=== PATIENT | male | born 1960 | race Caucasian/White ===

== ENCOUNTER 2016-09-14 11:02 | Inpatient (IN) | payer MEDICAID ==
[2016-09-14 12:27] LABS: % IMMATURE GRANULYOCYTES 0.4 % (0.0-1.1); ABSOLUTE IMMATURE GRANULOCYTES 0.03 10^3/uL (0.00-0.10); ADD DIFF? NO; ADD MORPH? NO; ADD SCAN? NO; ATYPICAL LYMPHOCYTE FLAG 30 (0-99); FRAGMENT RBC FLAG 0 (0-99); HEMATOCRIT 33.2 % (40.0-51.0); HEMOGLOBIN 11.4 g/dL (13.7-17.5); LEFT SHIFT FLG 20 (0-99); LIPEMIA HEMOLYSIS FLAG 90 (0-99); MEAN CELL HEMOGLOBIN 32.4 pg (27.9-34.1); MEAN CELL HEMOGLOBIN CONCENTR. 34.3 g/dL (32.4-36.7); MEAN CELL VOLUME 94.3 fL (81.5-99.8); MEAN PLATELET VOLUME 9.2 fL (8.7-11.7); PLATELET CLUMPS FLAG 0 (0-99); PLATELET COUNT 176 10^3/uL (150-400); RED BLOOD CELL COUNT 3.52 10^6/uL (4.40-6.38); RED CELL DISTRIBUTION WIDTH 14.3 % (11.5-15.2)
[2016-09-14] MEDS ORDERED: NS 1,000 ML IV ONE ×2 (12:28)
[2016-09-14] MEDS ORDERED: LORazepam 2 MG/ML INJ IVP ONE (12:28)
--- NOTE | 2016-09-14 12:30 | EDPHY ---
H & P Stated Complaint: pain and infection right leg Source: Patient Exam Limitations: No limitations - Personal History Current Tetanus Diphtheria and Acellular Pertussis (TDAP): Unsure - Medical/Surgical History Hx Asthma: No Hx Chronic Respiratory Disease: No Hx Diabetes: No Hx Cardiac Disease: No Hx Renal Disease: No Hx Cirrhosis: No Hx Alcoholism: Yes Hx HIV/AIDS: No Hx Splenectomy or Spleen Trauma: No Other PMH: PMHx: alcoholism, bowel infection, ivda,heroine abuse,ptsd. PSHx: bowel surgery "a couple years ago." - Social History Smoking Status: Current every day smoker Drug Use: Marijuana Time Seen by Provider: 09/14/16 11:40 HPI/ROS: CHIEF COMPLAINT: right leg complaint HISTORY OF PRESENT ILLNESS: 56-year-old male presents to the emergency department complaining of increasing right leg pain, redness and swelling over the past 3 days. The patient was seen and treated for a cellulitis in his right lower extremity back in May and again in June with hospital admission. The patient reports he was sent home with antibiotics, the redness resolved, he has had continued mild swelling in this right lower leg. 3 days ago he developed increased pain, redness and swelling. He reports subjective fevers and chills. The patient is homeless, he drinks alcohol daily, 1-1.5 pints per day. Last drink was 6 hours ago, 0.5 pint. He reports a history of alcohol withdrawals, denies seizures though reports tremors. REVIEW OF SYSTEMS: A comprehensive 10 point review of systems is otherwise negative aside from elements mentioned in the history of present illness. (Lise Brambila) - Physical Exam Exam: Physical Exam Gen: Alert and Oriented HEENT: PERRL, dry mucous membranes NECK: no meningismus CV: Tachycardic rate and regular rhythm PULM: CTAB, no wheezes ABDOMEN: soft, non tender to palpation, BS present BACK: No CVA tenderness NEURO: Neurologically grossly intact, mild tongue fasciculations, mild hand tremors EXTREMITIES: Right lower leg with circumferential erythema, swelling, tenderness and warmth, multiple scars from wounds, scab to right lateral lower calf, no fluctuance, no lymphangitic streaking SKIN: See above PSYCH: answers questions appropriately. (Lise Brambila) Constitutional: Initial Vital Signs Temperature (C) 37 C 09/14/16 11:08 Heart Rate 114 H 09/14/16 11:08 Respiratory Rate 16 09/14/16 11:08 Blood Pressure 118/89 H 09/14/16 11:08 O2 Sat (%) 94 09/14/16 11:08 O2 Delivery Mode Room Air Allergies/Adverse Reactions: No Known Allergies Allergy (Unverified 05/02/16 23:58) Home Medications: Medication Instructions Recorded NK [No Known Home Meds] 09/14/16 Medical Decision Making ED Course/Re-evaluation: IV established, CBC, chemistry panel, blood cultures, lactic acid, right lower extremity ultrasound obtained. 2 L of normal saline has been ordered. The patient has a heart rate of 115 a temperature of 37.5degrees, he is mildly tremulous. CIWA has been ordered, 1 mg of lorazepam ordered along with 1 g of vancomycin IV. CBC shows an normal white blood cell count, he is afebrile lactate is 1.7. Blood cultures are pending. Patient has been admitted to the hospitalist for IV antibiotics and continued management of his cellulitis. (Lise Brambila) Other Provider: The patient was evaluated and managed by the Physician Library Serials Assistant/ Nurse Practitioner. I discussed the patient's presentation and course with the midlevel provider with them and agree with the evaluation. My co-signature indicates that I have reviewed this chart and I agree with the findings and plan of care as documented. I am the secondary supervising physician. (Maryjane Reyna) - Data Points Laboratory Results: Laboratory Results 09/14/16 12:18 09/14/16 12:18 09/14/16 12:18 WBC 7.07 10^3/uL (3.80-9.50) RBC 3.52 L 10^6/uL (4.40-6.38) Hgb 11.4 L g/dL (13.7-17.5) Hct 33.2 L % (40.0-51.0) MCV 94.3 fL (81.5-99.8) MCH 32.4 pg (27.9-34.1) MCHC 34.3 g/dL (32.4-36.7) RDW 14.3 % (11.5-15.2) Plt Count 176 10^3/uL (150-400) MPV 9.2 fL (8.7-11.7) Neut % (Auto) 72.1 % (39.3-74.2) Lymph % (Auto) 14.9 L % (15.0-45.0) [place] % (Auto) 11.6 % (4.5-13.0) Eos % (Auto) 0.7 % (0.6-7.6) Baso % (Auto) 0.3 % (0.3-1.7) Nucleat RBC Rel Count 0.0 % (0.0-0.2) Absolute Neuts (auto) 5.10 10^3/uL (1.70-6.50) Absolute Lymphs (auto) 1.05 10^3/uL (1.00-3.00) Absolute Monos (auto) 0.82 H 10^3/uL (0.30-0.80) Absolute Eos (auto) 0.05 10^3/uL (0.03-0.40) Absolute Basos (auto) 0.02 10^3/uL (0.02-0.10) Absolute Nucleated RBC 0.00 10^3/uL (0-0.01) Immature Gran % 0.4 % (0.0-1.1) Immature Gran # 0.03 10^3/uL (0.00-0.10) VBG Lactic Acid 1.7 mmol/L (0.7-2.1) Sodium 142 mEq/L (134-144) Potassium 4.2 mEq/L (3.5-5.2) Chloride 101 mEq/L (97-110) Carbon Dioxide 26 mEq/l (22-31) Anion Gap 15 mEq/L (8-16) BUN 7 mg/dL (7-23) Creatinine 0.6 L mg/dL (0.7-1.3) Estimated GFR > 60 Glucose 98 mg/dL (70-100) Calcium 8.6 mg/dL (8.5-10.4) Phosphorus 3.1 mg/dL (2.5-4.5) Magnesium 1.5 L mg/dL (1.6-2.3) Total Bilirubin 0.5 mg/dL (0.1-1.4) Conjugated Bilirubin 0.3 mg/dL (0.0-0.5) Unconjugated Bilirubin 0.2 mg/dL (0.0-1.1) AST 58 IU/L (17-59) ALT 60 IU/L (21-72) Alkaline Phosphatase 98 IU/L (38-126) Total Protein 7.1 g/dL (6.3-8.2) Albumin 3.7 g/dL (3.5-5.0) Medications Given: Discontinued Medications Sodium Chloride (Ns) 1,000 mls @ 0 mls/hr IV ONCE ONE PRN Reason: Wide Open Stop: 09/14/16 12:29 Last Admin: 09/14/16 12:49 Dose: 1,000 mls Sodium Chloride (Ns) 1,000 mls @ 0 mls/hr IV ONCE ONE PRN Reason: Wide Open Stop: 09/14/16 12:29 Last Admin: 09/14/16 13:28 Dose: 1,000 mls Vancomycin/Sodium Chloride (Vancomycin 1 Gm (Premix)) 250 mls @ 250 mls/hr IV EDNOW ONE PRN Reason: Protocol Stop: 09/14/16 13:34 Last Admin: 09/14/16 13:28 Dose: 250 mls Thiamine HCl 500 mg/ Sodium (Chloride) 105 mls @ 210 mls/hr IV ONCE ONE Stop: 09/14/16 14:44 Last Admin: 09/14/16 16:49 Dose: 105 mls Magnesium Sulfate (Magnesium Sulf 2 Gm (Premix)) 50 mls @ 50 mls/hr IV ONCE ONE Stop: 09/14/16 15:46 Last Admin: 09/14/16 15:36 Dose: 50 mls Lorazepam (Ativan Injection) 1 mg IVP EDNOW ONE Stop: 09/14/16 12:29 Last Admin: 09/14/16 12:49 Dose: 1 mg Departure - Departure Disposition: [facility] Inpatient Acute Clinical Impression: Cellulitis Qualifiers: Site of cellulitis: extremity Site of cellulitis of extremity: lower extremity Laterality: right Qualifier Code: (L03.115) Cellulitis of right lower limb Alcohol withdrawal Qualifiers: Complication of substance-induced condition: uncomplicated Qualifier Code: ( F10.230) Alcohol dependence with withdrawal, uncomplicated Condition: Fair
[2016-09-14] MEDS ORDERED: VANCOMYCIN HCL/NORMAL SALINE 250 ML IV ONE (12:35)
[2016-09-14 12:39] LABS: ANION GAP 15 mEq/L (8-16); CALCIUM 8.6 mg/dL (8.5-10.4); CARBON DIOXIDE 26 mEq/l (22-31); CHLORIDE 101 mEq/L (97-110); CREATININE 0.6 mg/dL (0.7-1.3); GLOMERULAR FILTRATION RATE > 60; GLUCOSE 98 mg/dL (70-100); POTASSIUM 4.2 mEq/L (3.5-5.2); SODIUM 142 mEq/L (134-144)
[2016-09-14] MEDS ORDERED: HYDROmorphONE/DILAUDID 1 MG/ML SYR IVP PRN (12:55)
[2016-09-14] MEDS ORDERED: HYDROmorphONE/DILAUDID 1 MG/ML SYR ONE (13:08)
--- NOTE | 2016-09-14 14:06 | US ---
Venous Duplex Doppler Study of the Right Lower Extremity Clinical Indications: 56-year-old male with right lower extremity leg pain. Rule out DVT. The patien t has a prior history of reactive right groin lymph nodes and cellulitis. Technique: A high-frequency transducer was used for imaging and Doppler study of the deep veins of t he right leg from the upper calf to the groin. Pulsed Doppler and color Doppler were utilized, along with various maneuvers, to assess flow in the deep veins. Cursory evaluation of the left common femo ral vein was obtained for comparison purposes, and is normal. Comparison Exam: Right lower extremity venous Doppler ultrasound, dated July 13, 2016 which did no t reveal any evidence of clot, although there were some reactive right groin lymphadenitis observed. Findings: The deep veins of the right groin, thigh, knee, and upper calf are well-displayed, and are normally compressible. Doppler flow patterns are unremarkable. There is no evidence of deep venous thrombosis. There is normal compression of the greater saphenous vein, without superficial thrombosi s. The popliteal fossa is unremarkable. At the level of the right groin, there are some persistent en larged lymph nodes, which contain fatty nacho. The largest currently measures 3.7 x 2.2 x 1.9 cm, and on the previous study this node measured 2.9 x 1.5 x 1.2 cm. Impression: 1. There is no sonographic evidence of deep or superficial venous thrombosis in the right lower 70. 2. Persistent right groin lymphadenitis, with the dominant lymph node marginally larger than on 2015. Clinical correlation is suggested. Results were called to Lise Brambila, Nurse Practitioner. A test result has been communicated to a licensed care provider and documented in [facility], 1:58:40 PM , 09/14/2016, [facility] Message ID [id number].
[2016-09-14] MEDS ORDERED: HALOPERIDOL LACT 5 MG/ML INJ IVP PRN (14:15)
[2016-09-14] MEDS ORDERED: THIAMINE HCL 500 MG in NS 100 ML IV ONE (14:15)
[2016-09-14] MEDS ORDERED: ONDANSETRON DISINTEGRATING 4 MG TAB PO PRN (14:15)
[2016-09-14] MEDS ORDERED: ONDANSETRON 4 MG/2 ML VIAL IVP PRN (14:15)
[2016-09-14] MEDS ORDERED: LORazepam 2 MG/ML INJ IVP PRN (14:15)
[2016-09-14 14:30] LABS: MAGNESIUM 1.5 mg/dL (1.6-2.3)
[2016-09-14] MEDS ORDERED: oxyCODONE IR 5 MG TAB PO PRN (14:40)
[2016-09-14] MEDS ORDERED: MAGNESIUM SULF 2 GM/WATER 50 ML IV ONE (14:47)
[2016-09-14] MEDS ORDERED: oxyCODONE IR 5 MG TAB ONE (15:20)
[2016-09-14] MEDS: NICOTINE 14 MG/24 HR PATCH TD SCH (15:33)
[2016-09-14] MEDS: oxyCODONE IR 5 MG TAB PO PRN ×2 (15:34→22:01)
[2016-09-14 15:39] LABS: ALBUMIN 3.7 g/dL (3.5-5.0); BILIRUBIN,TOTAL 0.5 mg/dL (0.1-1.4); BILIRUBIN-CONJUGATED 0.3 mg/dL (0.0-0.5); BILIRUBIN-UNCONJUGATED 0.2 mg/dL (0.0-1.1); TOTAL PROTEIN 7.1 g/dL (6.3-8.2)
--- NOTE | 2016-09-14 15:41 | GHP ---
[f rep st] HISTORY AND PHYSICAL DATE OF ADMISSION: 09/14/2016 CHIEF COMPLAINT: Right lower extremity cellulitis, alcohol withdrawal. HISTORY OF PRESENT ILLNESS: Patient is a 56-year-old male with history of alcohol abuse, polysubstance abuse, and recurrent right lower extremity cellulitis, presenting with increased right lower extremity pain. He was hospitalized both in May and June for lower extremity cellulitis. At his last discharge, he was sent home on Keflex and said he had much improvement in the swelling and pain of his legs. He comes in now with 1 week's worth of increased swelling. He said the redness and pain that was fire-like started yesterday. He has previously branded his lower extremities with cigarettes what he calls a "spiritual branding." One of these lesions was purulent yesterday after he picked it and tried to clean it. He denies fevers, chills or sweats. No nausea, vomiting, diarrhea. No cough. No chest pain. No numbness or tingling. He is homeless. He drinks a pint of vodka daily, last drink was approximately 5 a.m. he drank a half a pint today. REVIEW OF SYSTEMS: I completed a 10-point review of systems, negative except as noted in HPI. PAST MEDICAL HISTORY: 1. Alcohol abuse. 2. Alcohol withdrawal, no seizures. 3. Recurrent right lower extremity cellulitis. 4. Thrombocytopenia. 5. Hepatitis C. 6. Homelessness. PAST SURGICAL HISTORY: Bowel surgery for some sort of infection he said, left lower extremity fracture with screws, adenoidectomy as a child. SOCIAL HISTORY: He is homeless, does not like staying in shelters. Drinks a pint of vodka daily, most recently 1/2 pint this morning at 5 a.m. Smokes less than a pack of cigarettes a day, previously a pack a day for 30 years. Smokes marijuana. Prior cocaine and heroin. States he has been clean for 7 years. FAMILY HISTORY: Mother with diabetes. Father of CT age 64. MEDICATIONS: None. ALLERGIES: No known drug allergies. PHYSICAL EXAM: VITAL SIGNS: Temperature 37.8, blood pressure 120/80, heart rate of 100, respirations 16, 97% on room air. GENERAL: Patient is disheveled , unkempt, somnolent. HEENT: Pupils are small, but round and reactive. EOMI. Dry mucous membranes. Poor dentition. No erythema or ulceration. CV: Tachy , regular rhythm. No murmurs, gallops, or rubs. LUNGS: Clear to auscultation , but diminished at bases. ABDOMEN: Surgical scar well-healed. No tenderness. Positive bowel sounds throughout. : No Pineda. MUSCULOSKELETAL : Right lower extremity with swelling and significant erythema that I have marked. He has small, round lesions from prior branding, coupled of them scabbed over, 1 with minimal purulence. He has similar round skin lesions on left lower extremity that are healed. NEURO: 2-12 intact. No focal deficits. Positive tongue fasciculations and mild tremor. PSYCH: Alert oriented x3. LABS: WBC 7.0, hemoglobin 11, hematocrit 33, platelets 176. Sodium 142, potassium 4.2, chloride 101, carbon dioxide 26, BUN 7, creatinine 0.6, anion gap 15, glucose 98. Calcium 8.6, phosphorus 3.1, magnesium 1.5. IMAGING: Ultrasound right lower extremity negative for DVT. MICROBIOLOGY: Blood culture is pending. ASSESSMENT AND PLAN: 1. Recurrent right lower extremity cellulitis: This is secondary to picking lesions over the leg. Given history of some purulence, will treat with vancomycin to cover for MRSA and strep. Blood cultures are pending. He is currently afebrile without leukocytosis. Elevate leg. 2. Alcohol withdrawal: Last drink was 5 a.m. this morning. Normally drinks a pint of vodka daily. CIWA protocol. 3. Hypomagnesium: Will replete. 4. Acute pain, secondary to cellulitis: P.r.n. oxycodone. 5. History of alcohol abuse: Patient was counseled on cessation. 6. History of polysubstance abuse: Again, currently using marijuana per his report. He is counseled on cessation. 7. Hepatitis C: Stable. 8. Homelessness: Offered resources for shelters, patient declined. 9. Tobacco abuse: Nicotine patch. 10. Diet: Regular. 11. Deep venous thrombosis prophylaxis: Lovenox. DISPOSITION: Patient warrants inpatient admission given acute alcohol withdrawal requiring benzodiazepines and IV antibiotics. /[id number]/MODL MTDD
[2016-09-14] MEDS: ENOXAPARIN 40 MG/0.4 ML SYR SC SCH (17:56)
[2016-09-14] MEDS: LORazepam 1 MG TAB PO PRN ×2 (17:59→22:01)
[2016-09-14] MEDS: VANCOMYCIN 1.25 GM in D5W 250 ML IV SCH (21:52)
[2016-09-15] MEDS: oxyCODONE IR 5 MG TAB PO PRN ×4 (02:28→21:22)
[2016-09-15] MEDS: LORazepam 1 MG TAB PO PRN ×4 (02:28→21:23)
[2016-09-15] MEDS: ACETAMINOPHEN 325 MG TAB PO PRN ×2 (04:07→21:22)
[2016-09-15 05:30] LABS: ANION GAP 8 mEq/L (8-16); CARBON DIOXIDE 23 mEq/l (22-31); CHLORIDE 103 mEq/L (97-110); CREATININE 0.6 mg/dL (0.7-1.3); GLOMERULAR FILTRATION RATE > 60; GLUCOSE 90 mg/dL (70-100); MAGNESIUM 1.8 mg/dL (1.6-2.3); POTASSIUM 4.6 mEq/L (3.5-5.2); SODIUM 134 mEq/L (134-144)
[2016-09-15] MEDS: VANCOMYCIN 1.25 GM in D5W 250 ML IV SCH ×3 (05:34→21:58)
[2016-09-15 05:50] LABS: % IMMATURE GRANULYOCYTES 0.2 % (0.0-1.1); ABSOLUTE IMMATURE GRANULOCYTES 0.01 10^3/uL (0.00-0.10); ADD DIFF? NO; ADD MORPH? NO; ADD SCAN? NO; ATYPICAL LYMPHOCYTE FLAG 70 (0-99); FRAGMENT RBC FLAG 0 (0-99); HEMATOCRIT 30.8 % (40.0-51.0); HEMOGLOBIN 10.2 g/dL (13.7-17.5); LEFT SHIFT FLG 70 (0-99); LIPEMIA HEMOLYSIS FLAG 80 (0-99); MEAN CELL HEMOGLOBIN 32.4 pg (27.9-34.1); MEAN CELL HEMOGLOBIN CONCENTR. 33.1 g/dL (32.4-36.7); MEAN CELL VOLUME 97.8 fL (81.5-99.8); MEAN PLATELET VOLUME 9.2 fL (8.7-11.7); PLATELET CLUMPS FLAG 10 (0-99); PLATELET COUNT 142 10^3/uL (150-400); RED BLOOD CELL COUNT 3.15 10^6/uL (4.40-6.38); RED CELL DISTRIBUTION WIDTH 14.4 % (11.5-15.2)
[2016-09-15] MEDS: THIAMINE HCL 500 MG in NS 100 ML IV SCH (08:07)
--- NOTE | 2016-09-15 08:52 | HOSPPROG ---
Hospitalist Progress Note Assessment/Plan: patient is a 56-year-old male who presented to the emergency room with recurrent right lower extremity cellulitis. He has a history of being hospitalized in both May for the similar symptoms. He has a history of picking at his wounds. Today is my 1st encounter with the patient. Chart reviewed. #. Recurrent right lower extremity cellulitis - patient has a history of picking at his skin - being treated with vancomycin to cover for MR assay and strep - blood cultures are pending #. pain due to cellulitis #. alcohol abuse and withdrawal - drinks a pt of vodka daily -high risk for withdrawing/ will order vodka w lunch -doubtful he will quit drinking/ - CIWA #. hypomagnesium #. hepatitis-C #. homelessness -will discuss w CM #. nicotine dependence - nicotine patch #.Plan: will discuss case with ID/ this is becoming more chronic cellulitis Subjective: Piyush is c/o right lower ext leg pain. Objective: Vital Signs Temp Pulse Resp BP Pulse Ox 36.9 C 75 18 141/80 H 97 09/15/16 08:00 09/15/16 08:00 09/15/16 08:00 09/15/16 08:00 09/15/16 08:00 Laboratory Results 09/15/16 05:31 09/15/16 05:00 09/14/16 09/15/16 09/16/16 05:59 05:59 05:59 Intake Total 2950 Output Total 700 300 Balance 2250 -300 - Physical Exam Constitutional: chronically ill appearing, unkempt Eyes: PERRL Ears, Nose, Mouth, Throat: hearing normal Cardiovascular: regular rate and rhythym Respiratory: no respiratory distress Gastrointestinal: normoactive bowel sounds Skin: warm, other (right lower ext with redness/warmth/ has small pocket size scars that are reddened) Musculoskeletal: muscular tenderness Neurologic: AAOx3 Psychiatric: not encephalopathic, anxious ICD10 Worksheet Patient Problems: Problems Problem Status Diagnosed Bacteremia Active Peritonitis Active Alcohol withdrawal Acute Cellulitis Acute Neuropathy of left radial nerve Acute Alcohol withdrawal syndrome with complication Acute Cellulitis and abscess of leg Acute Weakness of left upper extremity Acute
[2016-09-15] MEDS: NICOTINE 14 MG/24 HR PATCH TD SCH (09:43)
[2016-09-15] MEDS: ENOXAPARIN 40 MG/0.4 ML SYR SC SCH (09:43)
[2016-09-15] MEDS ORDERED: VODKA 50 ML BOTTLE PO SCH ×2 (12:00→18:00)
--- NOTE | 2016-09-15 15:32 | WOCRNPDOC ---
WOCRN Advanced Assessment Note - Skin Integrity Problem, Advanced Assess Right Lower Leg Dressing Type: Open to Air Exudate Amount: None Ofelia Wound Tissue: Erythema, Hot, Swollen Wound Bed Color: Black, [place] Wound Bed Constitution: Scab Site Measurement - Head-to-Toe Length X Width X Depth (cm): [id number] Skin Integrity Problem Comment: Cover scab with silvasorb and allevyn. Please reconsult prn.
[2016-09-16] MEDS: oxyCODONE IR 5 MG TAB PO PRN ×5 (05:08→23:19)
[2016-09-16] MEDS: ACETAMINOPHEN 325 MG TAB PO PRN (05:09)
[2016-09-16] MEDS: VANCOMYCIN 1.25 GM in D5W 250 ML IV SCH ×3 (05:09→20:19)
[2016-09-16] MEDS: LORazepam 1 MG TAB PO PRN ×4 (05:14→23:19)
[2016-09-16 05:30] LABS: % IMMATURE GRANULYOCYTES 0.4 % (0.0-1.1); ABSOLUTE IMMATURE GRANULOCYTES 0.02 10^3/uL (0.00-0.10); ADD DIFF? NO; ADD MORPH? NO; ADD SCAN? NO; ATYPICAL LYMPHOCYTE FLAG 60 (0-99); FRAGMENT RBC FLAG 0 (0-99); HEMATOCRIT 33.1 % (40.0-51.0); HEMOGLOBIN 10.9 g/dL (13.7-17.5); LEFT SHIFT FLG 30 (0-99); LIPEMIA HEMOLYSIS FLAG 80 (0-99); MEAN CELL HEMOGLOBIN 32.2 pg (27.9-34.1); MEAN CELL HEMOGLOBIN CONCENTR. 32.9 g/dL (32.4-36.7); MEAN CELL VOLUME 97.6 fL (81.5-99.8); MEAN PLATELET VOLUME 9.7 fL (8.7-11.7); PLATELET CLUMPS FLAG 0 (0-99); PLATELET COUNT 196 10^3/uL (150-400); RED BLOOD CELL COUNT 3.39 10^6/uL (4.40-6.38); RED CELL DISTRIBUTION WIDTH 13.7 % (11.5-15.2)
[2016-09-16 05:59] LABS: ANION GAP 10 mEq/L (8-16); CALCIUM 8.9 mg/dL (8.5-10.4); CARBON DIOXIDE 24 mEq/l (22-31); CHLORIDE 104 mEq/L (97-110); CREATININE 0.5 mg/dL (0.7-1.3); GLOMERULAR FILTRATION RATE > 60; GLUCOSE 98 mg/dL (70-100); POTASSIUM 4.3 mEq/L (3.5-5.2); SODIUM 138 mEq/L (134-144)
[2016-09-16] MEDS: VODKA 50 ML BOTTLE PO SCH ×2 (10:05→20:19)
[2016-09-16] MEDS: NICOTINE 14 MG/24 HR PATCH TD SCH (10:06)
[2016-09-16] MEDS: ENOXAPARIN 40 MG/0.4 ML SYR SC SCH (10:06)
[2016-09-16] MEDS: THIAMINE HCL 500 MG in NS 100 ML IV SCH (10:26)
--- NOTE | 2016-09-16 10:26 | GCON ---
[f rep st] CONSULTATION INFECTIOUS DISEASE CONSULTATION. DATE OF CONSULTATION: 09/16/2016 REFERRING PHYSICIAN: Monica Portillo NP REASON FOR CONSULTATION: Right lower extremity cellulitis. CHIEF COMPLAINT: Right lower extremity redness and pain. HISTORY OF PRESENT ILLNESS: This is a 56-year-old, male with a past medical history signif icant for alcohol abuse, polysubstance abuse, recurrent right lower extremity cellulitis, who present ed with increasing redness of the right lower extremity that started 5 days ago. He was having fever s and shaking chills as an outpatient and increasing pain, and thus came in for evaluation. He had a low-grade temperature of 37.9 on admission, tachycardic to 114. He was started on vancomycin 1.25 g q.8 hours. Blood cultures x2 sets were drawn and thus far no growth. I reviewed his previous medic al history. Back in 2011, he had infections related to MSSA and group A strep. He was recently hosp italized here in June for wound infections. No wound cultures were done at that time. Currently, he has been on a day and a half of vancomycin with improvement but still ongoing erythema involving the right lower extremity and pain. He does shows some significant improvement in the degree of swel ling of that extremity. He is afebrile. His white blood count is within normal range. On previous episodes of cellulitis he has been treated with Keflex and has showed good clinical improvement. At that time, most recently in June of 2016, he was on Ancef during hospitalization and transitioned to Keflex in the outpatient. Infectious Disease is now consulted for further evaluation. REVIEW OF SYSTEMS: GENERAL: Had some fevers and shaking chills prior to admission which have improv ed, although he does have some chronic shakes in general. HEAD: Denies any headaches. EYES: No ch miguelina in vision. ENT: No sore throat, difficulty swallowing, ear pain or ear drainage. CARDIOVASCUL AR: Denies any chest pain or rapid heartbeat. RESPIRATORY: Has some chronic intermittent shortness of breath with sputum production, but has not been increase of late. ABDOMEN: No nausea, vomiting. No abdominal pain. Intermittent loose stools versus solid stools. : No dysuria. BACK: Denies any back pain or flank pain. EXTREMITIES: He is complaining of left hip pain and sacral pain. MUS CULOSKELETAL: No other joint pains or muscle aches except for the right lower extremity pain or swel ling. SKIN: As above. Rest of 10-point review of system was essentially negative except for above. PAST MEDICAL HISTORY: Significant for history of alcohol abuse, alcohol withdrawal with no seizures, thrombocytopenia, hepatitis C, recurrent right lower extremity cellulitis, hepatitis B infectious na turally acquired with hepatitis B surface antibody positive. Last HIV check was done in June [facility] was negative. PAST SURGICAL HISTORY: Significant for bowel surgery, left lower extremity fracture with screws in p lace, and adenoidectomy as a child. ALLERGIES: No known drug allergies. SOCIAL HISTORY: He is homeless. He drinks a pint of vodka daily. He smokes less than a pack of cig arettes per day. He smokes marijuana. Prior history of illicit drug use with cocaine and heroin but none since 7 years. FAMILY HISTORY: Significant for diabetes mellitus and MD. MEDICATIONS: As per NOV. PHYSICAL EXAMINATION: VITAL SIGNS: Temperature is 36.8, pulse is 82, respiratory rate is 18, satura tion 94% on room air, blood pressure 146/96. GENERAL: He is sitting up in bed, in no acute respira tory distress. Awake, alert, oriented x3. HEENT. HEAD: Normocephalic, atraumatic. Pupils are equ al, round, reactive to light. No conjunctival injection. No petechiae noted. Oropharynx is clear. No posterior erythema or thrush. CARDIOVASCULAR: S1, S2. Regular rate and rhythm. No obvious mur murs appreciated. RESPIRATORY: Exam clear to auscultate bilaterally. No rhonchi appreciated. ABDO MEN: Positive bowel sounds in all quadrants. Soft, nontender, nondistended. Surgical scar noted in the lower midline abdomen which is well healed. EXTREMITIES: Right lower extremity edema with some wrinkling in place. MUSCULOSKELETAL: No obvious joint effusions. He does have some pain on palpat ion of the left buttock and the sacrum region. SKIN: He has right lower extremity erythema which is somewhat improved from the areas of demarcation that is still present. Some mild swelling right ove r the anterior garcia with some tenderness to palpation. He has a small half centimeter wound that is superficial with some purulent drainage noted underlying the dressing. Skin is warm on the left and right lower extremity. LABORATORY DATA: White blood cell count was 5.2, hemoglobin 10.9, platelets 196, neutrophil count 65 %. Sodium 138, potassium 4.3, chloride 104, bicarb 24, BUN 6, creatinine 0.5. LFTs within normal ra nge done 2 days ago. Vancomycin trough 11.6 yesterday evening. On previous review of records in June of 2016, he showed reactive hepatitis C antibody, reactive hepatitis B core total antibody, positive hepatitis B surface antibody, negative hepatitis B surface antigen, and a negative HIV. Blood cultures x2 sets are no growth to date. Right lower extremity ultrasound shows no DVT. ASSESSMENT: 1. Recurrent right lower extremity cellulitis with a small superficial wound. 2. Hepatitis C needs further evaluation. PLAN: The patient is currently on vancomycin and is showing some improvement. His latest wound cult ures were back from 2011, which showed MSSA and group A strep from the blood cultures as well as the wound cultures. He has most recently been responding to Ancef and Keflex therapy and has had multipl e hospitalizations this year already. We will swab the wound to further evaluate for any colonizatio n or infection related to MRSA, if not then we will continue with MSSA directive therapy. Advised hi m continued elevation of his right lower extremity. I think he would benefit from at least another 2 4 hours, possibly 48 hours of IV antibiotics and hopefully transition thereafter to oral antibiotic t herapy. After his hepatitis C, we will check a viral hepatitis C RNA level to further evaluate, as w ell as check hepatitis A antibody status as well. If he shows no immunity to hepatitis A, would magi mmend hepatitis A vaccination to be started. He will likely require further evaluation of his hepati tis C in the outpatient. Care coordinated with the hospitalist team, as well as the nurse and wound care. I thank you very much for the opportunity to care for patient in consultation. /[id number]/MODL
--- NOTE | 2016-09-16 11:32 | HOSPPROG ---
Hospitalist Progress Note Assessment/Plan: patient is a 56-year-old male who presented to the emergency room with recurrent right lower extremity cellulitis. He has a history of being hospitalized in both May & June for the similar symptoms. He has a history of picking at his wounds. Reviewed his care with Dr Marques. #. Recurrent right lower extremity cellulitis - patient has a history of picking at his skin - on vancomycin /appreciate Infectious Disease consult -wound cx sent by Dr Marques #. pain due to cellulitis #. gait instability with recent fall prior to this admission - will ask PT and OT to further evaluate #. left hip pain and left low back pain due to the fall - will get x-rays to rule out any type of fracture -trial of Lidoderm patches #. alcohol abuse and withdrawal - on CINY protocol - placed on vodka twice daily with much improvement of his symptoms - doubtful Piyush will ever quit drinking. #. hypomagnesium #. hepatitis-C #. homelessness -will discuss w CM #. nicotine dependence - nicotine patch #.Plan: get x-rays, continue IV vancomycin. Will likely be in the hospital for 1-2 more days. Subjective: Piyush is c/o left low back and left hip pain but is able to ambulate. Objective: Vital Signs Temp Pulse Resp BP Pulse Ox 36.9 C 88 20 159/92 H 94 09/16/16 11:20 09/16/16 11:20 09/16/16 11:20 09/16/16 11:20 09/16/16 11:20 Microbiology 09/16/16 09:00 Gram Stain - Final Leg - Swab Laboratory Results 09/16/16 04:50 09/16/16 04:50 09/15/16 09/16/16 09/17/16 05:59 05:59 05:59 Intake Total 2950 2055 Output Total 700 4200 400 Balance 2250 -6885 -400 - Physical Exam Constitutional: chronically ill appearing, No not in pain Eyes: PERRL, EOMI Ears, Nose, Mouth, Throat: hearing normal Cardiovascular: regular rate and rhythym, No tachycardia Respiratory: no rales or rhonchi Gastrointestinal: normoactive bowel sounds Skin: other (right garcia area with less redness and erythema today/ has ecchymosis on left upper leg area) Musculoskeletal: muscular tenderness (left low back area) Neurologic: AAOx3 Psychiatric: thought process linear, anxious ICD10 Worksheet Patient Problems: Problems Problem Status Diagnosed Bacteremia Active Peritonitis Active Alcohol withdrawal Acute Cellulitis Acute Neuropathy of left radial nerve Acute Alcohol withdrawal syndrome with complication Acute Cellulitis and abscess of leg Acute Weakness of left upper extremity Acute
[2016-09-16] MEDS: LIDOCAINE 5% 1 EA PATCH TD SCH (12:42)
--- NOTE | 2016-09-16 14:19 | DX ---
Lumbar Spine, Two Views History: Back pain post fall. Findings: L1 mild anterior wedge compression fracture. Moderate degenerative disk disease with moderate disk space narrowing at L3-L4, L4-L5, and L5-S1, wor st at L4-L5, with degenerative grade 1 anterolisthesis at L5-S1. Atherosclerotic abdominal aorta with infrarenal abdominal aortic aneurysm measuring 4.3 cm. Impression: 1. L1 mild anterior wedge compression fracture. 2. Abdominal aortic aneurysm 4.3 cm. 3. Recommend MRI lumbar spine without contrast for further evaluation. Findings and recommendations discussed with Dr. Monica Portillo at 1340 hours today.
--- NOTE | 2016-09-16 15:20 | DX ---
Left hip, 2 views History: Fall. Trauma, pain. Findings: Left femoral head and neck region demonstrate subtle cortical irregularity in the femoral n david on the oblique view, which may represent a nondisplaced femoral neck fracture. The rest of the pe lvic bones appear intact. Bilateral cam femoral head deformities noted. Mild osteoarthritis of bilate ral acetabuli, worse on the left. Impression: 1. Possible occult left femoral neck fracture. 2. Recommend CT pelvis for further evaluation.
--- NOTE | 2016-09-16 17:32 | CT ---
CT Left Hip September 16, 2016 Indication: Hip pain. Equivocal femoral neck fracture on left hip series. Technique: 1.25 mm thick helically acquired slices were obtained through the left hemipelvis. Data we re reconstructed in the axial, coronal, and sagittal planes and bone algorithm and in the axial plane and soft tissue algorithm. Dose reduction measures were utilized. Comparison: Two-view left hip series performed three hours prior. Findings: No acute femoral neck fracture. The left hip is anatomically aligned with minimal osteoarth ritis evidenced by joint space narrowing and small degenerative cysts in the femoral head. A "bump" a long the junction of the left femoral head and neck associated with the subcortical cysts is characte ristic of cam-type femoral acetabular impingement. No bone lesion or effusion. The imaged portion of the pelvis is negative. Impression: 1. No acute femoral neck fracture. 2. Cam-type femoral acetabular impingement.
[2016-09-16] MEDS: PATCH REMOVAL 1 EA PATCH TD SCH (20:19)
[2016-09-17] MEDS: LORazepam 1 MG TAB PO PRN ×4 (04:31→22:50)
[2016-09-17] MEDS: VANCOMYCIN 1.25 GM in D5W 250 ML IV SCH ×3 (04:32→20:51)
[2016-09-17] MEDS: oxyCODONE IR 5 MG TAB PO PRN ×5 (04:32→22:50)
[2016-09-17 05:52] LABS: % IMMATURE GRANULYOCYTES 0.7 % (0.0-1.1); ABSOLUTE IMMATURE GRANULOCYTES 0.03 10^3/uL (0.00-0.10); ADD DIFF? NO; ADD MORPH? NO; ADD SCAN? NO; ATYPICAL LYMPHOCYTE FLAG 70 (0-99); FRAGMENT RBC FLAG 0 (0-99); HEMATOCRIT 37.1 % (40.0-51.0); HEMOGLOBIN 12.2 g/dL (13.7-17.5); LEFT SHIFT FLG 10 (0-99); LIPEMIA HEMOLYSIS FLAG 80 (0-99); MEAN CELL HEMOGLOBIN 31.9 pg (27.9-34.1); MEAN CELL HEMOGLOBIN CONCENTR. 32.9 g/dL (32.4-36.7); MEAN CELL VOLUME 97.1 fL (81.5-99.8); MEAN PLATELET VOLUME 9.5 fL (8.7-11.7); PLATELET CLUMPS FLAG 0 (0-99); PLATELET COUNT 284 10^3/uL (150-400); RED BLOOD CELL COUNT 3.82 10^6/uL (4.40-6.38); RED CELL DISTRIBUTION WIDTH 13.4 % (11.5-15.2)
[2016-09-17 06:07] LABS: ANION GAP 13 mEq/L (8-16); CALCIUM 9.4 mg/dL (8.5-10.4); CARBON DIOXIDE 27 mEq/l (22-31); CHLORIDE 101 mEq/L (97-110); CREATININE 0.6 mg/dL (0.7-1.3); GLOMERULAR FILTRATION RATE > 60; GLUCOSE 122 mg/dL (70-100); MAGNESIUM 1.9 mg/dL (1.6-2.3); POTASSIUM 4.3 mEq/L (3.5-5.2); SODIUM 141 mEq/L (134-144)
[2016-09-17] MEDS: VODKA 50 ML BOTTLE PO SCH ×2 (08:54→20:51)
[2016-09-17] MEDS: THIAMINE HCL 100 MG TAB PO SCH (08:57)
[2016-09-17] MEDS: LIDOCAINE 5% 1 EA PATCH TD SCH ×2 (08:57→11:01)
[2016-09-17] MEDS: NICOTINE 14 MG/24 HR PATCH TD SCH (08:57)
[2016-09-17] MEDS: ENOXAPARIN 40 MG/0.4 ML SYR SC SCH (08:59)
[2016-09-17] MEDS: IBUPROFEN 200 MG TAB PO PRN ×2 (09:34→20:50)
--- NOTE | 2016-09-17 14:11 | PCMIDPN ---
Assessment/Plan: Assessment: Right lower extremity cellulitis-tender point area mid garcia just superior to and excoriation. Covered currently with vancomycin therapy and apparently improving clinically. Does not seem like there is a drainable collection at the garcia area. Will continue to treat with vancomycin and monitor for clinical improvement. Of note the patient admits to using a cigarette to purposely scar his legs in a pattern by burning the skin. Plan: 1. Continue vancomycin empirically. 2. Follow-up appearance of right lower extremity. 3. Follow up on vanc trough in 2 doses. Subjective: Patient is resting in his hospital bed. He notes that his right lower extremity seems to be somewhat improved but that tenderness in the anterior aspect is still significant. No fevers or chills. No rash. Objective: Vancomycin # 3 Vital Signs Temp Pulse Resp BP Pulse Ox 36.6 C 99 20 143/92 H 95 09/17/16 12:00 09/17/16 12:00 09/17/16 12:00 09/17/16 12:00 09/17/16 12:00 Microbiology 09/16/16 09:00 Gram Stain - Final Leg - Swab Laboratory Results 09/17/16 05:32 09/17/16 05:32 09/16/16 09/17/16 09/18/16 05:59 05:59 05:59 Intake Total 2055 2160 Output Total 4200 900 Balance -2145 1260 - Physical Exam General Appearance: WD/WN, alert, no apparent distress, non-toxic Respiratory: lungs clear, normal breath sounds, No respiratory distress Cardiac/Chest: regular rate, rhythm, No tachycardia Extremities: No non-tender, No normal inspection (Right lower extremity with dusky erythema with point tenderness in the anterior mid garcia. No fluctuance. No drainage.) Skin: normal color, warm/dry, rash (Series of lower extremity scar as an and disc pattern) ICD10 Worksheet Patient Problems: Problems Problem Status Diagnosed Bacteremia Active Peritonitis Active Alcohol withdrawal Acute Cellulitis Acute Neuropathy of left radial nerve Acute Alcohol withdrawal syndrome with complication Acute Cellulitis and abscess of leg Acute Weakness of left upper extremity Acute
--- NOTE | 2016-09-17 16:19 | HOSPPROG ---
Hospitalist Progress Note Assessment/Plan: patient is a 56-year-old male who presented to the emergency room with recurrent right lower extremity cellulitis. He has a history of being hospitalized in both May & June for the similar symptoms. He has a history of picking at his wounds. Reviewed his care with Dr Badillo. #. Recurrent right lower extremity cellulitis - patient has a history of picking at his skin and cigarette guillen - on vancomycin /appreciate Infectious Disease consult #. pain due to cellulitis #. left hip pain / has a Cam-type femoral acetabular impingement explained to patient that he does not have a hip fracture this requires supportive treatment with anti-inflammatories and physical therapy #. mild L1 compression fracture supportive care at this time/ this does not appear to be his main issue #. gait instability with recent fall prior to this admission - physical therapy occupational therapy working with him - ambulating well in the room #. alcohol abuse and withdrawal - on CIWA protocol - placed on vodka twice daily with much improvement of his symptoms - doubtful Piyush will ever quit drinking. #. hypomagnesium #. hepatitis-C - labs pending #. homelessness -will discuss w CM #. nicotine dependence - nicotine patch #.Plan: continue IV vancomycin, hopefully can go on oral medications soon. Subjective: Piyush is complaining of right lower extremity pain, left hip pain. Objective: Vital Signs Temp Pulse Resp BP Pulse Ox 37.1 C 81 18 137/84 H 95 09/17/16 15:56 09/17/16 15:56 09/17/16 15:56 09/17/16 15:56 09/17/16 15:56 Microbiology 09/16/16 09:00 Gram Stain - Final Leg - Swab Laboratory Results 09/17/16 05:32 09/17/16 05:32 09/16/16 09/17/16 09/18/16 05:59 05:59 05:59 Intake Total 2054 2160 Output Total 4200 900 Balance -2145 1260 - Physical Exam Constitutional: chronically ill appearing, unkempt, cachectic, No not in pain Eyes: PERRL Ears, Nose, Mouth, Throat: hearing normal Cardiovascular: regular rate and rhythym Respiratory: no respiratory distress Gastrointestinal: normoactive bowel sounds Skin: other ( Ecchymosis to the left upper thigh area around the hamstrings. Right lower extremity redness is dissipating has less erythema) Musculoskeletal: muscular tenderness Neurologic: AAOx3 Psychiatric: interacting appropriately, anxious ICD10 Worksheet Patient Problems: Problems Problem Status Diagnosed Bacteremia Active Peritonitis Active Alcohol withdrawal Acute Cellulitis Acute Neuropathy of left radial nerve Acute Alcohol withdrawal syndrome with complication Acute Cellulitis and abscess of leg Acute Weakness of left upper extremity Acute
[2016-09-17] MEDS: PATCH REMOVAL 1 EA PATCH TD SCH (20:27)
[2016-09-18] MEDS: VANCOMYCIN 1.25 GM in D5W 250 ML IV SCH ×2 (04:41→12:35)
[2016-09-18] MEDS: IBUPROFEN 200 MG TAB PO PRN ×3 (04:44→19:13)
[2016-09-18] MEDS: oxyCODONE IR 5 MG TAB PO PRN ×5 (04:44→22:18)
[2016-09-18] MEDS: LORazepam 1 MG TAB PO PRN ×2 (04:44→08:44)
[2016-09-18] MEDS: NICOTINE 14 MG/24 HR PATCH TD SCH (08:32)
[2016-09-18] MEDS: LIDOCAINE 5% 1 EA PATCH TD SCH ×3 (08:32→19:13)
[2016-09-18] MEDS: THIAMINE HCL 100 MG TAB PO SCH (08:33)
[2016-09-18] MEDS: ENOXAPARIN 40 MG/0.4 ML SYR SC SCH ×2 (08:33→08:38)
[2016-09-18] MEDS: VODKA 50 ML BOTTLE PO SCH ×2 (08:33→21:14)
--- NOTE | 2016-09-18 10:23 | HOSPPROG ---
Hospitalist Progress Note Assessment/Plan: Patient is a 56-year-old male who presented to the emergency room with recurrent right lower extremity cellulitis. He has a history of being hospitalized in both May & June for the similar symptoms. He has a history of picking at his wounds. Also, has hx of burning skin with cigarettes. #. Recurrent right lower extremity cellulitis - patient has a history of picking at his skin and cigarette guillen - on vancomycin /appreciate Infectious Disease consult #. pain due to cellulitis #. left hip pain / has a Cam-type femoral acetabular impingement explained to patient that he does not have a hip fracture this requires supportive treatment with anti-inflammatories and physical therapy patient is able to ambulate well in the room #. mild L1 compression fracture supportive care at this time/ this does not appear to be his main issue #. gait instability with recent fall prior to this admission - physical therapy occupational therapy working with him #. alcohol abuse and withdrawal - DC CIWA - placed on vodka twice daily with much improvement of his symptoms - doubtful Piyush will ever quit drinking. #. hypomagnesium #. hepatitis-C - labs pending #. homelessness #. Nicotine dependence - nicotine patch #.Plan: case management working for placement, continue vancomycin. Appreciate Infectious Disease involvement. Subjective: Piyush said pain is improving and is hip and leg area. Objective: Vital Signs Temp Pulse Resp BP Pulse Ox 36.9 C 73 16 118/79 95 09/18/16 04:00 09/18/16 04:00 09/18/16 04:00 09/18/16 04:00 09/18/16 04:00 Microbiology 09/16/16 09:00 Gram Stain - Final Leg - Swab Laboratory Results 09/17/16 05:32 09/17/16 05:32 09/17/16 09/18/16 09/19/16 05:59 05:59 05:59 Intake Total 2160 400 Output Total 900 550 Balance 1260 -150 - Physical Exam Constitutional: chronically ill appearing, unkempt, cachectic Eyes: PERRL Ears, Nose, Mouth, Throat: hearing normal Cardiovascular: regular rate and rhythym Respiratory: no respiratory distress Gastrointestinal: normoactive bowel sounds Skin: other ( right lower extremity cellulitis is slowly improving /pain is mainly over the upper garcia area) Musculoskeletal: generalized weakness Neurologic: AAOx3 Psychiatric: interacting appropriately, not encephalopathic ICD10 Worksheet Patient Problems: Problems Problem Status Diagnosed Bacteremia Active Peritonitis Active Alcohol withdrawal Acute Cellulitis Acute Neuropathy of left radial nerve Acute Alcohol withdrawal syndrome with complication Acute Cellulitis and abscess of leg Acute Weakness of left upper extremity Acute
[2016-09-18] MEDS: ACETAMINOPHEN 325 MG TAB PO PRN (12:43)
[2016-09-18 12:50] LABS: HCV QT RNA PCR < 1 IU/mL (<15)
--- NOTE | 2016-09-18 15:01 | PCMIDPN ---
Assessment/Plan: Assessment/Plan: * Right lower extremity cellulitis: Anterior garcia now appears to be evolving fluctuant focus. Will obtain surgical consultation to see if this can be incised and drained. Cellulitis appears stable. Culture obtained from posterior calf shows MSSA by chromagar testing. Will change vancomycin to cefazolin. * Positive hepatitis C antibody: Hepatitis C RNA undetectable. Either represents spontaneous clearance of infection versus false positive hepatitis C antibody although favor former. 09/18/16 14:54 Subjective: Patient complains of pain along right anterior garcia. No interval change in erythema. Objective: Vital Signs Temp Pulse Resp BP Pulse Ox 37.1 C 98 18 141/99 H 93 09/18/16 10:00 09/18/16 10:00 09/18/16 10:00 09/18/16 10:00 09/18/16 10:00 Microbiology 09/16/16 09:00 Gram Stain - Final Leg - Swab Laboratory Results 09/17/16 05:32 09/17/16 05:32 09/17/16 09/18/16 09/19/16 05:59 05:59 05:59 Intake Total 2160 400 Output Total 900 550 Balance 1260 -150 Vancomycin # 4 Blood cultures x2 no growth Wound culture with Staph aureus which is MSSA by chromagar testing - Physical Exam General Appearance: alert, no apparent distress EENT: pharynx normal, No scleral icterus Cardiac/Chest: regular rate, rhythm, No systolic murmur Extremities: inflammation (Right anterior garcia with area of erythema, warmth and tenderness with edema decreasing; approximately 3 cm diameter area that appears to be fluctuant anteriorly with associated tenderness) Abdomen: non-tender, No distended Skin: other (Multiple hyperpigmented scars from prior guillen) ICD10 Worksheet Patient Problems: Problems Problem Status Diagnosed Bacteremia Active Peritonitis Active Alcohol withdrawal Acute Cellulitis Acute Neuropathy of left radial nerve Acute Alcohol withdrawal syndrome with complication Acute Cellulitis and abscess of leg Acute Weakness of left upper extremity Acute
[2016-09-18] MEDS ORDERED: LIDOCAINE 1% 30 ML SDV IF ONE (15:03)
[2016-09-18] MEDS: ceFAZolin 2 GM/DEXTROSE 100 ML IV SCH ×2 (15:21→21:14)
--- NOTE | 2016-09-18 16:59 | GCON ---
[f rep st] CONSULTATION CHIEF COMPLAINT: Right lower extremity cellulitis and pain. HISTORY OF PRESENT ILLNESS: This is a 56-year-old male, admitted to the medical service since September 14. At that point in time, the patient presented with a cellulitic right lower extremity. He has subsequently been admitted and monitored, as well as started on broad-spectrum IV antibiotics. The cellulitis is improving, as well as the patient's pain. However, today on examination it was felt that the patient had developed an area of fluctuance which was not previously seen, which prompted my consultation. On meeting the patient, he said that he has been admitted multiple times in the past for both upper and lower extremity cellulitis and abscesses. He has had I and Ds multiple of his upper and lower extremities, and is familiar with the process. He is a homeless man with previous history of IV drug abuse, as well as a current history of self-mutilation, including lit cigarettes to the lower extremities. The patient states that he has had pain and redness of the lower extremity for a significant amount of time. He denies having fevers, but does endorse having some subjective chills. PAST MEDICAL HISTORY: 1. Alcohol abuse. 2. Alcohol withdrawal. 3. Recurrent right lower extremity cellulitis. 4. Thrombocytopenia. 5. Hepatitis C. 6. Homeless. PAST SURGICAL HISTORY: History of laparotomy and bowel resection for previous infection, left lower extremity fracture with screws, multiple I and Ds of upper and lower extremities for localized abscesses. SOCIAL HISTORY: Homeless. Drinks at least a pint of vodka daily. States that he has been clean with both IV drug and cocaine abuse for greater than 5 years. FAMILY HISTORY: Noncontributory. CURRENT MEDICATIONS: None. ALLERGIES: None. PHYSICAL EXAM: VITAL SIGNS: Temperature 37.1, blood pressure 141/99, heart rate 98, and he is 93% on room air. GENERAL: He is alert and oriented, in no acute distress. CV: He has regular rate and rhythm without any murmurs. LUNGS : Clear to auscultation bilaterally. ABDOMEN: Soft. He has previously well- healed scars. There is no rebound tenderness. EXTREMITIES: Both upper extremities have signs of previous I and Ds with no active cellulitis. The right lower extremity has an area of demarcation on the anterior portion of the lower leg which appears to have regressed from its previous markings. In the anterior portion of the midshin, I do appreciate a fluctuance which is significantly tender to palpation. The fluctuance measures about the size of 1 x 2 cm in greatest dimension to my examination, although it is tender to palpation. The distal pulses in the right lower extremity are intact and palpable. LABS: White blood cell count 4, H and H 12 in 37. Chemistries are unremarkable. He does have cultures taken of what appears to be the skin and are positive for Staph aureus MSSA at this point in time. ASSESSMENT AND PLAN: A 56-year-old male with recurrent right lower extremity cellulitis with abscess. I discussed the patient's diagnosis with him. He is familiar with the process. I do feel that incision and drainage would provide adequate source control, in addition allowing us to get adequate cultures of the area. I discussed the risks, benefits, and alternatives to bedside I and D , and the patient is amenable to this. I will plan to open the area up, take cultures, pack it, and wound care accordingly. /[id number]/MODL MTDD
--- NOTE | 2016-09-18 17:24 | GOP ---
[f rep st] OPERATIVE REPORT DATE OF OPERATION: 09/18/2016 SURGEON: Arnol Flores MD VP GENETIC: None. ANESTHESIA: Local consisting of 1% lidocaine. PREOPERATIVE DIAGNOSIS: Right lower extremity abscess. POSTOPERATIVE DIAGNOSIS: Right lower extremity abscess. PROCEDURE PERFORMED: Incision and drainage of right lower extremity abscess under local anesthesia. FINDINGS: About 4 cc pus evacuated from the area. Hemostasis achieved. Wound was packed. SPECIMENS: Cultures taken of purulent fluid. ESTIMATED BLOOD LOSS: 2 cc. DESCRIPTION OF PROCEDURE: Prior to beginning, a [employer] timeout was performed, af ter which the right lower extremity was prepped and draped in typical sterile fashion. I identified the area of greatest fluctuance approximately 2 x 1 cm in the anterior portion of the ri ght garcia. Using 1% lidocaine, I created a field block around the area. I then made a 2 cm longitudi nal incision across the area of greatest fluctuance, over which I obtained immediate purulent materia l. Cultures of this were taken. I then irrigated the area with 40 cc sterile saline, noting clear a ffluent and no further pus within the cavity. The cavity was then checked for hemostasis, which was noted to be good. It was then packed with a pa rtial 4x4 and a compression dressing was placed. The patient tolerated the procedure without any intraoperative complications and overall, tolerated t he procedure well. DRAINS: None. /[id number]/MODL
[2016-09-18] MEDS: PATCH REMOVAL 1 EA PATCH TD SCH (19:40)
[2016-09-19] MEDS: oxyCODONE IR 5 MG TAB PO PRN ×6 (02:17→23:06)
[2016-09-19] MEDS: IBUPROFEN 200 MG TAB PO PRN ×3 (02:17→17:49)
[2016-09-19] MEDS: ceFAZolin 2 GM/DEXTROSE 100 ML IV SCH ×3 (06:30→21:39)
[2016-09-19] MEDS: NICOTINE 14 MG/24 HR PATCH TD SCH (07:33)
[2016-09-19] MEDS: LIDOCAINE 5% 1 EA PATCH TD SCH (07:33)
[2016-09-19] MEDS: ENOXAPARIN 40 MG/0.4 ML SYR SC SCH (07:34)
[2016-09-19] MEDS: THIAMINE HCL 100 MG TAB PO SCH (07:34)
[2016-09-19] MEDS: VODKA 50 ML BOTTLE PO SCH ×2 (07:35→21:40)
--- NOTE | 2016-09-19 09:51 | PCMIDPN ---
Assessment/Plan: 1. Right lower extremity cellulitis secondary to MSSA with pretibial abscess formation status post incision and drainage: Improving status post incision and drainage, but still has significant tenderness to palpation. Unable to elevate right lower extremity secondary to back pain. Continue cefazolin as is. No new recommendations. Still needs IV antibiotics. Subjective: Tearful secondary to back pain. Feels that his right lower extremity is improving. No diarrhea. Objective: Ancef 2 g IV q.8 hours day 1. (Antibiotics day 5) T-max 37.1degrees Vital Signs Temp Pulse Resp BP Pulse Ox 36.3 C 85 16 136/92 H 96 09/19/16 07:28 09/19/16 07:28 09/19/16 07:28 09/19/16 07:28 09/19/16 07:28 Microbiology 09/16/16 09:00 Gram Stain - Final Leg - Swab Wound Culture - Final Staphylococcus Aureus 09/18/16 15:56 Gram Stain - Final Leg - Eswab Laboratory Results 09/17/16 05:32 09/17/16 05:32 09/18/16 09/19/16 09/20/16 05:59 05:59 05:59 Intake Total 400 550 Output Total 550 900 Balance -150 -350 Culture right lower extremity with 2+ MSSA HIV negative June 2016 - Physical Exam General Appearance: alert EENT: pharynx normal, No scleral icterus Respiratory: lungs clear Cardiac/Chest: regular rate, rhythm, No systolic murmur Extremities: other (Right lower extremity with approximately 3 cm vertical incision with significant gael-incisional tenderness. No longer has beet red erythema, this is more dusky in nature. No purulent drainage from the incision. The incision sits right above his tibia. Scabbed area lateral right lower extremity superior to lateral malleolus.) Skin: No rash ICD10 Worksheet Patient Problems: Problems Problem Status Diagnosed Bacteremia Active Peritonitis Active Alcohol withdrawal Acute Cellulitis Acute Neuropathy of left radial nerve Acute Alcohol withdrawal syndrome with complication Acute Cellulitis and abscess of leg Acute Weakness of left upper extremity Acute
[2016-09-19] MEDS: HYDROmorphONE/DILAUDID 2 MG TAB PO PRN ×4 (10:06→23:05)
--- NOTE | 2016-09-19 12:15 | SOAPPROG ---
SOAP Progress Note Assessment/Plan: Assessment/Plan - 56yo M POD#1 s/p RLE I&D - erythema looks about the same, maybe a little better. Pain markedly improved and he feels better, dressing minimally saturated with serosang drainage. Cx taken yesterday pending. No new sites needing drainage identified. Cont abx, await Re-Cx, wound care 09/19/16 12:14 Subjective: Pain markedly improved, feels better Objective: Vital Signs Temp Pulse Resp BP Pulse Ox 36.3 C 85 16 136/92 H 96 09/19/16 07:28 09/19/16 07:28 09/19/16 07:28 09/19/16 07:28 09/19/16 07:28 Microbiology 09/16/16 09:00 Gram Stain - Final Leg - Swab Wound Culture - Final Staphylococcus Aureus 09/18/16 15:56 Gram Stain - Final Leg - Eswab Laboratory Results 09/17/16 05:32 09/17/16 05:32 09/18/16 09/19/16 09/20/16 05:59 05:59 05:59 Intake Total 400 550 Output Total 550 900 Balance -150 -350 ICD10 Worksheet Patient Problems: Problems Problem Status Diagnosed Bacteremia Active Peritonitis Active Alcohol withdrawal Acute Cellulitis Acute Neuropathy of left radial nerve Acute Alcohol withdrawal syndrome with complication Acute Cellulitis and abscess of leg Acute Weakness of left upper extremity Acute
--- NOTE | 2016-09-19 14:25 | HOSPPROG ---
Hospitalist Progress Note Assessment/Plan: Patient is a 56-year-old male who presented to the emergency room with recurrent right lower extremity cellulitis. He has a history of being hospitalized in both May & June for the similar symptoms. He has a history of picking at his wounds. Also, has hx of burning skin with cigarettes. Is my 1st encounter with the patient, chart reviewed. #. Recurrent right lower extremity cellulitis - patient has a history of picking at his skin and cigarette guillen - on vancomycin /appreciate Infectious Disease consult -postop I and D on 09/18/2006 #. pain due to cellulitis #. left hip pain / has a Cam-type femoral acetabular impingement he does not have a hip fracture this requires supportive treatment with anti-inflammatories and physical therapy patient is able to ambulate well in the room #. mild L1 compression fracture supportive care at this time/ this does not appear to be his main issue Add Dilaudid for further pain medication #. gait instability with recent fall prior to this admission - physical therapy occupational therapy working with him #. alcohol abuse and withdrawal - placed on vodka twice daily with much improvement of his symptoms - doubtful Piyush will ever quit drinking. -titrate alcohol in anticipation for discharge to assisted facility #. hypomagnesium Replaced #. hepatitis-C - labs pending #. homelessness #. Nicotine dependence - nicotine patch #.Plan: case management working for placement, continue vancomycin. Appreciate Infectious Disease involvement. Subjective: Complaints of lower extremity pain. Does not want to get out of bed worked with therapy. Objective: Vital Signs Temp Pulse Resp BP Pulse Ox 36.3 C 85 16 136/92 H 96 09/19/16 07:28 09/19/16 07:28 09/19/16 07:28 09/19/16 07:28 09/19/16 07:28 Microbiology 09/16/16 09:00 Gram Stain - Final Leg - Swab Wound Culture - Final Staphylococcus Aureus 09/18/16 15:56 Gram Stain - Final Leg - Eswab Laboratory Results 09/17/16 05:32 09/17/16 05:32 09/18/16 09/19/16 09/20/16 05:59 05:59 05:59 Intake Total 400 550 Output Total 550 900 Balance -150 -350 - Physical Exam Constitutional: appears nourished, chronically ill appearing, uncomfortable Eyes: PERRL, anicteric sclera, EOMI Ears, Nose, Mouth, Throat: moist mucous membranes, hearing normal, ears appear normal Cardiovascular: No JVD, No tachycardia, No edema Respiratory: no respiratory distress, no rales or rhonchi, reduced air movement Gastrointestinal: normoactive bowel sounds, No tenderness, No ascites Skin: warm, abrasion, erythema Musculoskeletal: pain with ROM, muscular tenderness, generalized weakness Neurologic: AAOx3 Psychiatric: not encephalopathic, anxious, poor insight, poor judgement, poor memory ICD10 Worksheet Patient Problems: Problems Problem Status Diagnosed Bacteremia Active Peritonitis Active Alcohol withdrawal Acute Cellulitis Acute Neuropathy of left radial nerve Acute Alcohol withdrawal syndrome with complication Acute Cellulitis and abscess of leg Acute Weakness of left upper extremity Acute
[2016-09-19] MEDS: PATCH REMOVAL 1 EA PATCH TD SCH (22:09)
[2016-09-20] MEDS: oxyCODONE IR 5 MG TAB PO PRN ×5 (03:28→21:41)
[2016-09-20] MEDS: HYDROmorphONE/DILAUDID 2 MG TAB PO PRN ×5 (03:28→21:41)
[2016-09-20] MEDS: IBUPROFEN 200 MG TAB PO PRN (05:25)
[2016-09-20] MEDS: ceFAZolin 2 GM/DEXTROSE 100 ML IV SCH ×3 (05:25→16:32)
[2016-09-20] MEDS: NICOTINE 14 MG/24 HR PATCH TD SCH (05:45)
[2016-09-20] MEDS: THIAMINE HCL 100 MG TAB PO SCH (08:38)
[2016-09-20] MEDS: ENOXAPARIN 40 MG/0.4 ML SYR SC SCH (08:40)
[2016-09-20] MEDS: VODKA 50 ML BOTTLE PO SCH ×2 (08:40→21:42)
[2016-09-20] MEDS: LIDOCAINE 5% 1 EA PATCH TD SCH (08:41)
--- NOTE | 2016-09-20 08:55 | SOAPPROG ---
SOAP Progress Note Assessment/Plan: Assessment: 56yo male s/p I&D RLE PE awake comfortable RLE two small, approx 1inch wounds without fluctuance, mild erythema Plan: ok to cover with bandaids ok to shower no pending surgery at this time 09/20/16 08:51 Objective: Vital Signs Temp Pulse Resp BP Pulse Ox 37.2 C 72 20 146/96 H 97 09/20/16 08:00 09/20/16 08:00 09/20/16 08:00 09/20/16 08:00 09/20/16 08:00 Microbiology 09/18/16 15:56 Gram Stain - Final Leg - Eswab 09/16/16 09:00 Gram Stain - Final Leg - Swab Wound Culture - Final Staphylococcus Aureus Laboratory Results 09/17/16 05:32 09/17/16 05:32 09/19/16 09/20/16 09/21/16 05:59 05:59 05:59 Intake Total 550 1000 Output Total 900 Balance -350 1000 ICD10 Worksheet Patient Problems: Problems Problem Status Diagnosed Bacteremia Active Peritonitis Active Alcohol withdrawal Acute Cellulitis Acute Neuropathy of left radial nerve Acute Alcohol withdrawal syndrome with complication Acute Cellulitis and abscess of leg Acute Weakness of left upper extremity Acute
--- NOTE | 2016-09-20 13:55 | HOSPPROG ---
Hospitalist Progress Note Assessment/Plan: Patient is a 56-year-old male who presented to the emergency room with recurrent right lower extremity cellulitis. He has a history of being hospitalized in both May & June for the similar symptoms. He has a history of picking at his wounds. Also, has hx of burning skin with cigarettes. #. Recurrent right lower extremity cellulitis - patient has a history of picking at his skin and cigarette guillen - on vancomycin /appreciate Infectious Disease consult -postop I and D on 09/18/2006 #. pain due to cellulitis #. left hip pain / has a Cam-type femoral acetabular impingement he does not have a hip fracture this requires supportive treatment with anti-inflammatories and physical therapy patient is able to ambulate well in the room #. mild L1 compression fracture supportive care at this time/ this does not appear to be his main issue Add Dilaudid for further pain medication #. gait instability with recent fall prior to this admission - physical therapy occupational therapy working with him #. alcohol abuse and withdrawal - placed on vodka twice daily with much improvement of his symptoms - doubtful Piyush will ever quit drinking. -titrate alcohol in anticipation for discharge to assisted facility #. hypomagnesium Replaced #. hepatitis-C - labs pending #. homelessness #. Nicotine dependence - nicotine patch #.Plan: case management working for placement, continue vancomycin. Appreciate Infectious Disease involvement. Subjective: Up ambulating in room. Pain is better controlled today. No specific other issues. Objective: Vital Signs Temp Pulse Resp BP Pulse Ox 37.2 C 72 20 146/96 H 97 09/20/16 08:00 09/20/16 08:00 09/20/16 08:00 09/20/16 08:00 09/20/16 08:00 Microbiology 09/18/16 15:56 Gram Stain - Final Leg - Eswab 09/16/16 09:00 Gram Stain - Final Leg - Swab Wound Culture - Final Staphylococcus Aureus Laboratory Results 09/17/16 05:32 09/17/16 05:32 09/19/16 09/20/16 09/21/16 05:59 05:59 05:59 Intake Total 550 1000 Output Total 900 Balance -350 1000 - Physical Exam Constitutional: appears nourished, not in pain, chronically ill appearing Eyes: PERRL, anicteric sclera, EOMI Ears, Nose, Mouth, Throat: moist mucous membranes, hearing normal Cardiovascular: No JVD, No tachycardia, No edema Respiratory: no respiratory distress, reduced air movement Gastrointestinal: No tenderness, No ascites Skin: warm, no fluctuance Musculoskeletal: no joint effusions, generalized weakness Neurologic: AAOx3 Psychiatric: not anxious, not encephalopathic, poor insight ICD10 Worksheet Patient Problems: Problems Problem Status Diagnosed Bacteremia Active Peritonitis Active Alcohol withdrawal Acute Cellulitis Acute Neuropathy of left radial nerve Acute Alcohol withdrawal syndrome with complication Acute Cellulitis and abscess of leg Acute Weakness of left upper extremity Acute
--- NOTE | 2016-09-20 14:29 | PCMIDPN ---
Assessment/Plan: Assessment/Plan: 1. RLE cellulitis with abscess: s/p I & D (09/18/16) - Cx from I & D with ngtd - Right lateral wound cx with MSSA - Currently on directive therapy with Ancef. -Continue with extremity elevation. - Still needs IV atbx. Hopefully 1-2 days more than can transition to orals -Blood cx on admit ngtd Meds Ancef 2g q8- 09/18/16---- Subjective: Afebrile. Denies sob, abd pain or diarrhea. RLE swelling better but still present. Less tender overall. still with erytehma Objective: Vital Signs Temp Pulse Resp BP Pulse Ox 37.2 C 72 20 146/96 H 97 09/20/16 08:00 09/20/16 08:00 09/20/16 08:00 09/20/16 08:00 09/20/16 08:00 Microbiology 09/18/16 15:56 Gram Stain - Final Leg - Eswab Laboratory Results 09/17/16 05:32 09/17/16 05:32 09/19/16 09/20/16 09/21/16 05:59 05:59 05:59 Intake Total 550 1000 Output Total 900 Balance -350 1000 - Physical Exam General Appearance: alert, no apparent distress Respiratory: lungs clear Cardiac/Chest: regular rate, rhythm, systolic murmur Extremities: swelling (RLE-improving) Abdomen: normal bowel sounds, non-tender, soft, No distended Skin: erythema (RLE: still with erythema mostly concentrated to middle of leg. scabbing where previous I & d done. no drainage. scabbing of right lateral wounds as well. warmth appreciated. mildly tender.) ICD10 Worksheet Patient Problems: Problems Problem Status Diagnosed Bacteremia Active Peritonitis Active Alcohol withdrawal Acute Cellulitis Acute Neuropathy of left radial nerve Acute Alcohol withdrawal syndrome with complication Acute Cellulitis and abscess of leg Acute Weakness of left upper extremity Acute
[2016-09-20] MEDS: CEPHALEXIN 500 MG CAP PO SCH (18:07)
[2016-09-20] MEDS: PATCH REMOVAL 1 EA PATCH TD SCH (22:18)
[2016-09-21] MEDS: CEPHALEXIN 500 MG CAP PO SCH ×4 (00:40→18:30)
[2016-09-21] MEDS: oxyCODONE IR 5 MG TAB PO PRN ×4 (06:18→21:05)
[2016-09-21] MEDS: HYDROmorphONE/DILAUDID 2 MG TAB PO PRN ×4 (06:19→21:05)
[2016-09-21] MEDS: ENOXAPARIN 40 MG/0.4 ML SYR SC SCH (07:12)
[2016-09-21] MEDS: NICOTINE 14 MG/24 HR PATCH TD SCH (07:13)
[2016-09-21] MEDS: THIAMINE HCL 100 MG TAB PO SCH (07:13)
[2016-09-21] MEDS: LIDOCAINE 5% 1 EA PATCH TD SCH (07:14)
[2016-09-21] MEDS: VODKA 50 ML BOTTLE PO SCH ×2 (07:14→20:54)
--- NOTE | 2016-09-21 09:25 | SOAPPROG ---
SOAP Progress Note Assessment/Plan: Assessment: 56yo male s/p I&D RLE PE awake comfortable RLE two small, approx 1inch wounds without fluctuance, mild erythema Plan: ok to cover with bandaids ok to shower no pending surgery at this time 09/20/16 08:51 09/21/16 09:22 had some new ankle pain yesterday, anteriorly over ankle, no pain is completely gone. Has been able to walk this AM around floor without any pain PE Right Leg 2 small wounds without fluctuance or erythema, no edema, no difficulty dorsiflexion/plantarflexion right ankle Plan ok to d/c from surgical standpoint when placement set up. discussed importance of selkf care, follow-up if any pain, redness occurs. will sign off Objective: Vital Signs Temp Pulse Resp BP Pulse Ox 36.4 C 71 18 122/90 H 93 09/21/16 08:32 09/21/16 08:32 09/21/16 08:32 09/21/16 08:32 09/21/16 08:32 Microbiology 09/18/16 15:56 Gram Stain - Final Leg - Eswab Laboratory Results 09/17/16 05:32 09/17/16 05:32 09/20/16 09/21/16 09/22/16 05:59 05:59 05:59 Intake Total 1000 Balance 1000 ICD10 Worksheet Patient Problems: Problems Problem Status Diagnosed Bacteremia Active Peritonitis Active Alcohol withdrawal Acute Cellulitis Acute Neuropathy of left radial nerve Acute Alcohol withdrawal syndrome with complication Acute Cellulitis and abscess of leg Acute Weakness of left upper extremity Acute
--- NOTE | 2016-09-21 12:37 | HOSPPROG ---
Hospitalist Progress Note Assessment/Plan: Patient is a 56-year-old male who presented to the emergency room with recurrent right lower extremity cellulitis. He has a history of being hospitalized in both May & June for the similar symptoms. He has a history of picking at his wounds. Also, has hx of burning skin with cigarettes. #. Recurrent right lower extremity cellulitis - patient has a history of picking at his skin and cigarette guillen - on vancomycin /appreciate Infectious Disease consult -postop I and D on 09/18/2006 #. pain due to cellulitis #. left hip pain / has a Cam-type femoral acetabular impingement he does not have a hip fracture this requires supportive treatment with anti-inflammatories and physical therapy patient is able to ambulate well in the room #. mild L1 compression fracture supportive care at this time/ this does not appear to be his main issue Add Dilaudid for further pain medication #. gait instability with recent fall prior to this admission - physical therapy occupational therapy working with him #. alcohol abuse and withdrawal - placed on vodka twice daily with much improvement of his symptoms - doubtful Piyush will ever quit drinking. -titrate alcohol in [facility] #. hypomagnesium Replaced #. hepatitis-C - labs pending #. homelessness #. Nicotine dependence - nicotine patch #.Plan: case management working for placement. Appreciate Infectious Disease involvement On oral antibiotic Can DC to sniff when case management arranges Subjective: Feeling fine today. No complaints. Objective: Vital Signs Temp Pulse Resp BP Pulse Ox 36.4 C 71 18 122/90 H 93 09/21/16 08:32 09/21/16 08:32 09/21/16 08:32 09/21/16 08:32 09/21/16 08:32 Microbiology 09/18/16 15:56 Gram Stain - Final Leg - Eswab Laboratory Results 09/17/16 05:32 09/17/16 05:32 09/20/16 09/21/16 09/22/16 05:59 05:59 05:59 Intake Total 1000 Balance 1000 - Physical Exam Constitutional: no apparent distress, appears nourished Eyes: PERRL, anicteric sclera Ears, Nose, Mouth, Throat: moist mucous membranes, hearing normal Cardiovascular: No JVD, No edema Respiratory: no respiratory distress, reduced air movement Gastrointestinal: No tenderness, No ascites Skin: warm, induration Musculoskeletal: generalized weakness Neurologic: AAOx3 Psychiatric: not anxious, not encephalopathic ICD10 Worksheet Patient Problems: Problems Problem Status Diagnosed Bacteremia Active Peritonitis Active Alcohol withdrawal Acute Cellulitis Acute Neuropathy of left radial nerve Acute Alcohol withdrawal syndrome with complication Acute Cellulitis and abscess of leg Acute Weakness of left upper extremity Acute
--- NOTE | 2016-09-21 15:33 | PCMIDPN ---
Assessment/Plan: Assessment/Plan: 1. RLE cellulitis with abscess: s/p I & D (09/18/16) - Cx from I & D with ngtd - Right lateral wound cx with MSSA - Currently on directive therapy with keflex -Continue with extremity elevation.---swelling continues to improve -Blood cx on admit ngtd -transitioned to oral keflex yesterday. Continues to overall improve -will likely need 5 days more of therapy. Dc when ready per hospitalist Meds keflex 500mg q6- 09/20/16 s/p Ancef 2g q8- 09/18/16----09/20/16 s/p vanco Subjective: afebrile. feels better each day. more brawny in color. less swelling overall. denies abd pain or diarrhea. Objective: Vital Signs Temp Pulse Resp BP Pulse Ox 36.4 C 71 18 122/90 H 93 09/21/16 08:32 09/21/16 08:32 09/21/16 08:32 09/21/16 08:32 09/21/16 08:32 Microbiology 09/18/16 15:56 Gram Stain - Final Leg - Eswab Laboratory Results 09/17/16 05:32 09/17/16 05:32 09/20/16 09/21/16 09/22/16 05:59 05:59 05:59 Intake Total 1000 Balance 1000 - Physical Exam General Appearance: alert, no apparent distress Extremities: swelling (improved on RLE) Skin: erythema (improved from yesterday. scab noted on anterior garcia. less tender and warm) ICD10 Worksheet Patient Problems: Problems Problem Status Diagnosed Bacteremia Active Peritonitis Active Alcohol withdrawal Acute Cellulitis Acute Neuropathy of left radial nerve Acute Alcohol withdrawal syndrome with complication Acute Cellulitis and abscess of leg Acute Weakness of left upper extremity Acute
[2016-09-21] MEDS: PATCH REMOVAL 1 EA PATCH TD SCH (21:05)
[2016-09-22] MEDS: CEPHALEXIN 500 MG CAP PO SCH ×4 (00:16→18:29)
[2016-09-22] MEDS: HYDROmorphONE/DILAUDID 2 MG TAB PO PRN ×3 (06:12→16:04)
[2016-09-22] MEDS: oxyCODONE IR 5 MG TAB PO PRN ×4 (06:13→20:57)
[2016-09-22] MEDS: VODKA 50 ML BOTTLE PO SCH ×2 (07:59→20:57)
[2016-09-22] MEDS: THIAMINE HCL 100 MG TAB PO SCH (07:59)
[2016-09-22] MEDS: NICOTINE 14 MG/24 HR PATCH TD SCH (07:59)
[2016-09-22] MEDS: LIDOCAINE 5% 1 EA PATCH TD SCH ×2 (08:02→13:07)
[2016-09-22] MEDS: ENOXAPARIN 40 MG/0.4 ML SYR SC SCH (08:02)
[2016-09-22] MEDS: IBUPROFEN 200 MG TAB PO PRN (13:08)
--- NOTE | 2016-09-22 15:50 | HOSPPROG ---
Hospitalist Progress Note Assessment/Plan: 61 yo homeless male presenting with RLE cellulitis #. Recurrent right lower extremity cellulitis with abscess -improved significantly, now off of vanco and on keflex. Ok for discharge with outpatient f/u. #. pain due to cellulitis: prn opiates--using relatively high doses of both dilaudid and oxycodone, will work on weaning him off of these. #. left hip pain / has a Cam-type femoral acetabular impingement pt/ot, as above #. mild L1 compression fracture pain somewhat out of proportion as above, will work on weaning pain meds #. gait instability with recent fall prior to this admission - physical therapy occupational therapy working with him, if he qualifies will dc to snf #. alcohol abuse and withdrawal -not interested in quitting, continue vodka for now, weaning off #. hypomagnesium Replaced #. hepatitis-C -with viral load very low #. homelessness #. Nicotine dependence - nicotine patch Dispo: dc today or tomorrow--homeless, would like to dc to snf if possible Patient new to my care. Old records reviewed and summarized as above. Subjective: no significant overnight events, continues to have pain in his left hip, no fever or chills Objective: Vital Signs Temp Pulse Resp BP Pulse Ox 36.6 C 90 18 124/91 H 95 09/22/16 07:12 09/22/16 07:12 09/22/16 07:12 09/22/16 07:12 09/22/16 07:12 Microbiology 09/18/16 15:56 Gram Stain - Final Leg - Eswab Laboratory Results 09/17/16 05:32 09/17/16 05:32 09/21/16 09/22/16 09/23/16 05:59 05:59 05:59 Intake Total 1999 900 Balance 1999 900 awake alert nad anicteric op clear rrr no mrg ct a b soft nt nd no cce warm dry well perfused oriented appropriate - Time Spent With Patient Time Spent with Patient: greater than 35 minutes Time Spent with Patient: Greater than 35 minutes spent on this patients care, greater than 50% of time spent counseling, educating, and coordinating care regarding the above mentioned plan. ICD10 Worksheet Patient Problems: Problems Problem Status Diagnosed Bacteremia Active Peritonitis Active Alcohol withdrawal Acute Cellulitis Acute Neuropathy of left radial nerve Acute Alcohol withdrawal syndrome with complication Acute Cellulitis and abscess of leg Acute Weakness of left upper extremity Acute
[2016-09-22] MEDS: PATCH REMOVAL 1 EA PATCH TD SCH (21:50)
[2016-09-23] MEDS: CEPHALEXIN 500 MG CAP PO SCH ×4 (00:54→18:19)
[2016-09-23] MEDS: oxyCODONE IR 5 MG TAB PO PRN ×2 (00:56→07:41)
[2016-09-23] MEDS: HYDROmorphONE/DILAUDID 2 MG TAB PO PRN ×2 (02:50→07:48)
[2016-09-23] MEDS: LIDOCAINE 5% 1 EA PATCH TD SCH (07:43)
[2016-09-23] MEDS: NICOTINE 14 MG/24 HR PATCH TD SCH (07:43)
[2016-09-23] MEDS: THIAMINE HCL 100 MG TAB PO SCH (07:43)
[2016-09-23] MEDS: ENOXAPARIN 40 MG/0.4 ML SYR SC SCH ×2 (07:44→07:49)
[2016-09-23] MEDS: VODKA 50 ML BOTTLE PO SCH (07:44)
--- NOTE | 2016-09-23 10:23 | PCMIDPN ---
Assessment/Plan: Assessment/Plan: 1. RLE cellulitis with abscess: s/p I & D (09/18/16) - Cx from I & D with ngtd - Right lateral wound cx with MSSA -Blood cx on admit ngtd -Resolution of erythema. RLE no longer swollen. no drainage from incision site. nontender. -Currently on keflex. Has been on antibiotics as outlined below for total 10 days. -Given above clinical improvement, resolution, will d/c antibiotics. -ID to sign off. Please call if questions arise. -Care coordinated with hospitalist team. Meds keflex 500mg q6- 09/20/16---#10 overall s/p Ancef 2g q8- 09/18/16----09/20/16 s/p vanco 09/14-09/18/16 Subjective: Afebrile. feels well. denies pain involving RLE. no erythema. no swelling. denies abd pain or diarrhea. Objective: Vital Signs Temp Pulse Resp BP Pulse Ox 36.8 C 70 16 142/87 H 92 09/23/16 08:00 09/23/16 08:00 09/23/16 08:00 09/23/16 08:00 09/23/16 08:00 Microbiology 09/18/16 15:56 Gram Stain - Final Leg - Eswab Laboratory Results 09/17/16 05:32 09/17/16 05:32 09/22/16 09/23/16 09/24/16 05:59 05:59 05:59 Intake Total 1999 1899 Balance 1999 1899 - Physical Exam General Appearance: alert, no apparent distress Respiratory: lungs clear Cardiac/Chest: regular rate, rhythm Extremities: No swelling Abdomen: normal bowel sounds, non-tender, soft, No distended Skin: other (small incision noted. clean. no pus expressed out. nontender.), No erythema ICD10 Worksheet Patient Problems: Problems Problem Status Diagnosed Bacteremia Active Peritonitis Active Alcohol withdrawal Acute Cellulitis Acute Neuropathy of left radial nerve Acute Alcohol withdrawal syndrome with complication Acute Cellulitis and abscess of leg Acute Weakness of left upper extremity Acute
[2016-09-23] MEDS: HYDROCODONE/APAP 10/325 TAB PO PRN ×2 (12:02→18:18)
[2016-09-23] MEDS: DIAZEPAM 5 MG TAB PO PRN ×2 (12:03→18:19)
--- NOTE | 2016-09-23 16:46 | HOSPPROG ---
Hospitalist Progress Note Assessment/Plan: 61 yo homeless male presenting with RLE cellulitis #. Recurrent right lower extremity cellulitis with abscess -improved significantly, and has completed 10 days of abx so will dc abx for now #. pain due to cellulitis: prn opiates--had been using relatively high doses of both dilaudid and oxycodone, transitioning to norco today in anticipation of likely discharge tomorrow. #. left hip pain / has a Cam-type femoral acetabular impingement pt/ot, as above #. mild L1 compression fracture pain somewhat out of proportion as above, will work on weaning pain meds #. gait instability with recent fall prior to this admission - physical therapy occupational therapy working with him, if he qualifies will dc to snf #. alcohol abuse and withdrawal -not interested in quitting but also states that he does not think he will have any issues with withdrawal, getting vodka as needed # anxiety: per patient he tx's his anxiety with etoh, he thinks he could go without vodka if he got valium, trialing valium #. hypomagnesium Replaced #. hepatitis-C -with viral load very low #. homelessness #. Nicotine dependence - nicotine patch Dispo: dc in am, unfortunately not able to go to snf, will dc to [facility] Subjective: no significant overnight events, patient is feeling a bit better, ambulating better Objective: Vital Signs Temp Pulse Resp BP Pulse Ox 36.7 C 70 14 137/79 H 94 09/23/16 15:45 09/23/16 15:45 09/23/16 15:45 09/23/16 15:45 09/23/16 15:45 Microbiology 09/18/16 15:56 Gram Stain - Final Leg - Eswab Laboratory Results 09/17/16 05:32 09/17/16 05:32 09/22/16 09/23/16 09/24/16 05:59 05:59 05:59 Intake Total 1999 1900 Balance 1999 1899 awake alert nad anicteric op clear rrr no mrg ct a b soft nt nd no cce warm dry well perfused oriented appropriate - Time Spent With Patient Time Spent with Patient: greater than 35 minutes Time Spent with Patient: Greater than 35 minutes spent on this patients care, greater than 50% of time spent counseling, educating, and coordinating care regarding the above mentioned plan. ICD10 Worksheet Patient Problems: Problems Problem Status Diagnosed Bacteremia Active Peritonitis Active Alcohol withdrawal Acute Cellulitis Acute Neuropathy of left radial nerve Acute Alcohol withdrawal syndrome with complication Acute Cellulitis and abscess of leg Acute Weakness of left upper extremity Acute
[2016-09-23] MEDS: PATCH REMOVAL 1 EA PATCH TD SCH (20:41)
[2016-09-23] MEDS: VODKA 50 ML BOTTLE PO PRN (20:41)
[2016-09-24] MEDS: DIAZEPAM 5 MG TAB PO PRN ×3 (00:20→11:51)
[2016-09-24] MEDS: HYDROCODONE/APAP 10/325 TAB PO PRN ×3 (00:20→11:53)
[2016-09-24 08:26] VITALS: BP 111/97; PULSE 71; RESP 18; TEMP 98.2; O2SAT 96
--- NOTE | 2016-09-24 08:46 | HOSPPROG ---
Hospitalist Progress Note Assessment/Plan: Patient is a 56-year-old male who presented to the emergency room with recurrent right lower extremity cellulitis. He has a history of being hospitalized in both May & June for the similar symptoms. He has a history of picking at his wounds. Also, has hx of burning skin with cigarettes. #. Recurrent right lower extremity cellulitis with abscess -improved significantly, and has completed 10 days of abx #. pain due to cellulitis: prn opiates--had been using relatively high doses of both dilaudid and oxycodone, -norco and ibuprofen helping #. left hip pain / has a Cam-type femoral acetabular impingement pt/ot, as above #. mild L1 compression fracture pain somewhat out of proportion as above #. gait instability with recent fall prior to this admission - physical therapy occupational therapy working with him -ambulating well #. alcohol abuse and withdrawal -not interested in quitting but also states that he does not think he will have any issues with withdrawal, getting vodka as needed # anxiety: per patient he tx's his anxiety with etoh, he thinks he could go without vodka #. hypomagnesium Replaced #. hepatitis-C -with viral load very low #. homelessness #. Nicotine dependence - nicotine patch Dispo: dc today Subjective: Piyush has some ongoing pain to right calf area. Objective: Vital Signs Temp Pulse Resp BP Pulse Ox 36.8 C 71 18 111/97 H 96 09/24/16 08:00 09/24/16 08:00 09/24/16 08:00 09/24/16 08:00 09/24/16 08:00 Microbiology 09/18/16 15:56 Gram Stain - Final Leg - Eswab Laboratory Results 09/17/16 05:32 09/17/16 05:32 09/23/16 09/24/16 09/25/16 05:59 05:59 05:59 Intake Total 1900 Balance 190 - Physical Exam Constitutional: no apparent distress, chronically ill appearing Eyes: PERRL Ears, Nose, Mouth, Throat: hearing normal Respiratory: no respiratory distress Skin: warm, other (right lower ext with less eythema, redness since when I cared for him last week) Musculoskeletal: full muscle strength Neurologic: AAOx3 Psychiatric: interacting appropriately, not anxious ICD10 Worksheet Patient Problems: Problems Problem Status Diagnosed Bacteremia Active Peritonitis Active Alcohol withdrawal Acute Cellulitis Acute Neuropathy of left radial nerve Acute Alcohol withdrawal syndrome with complication Acute Cellulitis and abscess of leg Acute Weakness of left upper extremity Acute
[2016-09-24] MEDS: NICOTINE 14 MG/24 HR PATCH TD SCH (09:07)
[2016-09-24] MEDS: LIDOCAINE 5% 1 EA PATCH TD SCH (09:07)
[2016-09-24] MEDS: THIAMINE HCL 100 MG TAB PO SCH (09:08)
[2016-09-24] MEDS: VODKA 50 ML BOTTLE PO PRN (09:09)
[2016-09-24] MEDS: ENOXAPARIN 40 MG/0.4 ML SYR SC SCH (09:09)
--- NOTE | 2016-09-24 12:27 | GDS ---
[f rep st] DISCHARGE SUMMARY DISCHARGE DIAGNOSES: 1. Recurrent right lower extremity cellulitis with abscess. 2. Pain due to this. 3. 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 4. Mild L1 compression fracture. 5. Gait instability with recent fall. 6. Alcohol abuse and withdrawal. 7. Anxiety. 8. Hypomagnesium. 9. Hepatitis C with a low viral load. 10. Homelessness. 11. Nicotine dependence. CONSULTATIONS DURING STAY: 1. Dr. Chrissie Marques. 2. Arnol Flores of Surgical Services. BRIEF HISTORY: The patient is a 56-year-old male with history of alcohol abuse, polysubstance abuse and recurrent right lower extremity cellulitis. He presented to the emergency room with increased ri ght lower extremity pain. He was seen and evaluated by the infectious disease physicians who recomme nded to continue vancomycin. He was seen and evaluated by the surgical team and on 09/18/2016 he had an I and D of the right lower extremity. He slowly improved throughout his stay. He will be discha rged back to the group home today and further follow up with [facility]. An appointment has been a rranged for him. HOSPITAL COURSE: 1. Recurrent right lower extremity cellulitis with abscess. This is improved significantly. He has recently completed 10 days of antibiotic therapy. 2. Pain. He had been using relatively high doses of both Dilaudid and oxycodone. He will get a scr ipt for a few days of [place] and ibuprofen. 3. Left hip pain. He has a CAM type femoral acetabular impingement. This was noted on the CT scan. 4. Mild L1 compression fracture. He is ambulating well. 5. Gait instability. He is doing well after being weaned off his alcohol. He is ambulating well in the hallways. 6. Alcohol abuse and withdrawal, stable. 7. Anxiety. He says he drinks alcohol to treat this. He thinks he could go without vodka. 8. Hypomagnesium. He was on replacement. 9. Hepatitis C. Viral load is very low. 10. Homelessness. Case management was unable to find a housing situation. 11. Nicotine dependence, on a nicotine patch. PENDING LABS AND TESTS: None. CONDITION ON DISCHARGE: Stable. DISCHARGE EXAM: VITAL SIGNS: Blood pressure is 111/97, heart rate is 71, temperature is 36.8 Celsiu s, O2 sats on room air 96%. MEDICATIONS AT DISCHARGE: Please see the EMR. DISCHARGE INSTRUCTIONS: 1. To be sure to follow up with [facility]. He has an appointment on Thursday for close followup . 2. To try ibuprofen and alternate with [place] for his pain. 3. Do not drink or drive while taking narcotics. TIME SPENT: Greater than 30 minutes discharging and coordinating care. Copy requested to: Esther Taylor NP [facility] /[id number]/MODL
== END 2016-09-24 12:52 | disposition home or self-care (01) | DRG 603 ==
LOC: F3E 14:53
PROVIDERS: ADMIT Family Medicine; ATTEND Internal Medicine
PROC: HZ2ZZZZ Detoxification Services for Substance Abuse Treatment (ICD-10-PCS; 2016-09-14)
PROC: 0H9KXZZ Drainage of Right Lower Leg Skin, External Approach (ICD-10-PCS; principal; 2016-09-18)
DX: L03.115 Cellulitis of right lower limb (principal); L02.415 Cutaneous abscess of right lower limb; B95.61 Methicillin susceptible Staphylococcus aureus infection as the cause of diseases classified elsewhere; R26.9 Unspecified abnormalities of gait and mobility; M84.48XA Pathological fracture, other site, initial encounter for fracture; Z91.81 History of falling; D69.59 Other secondary thrombocytopenia; E83.42 Hypomagnesemia; M76.892 Other specified enthesopathies of left lower limb, excluding foot; F17.210 Nicotine dependence, cigarettes, uncomplicated; F10.10 Alcohol abuse, uncomplicated; Z86.19 Personal history of other infectious and parasitic diseases; I71.4 Abdominal aortic aneurysm, without rupture; Z59.0 Homelessness
CPT/HCPCS: 86708-90; 86709-90; 96365; 97112-GP; 97116-GP; 97162-GP; 97166-GO; 97530-GP; 97535-GO; J0690; J1170; J1650; J3370; J3411

== ENCOUNTER 2016-11-03 02:04 | Emergency (ER) | payer MEDICAID ==
[2016-11-03 02:13] VITALS: TEMP 98.2
[2016-11-03] MEDS ORDERED: LORazepam 2 MG/ML INJ IVP ONE ×2 (02:28→04:27)
[2016-11-03] MEDS ORDERED: NS 1,000 ML IV ONE (03:27)
--- NOTE | 2016-11-03 03:37 | EDPHY ---
H & P Stated Complaint: tailbone pain from fall 2 months ago Time Seen by Provider: 11/03/16 02:21 HPI/ROS: HPI The patient presents with pain of his lower back and coccyx which has been present for the last several weeks, however was worse today so brought him in. He had a fall several weeks ago and this is what started the pain. The pain is achy, moderate in severity. He says he has been self medicating with alcohol, last drink was at 7:00 p.m. tonight. He does have a history of alcohol withdrawal.. REVIEW OF SYSTEMS Constitutional: No fever, no chills. Eyes: No discharge. ENT: No sore throat. Cardiovascular: No chest pain, no palpitations. Respiratory: No cough, no shortness of breath. Gastrointestinal: No abdominal pain, no vomiting. Genitourinary: No hematuria. Musculoskeletal: No back pain. Skin: No rashes. Neurological: No headache. PMHx: Admission to the hospital in September for right lower extremity cellulitis , history of hepatitis-C, alcohol withdrawal, L1 compression fracture Soc Hx: Homeless, alcoholic PHYSICAL General Appearance: Alert, tremulous and anxious Eyes: Pupils equal and round no pallor or injection ENT, Mouth: Mucous membranes moist Respiratory: There are no retractions, lungs are clear to auscultation Cardiovascular: Regular rate and rhythm Gastrointestinal: Abdomen is soft and non-tender, no masses, bowel sounds normal Back: Tenderness of his lower spine and paraspinal region with tenderness over his coccyx, 5/5 strength in lower extremities which is symmetric, sensation is intact to light touch, normal gait Neurological: A&O, moves all extremities Skin: Warm and dry, no rashes Musculoskeletal: Neck is supple non tender Extremities: symmetrical, full range of motion Psychiatric: Patient is oriented X 3, there is no agitation Source: Patient - Personal History Current Tetanus/Diphtheria Vaccine: No Current Tetanus Diphtheria and Acellular Pertussis (TDAP): No - Medical/Surgical History Hx Asthma: No Hx Chronic Respiratory Disease: No Hx Diabetes: No Hx Cardiac Disease: No Hx Renal Disease: No Hx Cirrhosis: No Hx Alcoholism: Yes Hx HIV/AIDS: No Hx Splenectomy or Spleen Trauma: No Other PMH: PMHx: alcoholism, bowel infection, ivda,heroine abuse,ptsd, cellulitis. PSHx: bowel surgery "a couple years ago." - Social History Smoking Status: Current every day smoker Constitutional: Initial Vital Signs Temperature (C) 36.8 C 11/03/16 02:10 Heart Rate 146 H 11/03/16 02:10 Respiratory Rate 20 11/03/16 02:10 Blood Pressure 136/111 H 11/03/16 02:10 O2 Sat (%) 94 11/03/16 02:10 O2 Delivery Mode Room Air Allergies/Adverse Reactions: No Known Allergies Allergy (Unverified 05/02/16 23:58) Home Medications: Medication Instructions Recorded NK [No Known Home Meds] 11/03/16 Medical Decision Making - Diagnostics Imaging: CT lumbar spine Impression: 1. No definite fracture. 2. L4-L5 mild degenerative disk disease and mild disk bulge resulting in mild central canal stenosis. Discussed with Dr. Brito of Radiology Differential Diagnosis: This is a 56-year-old man who is homeless with chronic alcohol abuse who presents with lower back pain for the last several months after a fall, it became worse today after walking. On exam, he has tenderness of his lumbar spine with negative straight leg raise and no neurologic deficits. Differential diagnosis includes herniated disc, compression fracture, musculoskeletal pain. CT of lumbar spine was obtained. This showed L4-L5 DJD with disc bulge. This is likely the cause of his symptoms. Here, he was given pain medications for this. He was also very tachycardic raising suspicion for alcohol withdrawal and he was treated for this with Ativan. He is not able to go to [facility] because he has been kicked out before so he will be discharged to the street. I will give him a short course of pain medication. - Data Points Medications Given: Discontinued Medications Acetaminophen/Hydrocodone Bitart ([place] 5/325) 2 tab PO EDNOW ONE Stop: 11/03/16 04:26 Last Admin: 11/03/16 04:40 Dose: 2 tab Acetaminophen/Hydrocodone Bitart ([place] 5/325mg Prepack#6) 1 btl TAKEHOME EDNOW ONE Stop: 11/03/16 05:52 Last Admin: 11/03/16 05:53 Dose: 1 btl Sodium Chloride (Ns) 1,000 mls @ 0 mls/hr IV ONCE ONE PRN Reason: Wide Open Stop: 11/03/16 03:28 Last Admin: 11/03/16 03:50 Dose: 1,000 mls Lorazepam (Ativan Injection) 1 mg IVP EDNOW ONE Stop: 11/03/16 02:29 Last Admin: 11/03/16 03:42 Dose: 1 mg Lorazepam (Ativan Injection) 1 mg IVP EDNOW ONE Stop: 11/03/16 04:28 Last Admin: 11/03/16 04:40 Dose: 1 mg Departure - Departure Disposition: Home, Routine, Self-Care Clinical Impression: Lower back pain, Alcohol withdrawal Condition: Good Instructions: Hydrocodone/Acetaminophen (By mouth), Low Back Strain (ED) Referrals: [facility] [Outside] - As per Instructions
[2016-11-03] MEDS ORDERED: HYDROCODONE/APAP 5/325 TAB PO ONE (04:25)
[2016-11-03] MEDS ORDERED: HYDROCOD/APAP 5/325 PREPACK#6 BTL TAKEHOME ONE (05:51)
[2016-11-03 06:05] VITALS: BP 141/91; PULSE 90; RESP 18; O2SAT 96
== END 2016-11-03 06:11 | disposition home or self-care (01) ==
DX: M54.5 Low back pain (principal); F10.239 Alcohol dependence with withdrawal, unspecified; F17.200 Nicotine dependence, unspecified, uncomplicated
CPT/HCPCS: 96374

== ENCOUNTER 2016-12-12 10:45 | Emergency (ER) | payer MEDICAID ==
[2016-12-12] MEDS ORDERED: LORazepam 2 MG/ML INJ IVP ONE ×2 (10:47→13:15)
[2016-12-12] MEDS ORDERED: NS 1,000 ML IV ONE (10:48)
--- NOTE | 2016-12-12 10:49 | EDPHY ---
HPI/HX/ROS/PE/MDM Narrative: CHIEF COMPLAINT: Alcohol withdrawal HPI: The patient is a 56-year-old male with a history of alcohol abuse and multiple ER visits related to alcohol withdrawal. [facility] ambulance [facility] with complaint of worsening withdrawal symptoms the site oral Librium therapy. The patient describes extreme tremulousness and nausea. His last drink was 3 o'clock last night. He denies trauma. REVIEW OF SYSTEMS: Aside from elements discussed in the HPI, a comprehensive 10-point review of systems was reviewed and is negative. PMH: Alcoholism, history of alcohol withdrawal. SOCIAL HISTORY: Patient is homeless. He admits to recent alcohol and chronic alcohol abuse. PHYSICAL EXAM: General:Patient is alert, in no acute distress. Is quite tremulous and anxious. ENT:Eyes are normal to inspection. ENT inspection normal. Neck: Normal inspection. Full range of motion. Respiratory:No respiratory distress. Breath sounds normal bilaterally. Cardiovascular: Regular rate and rhythm. Strong peripheral pulses. Normal cap refill. Abdomen:The abdomen is nontender to palpation. There are no peritoneal signs. There are normal bowel sounds. Back: Normal to inspection. No tenderness to palpation. Skin: Normal color. No rash. Warm and dry. Extremities: Normal appearance. Full range of motion. Neuro: Oriented x3. Normal motor function. Normal sensory function. Diffuse tremulousness. MDM: This patient presents in alcohol withdrawal. He was treated with several mg of IV Ativan and given oral Librium. On re-evaluation at 1:20 p.m., the patient feels much better and is ambulatory without assistance. His tremulousness and tachycardia have largely resolved. I think he is appropriate for transfer back to the [facility]. - Data Points Medications Given: Discontinued Medications Sodium Chloride (Ns) 1,000 mls @ 0 mls/hr IV ONCE ONE PRN Reason: Wide Open Stop: 12/12/16 10:49 Last Admin: 12/12/16 11:00 Dose: 1,000 mls Lorazepam (Ativan Injection) 2 mg IVP EDNOW ONE Stop: 12/12/16 10:48 Last Admin: 12/12/16 11:10 Dose: 2 mg General Time Seen by Provider: 12/12/16 10:45 Initial Vital Signs: Initial Vital Signs Temperature (C) 37 C 12/12/16 10:45 Heart Rate 79 12/12/16 10:45 Respiratory Rate 18 12/12/16 10:45 Blood Pressure 185/112 H 12/12/16 10:45 O2 Sat (%) 96 12/12/16 10:45 O2 Delivery Mode Room Air Allergies/Adverse Reactions: No Known Allergies Allergy (Unverified 05/02/16 23:58) Home Medications: Medication Instructions Recorded NK [No Known Home Meds] 11/03/16 Departure - Departure Disposition: Home, Routine, Self-Care Clinical Impression: Alcohol withdrawal Condition: Good Instructions: Chlordiazepoxide (By mouth), Alcohol Withdrawal (ED) Referrals: NONE *PRIMARY CARE P,. [Primary Care Provider] - As per Instructions
[2016-12-12 12:23] VITALS: RESP 16
[2016-12-12] MEDS ORDERED: chlordiazePOXIDE 25 MG CAP PO ONE (13:15)
[2016-12-12] MEDS ORDERED: CHLORDIAZEPOXIDE 25MG PREPK#6 BTL TAKEHOME ONE ×2 (13:56)
[2016-12-12 14:31] VITALS: BP 161/105; PULSE 84; TEMP 99; O2SAT 98
== END 2016-12-12 14:20 | disposition home or self-care (01) ==
LOC: EDUNIT#
DX: F10.239 Alcohol dependence with withdrawal, unspecified (principal)
CPT/HCPCS: 96374; J2060

== ENCOUNTER 2016-12-14 10:13 | Emergency (ER) | payer MEDICAID ==
[2016-12-14 10:19] VITALS: TEMP 98.2
[2016-12-14] MEDS ORDERED: LORazepam 1 MG TAB PO ONE (10:23)
[2016-12-14] MEDS ORDERED: LORazepam 1 MG TAB ONE (10:24)
--- NOTE | 2016-12-14 10:25 | EDPHY ---
HPI/HX/ROS/PE/MDM Narrative: CHIEF COMPLAINT: Tremulousness, headache HPI: The patient is a homeless 56 y/o male arriving via EMS from the [facility] complaining of tremulousness and a headache. He has 7 previous visits in the last year for complaints related to alcohol withdrawal and cellulitis and was last evaluated here 3 days ago. He was discharged in good condition with a Librium prescription to the [facility] and has been residing there until this morning. He now complains of tremulousness and a several month-long intermittent headache. He denies seeking treatment for this headache elsewhere or trying any [id number] remedies for it. REVIEW OF SYSTEMS: Aside from elements discussed in the HPI, a comprehensive 10-point review of systems was reviewed and is negative. PMH: Alcoholism, IV drug abuse, unknown bowel surgery SOCIAL HISTORY: Homeless, chronic alcohol abuse, smoker Prior medical records reviewed including ED visit on 12/12/16 for the same complaint and admission 05/26/16 for leg pain and alcohol withdrawal. PHYSICAL EXAM: General:Patient is alert, in no acute distress. Unkempt. ENT:Eyes are normal to inspection. ENT inspection normal. Neck: Normal inspection. Full range of motion. Respiratory:No respiratory distress. Breath sounds normal bilaterally. Cardiovascular: Regular rate and rhythm. Strong peripheral pulses. Normal cap refill. Abdomen:The abdomen is nontender to palpation. There are no peritoneal signs. There are normal bowel sounds. Back: Normal to inspection. No tenderness to palpation. Skin: Normal color. No rash. Warm and dry. Extremities: Normal appearance. Full range of motion. Neuro: Oriented x3. Normal motor function. Normal sensory function. Mildly tremulous. ED Course: This is a homeless 56 y/o male who is a chronic alcoholic and returns to the ED for the second time in 3 days complaining of tremors related to alcohol abuse and a several month-history of a vague headache. He has been residing at the [facility] since his previous discharge. He has mild tremors on exam without focal neuro deficits. Plan for symptom management and head CT to rule out acute intracranial process. 1mg PO Ativan administered. Study: CT of the Head Indication: headache Results: CT scan of the head was obtained. The results of the study are nothing acute, no change since previous. Cerebellar atrophy and Dandy-Walker malformation. The study was read by the radiologist, Dr. Herrera. I viewed the images myself on the PACS system. 1103: Consulted with Dr. Pablo, neurology, regarding patient's abnormal chronic findings on CT. He states there are no acute interventions and the patient can follow up with him as an outpatient. I discussed this plan with the patient. He is comfortable with this plan. Return precautions given. MDM: This patient presents with self-reported symptoms of alcohol withdrawal but was just released from the [facility] for the same. I suspect some of his tremulousness is either intentionally exaggerated or perhaps baseline, as he appears almost identical to when I see him in the ED several days ago. He complains of headache which he states is the reason why he drinks, so a CTH was performed which is negative for acute process. The patient would benefit from neurology follow-up and I have given him a referral, but somewhat doubt he will follow- through. I see no sign of emergent condition at this time. - Data Points Medications Given: Discontinued Medications Lorazepam (Ativan) 2 mg PO EDNOW ONE Stop: 12/14/16 10:24 Last Admin: 12/14/16 10:27 Dose: 2 mg General Time Seen by Provider: 12/14/16 10:17 Initial Vital Signs: Initial Vital Signs Temperature (C) 36.8 C 12/14/16 10:18 Heart Rate 90 12/14/16 10:18 Respiratory Rate 16 12/14/16 10:18 Blood Pressure 170/100 H 12/14/16 10:18 O2 Sat (%) 99 12/14/16 10:18 O2 Delivery Mode Room Air Allergies/Adverse Reactions: No Known Allergies Allergy (Unverified 05/02/16 23:58) Home Medications: Medication Instructions Recorded NK [No Known Home Meds] 11/03/16 Departure - Departure Disposition: Home, Routine, Self-Care Clinical Impression: Alcohol withdrawal, Headache Condition: Good Instructions: Alcohol Withdrawal (ED), General Headache (ED) Additional Instructions: Follow up with [facility] or neurologist this week. Avoid abusing alcohol. Follow up with the [facility] if you seek to detox. Referrals: [facility] [Outside] - As per Instructions [facility],. [Clinic] - As per Instructions Patient,NotPresent [Primary Care Provider] - As per Instructions Buzz Pablo MD [Medical Doctor] - As per Instructions Report Scribed for: Max Hatfield Report Scribed by: Alecia Sequeira Date of Report: 12/14/16 Time of Report: 10:26 Physician Review and Approval Statement: Portions of this note were transcribed by an ED scribe. I personally performed the history, physical exam, and medical decision making; and confirm the accuracy of the information in the transcribed note.
[2016-12-14 11:14] VITALS: BP 152/104; PULSE 82; RESP 18; O2SAT 97
== END 2016-12-14 11:14 | disposition home or self-care (01) ==
LOC: EDUNIT#
DX: R51 Headache (principal); F10.239 Alcohol dependence with withdrawal, unspecified

== ENCOUNTER 2016-12-27 19:04 | Emergency (ER) | payer MEDICAID ==
[2016-12-27 19:14] VITALS: BP 150/104; PULSE 80; RESP 16; TEMP 97.5; O2SAT 98
--- NOTE | 2016-12-27 19:24 | EDPHY ---
H & P Stated Complaint: ETOH HPI/ROS: CHIEF COMPLAINT: intoxication HISTORY OF PRESENT ILLNESS: Patient is a 56-year-old alcoholic homeless man who was found "unresponsive" outside of the [facility]. He is well known to our department. He admits to drinking alcohol but denies other injuries or illness. He was not able to ambulate on scene. REVIEW OF SYSTEMS: Unable to obtain secondary to condition Physical Exam General Appearance: WD/WN, no apparent distress, obtunded (But arousable with painful stimulation) EENT: PERRL/EOMI, normal ENT inspection, TMs normal, pharynx normal Neck: non-tender, full range of motion, supple, normal inspection Respiratory: chest non-tender, lungs clear, normal breath sounds Cardiac/Chest: normal peripheral pulses, regular rate, rhythm, P Peripheral Pulses: 2+: carotid (R), carotid (L), femoral (R), femoral (L), dorsalis-pedis (R), dorsalis-pedis (L) Abdomen: normal bowel sounds, non-tender, soft Extremities: normal range of motion, non-tender, normal inspection, normal capillary refill Neurological: calm, 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 No: alert (Somnolent) Appearance: appropriate appearance, appropriate insight, neat, denies illness Behavior/Eye Contact/Speech: cooperative, decreased rate of speech Thoughts/Hallucinations: normal thought pattern, no apparent hallucination Skin: normal color, warm/dry Source: Patient, EMS Exam Limitations: No limitations - Personal History Tetanus Vaccine Date: 2015 - Medical/Surgical History Hx Asthma: No Hx Chronic Respiratory Disease: No Hx Diabetes: No Hx Cardiac Disease: No Hx Renal Disease: No Hx Cirrhosis: No Hx Alcoholism: Yes Hx HIV/AIDS: No Hx Splenectomy or Spleen Trauma: No Other PMH: PMHx: alcoholism, bowel infection, ivda,heroine abuse,ptsd, cellulitis. PSHx: bowel surgery "a couple years ago." - Family History Significant Family History: No pertinent family hx - Social History Smoking Status: Current every day smoker Alcohol Use: Heavy Drug Use: Marijuana Constitutional: Initial Vital Signs Temperature (C) 36.4 C 12/27/16 19:12 Heart Rate 80 12/27/16 19:12 Respiratory Rate 16 12/27/16 19:12 Blood Pressure 150/104 H 12/27/16 19:12 O2 Sat (%) 98 12/27/16 19:12 O2 Delivery Mode Nasal Cannula O2 (L/minute) 2 Allergies/Adverse Reactions: No Known Allergies Allergy (Unverified 05/02/16 23:58) Home Medications: Medication Instructions Recorded NK [No Known Home Meds] 11/03/16 Medical Decision Making - Diagnostics Imaging: Imaging Impressions Head CT 12/27/16 19:24 Impression: 1. No acute intracranial findings. 2. Diffuse cerebral atrophy with scattered periventricular and subcortical low attenuation consistent with chronic microvascular ischemic gliosis. 3. Additional findings as above. Findings discussed with Marcelo Ruggiero 12/27/2016 at 20:04. Results: CT scan of the head was obtained. The results of the study are negative. The study was read by Dr. Cook. I viewed the images myself on the PACS system. ED Course/Re-evaluation: Patient was getting out of bed and walking. We are going to [facility] to the [facility]. He is on a arc hold however he then fell into the wall into the ground. I will order a CT scan of his head. Head CT ordered in this adult patient for trauma for the following indication: Alcoholism and significant head impact to the floor 8:20 p.m. the patient is ambulating. He is sober enough to go to the [facility] recovery [facility] with police. I will give him a Librium prepack. Differential Diagnosis: Partial list of the Differential diagnosis considered include but were not limited to; intoxication, head injury and although unlikely based on the history and physical exam, I also considered infection, neck injury, non accidental trauma. I discussed these differential diagnoses and the plan with the patient as well as the usual and expected course. The patient understands that the diagnosis is provisional and that in medicine we are not always correct and that further workup is often warranted. Usual and customary warnings were given. All of the patient's questions were answered. The patient was instructed to return to the emergency department should the symptoms at all worsen or return, otherwise to followup with the physician as we discussed. - Data Points Medications Given: Discontinued Medications Chlordiazepoxide (Librium 25 Mg Prepack#6) 1 btl TAKEHOME EDNOW ONE Stop: 12/27/16 20:24 Last Admin: 12/27/16 20:24 Dose: 1 btl Lorazepam (Ativan 1 Mg Prepack#4) 1 btl TAKEHOME EDNOW ONE Stop: 12/27/16 20:22 Last Admin: 12/27/16 20:27 Dose: Not Given Departure - Departure Disposition: Home, Routine, Self-Care Clinical Impression: Alcoholic intoxication Qualifiers: Complication of substance-induced condition: with unspecified complication Qualified Code(s): F10.129 - Alcohol abuse with intoxication, unspecified Condition: Fair Instructions: Alcohol Intoxication (ED) Referrals: Patient,NotPresent [Unknown] - As per Instructions Nell Lambert MD [Medical Doctor] - As per Instructions
[2016-12-27] MEDS ORDERED: CHLORDIAZEPOXIDE 25MG PREPK#6 BTL TAKEHOME ONE ×2 (20:20→20:23)
[2016-12-27] MEDS ORDERED: LORAZEPAM 1 MG PREPACK#4 BTL TAKEHOME ONE (20:21)
== END 2016-12-27 20:57 | disposition home or self-care (01) ==
LOC: EDUNIT#
DX: F10.120 Alcohol abuse with intoxication, uncomplicated (principal); F17.200 Nicotine dependence, unspecified, uncomplicated

== ENCOUNTER 2017-03-01 10:14 | Emergency (ER) | payer MEDICAID ==
[2017-03-01 10:28] VITALS: BP 134/82; PULSE 92; RESP 16; TEMP 97.5; O2SAT 90
--- NOTE | 2017-03-01 10:44 | EDPHY ---
H & P Stated Complaint: fell on sidewalk after incounter with PD. slight abrasion to head. HPI/ROS: Chief complaint: Alcohol intoxication, head injury History of present illness: This is a 56-year-old male brought to the emergency department by police on an [facility] hold. Patient was found outside intoxicated. While police were attempting to talk with him he apparently fell down and struck his head against the ground. He sustained an abrasion. There was no report of loss of consciousness. No other injuries were reported. On my evaluation patient states he feels fine. He has no complaints. Review of systems: 10 point review of systems was obtained and other than described above was negative - Personal History Current Tetanus/Diphtheria Vaccine: Yes Current Tetanus Diphtheria and Acellular Pertussis (TDAP): Yes Tetanus Vaccine Date: 2015 - Medical/Surgical History Hx Asthma: No Hx Chronic Respiratory Disease: No Hx Diabetes: No Hx Cardiac Disease: No Hx Renal Disease: No Hx Cirrhosis: No Hx Alcoholism: Yes Hx HIV/AIDS: No Hx Splenectomy or Spleen Trauma: No Other PMH: PMHx: alcoholism, bowel infection, ivda,heroine abuse,ptsd, cellulitis. PSHx: bowel surgery "a couple years ago." - Social History Smoking Status: Current every day smoker - Physical Exam Exam: General Appearance: Alert, nontoxic, odor of alcohol on breath Eyes: PERRLA Respiratory: lungs clear to auscultation bilaterally Cardiac: Regular rate and rhythm. Gastrointestinal: bowel sounds normal. Abdomen is soft, nondistended, nontender. Neurological: Alert. Strength and sensation intact and symmetrical. Skin: Abrasion to the forehead. No repairable lesions. Otherwise head-to- toe examination is without evidence of acute trauma. Musculoskeletal: There is no tenderness on palpation of the head. No crepitus or bony deformity. Spine is without tenderness, crepitus or bony deformity. Chest wall intact palpation. Patient moving all extremities well. Ambulating well. Constitutional: Initial Vital Signs Temperature (C) 36.4 C 03/01/17 10:19 Heart Rate 92 03/01/17 10:19 Respiratory Rate 16 03/01/17 10:19 Blood Pressure 134/82 H 03/01/17 10:19 O2 Sat (%) 90 L 03/01/17 10:19 O2 Delivery Mode Room Air Allergies/Adverse Reactions: No Known Allergies Allergy (Unverified 05/02/16 23:58) Home Medications: Medication Instructions Recorded NK [No Known Home Meds] 11/03/16 Medical Decision Making - Diagnostics Imaging: Discussed imaging studies w/ call center recruiter Radiologist ED Course/Re-evaluation: patient seen under the supervision of my primary supervising physician Dr. Shannon Kay. Patient presents to the emergency department on are cold. He apparently fell and injured his head. Given potential intoxication CT scans are obtained and negative. By history and physical exam I do not appreciate evidence of trauma to other parts of the body. Police have been called to pick patient up in taken to the arc, however patient was able to extricate out the back door of the emergency department when it was unlocked for bystanders to go through. Security did attempt to get to him but he had run off quickly. Police were notified the patient had got away. Differential Diagnosis: Included but not limited to soft tissue injury, bony fracture, intracranial injury, spinal cord injury Departure - Departure Disposition: Other Psych, Not [facility] Clinical Impression: Alcoholic intoxication Qualifiers: Complication of substance-induced condition: uncomplicated Qualified Code(s): F10.920 - Alcohol use, unspecified with intoxication, uncomplicated Head injury Qualifiers: Encounter type: initial encounter Qualified Code(s): S09.90XA - Unspecified injury of head, initial encounter Condition: Good Instructions: Head Injury (ED), Alcohol Intoxication (ED) Additional Instructions: Follow-up with a primary care doctor for recheck You should get a tetanus shot if you are not up-to-date please do this within the next 3 days if you find out you're not up-to-date If symptoms worsen or new symptoms develop return to the emergency room for recheck Referrals: Patient,NotPresent [Unknown] - As per Instructions [facility],. [Clinic] - As per Instructions
== END 2017-03-01 12:11 ==
LOC: EDUNIT#
DX: S09.90XA Unspecified injury of head, initial encounter (principal); F10.129 Alcohol abuse with intoxication, unspecified; F17.200 Nicotine dependence, unspecified, uncomplicated; W01.198A Fall on same level from slipping, tripping and stumbling with subsequent striking against other object, initial encounter

== ENCOUNTER 2017-03-04 08:23 | Emergency (ER) | payer MEDICAID ==
[2017-03-04] MEDS ORDERED: IBUPROFEN 600 MG TAB PO ONE ×2 (08:27)
[2017-03-04] MEDS ORDERED: LORazepam 1 MG TAB PO ONE (08:27)
[2017-03-04] MEDS ORDERED: LORazepam 1 MG TAB ONE (08:27)
--- NOTE | 2017-03-04 08:28 | EDPHY ---
H & P Time Seen by Provider: 03/04/17 08:26 HPI/ROS: Chief complaint. Back pain after fall HPI. 56-year-old male presents emergency department by EMS after a fall last evening. Pain to the right posterior back. Denies head injury loss of consciousness. [facility]. He somewhat tremulous today. Denies shortness of breath. Pain right posterior back hurts to move. No neck pain. No abdominal pain vomiting diarrhea. Last drink yesterday ROS Constitutional. no fever/chills, no weakness Eyes. no problems with vision ENT. no sore throat, no nasal drainage Cardiovascular. no chest pain Respiratory. no shortness of breath, no cough Abdominal. no abdominal pain, no nausea/vomiting, no diarrhea . no problems urinating MS. Right posterior back pain Skin. no rash Lymph. no swollen glands Neuro. Tremulous Past Medical/Surgical History: Alcoholism, IVDA, PTSD, TB post treatment Social History: Single, daily smoker, no alcohol since yesterday Smoking Status: Current every day smoker Physical Exam: General Appearance: Alert well-developed male mild distress, tremulous, vital signs significant for mild tachycardia 106 Eyes: Pupils equal and round no pallor or injection. ENT, Mouth: Mucous membranes are moist. Respiratory: There are no retractions, lungs are clear to auscultation. Cardiovascular: Regular rate and rhythm. Gastrointestinal: Abdomen is soft and nontender, no masses, bowel sounds normal. Neurological: Awake and alert, sensory and motor exams grossly normal. Tremulous Skin: Warm and dry, no rashes. Musculoskeletal: Neck is supple nontender. Diffuse right-sided chest discomfort lateral scapular line T6-7 8 area. No surface trauma Extremities symmetrical, full range of motion. Psychiatric: Patient is oriented X 3, there is no agitation. Constitutional: Initial Vital Signs Temperature (C) 36.7 C 03/04/17 08:35 Heart Rate 106 H 03/04/17 08:35 Respiratory Rate 18 03/04/17 08:35 Blood Pressure 164/87 H 03/04/17 08:35 O2 Sat (%) 90 L 03/04/17 08:35 O2 Delivery Mode Room Air Allergies/Adverse Reactions: No Known Allergies Allergy (Unverified 05/02/16 23:58) Home Medications: Medication Instructions Recorded NK [No Known Home Meds] 11/03/16 Medical Decision Making - Diagnostics Imaging Results: Imaging Impressions Chest X-Ray 03/04/17 08:26 Impression: 1. Fractures involving the anterolateral right seventh and ninth ribs. 2. Small right pleural effusion, but no evidence of pneumothorax. 3. COPD. Chest x-ray reviewed by me and discussed with Dr. Tong shows nondisplaced fractures anterior right 7th and 9th ribs. No pneumothorax Procedures: Ibuprofen and Ativan orally ED Course/Re-evaluation: Re-evaluation 945--the patient and I discussed his x-ray results. We discussed treatment plan including criteria for return importance of follow-up and further evaluation. He expresses understanding and agreement Lidocaine patch is applied to the right posterior chest wall over the fractures Differential Diagnosis: I considered fracture, dislocation, pneumothorax, contusion. He has 2 nondisplaced rib fractures with out pneumothorax - Data Points Medications Given: Discontinued Medications Ibuprofen (Motrin) 600 mg PO EDNOW ONE Stop: 03/04/17 08:28 Last Admin: 03/04/17 08:34 Dose: 600 mg Lorazepam (Ativan) 1 mg PO EDNOW ONE Stop: 03/04/17 08:28 Last Admin: 03/04/17 08:34 Dose: 1 mg Departure - Departure Disposition: Home, Routine, Self-Care Clinical Impression: Rib fractures Qualifiers: Encounter type: initial encounter Rib fracture type: multiple ribs Fracture type: closed Laterality: right Qualified Code(s): S22.41XA - Multiple fractures of ribs, right side, initial encounter for closed fracture Condition: Good Instructions: Rib Fracture (ED) Additional Instructions: Use the lidocaine patches. Ibuprofen 600 mg every 6 hours. Return for worsening symptoms. Recheck at [facility] in 2 days without fail [facility] walk-in hours are afternoon 2-5 p.m. and Thursday morning 8-10 a.m.. Referrals: Patient,NotPresent [Unknown] - As per Instructions [facility] [Outside] - 2-3 days without fail
[2017-03-04 08:45] VITALS: RESP 18
[2017-03-04] MEDS ORDERED: LIDOCAINE 5% 1 EA PATCH TD ONE (09:51)
[2017-03-04 10:39] VITALS: BP 142/102; PULSE 100; TEMP 98.6; O2SAT 91
[2017-03-04] MEDS ORDERED: PATCH REMOVAL 1 EA PATCH TD SCH (21:00)
[2017-03-05] MEDS ORDERED: LIDOCAINE 5% 1 EA PATCH TD SCH (09:00)
== END 2017-03-04 10:39 | disposition home or self-care (01) ==
LOC: EDUNIT#
DX: S22.41XA Multiple fractures of ribs, right side, initial encounter for closed fracture (principal); F17.200 Nicotine dependence, unspecified, uncomplicated; W18.39XA Other fall on same level, initial encounter

== ENCOUNTER 2017-03-27 12:09 | Emergency (ER) | payer MEDICAID ==
[2017-03-27 12:29] VITALS: RESP 16; TEMP 98.2
--- NOTE | 2017-03-27 12:41 | EDPHY ---
H & P Stated Complaint: ETOH Time Seen by Provider: 03/27/17 12:35 HPI/ROS: CHIEF COMPLAINT: suspected alcohol intoxication HISTORY OF PRESENT ILLNESS: 56-year-old homeless male arrives via ambulance for suspected acute alcohol intoxication. He has no complaints of pain or discomfort. No reports of trauma. No reports of assault. He denies assault. Admits only to alcohol use. Denies suicidal or homicidal ideation. REVIEW OF SYSTEMS: A ten point review of systems was performed and is negative with the exception of the items mentioned in the HPI PAST MEDICAL & SURGICAL HISTORY: took a alcohol as SOCIAL HISTORY: homeless positive alcohol use PHYSICAL EXAM (Prior to examination, patient consented to physical exam, hands were washed and my usual and customary physical exam procedures followed) 1) GENERAL: Foul-smelling, poorly kept 2) HEAD: Normocephalic, atraumatic 3) HEENT: Pupils equal, round, reactive to light bilaterally. Sclera anicteric. No raccoon eyes no Alvarez sign. No rhinorrhea no otorrhea no hemotympanum. 4) NECK: Full range of motion, no meningeal signs. 5) LUNGS: Clear auscultation bilaterally, no wheezes, no rhonchi, no retractions. 6) HEART: Regular rate and rhythm, no murmur, no heave, no gallop. 7) ABDOMEN: No guarding, no rebound, no focal tenderness, 8) MUSCULOSKELETAL: No peripheral edema or discoloration. 9) BACK: , no visual or palpable abnormality. 10) SKIN: No rash, no petechiae. DIFFERENTIAL DIAGNOSIS: in no particular order including but not limited to acute alcohol intoxication, polysubstance abuse, trauma - Personal History Tetanus Vaccine Date: 2015 - Medical/Surgical History Hx Asthma: No Hx Chronic Respiratory Disease: No Hx Diabetes: No Hx Cardiac Disease: No Hx Renal Disease: No Hx Cirrhosis: No Hx Alcoholism: Yes Hx HIV/AIDS: No Hx Splenectomy or Spleen Trauma: No Other PMH: PMHx: alcoholism, bowel infection, ivda,heroin abuse,ptsd, cellulitis , TB with treatment. PSHx: bowel surgery "a couple years ago." - Social History Smoking Status: Current every day smoker Constitutional: Initial Vital Signs Temperature (C) 36.8 C 03/27/17 12:09 Heart Rate 110 H 03/27/17 12:09 Respiratory Rate 16 03/27/17 12:09 Blood Pressure 110/75 03/27/17 12:09 O2 Sat (%) 70 L 03/27/17 12:09 O2 Delivery Mode Room Air O2 (L/minute) 10 Allergies/Adverse Reactions: No Known Allergies Allergy (Unverified 05/02/16 23:58) Home Medications: Medication Instructions Recorded NK [No Known Home Meds] 11/03/16 Medical Decision Making ED Course/Re-evaluation: 4:30 p.m.: Patient ambulatory without assistance, alert oriented person place time events, stable steady gait, clear speech pattern. [facility]. Departure - Departure Disposition: Home, Routine, Self-Care Clinical Impression: Alcohol abuse Condition: Good Instructions: Abuse of Alcohol (ED) Referrals: [facility] [Outside] - 1 day without fail
[2017-03-27 16:56] VITALS: BP 123/93; PULSE 114; O2SAT 90
== END 2017-03-27 16:55 | disposition home or self-care (01) ==
LOC: EDUNIT#
DX: F10.10 Alcohol abuse, uncomplicated (principal); F17.200 Nicotine dependence, unspecified, uncomplicated

== ENCOUNTER 2017-04-03 17:09 | Emergency (ER) | payer MEDICAID ==
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
[2017-04-03] MEDS ORDERED: CHLORDIAZEPOXIDE 25MG PREPK#6 BTL TAKEHOME ONE (17:23)
[2017-04-03 18:32] VITALS: BP 154/111; PULSE 89; RESP 14; TEMP 98.5; O2SAT 91
== END 2017-04-03 18:31 | disposition home or self-care (01) ==
LOC: EDUNIT#
DX: F10.120 Alcohol abuse with intoxication, uncomplicated (principal); F17.200 Nicotine dependence, unspecified, uncomplicated

== ENCOUNTER 2017-06-12 21:18 | Inpatient (IN) | payer MEDICAID ==
--- NOTE | 2017-06-12 21:25 | EDPHY ---
H & P HPI/ROS: CHIEF COMPLAINT: Unresponsive, possible EtOH HISTORY OF PRESENT ILLNESS: This patient is an approximately 52 y/o unidentified male arriving via EMS found unresponsive in a commercial parking lot shortly prior to arrival. Per EMS , the patient was unresponsive to painful stimuli, was not protecting his airway , and had snoring and apneic periods. EMS placed a Miguel Airway. BP 140/palp. Pupils were PLACIDO. EMS administered 2 doses of Narcan intranasally with no changes. Crews were unable to establish an IV in transport. REVIEW OF SYSTEMS: Unobtainable due to patient presentation. - Medical/Surgical History PMH: unknown - Physical Exam Exam: General Appearance: unresponsive to painful stimuli Eyes: Pupils equal and round, 3mm, disconjugate gaze ENT, Mouth: Mucous membranes moist, miguel airway in place Neck: Normal inspection Respiratory: Lungs are clear to auscultation anteriorly Cardiovascular: Regular rate and rhythm Gastrointestinal: Abdomen is soft Back: normal inspection Neurological: unresponsive, flaccid Skin: Warm and dry, no abrasions/lacerations/other wounds Extremities: normal inspection Psychiatric: unable to determine Constitutional: Initial Vital Signs Heart Rate 98 06/12/17 21:21 Blood Pressure 173/123 H 06/12/17 21:21 O2 Sat (%) 100 06/12/17 21:21 O2 Delivery Mode Bag Valve Mask O2 (L/minute) 15 Allergies/Adverse Reactions: Unable to Assess Allergy (Unverified 06/12/17 22:49) Medical Decision Making - Diagnostics EKG Interpretation: EKG interpreted by me reveals sinus rhythm, rate 83, nonspecific intraventricular conduction delay. Imaging Results: Chest x-ray independently reviewed by me reveals ET, right IJ central line in good positioning, RLL infiltrate and no evidence of pneumothorax. Chest X-Ray 06/12/17 21:40 Impression: 1. Central venous catheter is ready to use. 2. Suspect pneumonia on the right. Procedures: 21:30 Procedure: Central line placement with ultrasound guidance. Using the linear probe covered in a sterile sheath, a short axis of the vein was obtained. The vein was completely compressible and was identified as separate from the adjacent non-compressible arterial structure. Under real-time guidance, the introducer needle was observed up to the vein, and then punctured it. Indication: Poor vascular access A time out was observed. Full maximal sterile barrier technique was used including gown, sterile gloves, large sheet, hand washing and chlorhexidine prep. The area was anesthetized with 1% lidocaine. A 7 Somali triple lumen was placed in the right internal jugular vein using standard Seldinger technique. There were no complications. Blood return low pressure, dark blood. Patient tolerated procedure well. CXR results: Appropriate line placement, and no pneumothorax. X-ray was interpreted by myself. Radiologist interpretation is pending. The procedure was performed by myself, Dr. Kay. 22:00 Procedure: Rapid sequence intubation. Indication for the procedure was airway protection. The patient was preoxygenated with 100% oxygen by [facility]. The patient was not given medications prior to intubation. He was completely unresponsive and had no gag reflex. The patient was orally endotracheally intubated under direct visualization with a 7.5 ETT. Tracheal intubation was confirmed with misting on the tube; breath sounds were auscultated equally bilaterally; appropriate color change with [employer] CO2 detector. Chest X-ray shows ETT in good position. The procedure was performed by myself, Dr. Kay. After intubation, the patient began coughing. Propofol 50 mg IV followed by propofol drip given. ED Course/Re-evaluation: 21:20 [facility] at bedside. The patient is unresponsive and is being ventilated with the Miguel airway in place. There is no IV access. His blood pressure and heart rate are normal. Oxygen saturation 100% while being bagged. Multiple attempts to obtain IV access unsuccessful. I placed a right internal jugular central line on 1st attempt. There were no complications. I then removed the Miguel airway and orally intubated the patient with a 7.5 endotracheal tube. Stat chest x-ray after intubation revealed good positioning of the endotracheal tube and central line. He was taken directly to CT scan. CT scan of the head independently reviewed by me reveals no acute hemorrhage. Alcohol level returned at 594. Respiratory failure secondary to alcohol intoxication, without evidence of acute injury. CXR with RLL infiltrate, but pt afebrile and no leukocytosis. Possible aspiration, no abx given, will observe for now. Hypotensive after starting propofol, propofol d/c'd and IVF given. BP stabilized. Pt also hypothermic, temp 34.5, suspect secondary to exposure (not sepsis), bear hugger placed. The hospitalist service was consulted for admission to ICU. Differential Diagnosis: includes though not limited to pneumonia, hypoglycemia, ICH, CVA, ACS, other intoxicants Critical Care Time: Critical care time spent by me, Dr. Kay, exclusively with this patient was 45 minutes, exclusive of PA time and exclusive of procedures. The organ system at risk: respiratory/all and I intubated the pt, placed a central line, gave IVF, applied bear hugger, admitted to ICU to prevent worsening of the patients condition. - Data Points Laboratory Results: Laboratory Results 06/12/17 22:02 06/12/17 22:02 Medications Given: Potassium Chloride/Dextrose/Sod Cl (D5w 1/2 Ns W/ 20 Kcl/L) 1,000 mls @ 100 mls /hr IV CONT RICCARDO Stop: 12/09/17 22:59 Last Admin: 06/13/17 00:56 Dose: 1,000 mls Propofol (Diprivan 10 Mg/Ml (Premix)) 100 mls @ 0 mls/hr IV CONT RICCARDO; Titrate PRN Reason: Protocol Stop: 12/09/17 22:59 Last Admin: 06/13/17 12:12 Dose: 100 mls Thiamine HCl 500 mg/ Sodium (Chloride) 105 mls @ 210 mls/hr IV DAILY RICCARDO Stop: 12/10/17 08:59 Last Admin: 06/13/17 09:38 Dose: 105 mls Pantoprazole Sodium 40 mg/ (Sodium Chloride) 100 mls @ 200 mls/hr IV BID RICCARDO Stop: 12/10/17 12:14 Last Admin: 06/13/17 12:19 Dose: 100 mls Dexmedetomidine HCl 400 mcg/ (Sodium Chloride) 104 mls @ 0 mls/hr IV CONT RICCARDO; Per Protocol PRN Reason: Protocol Stop: 12/10/17 12:29 Last Admin: 06/13/17 12:49 Dose: 104 mls Discontinued Medications Fentanyl (Sublimaze) 2,215 mcg IVP EDNOW ONE Stop: 06/12/17 22:59 Last Admin: 06/13/17 00:09 Dose: Not Given Fentanyl (Sublimaze) 100 mcg IVP EDNOW ONE Stop: 06/13/17 22:06 Last Admin: 06/13/17 00:11 Dose: Not Given Fentanyl (Sublimaze) 100 mcg IVP EDNOW ONE Stop: 06/12/17 22:06 Last Admin: 06/12/17 22:13 Dose: 100 mcg Propofol (Diprivan 10 Mg/Ml (Premix)) 50 mls @ 0 mls/hr IV EDNOW ONE; As Directed PRN Reason: Protocol Stop: 06/12/17 22:13 Last Admin: 06/12/17 22:20 Dose: 50 mls Famotidine/Sodium Chloride (Pepcid 20 Mg (Premix)) 50 mls @ 200 mls/hr IV Q12HRS RICCARDO Stop: 12/10/17 08:59 Last Admin: 06/13/17 09:38 Dose: 50 mls Sodium Chloride (Ns) 1,000 mls @ 0 mls/hr IV ONCE ONE PRN Reason: Wide Open Stop: 06/12/17 22:01 Last Admin: 06/12/17 22:00 Dose: 1,000 mls Sodium Chloride (Ns) 1,000 mls @ 0 mls/hr IV ONCE ONE PRN Reason: Wide Open Stop: 06/12/17 23:01 Last Admin: 06/12/17 23:00 Dose: 1,000 mls Potassium Chloride (Potassium Cl 20 Meq (Premix)) 100 mls @ 100 mls/hr IV Q1H RICCARDO Stop: 06/13/17 02:49 Last Admin: 06/13/17 02:18 Dose: 100 mls Sodium Chloride (Ns) 1,000 mls @ 0 mls/hr IV ONCE ONE PRN Reason: Wide Open Stop: 06/13/17 01:01 Last Admin: 06/13/17 01:16 Dose: 1,000 mls Sodium Chloride (Ns) 1,000 mls @ 500 mls/hr IV ONCE ONE Stop: 06/13/17 05:54 Last Admin: 06/13/17 04:07 Dose: 1,000 mls Sodium Chloride (Ns) 1,000 mls @ 0 mls/hr IV ONCE ONE PRN Reason: As Directed Stop: 06/13/17 07:31 Last Admin: 06/13/17 07:35 Dose: 1,000 mls Potassium Chloride (Potassium Cl 10 Meq (Premix)) 50 mls @ 100 mls/hr IV Q30M RICCARDO Stop: 06/13/17 09:00 Last Admin: 06/13/17 09:14 Dose: 50 mls Magnesium Sulfate (Magnesium Sulf 2 Gm (Premix)) 50 mls @ 50 mls/hr IV ONCE ONE Stop: 06/13/17 10:02 Last Admin: 06/13/17 09:38 Dose: 50 mls Ondansetron HCl (Zofran) 4 mg IVP EDNOW ONE Stop: 06/12/17 22:06 Last Admin: 06/12/17 22:05 Dose: 4 mg Propofol (Diprivan) 50 mg IVP EDNOW ONE Stop: 06/12/17 22:13 Last Admin: 06/12/17 22:13 Dose: 50 mg Departure - Departure Disposition: [facility] Inpatient Acute Clinical Impression: Alcoholic intoxication Qualifiers: Complication of substance-induced condition: with unspecified complication Qualified Code(s): F10.929 - Alcohol use, unspecified with intoxication, unspecified Respiratory failure Qualifiers: Chronicity: acute Respiratory failure complication: hypoxia Qualified Code(s): J96.01 - Acute respiratory failure with hypoxia Condition: Critical Report Scribed for: Shannon Kay Report Scribed by: Maryanne Hardin Date of Report: 06/12/17 Time of Report: 21:27 Physician Review and Approval Statement: 06/12/17 21:27 Portions of this note were transcribed by a medical coding specialist. I personally performed a history, physical exam, medical decision making, and confirmed accuracy of information the transcribed note.
[2017-06-12] MEDS ORDERED: NS 1,000 ML IV ONE ×2 (22:00→23:00)
[2017-06-12] MEDS ORDERED: fentaNYL 100 MCG/2 ML INJ IVP ONE ×2 (22:05→22:58)
[2017-06-12] MEDS ORDERED: ONDANSETRON 4 MG/2 ML VIAL IVP ONE (22:05)
[2017-06-12] MEDS ORDERED: PROPOFOL/EMULSION 50 ML IV ONE (22:12)
[2017-06-12] MEDS ORDERED: PROPOFOL 200 MG/20 ML VIAL IVP ONE (22:12)
[2017-06-12 22:16] LABS: % IMMATURE GRANULYOCYTES 0.2 % (0.0-1.1); ABSOLUTE IMMATURE GRANULOCYTES 0.01 10^3/uL (0.00-0.10); ADD DIFF? NO; ADD MORPH? NO; ADD SCAN? NO; ATYPICAL LYMPHOCYTE FLAG 30 (0-99); FRAGMENT RBC FLAG 0 (0-99); HEMATOCRIT 38.6 % (40.0-51.0); HEMOGLOBIN 12.9 g/dL (13.7-17.5); LEFT SHIFT FLG 0 (0-99); LIPEMIA HEMOLYSIS FLAG 80 (0-99); MEAN CELL HEMOGLOBIN 34.2 pg (27.9-34.1); MEAN CELL HEMOGLOBIN CONCENTR. 33.4 g/dL (32.4-36.7); MEAN CELL VOLUME 102.4 fL (81.5-99.8); MEAN PLATELET VOLUME 9.8 fL (8.7-11.7); PLATELET CLUMPS FLAG 0 (0-99); PLATELET COUNT 65 10^3/uL (150-400); RED BLOOD CELL COUNT 3.77 10^6/uL (4.40-6.38); RED CELL DISTRIBUTION WIDTH 15.5 % (11.5-15.2)
[2017-06-12 22:24] LABS: INR 1.02 (0.83-1.16); PROTIME(PATIENT) 13.3 SEC (12.0-15.0)
[2017-06-12 22:25] LABS: APTT 35.8 SEC (23.0-38.0)
[2017-06-12 22:29] LABS: ALANINE AMINOTRANSFERASE 50 IU/L (21-72); ALBUMIN 3.7 g/dL (3.5-5.0); ALKALINE PHOSPHATASE 153 IU/L (38-126); ANION GAP 19 mEq/L (8-16); ASPARTATE AMINOTRANSFERASE 120 IU/L (17-59); BILIRUBIN,TOTAL 0.4 mg/dL (0.1-1.4); BILIRUBIN-CONJUGATED 0.4 mg/dL (0.0-0.5); CALCIUM 8.3 mg/dL (8.5-10.4); CARBON DIOXIDE 27 mEq/l (22-31); CHLORIDE 101 mEq/L (97-110); CREATININE 0.6 mg/dL (0.7-1.3); GLOMERULAR FILTRATION RATE > 60; GLUCOSE 110 mg/dL (70-100); POTASSIUM 3.1 mEq/L (3.5-5.2); SODIUM 147 mEq/L (134-144); TOTAL PROTEIN 7.1 g/dL (6.3-8.2)
[2017-06-12 22:42] LABS: ETHANOL SERUM 594 mg/dL (0-10)
--- NOTE | 2017-06-12 22:46 | CPEKG ---
Heart Rate: 83 RR Interval: 723 P-R Interval: 168 QRSD Interval: 116 QT Interval: 452 QTC Interval: 532 P [place]: 61 QRS [place]: 78 T Wave [place]: 54 EKG Severity - ABNORMAL ECG - EKG Impression: SINUS RHYTHM EKG Impression: NONSPECIFIC INTRAVENTRICULAR CONDUCTION DELAY Electronically Signed By: Shannon Kay 12-Jun-2017 22:55:52
[2017-06-12] MEDS ORDERED: PROTOCOL POTASSIUM 1 DOSE MISC PRN (22:57)
[2017-06-12] MEDS ORDERED: PROTOCOL MAGNESIUM 1 DOSE IV PRN (22:57)
[2017-06-12] MEDS ORDERED: PROTOCOL K PHOSPHATE 1 DOSE IV PRN (22:57)
--- NOTE | 2017-06-12 23:12 | PDGENHP ---
History and Physical - Chief Complaint Found down - History of Present Illness Unidentified male found down by onlookers and brought to ED by EMS. Intubated in the field due to profound obtundation. ETT replaced in ED along w/ RIJ catheter. Patient unresponsive at the time of my evaluation. History Information - Allergies/Home Medication List Allergies/Adverse Reactions: Unable to Assess Allergy (Unverified 06/12/17 22:49) I have personally reviewed and updated: family history, medical history - Past Medical History Additional medical history: Unable to assess - Family History Additional family history: Unable to assess - Social History Alcohol Use: Heavy Review of Systems Review of Systems: Unable to assess due to mental status Physical Exam Physical Exam: Temp Pulse Resp BP Pulse Ox 76 16 85/55 L 100 06/12/17 23:03 06/12/17 23:03 06/12/17 23:03 06/12/17 23:03 Constitutional: no apparent distress, unkempt Eyes: PERRL, anicteric sclera Ears, Nose, Mouth, Throat: moist mucous membranes, no oral mucosal ulcers Cardiovascular: regular rate and rhythym, no murmur, rub, or gallop Respiratory: no respiratory distress, clear to auscultation Gastrointestinal: normoactive bowel sounds, soft, non-tender abdomen Skin: warm, abrasion (R episcopalian), other (RIJ CVC in place, hackett in place) Neurologic: other (Sedated, intubated) Lab Data & Imaging Review 06/12/17 22:02 06/12/17 22:02 WBC 4.59 10^3/uL (3.80-9.50) 06/12/17 22:02 RBC 3.77 10^6/uL (4.40-6.38) L 06/12/17 22:02 Hgb 12.9 g/dL (13.7-17.5) L 06/12/17 22:02 Hct 38.6 % (40.0-51.0) L 06/12/17 22:02 MCV 102.4 fL (81.5-99.8) H 06/12/17 22:02 MCH 34.2 pg (27.9-34.1) H 06/12/17 22:02 MCHC 33.4 g/dL (32.4-36.7) 06/12/17 22:02 RDW 15.5 % (11.5-15.2) H 06/12/17 22:02 Plt Count 65 10^3/uL (150-400) L 06/12/17 22:02 MPV 9.8 fL (8.7-11.7) 06/12/17 22:02 Neut % (Auto) 32.0 % (39.3-74.2) L 06/12/17 22:02 Lymph % (Auto) 58.4 % (15.0-45.0) H 06/12/17 22:02 [place] % (Auto) 7.8 % (4.5-13.0) 06/12/17 22:02 Eos % (Auto) 0.7 % (0.6-7.6) 06/12/17 22:02 Baso % (Auto) 0.9 % (0.3-1.7) 06/12/17 22:02 Nucleat RBC Rel Count 0.0 % (0.0-0.2) 06/12/17 22:02 Absolute Neuts (auto) 1.47 10^3/uL (1.70-6.50) L 06/12/17 22:02 Absolute Lymphs (auto) 2.68 10^3/uL (1.00-3.00) 06/12/17 22:02 Absolute Monos (auto) 0.36 10^3/uL (0.30-0.80) 06/12/17 22:02 Absolute Eos (auto) 0.03 10^3/uL (0.03-0.40) 06/12/17 22:02 Absolute Basos (auto) 0.04 10^3/uL (0.02-0.10) 06/12/17 22:02 Absolute Nucleated RBC 0.00 10^3/uL (0-0.01) 06/12/17 22:02 Immature Gran % 0.2 % (0.0-1.1) 06/12/17 22:02 Immature Gran # 0.01 10^3/uL (0.00-0.10) 06/12/17 22:02 PT 13.3 SEC (12.0-15.0) 06/12/17 22:02 INR 1.02 (0.83-1.16) 06/12/17 22:02 APTT 35.8 SEC (23.0-38.0) 06/12/17 22:02 Sodium 147 mEq/L (134-144) H 06/12/17 22:02 Potassium 3.1 mEq/L (3.5-5.2) L 06/12/17 22:02 Chloride 101 mEq/L (97-110) 06/12/17 22:02 Carbon Dioxide 27 mEq/l (22-31) 06/12/17 22:02 Anion Gap 19 mEq/L (8-16) H 06/12/17 22:02 BUN 12 mg/dL (7-23) 06/12/17 22:02 Creatinine 0.6 mg/dL (0.7-1.3) L 06/12/17 22:02 Estimated GFR > 60 06/12/17 22:02 Glucose 110 mg/dL (70-100) H 06/12/17 22:02 Calcium 8.3 mg/dL (8.5-10.4) L 06/12/17 22:02 Total Bilirubin 0.4 mg/dL (0.1-1.4) 06/12/17 22:02 Conjugated Bilirubin 0.4 mg/dL (0.0-0.5) 06/12/17 22:02 Unconjugated Bilirubin 0.0 mg/dL (0.0-1.1) 06/12/17 22:02 AST 120 IU/L (17-59) H 06/12/17 22:02 ALT 50 IU/L (21-72) 06/12/17 22:02 Alkaline Phosphatase 153 IU/L (38-126) H 06/12/17 22:02 Total Protein 7.1 g/dL (6.3-8.2) 06/12/17 22:02 Albumin 3.7 g/dL (3.5-5.0) 06/12/17 22:02 Lipase 595 IU/L (23-300) H 06/12/17 22:02 Ethyl Alcohol 594 mg/dL (0-10) H* 06/12/17 22:02 Visualized and Interpreted Chest x-ray results: Yes Chest X-Ray results: infiltrate EKG Interpretation: Positive for: normal sinsus rhythm Assessment & Plan Assessment: 52 yo M found down requiring intubation for airway protection in the setting of BAL of 596. Plan: 1. Acute toxic encephalopathy - BAL 596 on admission; requiring intubation for airway protection. - Admit to ICU - Wean mechanical ventilation as able - Propofol PRN, Ativan PRN for sedation - mIVF w/ K, K/Ph/Mg electrolyte protocols ordered - High dose thiamine IV 2. Macrocytic anemia, thrombocytopenia - Likely 2/2 ETOH abuse, monitor CBC 3. Transaminitis - In class 2:1 AST:ALT ratio; related to ETOH, trend CMP 4. Electrolyte derangements - Protocols ordered 5. Hypothermia - 2/2 exposure; warm slowly with close monitoring of telemetry and electrolytes 6. RLL infiltrate - Likely aspiration, no signs of infection currently. Low threshold for starting antibiotics. FEN - NPO Ppx - SCDs, H2B IV q12h Code - Full Dispo - Admit to ICU I personally spent 45 minutes of critical care time evaluation patient, interpreting data, and coordinating care.
[2017-06-12 23:27] LABS: MAGNESIUM 1.7 mg/dL (1.6-2.3)
[2017-06-13 00:28] LABS: BASE EXCESS -0.3 mEq/L (-2.5-2.5); BICARBONATE 24 mEq/L (22-26); MEASURED OXYGEN SATURATION 99 % (92-95); PCO2 38 mmHg (34-38); PO2 191 mmHg (65-75); SIMV YES; TCO2 25 mEq/L (23-27)
[2017-06-13 00:29] LABS: O2 CONCENTRATIION 100 % (0-100); P/F RATIO 191 RATIO; PATIENT RATE 12; PIP 18.5; PRESSURE SUPPORT 7
[2017-06-13 00:44] LABS: POTASSIUM 3.1 mEq/L (3.5-5.2)
[2017-06-13] MEDS: D5W 1/2 NS W/ 20 KCl/L 1,000 ML IV SCH ×2 (00:56→14:46)
[2017-06-13] MEDS ORDERED: NS BOLUS 1000 ML (Wide open) IV ONE ×2 (01:00→03:55)
[2017-06-13] MEDS: POTASSIUM Cl (KCl) 100 ML IV SCH ×2 (01:13→02:18)
[2017-06-13] MEDS: PROPOFOL/EMULSION 100 ML IV SCH ×3 (02:35→12:12)
[2017-06-13 06:08] LABS: ALANINE AMINOTRANSFERASE 40 IU/L (21-72); ALBUMIN 2.5 g/dL (3.5-5.0); ALKALINE PHOSPHATASE 106 IU/L (38-126); ANION GAP 15 mEq/L (8-16); ASPARTATE AMINOTRANSFERASE 84 IU/L (17-59); BILIRUBIN,TOTAL 0.4 mg/dL (0.1-1.4); CALCIUM 6.8 mg/dL (8.5-10.4); CARBON DIOXIDE 23 mEq/l (22-31); CHLORIDE 111 mEq/L (97-110); CREATININE 0.7 mg/dL (0.7-1.3); GLOMERULAR FILTRATION RATE > 60; GLUCOSE 90 mg/dL (70-100); MAGNESIUM 1.4 mg/dL (1.6-2.3); POTASSIUM 3.4 mEq/L (3.5-5.2); SODIUM 149 mEq/L (134-144)
[2017-06-13] MEDS ORDERED: NS 1,000 ML IV ONE (07:30)
[2017-06-13] MEDS: POTASSIUM Cl (KCl) 50 ML IV SCH ×6 (07:45→16:28)
[2017-06-13] MEDS ORDERED: ENOXAPARIN 40 MG/0.4 ML SYR SC SCH (09:00)
[2017-06-13] MEDS ORDERED: FAMOTIDINE 20 MG/NACL 50 ML IV SCH (09:00)
[2017-06-13] MEDS ORDERED: MAGNESIUM SULF 2 GM/WATER 50 ML IV ONE (09:03)
[2017-06-13 09:04] LABS: % IMMATURE GRANULYOCYTES 0.2 % (0.0-1.1); ABSOLUTE IMMATURE GRANULOCYTES 0.01 10^3/uL (0.00-0.10); ADD DIFF? NO; ADD MORPH? NO; ADD SCAN? NO; ATYPICAL LYMPHOCYTE FLAG 20 (0-99); FRAGMENT RBC FLAG 0 (0-99); HEMATOCRIT 28.3 % (40.0-51.0); HEMOGLOBIN 9.4 g/dL (13.7-17.5); LEFT SHIFT FLG 0 (0-99); LIPEMIA HEMOLYSIS FLAG 80 (0-99); MEAN CELL HEMOGLOBIN 34.6 pg (27.9-34.1); MEAN CELL HEMOGLOBIN CONCENTR. 33.2 g/dL (32.4-36.7); MEAN PLATELET VOLUME 10.7 fL (8.7-11.7); PLATELET CLUMPS FLAG 0 (0-99); RED BLOOD CELL COUNT 2.72 10^6/uL (4.40-6.38); RED CELL DISTRIBUTION WIDTH 15.8 % (11.5-15.2)
[2017-06-13 09:12] LABS: PLATELET COUNT 36 10^3/uL (150-400)
[2017-06-13] MEDS: THIAMINE HCL 500 MG in NS 100 ML IV SCH (09:38)
[2017-06-13 10:29] LABS: PLATELET ESTIMATE DECREASED (ADEQ)
[2017-06-13] MEDS: PANTOPRAZOLE SODIUM 40 MG in NS 100 ML IV SCH ×2 (12:19→20:51)
--- NOTE | 2017-06-13 12:30 | HOSPPROG ---
Hospitalist Progress Note Assessment/Plan: # acute resp failure d/t inability to protect airway from acute etOH intoxication - attempting to extubate today # acute encephalopathy - will reassess when extubated # etOH abuse - very high blood level # anemia, macrocytic - unclear baseline; drop overnight likely d/y significant rehydration # mild red specks in NGT output - doubt significant GI bleed, more likely d/t NG tube trauma - protonix, will get GI involved if he continues to drop his hgb - trend h/h # thrombocytopenia - would transfuse if he has a significant bleeding event - suspect d/t etOH and liver disease # transaminitis - likely d/t etOH - attempt to classify liver disease after his identity is known # RLL infiltrate - this is mild, he has no white count, no fevers - will continue to monitor off abx - low threshold to start # hyperNa - 1/2 NS # electrolyte abnormalities - replete # CM working to establish an identity Subjective: remains intubated; agitated overnight Objective: Vital Signs Temp Pulse Resp BP Pulse Ox 37.2 C 82 18 103/62 97 06/13/17 12:00 06/13/17 12:00 06/13/17 12:00 06/13/17 12:00 06/13/17 12:00 Laboratory Results 06/13/17 08:50 06/13/17 05:20 06/12/17 06/13/17 06/14/17 05:59 05:59 05:59 Intake Total 4500.8 Output Total 775 Balance 3725.8 PT 13.3 SEC (12.0-15.0) 06/12/17 22:02 INR 1.02 (0.83-1.16) 06/12/17 22:02 chart reviewed discussed with Dr Rodriguez - Physical Exam Constitutional: other (intubated, OGT) Cardiovascular: regular rate and rhythym, no murmur, rub, or gallop Respiratory: no respiratory distress, no rales or rhonchi, clear to auscultation Gastrointestinal: normoactive bowel sounds, soft, non-tender abdomen, no palpable masses ICD10 Worksheet Patient Problems: Problems Problem Status Onset Alcoholic intoxication Acute Respiratory failure Acute
[2017-06-13] MEDS: DEXMEDETOMIDINE HCL 400 MCG in NS 100 ML IV SCH ×2 (12:49→21:19)
--- NOTE | 2017-06-13 13:35 | GCON ---
[f rep st] CONSULTATION CRITICAL CARE CONSULTATION DATE OF CONSULTATION: 06/13/2017 HISTORY OF PRESENT ILLNESS: This patient was found unresponsive by onlookers, EMS was called, and he was intubated in the field. He was found to have a blood alcohol level of nearly 600, but was other carney quite stable with fairly unremarkable labs. He did not have any identification with him, so it is unclear of his identity or his age. REVIEW OF SYSTEMS: Unobtainable. PAST MEDICAL HISTORY: Unknown. PAST SURGICAL HISTORY: Unknown. MEDICATIONS: Unknown. FAMILY HISTORY: Unknown. SOCIAL HISTORY: Unknown except for the alcohol; the tox screen was otherwise negative CURRENT MEDICATIONS: Include pantoprazole, propofol, thiamin, and Lovenox. PHYSICAL EXAMINATION: VITAL SIGNS: Mildly disheveled, in no apparent distress. Mostly sedated on t he ventilator without using accessory muscles for breathing. HEENT: Pupils equally round and reacti ve to light; nonicteric, noninjected. NECK: Supple without adenopathy. LUNGS: Breath sounds were clear to auscultation bilaterally without wheezes, rubs, rales. HEART: Regular rate and rhythm with out murmurs, rubs, or gallops. ABDOMEN: Soft, nontender, nondistended without hepatosplenomegaly. EXTREMITIES: No clubbing, cyanosis, or edema. NEUROLOGIC: Grossly nonfocal from the best we could ascertain. SKIN: Warm and dry without rash. OBJECTIVE DATA: Includes a white count of 4.5 on admission and 4.09 today, hematocrit was 38.6 on a rrival and dropped to 28.3 after about 4 L. his platelets also low at 65 coming in and now 36. INR was normal. Blood gas shows a pH of 7.41, pCO2 38, pO2 191, bicarb 25, sat of 99% on 40% and 5 of PE EP. Sodium was 149, potassium 3.4, chloride 111, bicarb 23, BUN 11, creatinine 0.7, calcium 6.8. Ma g was 1.4, albumin only 2.5. LFTs were slightly elevated on arrival with an AST 120 down to 84, ALT normal at 50 and 40, alk phos 153 and 106, total bilirubin 0.4. Tox screen showed marijuana and patricia o's (which were probably given in the ER), as well as alcohol at 594. ASSESSMENT/PLAN: 1. Respiratory failure on a ventilator. His chest x-ray does show some right lower lobe infiltrates but no evidence of ongoing infection. He may have an aspiration pneumonitis. We are withholding an tibiotics at this point and seeing how that develops. I think that he likely should extubate today a s long as he wakes up and remains clear. 2. Aspiration pneumonitis, as described above. 3. Anemia and thrombocytopenia. It is uncertain what his baseline is. My suspicion is that this is probably close to baseline for him. I see no evidence of any ongoing bleeding at this time. Once w e are able wake him up, perhaps we can make some progress in terms of his identity and then look up h is medical records to find out if this thrombocytopenia is at this baseline. 4. Hypernatremia, I suspect from volume. Will continue normal saline at this time. TIME SPENT: A total of 40 minutes of critical care time was involved in evaluating this patient with serious illness. /[id number]/MODL
[2017-06-13 13:44] LABS: POTASSIUM 3.6 mEq/L (3.5-5.2)
[2017-06-13] MEDS: LIDOCAINE 5% 1 EA PATCH TD SCH (15:32)
[2017-06-13] MEDS: NICOTINE 21 MG/24 HR PATCH TD SCH (15:32)
[2017-06-13] MEDS: LORazepam 2 MG/ML INJ IVP PRN ×5 (16:46→23:20)
[2017-06-13 16:58] LABS: HEMATOCRIT 30.1 % (40.0-51.0); HEMOGLOBIN 9.9 g/dL (13.7-17.5)
--- NOTE | 2017-06-13 18:18 | ASMTCMCOM ---
CM Note CM Note Notes: Reviewed chart re: d/c poc, pt's progress. Per rounds/MD notes, pt admitted w/ an ETOH level of 600; found down outside the [facility], was intubated in the field. Pt very combative on admit; placed on vent for resp failure. Pt has aspiration PNA, anemia, thrombocytopenia, and is hypernatremic. Pt came in as a Piyush Maria. CM attempted to work w/ security compliance engineer Devon to identify pt; also contacted [facility] for missing persons; unable to assist w/ identificaton. Pt was able to tell JORDAN De La Paz his name and this afternoon. Pt would benefit from alcohol resources/counseling, possible rehab. Discharge plan remains TBD at this time. CM will cont to follow. Date Signed: 06/13/2017 06:17 PM Electronically Signed By:Corazon Meyer RN
[2017-06-13] MEDS: MIDAZOLAM 2 MG/2 ML VIAL IVP SCH (19:00)
[2017-06-13 19:10] LABS: POTASSIUM 3.8 mEq/L (3.5-5.2)
[2017-06-13] MEDS ORDERED: POTASSIUM Cl (KCl) 50 ML IV ONE (19:39)
[2017-06-13 20:56] LABS: HEMATOCRIT 30.2 % (40.0-51.0); HEMOGLOBIN 9.8 g/dL (13.7-17.5)
[2017-06-13] MEDS ORDERED: ACETAMINOPHEN 500 MG TAB PO ONE (21:00)
[2017-06-13] MEDS ORDERED: ERTAPENEM 1 GM in NS 100 ML IV ONE (21:00)
[2017-06-13] MEDS ORDERED: POTASSIUM Cl (KCl) 100 ML IV ONE (21:00)
[2017-06-13] MEDS: PATCH REMOVAL 1 EA PATCH TD SCH (21:22)
[2017-06-13] MEDS ORDERED: fentaNYL 100 MCG/2 ML INJ IVP ONE (22:05)
[2017-06-14 00:40] LABS: POTASSIUM 4.1 mEq/L (3.5-5.2)
[2017-06-14 01:09] LABS: HEMATOCRIT 30.7 % (40.0-51.0); HEMOGLOBIN 10.2 g/dL (13.7-17.5)
[2017-06-14] MEDS: MIDAZOLAM 2 MG/2 ML VIAL IVP SCH ×5 (02:08→19:17)
[2017-06-14] MEDS: D5W 1/2 NS W/ 20 KCl/L 1,000 ML IV SCH ×2 (02:08→15:23)
[2017-06-14] MEDS: DEXMEDETOMIDINE HCL 400 MCG in NS 100 ML IV SCH ×6 (04:15→20:55)
[2017-06-14] MEDS: LORazepam 2 MG/ML INJ IVP PRN ×6 (05:15→21:21)
[2017-06-14 05:30] LABS: ATYPICAL LYMPHOCYTE FLAG 0 (0-99); FRAGMENT RBC FLAG 20 (0-99); HEMATOCRIT 32.1 % (40.0-51.0); HEMOGLOBIN 10.8 g/dL (13.7-17.5); LIPEMIA HEMOLYSIS FLAG 80 (0-99); MEAN CELL HEMOGLOBIN 34.5 pg (27.9-34.1); MEAN CELL HEMOGLOBIN CONCENTR. 33.6 g/dL (32.4-36.7); MEAN CELL VOLUME 102.6 fL (81.5-99.8); MEAN PLATELET VOLUME 10.3 fL (8.7-11.7); PLATELET CLUMPS FLAG 10 (0-99); RED BLOOD CELL COUNT 3.13 10^6/uL (4.40-6.38); RED CELL DISTRIBUTION WIDTH 14.6 % (11.5-15.2)
[2017-06-14 05:41] LABS: ALANINE AMINOTRANSFERASE 43 IU/L (21-72); ALBUMIN 2.8 g/dL (3.5-5.0); ALKALINE PHOSPHATASE 129 IU/L (38-126); ANION GAP 9 mEq/L (8-16); ASPARTATE AMINOTRANSFERASE 80 IU/L (17-59); BILIRUBIN,TOTAL 1.1 mg/dL (0.1-1.4); CALCIUM 7.7 mg/dL (8.5-10.4); CARBON DIOXIDE 26 mEq/l (22-31); CHLORIDE 101 mEq/L (97-110); CREATININE 0.6 mg/dL (0.7-1.3); GLOMERULAR FILTRATION RATE > 60; GLUCOSE 125 mg/dL (70-100); MAGNESIUM 1.4 mg/dL (1.6-2.3); POTASSIUM 3.9 mEq/L (3.5-5.2); SODIUM 136 mEq/L (134-144)
[2017-06-14 05:59] LABS: LEFT SHIFT FLG 140 (0-99); PLATELET COUNT 37 10^3/uL (150-400)
[2017-06-14 06:30] LABS: ADD DIFF? YES; ADD MORPH? NO; ADD SCAN? NO; SCAN POSITIVE
[2017-06-14 06:34] LABS: MACROCYTES 1+; PLATELET ESTIMATE DECREASED (ADEQ)
[2017-06-14] MEDS: LIDOCAINE 5% 1 EA PATCH TD SCH (07:50)
[2017-06-14] MEDS: PANTOPRAZOLE SODIUM 40 MG in NS 100 ML IV SCH (07:51)
[2017-06-14] MEDS: NICOTINE 21 MG/24 HR PATCH TD SCH (07:51)
[2017-06-14] MEDS ORDERED: MAGNESIUM SULF 2 GM/WATER 50 ML IV ONE (08:08)
[2017-06-14] MEDS ORDERED: POTASSIUM Cl (KCl) 50 ML IV ONE (08:09)
[2017-06-14] MEDS: THIAMINE HCL 500 MG in NS 100 ML IV SCH (08:29)
--- NOTE | 2017-06-14 09:12 | PDINTPN ---
Concrete Sculptor Progress Note Assessment/Plan: Assessment/plan: 56 M admitted 06/12 as Piyush Maria when found unresponsive and required intubation in field for airway protection. In ED found to have BAL 594. Extubated 06/13 with ongoing confusion and started precedex and CIWA. * Acute respiratory failure with hypoxia- likely with at least aspiration pneumonitis, now with fever so could be PNA. CXR with possible aspiration, but WBC has been normal. Tm/Tc 38.4, procalcitonin pending. Holding abx for procalcitonin, continue pulmonary toilet (if possible). * Altered MS- probable etoh withdrawal. Continue CIWA. Doubt CVA, meningitis, cardiac issues. * LFTs consistent with etoh hepatitis, but discriminant function only 7, so no role for steroids. Hep serologies negative 06/2016. * Anemia- his Hct has been stable with no evidence to support GIB at this time. His MCV is high so may be B12 or folate ( or both) deficient and probably worth checking. * Thrombocytopenia- His platelets were normal on 09/17/16 and 06/2016, so may represent BM suppression from ETOH. Will discuss imaging modalities for confirming splenomegaly. No obvious drugs to cause it. No overt septic shock. No schistocytes, so TTP unlikely. Subjective: Very confused today and nonsensical verbalization Objective: Vital Signs Temp Pulse Resp BP Pulse Ox 38.4 C H 91 37 H 132/95 H 99 06/14/17 04:00 06/14/17 06:00 06/14/17 06:00 06/14/17 06:00 06/14/17 06:00 Laboratory Results 06/14/17 05:05 06/14/17 05:05 06/13/17 06/14/17 06/15/17 05:59 05:59 05:59 Intake Total 4500.8 4397 Output Total 775 3300 Balance 3725.8 1097 PT 13.3 SEC (12.0-15.0) 06/12/17 22:02 INR 1.02 (0.83-1.16) 06/12/17 22:02 Physical Exam - Physical Exam General Appearance: no apparent distress, anxiety, other (confused and mumbling speech) EENT: PERRL/EOMI Neck: supple Respiratory: lungs clear, normal breath sounds, No respiratory distress Cardiac/Chest: regular rate, rhythm, No edema Abdomen: normal bowel sounds, non-tender, soft, No distended Skin: normal color, warm/dry Lymphatic: no adenopathy Extremities: No pedal edema Neuro/Psych: alert, cognition abnormalities ICD10 Worksheet Patient Problems: Problems Problem Status Onset Alcoholic intoxication Acute Respiratory failure Acute
--- NOTE | 2017-06-14 09:57 | HOSPPROG ---
Hospitalist Progress Note Assessment/Plan: # acute resp failure d/t inability to protect airway from acute etOH intoxication - extubated, but still requiring O2 # aspiration pna vs pneumonitis, fevers overnight - received abx overnight - recheck CXR - pct pending - favor continuing antibiotics # acute encephalopathy - was better post-extubation yesterday, now worse with etOH withdrawal # etOH abuse - currently withdrawing - cont precedex, still scoring on CIWA for benzos - would schedule a benzo if his CIWA drops while on precedex # anemia, macrocytic - unclear baseline; drop overnight likely d/t significant rehydration # mild red specks in NGT output - doubt significant GI bleed, more likely d/t NG tube trauma - protonix, will get GI involved if he continues to drop his hgb - trend h/h # thrombocytopenia - would transfuse if he has a significant bleeding event - suspect d/t etOH and liver disease # transaminitis - likely d/t etOH # hyperNa - 1/2 NS # electrolyte abnormalities - replete Subjective: fever overnight - much more confused today Objective: Vital Signs Temp Pulse Resp BP Pulse Ox 38.4 C H 91 37 H 132/95 H 99 06/14/17 04:00 06/14/17 06:00 06/14/17 06:00 06/14/17 06:00 06/14/17 06:00 Laboratory Results 06/14/17 05:05 06/14/17 05:05 06/13/17 06/14/17 06/15/17 05:59 05:59 05:59 Intake Total 4500.8 4397 Output Total 775 3300 Balance 3725.8 1097 PT 13.3 SEC (12.0-15.0) 06/12/17 22:02 INR 1.02 (0.83-1.16) 06/12/17 22:02 high risk - Physical Exam Constitutional: unkempt, other (legs going to the side of the bed) Cardiovascular: regular rate and rhythym, no murmur, rub, or gallop Respiratory: inspiratory crackles, other (tachypneic), No clear to auscultation , No expiratory wheeze Gastrointestinal: normoactive bowel sounds, soft, non-tender abdomen ICD10 Worksheet Patient Problems: Problems Problem Status Onset Alcoholic intoxication Acute Respiratory failure Acute
[2017-06-14] MEDS ORDERED: POTASSIUM Cl (KCl) 20 MEQ/100 ML BAG IV ONE (10:29)
[2017-06-14] MEDS ORDERED: POTASSIUM Cl (KCl) 100 ML IV ONE (10:45)
[2017-06-14] MEDS ORDERED: K PHOS 10 MMOL in D5W 250 ML IV ONE (12:00)
[2017-06-14] MEDS: ERTAPENEM 1 GM in NS 100 ML IV SCH (13:59)
[2017-06-14 14:12] LABS: POTASSIUM 3.6 mEq/L (3.5-5.2)
[2017-06-14] MEDS: POTASSIUM Cl (KCl) 50 ML IV SCH ×5 (14:43→20:19)
[2017-06-14 19:12] LABS: POTASSIUM 3.5 mEq/L (3.5-5.2)
[2017-06-14] MEDS: PATCH REMOVAL 1 EA PATCH TD SCH (22:00)
[2017-06-15] MEDS: MIDAZOLAM 2 MG/2 ML VIAL IVP SCH ×2 (00:31→05:18)
[2017-06-15] MEDS: DEXMEDETOMIDINE HCL 400 MCG in NS 100 ML IV SCH ×6 (00:33→21:51)
[2017-06-15 00:53] LABS: POTASSIUM 3.9 mEq/L (3.5-5.2)
[2017-06-15] MEDS: LORazepam 2 MG/ML INJ IVP PRN ×2 (04:03→08:28)
[2017-06-15 05:11] LABS: % IMMATURE GRANULYOCYTES 0.3 % (0.0-1.1); ABSOLUTE IMMATURE GRANULOCYTES 0.02 10^3/uL (0.00-0.10); ADD DIFF? NO; ADD MORPH? NO; ADD SCAN? NO; ATYPICAL LYMPHOCYTE FLAG 60 (0-99); FRAGMENT RBC FLAG 0 (0-99); HEMATOCRIT 34.6 % (40.0-51.0); HEMOGLOBIN 11.7 g/dL (13.7-17.5); LEFT SHIFT FLG 30 (0-99); LIPEMIA HEMOLYSIS FLAG 90 (0-99); MEAN CELL HEMOGLOBIN 34.2 pg (27.9-34.1); MEAN CELL HEMOGLOBIN CONCENTR. 33.8 g/dL (32.4-36.7); MEAN CELL VOLUME 101.2 fL (81.5-99.8); MEAN PLATELET VOLUME 11.8 fL (8.7-11.7); PLATELET CLUMPS FLAG 0 (0-99); RED BLOOD CELL COUNT 3.42 10^6/uL (4.40-6.38); RED CELL DISTRIBUTION WIDTH 14.1 % (11.5-15.2)
[2017-06-15 05:12] LABS: PLATELET COUNT 36 10^3/uL (150-400)
[2017-06-15 05:28] LABS: ALANINE AMINOTRANSFERASE 45 IU/L (21-72); ALBUMIN 2.8 g/dL (3.5-5.0); ALKALINE PHOSPHATASE 131 IU/L (38-126); ANION GAP 9 mEq/L (8-16); ASPARTATE AMINOTRANSFERASE 84 IU/L (17-59); BILIRUBIN,TOTAL 1.2 mg/dL (0.1-1.4); CALCIUM 8.4 mg/dL (8.5-10.4); CARBON DIOXIDE 23 mEq/l (22-31); CHLORIDE 103 mEq/L (97-110); CREATININE 0.6 mg/dL (0.7-1.3); GLOMERULAR FILTRATION RATE > 60; GLUCOSE 109 mg/dL (70-100); MAGNESIUM 1.7 mg/dL (1.6-2.3); POTASSIUM 3.5 mEq/L (3.5-5.2); SODIUM 135 mEq/L (134-144)
[2017-06-15] MEDS: POTASSIUM Cl (KCl) 50 ML IV SCH ×3 (05:30→06:30)
[2017-06-15] MEDS ORDERED: MAGNESIUM SULF 1 GM/DEXTROSE 100 ML IV ONE (05:31)
[2017-06-15 05:35] LABS: PLATELET ESTIMATE DECREASED (ADEQ)
[2017-06-15] MEDS: ERTAPENEM 1 GM in NS 100 ML IV SCH (08:02)
[2017-06-15] MEDS: PANTOPRAZOLE SODIUM 40 MG in NS 100 ML IV SCH (08:02)
--- NOTE | 2017-06-15 08:02 | PDINTPN ---
Field Assistant Progress Note Assessment/Plan: Assessment/Plan: * Acute respiratory failure with hypoxia- extubated and stable off vent -follow * Aspiration pna-clinically stable. ABX started last pm -check CXR in am * ETOH withdrawal. -Continue CIWA. -discuss alcohol vs CIWA * LFTs consistent with ETOH hepatitis, but discriminant function only 7, so no role for steroids. Hep serologies negative 06/2016. * Anemia- his Hct has been stable * Thrombocytopenia- His platelets were normal on 09/17/16 and 06/2016, so may represent BM suppression from ETOH. Will discuss imaging modalities for confirming splenomegaly. No obvious drugs to cause it. No overt septic shock. No schistocytes, so TTP unlikely. Case discussed with nurse. Subjective: Somnolent Objective: Vital Signs Temp Pulse Resp BP Pulse Ox 36.9 C 66 26 H 136/98 H 100 06/15/17 07:47 06/15/17 07:47 06/15/17 07:47 06/15/17 07:47 06/15/17 07:47 Laboratory Results 06/15/17 05:05 06/15/17 05:05 06/14/17 06/15/17 06/16/17 05:59 05:59 05:59 Intake Total 4397 3170 Output Total 3300 9350 Balance 1097 -6180 PT 13.3 SEC (12.0-15.0) 06/12/17 22:02 INR 1.02 (0.83-1.16) 06/12/17 22:02 Laboratory Results 06/15/17 05:05 06/15/17 05:05 06/15/17 06/14/17 05:05 10:00 Calcium 8.4 mg/dL L mg/dL (8.5 - 10.4) Phosphorus 2.5 mg/dL mg/dL (2.5 - 4.5) Magnesium 1.7 mg/dL mg/dL (1.6 - 2.3) Total Bilirubin 1.2 mg/dL mg/dL (0.1 - 1.4) AST 84 IU/L H IU/L (17 - 59) ALT 45 IU/L IU/L (21 - 72) Alkaline Phosphatase 131 IU/L H IU/L (38 - 126) Total Protein 6.0 g/dL L g/dL (6.3 - 8.2) Albumin 2.8 g/dL L g/dL (3.5 - 5.0) Procalcitonin 20.84 ng/mL H ng/mL (0.02 - 0.10) CXR-reviewed by myself: Bibasilar infiltrates present. Physical Exam - Physical Exam General Appearance: other (sedated), No alert EENT: PERRL/EOMI, normal ENT inspection Neck: non-tender, full range of motion, supple, normal inspection Respiratory: crackles (bibasilar), No respiratory distress, No stridor, No wheezing Cardiac/Chest: normal peripheral pulses, regular rate, rhythm Peripheral Pulses: 2+: carotid (R), carotid (L), femoral (R), femoral (L), dorsalis-pedis (R), dorsalis-pedis (L) Abdomen: normal bowel sounds, non-tender, soft Male Genitalia: deferred Rectal: deferred Skin: normal color, warm/dry Extremities: normal range of motion, non-tender, normal inspection, normal capillary refill Neuro/Psych: No alert ICD10 Worksheet Patient Problems: Problems Problem Status Onset Alcoholic intoxication Acute Respiratory failure Acute
[2017-06-15] MEDS: NICOTINE 21 MG/24 HR PATCH TD SCH (08:03)
[2017-06-15] MEDS: THIAMINE HCL 500 MG in NS 100 ML IV SCH (10:00)
[2017-06-15] MEDS: LIDOCAINE 5% 1 EA PATCH TD SCH (10:39)
[2017-06-15] MEDS ORDERED: LORazepam 2 MG/ML INJ IVP SCH (12:00)
--- NOTE | 2017-06-15 13:02 | HOSPPROG ---
Hospitalist Progress Note Assessment/Plan: 56 yo M with hx of etoh abuse and withdrawal admitted with acute respiratory failure and aspiration pna # acute hypoxic respiratory failure: for the most part largely due to intoxication and inability to protect airway, currently extubated and doing well # aspiration pna: bibasilar infiltrates c/w aspiration pna, started on invanz, pct significantly elevated c/w infection # acute encephalopathy: continues, 2/2 etoh w/d presumably, requiring sedation as agitated when sedation lightened # etoh abuse and w/d: currently on precedex with scheduled ativan, will wean ativan in coming days so long as he does not worsen clinically # anemia: has had slight drop in h/h since admission and stable since, decrease likely dilutional # thrombocytopenia: in setting of chronic etoh abuse and likely related to same # alcoholic hepatitis: with ast:alt ratio c/w alc hep, mild and improving # hypernatremia: improved, due to volume depletion likely # hypophosphatemia/hypomagnesemia: presumably due to etoh abuse and poor po intake, repleting # IP status, high risk in ICU on IV sedative drips Patient new to my care. Old records reviewed (found other records with name Piyush Smith, same ). Care plan reviewed with Dr. Proctor and multidisciplinary care team on rounds. Subjective: no acute overnight events, patient requiring sedation for etoh w/d Objective: Vital Signs Temp Pulse Resp BP Pulse Ox 37 C 66 30 H 130/87 H 100 06/15/17 12:00 06/15/17 12:00 06/15/17 12:00 06/15/17 12:00 06/15/17 12:00 Laboratory Results 06/15/17 05:05 06/15/17 05:05 06/14/17 06/15/17 06/16/17 05:59 05:59 05:59 Intake Total 4397 3170 Output Total 3300 9350 Balance 1097 -6180 PT 13.3 SEC (12.0-15.0) 06/12/17 22:02 INR 1.02 (0.83-1.16) 06/12/17 22:02 sedated, nad anicteric op clear rrr no mrg coarse bs, bibasilar crackles soft nt nd no cce warm dry well perfused sedated, minimally arousable ICD10 Worksheet Patient Problems: Problems Problem Status Onset Alcoholic intoxication Acute Respiratory failure Acute
[2017-06-15] MEDS: D5W 1/2 NS W/ 20 KCl/L 1,000 ML IV SCH ×2 (13:10→23:29)
[2017-06-15 14:11] LABS: POTASSIUM 4.1 mEq/L (3.5-5.2)
[2017-06-15] MEDS: VODKA 50 ML BOTTLE PO SCH ×3 (16:04→23:28)
[2017-06-15] MEDS: LORazepam 2 MG/ML INJ IVP SCH ×2 (17:24→23:29)
[2017-06-15 17:55] LABS: POTASSIUM 4.1 mEq/L (3.5-5.2)
[2017-06-15] MEDS: PATCH REMOVAL 1 EA PATCH TD SCH (20:59)
[2017-06-16] MEDS: DEXMEDETOMIDINE HCL 400 MCG in NS 100 ML IV SCH ×2 (01:49→05:49)
[2017-06-16 04:48] LABS: ANION GAP 10 mEq/L (8-16); CALCIUM 8.4 mg/dL (8.5-10.4); CARBON DIOXIDE 22 mEq/l (22-31); CHLORIDE 104 mEq/L (97-110); CREATININE 0.5 mg/dL (0.7-1.3); GLOMERULAR FILTRATION RATE > 60; GLUCOSE 139 mg/dL (70-100); MAGNESIUM 1.4 mg/dL (1.6-2.3); POTASSIUM 3.5 mEq/L (3.5-5.2); SODIUM 136 mEq/L (134-144)
[2017-06-16] MEDS ORDERED: MAGNESIUM SULF 2 GM/WATER 50 ML IV ONE (06:38)
[2017-06-16] MEDS ORDERED: MAGNESIUM SULF 1 GM/DEXTROSE 100 ML BAG IV ONE (06:42)
[2017-06-16] MEDS: MAGNESIUM SULF 1 GM/DEXTROSE 100 ML IV SCH ×2 (07:00→09:29)
[2017-06-16] MEDS: POTASSIUM Cl (KCl) 50 ML IV SCH ×6 (08:00→21:13)
[2017-06-16] MEDS: ERTAPENEM 1 GM in NS 100 ML IV SCH (08:37)
[2017-06-16] MEDS: PANTOPRAZOLE SODIUM 40 MG in NS 100 ML IV SCH (08:37)
[2017-06-16] MEDS: NICOTINE 21 MG/24 HR PATCH TD SCH (08:37)
[2017-06-16] MEDS: VODKA 50 ML BOTTLE PO SCH ×4 (08:38→21:48)
[2017-06-16] MEDS: LORazepam 2 MG/ML INJ IVP SCH (08:38)
[2017-06-16] MEDS: LIDOCAINE 5% 1 EA PATCH TD SCH (08:38)
--- NOTE | 2017-06-16 08:53 | PDINTPN ---
Twister Doffer Progress Note Assessment/Plan: Assessment/Plan: * Acute respiratory failure with hypoxia- extubated and stable off vent -follow * Aspiration pna-clinically stable. ABX started last pm -check CXR in am * ETOH withdrawal. -now on oral alcohol. Patient currently awake and alert. Conversant. * LFTs consistent with ETOH hepatitis, but discriminant function only 7, so no role for steroids. Hep serologies negative 06/2016. * Anemia- his Hct has been stable * Thrombocytopenia- His platelets were normal on 09/17/16 and 06/2016, so may represent BM suppression from ETOH. Will discuss imaging modalities for confirming splenomegaly. No obvious drugs to cause it. No overt septic shock. No schistocytes, so TTP unlikely. Case discussed with nurse. Subjective: Awake and alert. Complains of foot pain. Hungry Objective: Vital Signs Temp Pulse Resp BP Pulse Ox 37.2 C 69 21 H 135/94 H 93 06/16/17 07:18 06/16/17 07:18 06/16/17 07:18 06/16/17 07:18 06/16/17 07:18 Laboratory Results 06/15/17 05:05 06/16/17 04:20 06/15/17 06/16/17 06/17/17 05:59 05:59 05:59 Intake Total 3170 3234 Output Total 9350 3500 Balance -6180 -266 PT 13.3 SEC (12.0-15.0) 06/12/17 22:02 INR 1.02 (0.83-1.16) 06/12/17 22:02 Physical Exam - Physical Exam General Appearance: alert, no apparent distress EENT: PERRL/EOMI, normal ENT inspection Neck: non-tender, full range of motion, supple, normal inspection Respiratory: chest non-tender, lungs clear, normal breath sounds Cardiac/Chest: normal peripheral pulses, regular rate, rhythm Peripheral Pulses: 2+: carotid (R), carotid (L), femoral (R), femoral (L), dorsalis-pedis (R), dorsalis-pedis (L) Abdomen: normal bowel sounds, non-tender, soft Male Genitalia: deferred Rectal: deferred ICD10 Worksheet Patient Problems: Problems Problem Status Onset Alcoholic intoxication Acute Respiratory failure Acute
[2017-06-16] MEDS ORDERED: THIAMINE HCL 100 MG in NS 100 ML IV SCH (09:00)
[2017-06-16] MEDS: IBUPROFEN 600 MG TAB PO PRN (09:27)
[2017-06-16] MEDS ORDERED: diphenhydrAMINE 50 MG CAP PO PRN (11:00)
--- NOTE | 2017-06-16 11:51 | HOSPPROG ---
Hospitalist Progress Note Assessment/Plan: 56 yo M with hx of etoh abuse and withdrawal admitted with acute respiratory failure and aspiration pna # acute hypoxic respiratory failure: for the most part largely due to intoxication and inability to protect airway, currently extubated and doing well # aspiration pna: bibasilar infiltrates c/w aspiration pna, started on invanz, pct significantly elevated c/w infection and will continue for a 10 day course, transition to augmentin # acute encephalopathy: largely resolved, was 2/2 etoh w/d as well as sedation # etoh abuse and w/d: not currently interested in quitting drinking, resumed on vodka and weaning off of precedex and ativan as able. # anemia: has had slight drop in h/h since admission and stable since, initial decrease likely dilutional # thrombocytopenia: in setting of chronic etoh abuse and likely related to same # alcoholic hepatitis: with ast:alt ratio c/w alc hep, mild and improving # hypernatremia: improved, due to volume depletion likely # hypophosphatemia/hypomagnesemia: presumably due to etoh abuse and poor po intake, repleting # IP status, high risk in ICU on IV sedative drips attempting to wean off Care plan reviewed with Dr. Proctor and multidisciplinary care team on rounds. Subjective: no significant overnight events, today c/o itching on his scalp which he notes he often gets when he does not have "enough" vodka Objective: Vital Signs Temp Pulse Resp BP Pulse Ox 37.2 C 77 21 H 102/72 93 06/16/17 07:18 06/16/17 10:00 06/16/17 10:00 06/16/17 10:00 06/16/17 10:00 Laboratory Results 06/15/17 05:05 06/16/17 04:20 06/15/17 06/16/17 06/17/17 05:59 05:59 05:59 Intake Total 3170 3234 Output Total 9350 3500 Balance -6180 -266 PT 13.3 SEC (12.0-15.0) 06/12/17 22:02 INR 1.02 (0.83-1.16) 06/12/17 22:02 sedated, nad anicteric op clear rrr no mrg coarse bs, bibasilar crackles soft nt nd no cce warm dry well perfused sedated, minimally arousable ICD10 Worksheet Patient Problems: Problems Problem Status Onset Alcoholic intoxication Acute Respiratory failure Acute
--- NOTE | 2017-06-16 14:33 | ASMTCMCOM ---
CM Note CM Note Notes: Patient reports that he has been homeless for 20 years. He has frostbitted feet and they cause him a great deal of pain. He would like to go to a SNF for care. [facility]ed [facility] - [facility] can"t take any more psych patients; [facility] no bed availability; [facility] sent patient information. [id number] completed and faxed to [facility]. Date Signed: 06/16/2017 02:32 PM Electronically Signed By:Divina Daniels LCSW
[2017-06-16 15:05] LABS: POTASSIUM 4.1 mEq/L (3.5-5.2)
[2017-06-16] MEDS: D5W 1/2 NS W/ 20 KCl/L 1,000 ML IV SCH (15:43)
[2017-06-16 18:25] LABS: POTASSIUM 3.6 mEq/L (3.5-5.2)
[2017-06-16] MEDS: LORazepam 2 MG/ML INJ IVP PRN (18:52)
[2017-06-16] MEDS: traMADol 50 MG TAB PO PRN (21:48)
[2017-06-16] MEDS: PATCH REMOVAL 1 EA PATCH TD SCH (21:53)
[2017-06-17] MEDS: IBUPROFEN 600 MG TAB PO PRN ×2 (00:06→08:25)
[2017-06-17 01:05] LABS: POTASSIUM 4.1 mEq/L (3.5-5.2)
[2017-06-17] MEDS: VODKA 50 ML BOTTLE PO SCH ×3 (01:51→10:58)
[2017-06-17] MEDS: LORazepam 2 MG/ML INJ IVP PRN (03:35)
[2017-06-17] MEDS: D5W 1/2 NS W/ 20 KCl/L 1,000 ML IV SCH (04:00)
[2017-06-17] MEDS: traMADol 50 MG TAB PO PRN ×2 (05:36→12:15)
[2017-06-17 06:33] LABS: MAGNESIUM 1.6 mg/dL (1.6-2.3)
[2017-06-17] MEDS ORDERED: MAGNESIUM SULF 1 GM/DEXTROSE 100 ML IV ONE (07:37)
[2017-06-17] MEDS: NICOTINE 21 MG/24 HR PATCH TD SCH (08:25)
[2017-06-17] MEDS: THIAMINE HCL 100 MG TAB PO SCH (08:25)
[2017-06-17] MEDS: PANTOPRAZOLE SODIUM 40 MG TAB PO SCH (08:25)
[2017-06-17] MEDS: LIDOCAINE 5% 1 EA PATCH TD SCH (08:26)
[2017-06-17] MEDS: ERTAPENEM 1 GM in NS 100 ML IV SCH (08:26)
--- NOTE | 2017-06-17 09:44 | PDINTPN ---
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 ABX started last pm * ETOH withdrawal. -now on oral alcohol. Patient currently awake and alert. Conversant. * LFTs consistent with ETOH hepatitis, but discriminant function only 7, so no role for steroids. Hep serologies negative 06/2016. * Anemia- his Hct has been stable * Thrombocytopenia- His platelets were normal on 09/17/16 and 06/2016, so may represent BM suppression from ETOH. Will discuss imaging modalities for confirming splenomegaly. No obvious drugs to cause it. No overt septic shock. No schistocytes, so TTP unlikely. * Disposition-okay for floor Case discussed with nurse. Subjective: Still complaining of foot pain. Unable ambulate. Objective: Vital Signs Temp Pulse Resp BP Pulse Ox 37.1 C 105 H 26 H 140/92 H 94 06/17/17 08:00 06/17/17 08:00 06/17/17 08:00 06/17/17 08:00 06/17/17 08:00 Laboratory Results 06/15/17 05:05 06/17/17 05:42 06/16/17 06/17/17 06/18/17 05:59 05:59 05:59 Intake Total 3234 2596 Output Total 3500 1850 Balance -266 746 PT 13.3 SEC (12.0-15.0) 06/12/17 22:02 INR 1.02 (0.83-1.16) 06/12/17 22:02 Physical Exam - Physical Exam General Appearance: WD/WN, alert EENT: PERRL/EOMI Neck: non-tender, full range of motion, supple, normal inspection Respiratory: chest non-tender, lungs clear, normal breath sounds Cardiac/Chest: normal peripheral pulses, regular rate, rhythm Abdomen: normal bowel sounds, non-tender, soft Male Genitalia: deferred Rectal: deferred Skin: normal color, warm/dry Neuro/Psych: alert ICD10 Worksheet Patient Problems: Problems Problem Status Onset Alcoholic intoxication Acute Respiratory failure Acute
[2017-06-17] MEDS: oxyCODONE IR 5 MG TAB PO PRN ×3 (11:08→20:28)
[2017-06-17] MEDS: GABAPENTIN 300 MG CAP PO SCH ×3 (11:08→20:28)
--- NOTE | 2017-06-17 12:02 | HOSPPROG ---
Hospitalist Progress Note Assessment/Plan: 56 yo M with hx of etoh abuse and withdrawal admitted with acute respiratory failure and aspiration pna # acute hypoxic respiratory failure: for the most part largely due to intoxication and inability to protect airway, currently extubated and doing well for the most part on room air # aspiration pna: bibasilar infiltrates c/w aspiration pna, started on invanz, pct significantly elevated c/w infection and will continue for a 10 day course, transitioned to augmentin 06/17 (day 4 abx) # acute encephalopathy: largely resolved, was 2/2 etoh w/d as well as sedation # etoh abuse and w/d: patient presented with BAL of nearly 600, he states that he is willing to quit drinking if we can get him into a snf. At this point will dc vodka and treat any recurrent withdrawal with ativan. # anemia: has had slight drop in h/h since admission and stable since, initial decrease likely dilutional # thrombocytopenia: in setting of chronic etoh abuse and likely related to same # alcoholic hepatitis: with ast:alt ratio c/w alc hep, mild and improving # hypernatremia: improved, due to volume depletion likely # hypophosphatemia/hypomagnesemia: presumably due to etoh abuse and poor po intake, repleting # IP status, can transfer to med surg Care plan reviewed with Dr. Proctor and multidisciplinary care team on rounds. Subjective: no significant overnight events, patient is currently feeling much better from w/d standpoint though still tremulous, unable to walk in part due to being unsteady on feet but also related to pain Objective: Vital Signs Temp Pulse Resp BP Pulse Ox 37.1 C 105 H 26 H 140/92 H 94 06/17/17 08:00 06/17/17 08:00 06/17/17 08:00 06/17/17 08:00 06/17/17 08:00 Laboratory Results 06/15/17 05:05 06/17/17 05:42 06/16/17 06/17/17 06/18/17 05:59 05:59 05:59 Intake Total 3234 2596 250 Output Total 3500 1850 Balance -266 746 250 PT 13.3 SEC (12.0-15.0) 06/12/17 22:02 INR 1.02 (0.83-1.16) 06/12/17 22:02 nad anicteric op clear rrr no mrg coarse bs, bibasilar crackles soft nt nd no cce warm dry well perfused awake alert tremulous - Time Spent With Patient Time Spent with Patient: greater than 35 minutes Time Spent with Patient: Greater than 35 minutes spent on this patients care, greater than 50% of time spent counseling, educating, and coordinating care regarding the above mentioned plan. ICD10 Worksheet Patient Problems: Problems Problem Status Onset Alcoholic intoxication Acute Respiratory failure Acute
[2017-06-17] MEDS: LORazepam 1 MG TAB PO PRN ×3 (12:15→20:29)
[2017-06-17 19:19] LABS: POTASSIUM 5.5 mEq/L (3.5-5.2)
[2017-06-17] MEDS: AMOXICILLIN/CLAVULANATE POT 875/125 MG TAB PO SCH (20:27)
[2017-06-17] MEDS: PATCH REMOVAL 1 EA PATCH TD SCH (20:36)
[2017-06-18] MEDS: oxyCODONE IR 5 MG TAB PO PRN ×3 (01:13→21:04)
[2017-06-18] MEDS: LORazepam 1 MG TAB PO PRN ×3 (01:13→21:04)
[2017-06-18 05:39] LABS: MAGNESIUM 1.7 mg/dL (1.6-2.3); POTASSIUM 3.8 mEq/L (3.5-5.2)
[2017-06-18] MEDS ORDERED: MAGNESIUM SULF 1 GM/DEXTROSE 100 ML IV ONE ×2 (08:18→11:30)
[2017-06-18] MEDS: GABAPENTIN 300 MG CAP PO SCH ×3 (10:37→21:04)
[2017-06-18] MEDS: AMOXICILLIN/CLAVULANATE POT 875/125 MG TAB PO SCH ×2 (10:37→21:03)
[2017-06-18] MEDS: THIAMINE HCL 100 MG TAB PO SCH (10:37)
[2017-06-18] MEDS: PANTOPRAZOLE SODIUM 40 MG TAB PO SCH (10:38)
[2017-06-18] MEDS: NICOTINE 21 MG/24 HR PATCH TD SCH (10:38)
[2017-06-18] MEDS: LIDOCAINE 5% 1 EA PATCH TD SCH (10:40)
--- NOTE | 2017-06-18 13:50 | HOSPPROG ---
Hospitalist Progress Note Assessment/Plan: 56 yo M with hx of etoh abuse and withdrawal admitted with acute respiratory failure and aspiration pna # acute hypoxic respiratory failure: for the most part largely due to intoxication and inability to protect airway, currently extubated and doing well for the most part on room air # aspiration pna: bibasilar infiltrates c/w aspiration pna, started on invanz, pct significantly elevated c/w infection and will continue for a 10 day course, transitioned to augmentin 06/17 (day 5 abx) # acute encephalopathy: largely resolved, was 2/2 etoh w/d as well as sedation # chronic pain: patient has what sounds like chronic neuropathic pain of bilateral feet, likely related to etoh abuse, started on gabapentin which may help with withdrawal sxs as well, will uptitrate fairly quickly as he tolerates. Also low dose oxycodone. Limiting his ability to walk safely. PT/OT involved. likely to snf. # etoh abuse and w/d: patient presented with BAL of nearly 600, he states that he is willing to quit drinking if we can get him into a snf. At this point will dc vodka and treat any recurrent withdrawal with ativan. # anemia: has had slight drop in h/h since admission and stable since, initial decrease likely dilutional # thrombocytopenia: in setting of chronic etoh abuse and likely related to same # alcoholic hepatitis: with ast:alt ratio c/w alc hep, mild and improving # hypernatremia: improved, due to volume depletion likely # hypophosphatemia/hypomagnesemia: presumably due to etoh abuse and poor po intake, repleting # IP status, can transfer to med surg Care plan reviewed with Dr. Proctor and multidisciplinary care team on rounds. Subjective: no significant overnight events, patient is tearful today, feeling a bit sad about how his life has turned out, is still eager to remain off of etoh and get into a snf Objective: Vital Signs Temp Pulse Resp BP Pulse Ox 37.7 C 110 H 24 H 126/76 H 91 L 06/18/17 11:09 06/18/17 11:09 06/18/17 11:09 06/18/17 11:09 06/18/17 11:09 Laboratory Results 06/15/17 05:05 06/18/17 04:34 06/17/17 06/18/17 06/19/17 05:59 05:59 05:59 Intake Total 2596 250 Output Total 1850 225 625 Balance 746 25 -625 PT 13.3 SEC (12.0-15.0) 06/12/17 22:02 INR 1.02 (0.83-1.16) 06/12/17 22:02 nad anicteric op clear rrr no mrg coarse bs, bibasilar crackles soft nt nd no cce warm dry well perfused awake alert tremulous - Time Spent With Patient Time Spent with Patient: greater than 35 minutes Time Spent with Patient: Greater than 35 minutes spent on this patients care, greater than 50% of time spent counseling, educating, and coordinating care regarding the above mentioned plan. ICD10 Worksheet Patient Problems: Problems Problem Status Onset Alcoholic intoxication Acute Respiratory failure Acute
[2017-06-18] MEDS ORDERED: POTASSIUM CL 10 MEQ TAB PO ONE ×2 (14:40→22:20)
--- NOTE | 2017-06-18 16:34 | ASMTCMCOM ---
SUKH Note CM Note Notes: Today Pt. was approved by [facility] for LTC Medicaid stay. Ramona Perry is worker assigned . Thus far no LTC facilities have accepted Pt. SWer sent several more referrals today via [employer]. Await responses. SWer met w/ Pt. in room. Pt. still would like to go to a senior living for a stay. Pt. was shaking/trembling stating he was in pain. SWer let bedside RN know. CM/PHANI to follow. Date Signed: 06/18/2017 04:34 PM Electronically Signed By:Dior Wayne LCSW
[2017-06-18] MEDS: MAGNESIUM OXIDE 400 MG TAB PO SCH (21:04)
[2017-06-18 21:07] LABS: POTASSIUM 3.9 mEq/L (3.5-5.2)
[2017-06-18] MEDS: PATCH REMOVAL 1 EA PATCH TD SCH (22:38)
[2017-06-19 05:56] LABS: MAGNESIUM 1.8 mg/dL (1.6-2.3)
[2017-06-19] MEDS: LORazepam 1 MG TAB PO PRN ×3 (06:45→21:18)
[2017-06-19] MEDS: GABAPENTIN 300 MG CAP PO SCH ×3 (07:58→21:19)
[2017-06-19] MEDS: THIAMINE HCL 100 MG TAB PO SCH (07:58)
[2017-06-19] MEDS: MAGNESIUM OXIDE 400 MG TAB PO SCH (07:58)
[2017-06-19] MEDS: oxyCODONE IR 5 MG TAB PO PRN ×3 (07:58→21:18)
[2017-06-19] MEDS: AMOXICILLIN/CLAVULANATE POT 875/125 MG TAB PO SCH ×2 (07:59→21:18)
[2017-06-19] MEDS: LIDOCAINE 5% 1 EA PATCH TD SCH (07:59)
[2017-06-19] MEDS: PANTOPRAZOLE SODIUM 40 MG TAB PO SCH (07:59)
[2017-06-19] MEDS: NICOTINE 21 MG/24 HR PATCH TD SCH (08:00)
--- NOTE | 2017-06-19 10:50 | HOSPPROG ---
Hospitalist Progress Note Assessment/Plan: 56 yo M with hx of etoh abuse and withdrawal admitted with acute respiratory failure and aspiration pna. Today is my 1st encounter with the patient. Chart reviewed. * acute hypoxemic respiratory failure This is secondary to do due to intoxication and inability to protect his airway He was intubated in the intensive care unit and now is currently on room air * aspiration pneumonia Initially treated with Invanz and now on Augmentin #6/ * acute encephalopathy Resolved * tremors This is most likely alcohol induced but will do a trial of Inderal three times daily * anemia Overall stable * pruritus on the top of his head A topical cream has been added * alcoholic hepatitis * hypernatremia * electrolyte abnormalities Have discontinued coverage and lab draws per patient's request It causes increased stress to do lab draws and is overall stable at this time * plan. Was evaluated by [facility]. The patient told him he would rather go live on the street. Will see how he does over the next day or so. Likely will start drinking again. This is a difficult situation, he is alert and oriented Cor[facility] decisional and has decided he would like to go back to the street. Subjective: Piyush is complaining of an itchy scalp. Says he wants help with his tremors Objective: Vital Signs Temp Pulse Resp BP Pulse Ox 36.9 C 106 H 18 154/92 H 93 06/19/17 08:00 06/19/17 08:00 06/19/17 08:00 06/19/17 08:00 06/19/17 08:00 Laboratory Results 06/15/17 05:05 06/19/17 04:35 06/18/17 06/19/17 06/20/17 05:59 05:59 05:59 Intake Total 250 980 Output Total 225 1975 175 Balance 25 -995 -175 PT 13.3 SEC (12.0-15.0) 06/12/17 22:02 INR 1.02 (0.83-1.16) 06/12/17 22:02 - Physical Exam Constitutional: no apparent distress, chronically ill appearing, unkempt Eyes: PERRL Ears, Nose, Mouth, Throat: hearing normal Cardiovascular: regular rate and rhythym, tachycardia Respiratory: no respiratory distress Gastrointestinal: normoactive bowel sounds Skin: warm Musculoskeletal: generalized weakness Neurologic: AAOx3 Psychiatric: not encephalopathic, anxious, poor insight, poor judgement ICD10 Worksheet Patient Problems: Problems Problem Status Onset Alcoholic intoxication Acute Respiratory failure Acute
[2017-06-19] MEDS ORDERED: BUFFERED SALT EYE WASH,STERILE 118 ML OPHT.BTL EACHEYE PRN (11:30)
[2017-06-19] MEDS: traMADol 50 MG TAB PO PRN (13:28)
--- NOTE | 2017-06-19 15:32 | ASMTCMCOM ---
CM Note CM Note Notes: Today Kasey from [facility] and a colleague, [place] came to visit and assess Pt. for LTC placement. Pt. told Kasey that he did NOT want to go to a [place] [facility] [place] and planned to go back to [facility]. Pt. changed his mind. Pt. has consistently wanted a [place] [facility] [place] since his hospitalization including as recent as yesterday. Pt. is quite deconditioned and his feet cause him pain. Hospitalist [place] [facility] [place], but will treat him in hospital a little while longer to get him better for street. CM to follow. Date Signed: 06/19/2017 03:31 PM Electronically Signed By:Dior Wayne LCSW
[2017-06-19] MEDS: PROPRANOLOL HCL 10 MG TAB PO SCH ×2 (16:28→21:19)
[2017-06-19] MEDS: DIPHENHYDRAMINE CREAM TP SCH ×2 (21:24→21:37)
[2017-06-19] MEDS: PATCH REMOVAL 1 EA PATCH TD SCH (21:24)
[2017-06-19] MEDS: diphenhydrAMINE 25 MG CAP PO PRN (22:51)
[2017-06-20] MEDS: oxyCODONE IR 5 MG TAB PO PRN ×3 (05:17→23:31)
[2017-06-20] MEDS: LORazepam 1 MG TAB PO PRN ×3 (05:17→23:32)
[2017-06-20] MEDS: PROPRANOLOL HCL 10 MG TAB PO SCH ×3 (08:36→22:16)
[2017-06-20] MEDS: MAGNESIUM OXIDE 400 MG TAB PO SCH (08:36)
[2017-06-20] MEDS: PANTOPRAZOLE SODIUM 40 MG TAB PO SCH (08:36)
[2017-06-20] MEDS: AMOXICILLIN/CLAVULANATE POT 875/125 MG TAB PO SCH ×2 (08:37→22:16)
[2017-06-20] MEDS: LIDOCAINE 5% 1 EA PATCH TD SCH (08:37)
[2017-06-20] MEDS: NICOTINE 21 MG/24 HR PATCH TD SCH (08:37)
[2017-06-20] MEDS: THIAMINE HCL 100 MG TAB PO SCH (08:37)
[2017-06-20] MEDS: GABAPENTIN 300 MG CAP PO SCH ×3 (08:37→22:18)
[2017-06-20] MEDS: DIPHENHYDRAMINE CREAM TP SCH ×2 (08:42→22:19)
--- NOTE | 2017-06-20 14:13 | ASMTCMCOM ---
CM Note CM Note Notes: D/W Monica, Hospitalist who said pt is now agreeable to going to [facility]. I spoke w/NIKKI Mantilla at [facility] to discuss; she said they are not able to accept today as they are still reviewing case with [employer] [employer]. Annalee said they will get back to us Thursday AM. Date Signed: 06/20/2017 02:12 PM Electronically Signed By:Rizwana Berman RN
--- NOTE | 2017-06-20 15:25 | HOSPPROG ---
Hospitalist Progress Note Assessment/Plan: 56 yo M with hx of etoh abuse and withdrawal admitted with acute respiratory failure and aspiration pna. * acute hypoxemic respiratory failure This is secondary to do due to intoxication and inability to protect his airway He was intubated in the intensive care unit and now is currently on room air resolved * aspiration pneumonia Initially treated with Invanz and now on Augmentin #7/10 * acute encephalopathy Resolved * tremors resolved w Inderal three times daily * anemia Overall stable * pruritus on the top of his head A topical cream has been added this helped * alcoholic hepatitis * hypernatremia * electrolyte abnormalities Have discontinued coverage and lab draws per patient's request It causes increased stress to do lab draws and is overall stable at this time * plan. Piyush says he now wants to get help and would be willing to go to [facility].CM contacted them and they will further discuss this/ he had declined to go there yesterday but now is willing. Subjective: Piyush said he is feeling better today. Objective: Vital Signs Temp Pulse Resp BP Pulse Ox 37.1 C 83 16 152/98 H 94 06/20/17 11:30 06/20/17 11:30 06/20/17 11:30 06/20/17 11:30 06/20/17 11:30 Laboratory Results 06/15/17 05:05 06/19/17 04:35 06/19/17 06/20/17 06/21/17 05:59 05:59 05:59 Intake Total 980 500 Output Total 1642 1775 Balance -995 -1275 PT 13.3 SEC (12.0-15.0) 06/12/17 22:02 INR 1.02 (0.83-1.16) 06/12/17 22:02 - Physical Exam Constitutional: no apparent distress, chronically ill appearing Eyes: PERRL Ears, Nose, Mouth, Throat: hearing normal Cardiovascular: regular rate and rhythym, No tachycardia Respiratory: no respiratory distress Skin: warm Musculoskeletal: generalized weakness Neurologic: AAOx3 Psychiatric: interacting appropriately ICD10 Worksheet Patient Problems: Problems Problem Status Onset Alcoholic intoxication Acute Respiratory failure Acute
[2017-06-20] MEDS: diphenhydrAMINE 25 MG CAP PO PRN (22:18)
[2017-06-20] MEDS: PATCH REMOVAL 1 EA PATCH TD SCH (22:19)
[2017-06-21] MEDS: PROPRANOLOL HCL 10 MG TAB PO SCH ×3 (08:08→22:31)
[2017-06-21] MEDS: GABAPENTIN 300 MG CAP PO SCH ×3 (08:08→22:31)
[2017-06-21] MEDS: LIDOCAINE 5% 1 EA PATCH TD SCH (08:08)
[2017-06-21] MEDS: THIAMINE HCL 100 MG TAB PO SCH (08:08)
[2017-06-21] MEDS: MAGNESIUM OXIDE 400 MG TAB PO SCH (08:08)
[2017-06-21] MEDS: AMOXICILLIN/CLAVULANATE POT 875/125 MG TAB PO SCH ×2 (08:08→20:53)
[2017-06-21] MEDS: PANTOPRAZOLE SODIUM 40 MG TAB PO SCH (08:08)
[2017-06-21] MEDS: NICOTINE 21 MG/24 HR PATCH TD SCH (08:08)
[2017-06-21] MEDS: DIPHENHYDRAMINE CREAM TP SCH ×2 (09:09→20:58)
[2017-06-21] MEDS: LORazepam 1 MG TAB PO PRN ×2 (15:39→20:57)
[2017-06-21] MEDS: oxyCODONE IR 5 MG TAB PO PRN ×2 (15:39→21:00)
--- NOTE | 2017-06-21 15:42 | HOSPPROG ---
Hospitalist Progress Note Assessment/Plan: 56 yo M with hx of etoh abuse and withdrawal admitted with acute respiratory failure and aspiration pna. * acute hypoxemic respiratory failure This is secondary to do due to intoxication and inability to protect his airway He was intubated in the intensive care unit and now is currently on room air resolved * aspiration pneumonia POA Initially treated with Invanz and now on Augmentin #8/10 * acute encephalopathy Resolved * tremors resolved w Inderal three times daily * anemia Overall stable * pruritus on the top of his head A topical cream has been added this helped * alcoholic hepatitis * hypernatremia * electrolyte abnormalities Have discontinued coverage and lab draws per patient's request It causes increased stress to do lab draws and is overall stable at this time * plan. [facility] to re-evaluate in the a.m. Subjective: max is feeling much better/ his tremors have resolved Objective: Vital Signs Temp Pulse Resp BP Pulse Ox 36.6 C 81 16 151/90 H 93 06/21/17 08:02 06/21/17 08:02 06/21/17 08:02 06/21/17 08:02 06/21/17 08:02 Laboratory Results 06/15/17 05:05 06/19/17 04:35 06/20/17 06/21/17 06/22/17 05:59 05:59 05:59 Intake Total 500 2090 Output Total 1775 1475 850 Balance -1275 615 -850 PT 13.3 SEC (12.0-15.0) 06/12/17 22:02 INR 1.02 (0.83-1.16) 06/12/17 22:02 - Physical Exam Constitutional: no apparent distress, appears nourished, not in pain Eyes: PERRL Ears, Nose, Mouth, Throat: hearing normal Respiratory: no respiratory distress Gastrointestinal: normoactive bowel sounds Skin: warm Musculoskeletal: generalized weakness Neurologic: AAOx3 Psychiatric: interacting appropriately ICD10 Worksheet Patient Problems: Problems Problem Status Onset Alcoholic intoxication Acute Respiratory failure Acute
[2017-06-21] MEDS: diphenhydrAMINE 25 MG CAP PO PRN (20:53)
[2017-06-21] MEDS: PATCH REMOVAL 1 EA PATCH TD SCH (20:58)
[2017-06-22] MEDS: AMOXICILLIN/CLAVULANATE POT 875/125 MG TAB PO SCH ×2 (08:23→20:19)
[2017-06-22] MEDS: MAGNESIUM OXIDE 400 MG TAB PO SCH (08:23)
[2017-06-22] MEDS: PANTOPRAZOLE SODIUM 40 MG TAB PO SCH (08:23)
[2017-06-22] MEDS: THIAMINE HCL 100 MG TAB PO SCH (08:23)
[2017-06-22] MEDS: GABAPENTIN 300 MG CAP PO SCH ×3 (08:23→20:19)
[2017-06-22] MEDS: NICOTINE 21 MG/24 HR PATCH TD SCH (08:23)
[2017-06-22] MEDS: PROPRANOLOL HCL 10 MG TAB PO SCH ×3 (08:23→20:22)
[2017-06-22] MEDS: LIDOCAINE 5% 1 EA PATCH TD SCH (08:24)
[2017-06-22] MEDS: oxyCODONE IR 5 MG TAB PO PRN ×3 (08:30→20:19)
[2017-06-22] MEDS: LORazepam 1 MG TAB PO PRN ×3 (08:31→20:22)
[2017-06-22] MEDS: DIPHENHYDRAMINE CREAM TP SCH ×2 (09:50→20:35)
--- NOTE | 2017-06-22 12:01 | HOSPPROG ---
Hospitalist Progress Note Assessment/Plan: 56 yo M with hx of etoh abuse and withdrawal admitted with acute respiratory failure and aspiration pna. * acute hypoxemic respiratory failure This is secondary to do due to intoxication and inability to protect his airway He was intubated in the intensive care unit and now is currently on room air resolved * aspiration pneumonia POA Initially treated with Invanz and now on Augmentin #9/10 * acute encephalopathy Resolved * tremors resolved w Inderal three times daily * anemia Overall stable * pruritus on the top of his head A topical cream has been added this helped *peripheral neuropathy has chronic pain due to this on gabapentin * alcoholic hepatitis * hypernatremia * electrolyte abnormalities Have discontinued coverage and lab draws per patient's request It causes increased stress to do lab draws and is overall stable at this time * [facility] available / [facility] Subjective: Piyush has c/o feet pain. Objective: Vital Signs Temp Pulse Resp BP Pulse Ox 37.2 C 82 18 140/82 H 92 06/22/17 08:00 06/22/17 08:00 06/22/17 08:00 06/22/17 08:00 06/22/17 08:00 Laboratory Results 06/15/17 05:05 06/19/17 04:35 06/21/17 06/22/17 06/23/17 05:59 05:59 05:59 Intake Total 2090 1060 Output Total 1475 850 Balance 615 210 PT 13.3 SEC (12.0-15.0) 06/12/17 22:02 INR 1.02 (0.83-1.16) 06/12/17 22:02 - Physical Exam Constitutional: uncomfortable Eyes: PERRL Ears, Nose, Mouth, Throat: hearing normal Cardiovascular: regular rate and rhythym Respiratory: no respiratory distress, reduced air movement (bibasilar) Gastrointestinal: normoactive bowel sounds Skin: warm Musculoskeletal: full muscle strength Neurologic: AAOx3 Psychiatric: interacting appropriately, anxious ICD10 Worksheet Patient Problems: Problems Problem Status Onset Alcoholic intoxication Acute Respiratory failure Acute
[2017-06-22] MEDS: diphenhydrAMINE 25 MG CAP PO PRN (20:19)
[2017-06-22] MEDS: PATCH REMOVAL 1 EA PATCH TD SCH (20:35)
[2017-06-23] MEDS: AMOXICILLIN/CLAVULANATE POT 875/125 MG TAB PO SCH ×2 (09:52→21:20)
[2017-06-23] MEDS: PROPRANOLOL HCL 10 MG TAB PO SCH ×3 (09:53→21:20)
[2017-06-23] MEDS: MAGNESIUM OXIDE 400 MG TAB PO SCH (09:53)
[2017-06-23] MEDS: PANTOPRAZOLE SODIUM 40 MG TAB PO SCH (09:59)
[2017-06-23] MEDS: GABAPENTIN 300 MG CAP PO SCH ×3 (09:59→21:20)
[2017-06-23] MEDS: NICOTINE 21 MG/24 HR PATCH TD SCH (10:00)
[2017-06-23] MEDS: LIDOCAINE 5% 1 EA PATCH TD SCH (10:00)
[2017-06-23] MEDS: THIAMINE HCL 100 MG TAB PO SCH (10:00)
[2017-06-23] MEDS: oxyCODONE IR 5 MG TAB PO PRN ×3 (10:11→21:21)
[2017-06-23] MEDS: LORazepam 1 MG TAB PO PRN ×3 (10:12→21:21)
[2017-06-23] MEDS: DIPHENHYDRAMINE CREAM TP SCH ×2 (10:13→21:22)
--- NOTE | 2017-06-23 13:57 | ASMTCMCOM ---
CM Note CM Note Notes: CM met w/ pt for dispo planning. Pt is requesting a referral made to other facilities. CM made a referral to [facility], [facility], [facility]. CM called [facility] and [facility] and they do not have a medicaid bed available. CM to follow. Date Signed: 06/23/2017 01:57 PM Electronically Signed By:VINOD Boo
--- NOTE | 2017-06-23 18:45 | HOSPPROG ---
Hospitalist Progress Note Assessment/Plan: Assessment: 56 yo M p/w aspiration pneumonia and acute hypoxic respiratory failure Plan: * acute hypoxemic respiratory failure. 2/2 intoxication and inability to protect his airway, intubated in the intensive care unit and now is currently on room air - resolved * aspiration pneumonia POA. 2/2 intox, treated with Invanz and now on Augmentin D#10/ * acute encephalopathy. 2/2 toxic effects of infxn w/ global brain dysfunction, now resolved * tremors. chronic, unclear etiology, either somatic component vs. partial seizure vs. myclonus from chronic alcoholism - resolved w Inderal three times daily - counseled patient that I would recommend outpt neuro f/u *peripheral neuropathy. chronic, cont gabapentin - most notable on plantar surfaces * alcoholic hepatitis. stable * hypernatremia. resolved * Hyponatremia. Acute, 2/2 hypovolemia in setting of above * Chronic diastolic CHF. No acute exacerbation, cont monitor vol status Diet. Regular PPx. High risk, lovenox 40 Code. Full Dispo. ADD uncertain, CM attempting to arrange SNF Subjective: counseled patient extensively regarding working w/ therapy, attempting to ambulate despite pain Objective: Vital Signs Temp Pulse Resp BP Pulse Ox 36.9 C 94 20 127/82 H 95 06/23/17 16:00 06/23/17 16:00 06/23/17 16:00 06/23/17 16:00 06/23/17 16:00 Laboratory Results 06/15/17 05:05 06/19/17 04:35 06/22/17 06/23/17 06/24/17 05:59 05:59 05:59 Intake Total 1060 Output Total 850 200 Balance 210 -200 PT 13.3 SEC (12.0-15.0) 06/12/17 22:02 INR 1.02 (0.83-1.16) 06/12/17 22:02 - Time Spent With Patient Time Spent with Patient: greater than 35 minutes Time Spent with Patient: Greater than 35 minutes spent on this patients care, greater than 50% of time spent counseling, educating, and coordinating care regarding the above mentioned plan. - Physical Exam Constitutional: no apparent distress, chronically ill appearing, uncomfortable Cardiovascular: regular rate and rhythym, no murmur, rub, or gallop Respiratory: no respiratory distress, no rales or rhonchi, clear to auscultation Gastrointestinal: normoactive bowel sounds, soft, non-tender abdomen, no palpable masses Skin: other (numerous tattoos) Neurologic: AAOx3, sensation intact bilaterally (w/ plantar painful paresthesias ), other (intermittent uncontrollable tremors), No weakness (motor 5/5 bilat), No asterixes Psychiatric: anxious ICD10 Worksheet Patient Problems: Problems Problem Status Onset Alcoholic intoxication Acute Respiratory failure Acute
[2017-06-23] MEDS: diphenhydrAMINE 25 MG CAP PO PRN (21:20)
[2017-06-23] MEDS: PATCH REMOVAL 1 EA PATCH TD SCH (21:22)
[2017-06-24 08:17] VITALS: BP 107/69; PULSE 72; RESP 14; TEMP 98.2; O2SAT 93
[2017-06-24] MEDS: LIDOCAINE 5% 1 EA PATCH TD SCH ×2 (09:26→09:47)
[2017-06-24] MEDS: DIPHENHYDRAMINE CREAM TP SCH (09:26)
[2017-06-24] MEDS: GABAPENTIN 300 MG CAP PO SCH (09:30)
[2017-06-24] MEDS: PANTOPRAZOLE SODIUM 40 MG TAB PO SCH (09:30)
[2017-06-24] MEDS: MAGNESIUM OXIDE 400 MG TAB PO SCH (09:30)
[2017-06-24] MEDS: NICOTINE 21 MG/24 HR PATCH TD SCH (09:30)
[2017-06-24] MEDS: PROPRANOLOL HCL 10 MG TAB PO SCH (09:30)
[2017-06-24] MEDS: THIAMINE HCL 100 MG TAB PO SCH (09:44)
[2017-06-24] MEDS: LORazepam 1 MG TAB PO PRN ×2 (09:44→14:18)
[2017-06-24] MEDS: oxyCODONE IR 5 MG TAB PO PRN ×2 (09:44→14:18)
--- NOTE | 2017-06-24 16:02 | ASMTCMCOM ---
CM Note CM Note Notes: SUKH spoke w/ Jenny RN regarding d/c POC. Pt is being discharged today. CM is reserving correction bed for pt tonight. [facility] has filled pts prescriptions and billed Medicaid. Pt will be following up [facility]. CM provided pt w/ clothes from donation bin. CM set up transportation through [facility] and [facility] will be billing Medicaid directly. Pt has been declined at a number of SNFs due a lack of bed availability. CM available for changes. Date Signed: 06/24/2017 04:01 PM Electronically Signed By:VINOD Boo
--- NOTE | 2017-06-24 16:03 | ASDISCHSUM ---
Discharge Information Plan Status:Homeless/Skilled Nursing Medically Cleared to Leave: Discharge Date:06/24/2017 03:00 PM CM D/C Disposition: ADT D/C Disposition:Home, Routine, Self-Care Projected Discharge Date:06/23/2017 11:00 AM Transportation at D/C: Discharge Delay Reason: Follow-Up Date:06/23/2017 11:00 AM Discharge Slot: Final Diagnosis:ETOH intoxication, Respiratory Failure Placement Information Referral Type:*Assisted/SNF Referral ID:[id number] Provider Name: Address 1: Phone Number: Address 2: Fax Number: City: Selection Factors: State: Patient Contact Information Contact Name:YAHAIRA Relationship:Sister Address: City: [facility] Phone: [facility]/Zip Code: Email: Financial Information Financial Class: Primary Plan Desc:MED[place] [place] Primary Plan Number:[id number] Secondary Plan Desc: Secondary Plan Number: Assessment Information [facility] Progress Note CM Note CM Note Notes: Reviewed chart re: d/c poc, pt's progress. Per rounds/ notes, pt admitted w/ an ETOH level of 600; found down outside the [facility], was intubated in the field. Pt very combative on admit; placed on vent for resp failure. Pt has aspiration PNA, anemia, thrombocytopenia, and is hypernatremic. Pt came in as a Piyush Maria. CM attempted to work w/ security infrastructure engineer Devon to identify pt; also contacted [facility] for missing persons; unable to assist w/ [facility]. Pt was able to tell JORDAN De La Paz his name and this afternoon. Pt would benefit from alcohol resources/counseling, possible rehab. Discharge plan remains TBD at this time. CM will cont to follow. Date Signed: 06/13/2017 06:17 PM Electronically Signed By:Corazon Meyer RN [facility] CM Progress Note CM Note CM Note Notes: Patient reports that he has been homeless for 20 years. He has frostbitted feet and they cause him a great deal of pain. He would like to go to a SNF for care. Contacted [facility] - they can"t take any more psych patients; [facility] no bed availability; [facility] sent patient information. [facility] completed and faxed to [facility]. Date Signed: 06/16/2017 02:32 PM Electronically Signed By:Divina Daniels LCSW [facility] SUKH Progress Note CM Note CM Note Notes: Today Pt. was approved by [facility] for LTC Medicaid stay. Ramona Perry is worker assigned . Thus far no LTC facilities have accepted Pt. Hasmukh sent several more referrals today via wali. Await responses. Daor met w/ Pt. in room. Pt. still would like to go to a alf for a stay. Pt. was shaking/trembling stating he was in pain. Daor let bedside RN know. SUKH/PHANI to follow. Date Signed: 06/18/2017 04:34 PM Electronically Signed By:Dior Wayne LCSW [facility] Progress Note CM Note CM Note Notes: Today Kasey from [facility] and a colleague, [place] came to visit and assess Pt. for LTC placement. Pt. told Kasey that he did NOT want to go to a alf and planned to go back to Skilled Nursing. Pt. changed his mind. Pt. has consistently wanted a alf since his hospitalization including as recent as yesterday. Pt. is quite deconditioned and his feet cause him pain. Hospitalist would prefer Pt. go to alf, but will treat him in hospital a little while longer to get him better for street. CM to follow. Date Signed: 06/19/2017 03:31 PM Electronically Signed By:Dior Wayne LCSW [facility] CM Progress Note CM Note CM Note Notes: D/W Monica, Hospitalist who said pt is now agreeable to going to [facility]. I spoke w/NIKKI Mantilla at [facility] to discuss; she said they are not able to accept today as they are still reviewing case with [employer]. Annalee said they will get back to us Thursday AM. Date Signed: 06/20/2017 02:12 PM Electronically Signed By:Rizwana Berman RN [facility] Progress Note CM Note CM Note Notes: CM met w/ pt for dispo planning. Pt is requesting a referral made to other facilities. CM made a referral to [facility], [facility]. CM called [facility] and [facility] and they do not have a medicaid bed available. CM to follow. Date Signed: 06/23/2017 01:57 PM Electronically Signed By:VINOD Boo [facility] Progress Note CM Note CM Note Notes: CM spoke w/ JORDAN Alvarado regarding d/c POC. Pt is being discharged today. is reserving [facility] bed for pt tonight. Hillary has filled pts prescriptions and billed Medicaid. [facility]. CM provided pt w/ clothes from [employer]. CM set up transportation through [facility] and [facility] will be billing Medicaid directly. Pt has been declined at a number of SNFs due a lack of bed availability. CM available for changes. Date Signed: 06/24/2017 04:01 PM Electronically Signed By:VINOD Boo Intervention Information
--- NOTE | 2017-06-24 17:30 | PDDCSUM ---
Discharge Summary Discharge Summary: DISCHARGE SUMMARY FOLLOW-UP ITEMS: Outpatient neurology follow-up appointment DATE OF ADMISSION: 06/12/2017 DATE OF DISCHARGE: 06/24/2017 DISCHARGE DIAGNOSES: 1. Acute hypoxic respiratory failure 2. Acute aspiration pneumonia present on admission 3. Acute encephalopathy 4. Chronic peripheral neuropathy 5. Chronic tremors 6. Alcoholic hepatitis 7. Acute hyponatremia 8. Acute hyponatremia 9. Chronic diastolic congestive heart failure CONSULTATIONS: Pulmonary Critical Care PROCEDURES / IMAGING: Chest x-ray with bibasilar hazy infiltrates CHIEF COMPLAINT: Acute unresponsiveness SUBJECTIVE: Patient is feeling well at time of discharge, he is able to ambulate safely PHYSICAL EXAM ON DISCHARGE: Systolic blood pressure is 110, heart rate 80, afebrile overnight, satting well on room air, alert awake oriented x3, intermittent twitching, but patient is completely directable, does not have any upper extremity tremulousness or asterixis, motor strength 5/5 bilateral lower extremities LABS ON DISCHARGE: Hemoglobin 11.7 serum sodium 136 HOSPITAL COURSE BY PROBLEM: 1. Acute toxic encephalopathy. Evidenced by global brain dysfunction characterized as patient being initially found down, unresponsive, which is an acute change in his mental status from his baseline, which is fully interactive , most likely secondary to the combined toxic effects of alcohol, infection, electrolyte abnormalities.. The patient's alcohol level is positive on admission, and this cleared during his hospitalization. 2. Acute aspiration pneumonia. Present on admission, secondary to alcohol intoxication, located in the bilateral lower lobes and resulting in respiratory failure, treated with 10 days of antibiotics. 3. Acute hypoxic respiratory failure. This is secondary to intoxication inability to protect the patient's airway, he was intubated in the intensive care unit and treated for pneumonia. His oxygen requirements were weaned, and he is currently satting well on room air at time of discharge. 4. Chronic tremors. Patient has chronic tremors and these are most likely secondary to either symptomatic component versus partial seizures versus myoclonic from his chronic alcoholism. Patient was initiated on Inderal 3 times daily and this will be continued at discharge. I did recommend the patient to follow up with outpatient neurologist. 5. Chronic peripheral neuropathy. Patient was initiated on gabapentin, this was continued at discharge. Of note, his bilateral plantar surfaces are particularly uncomfortable, but the patient is able to ambulate safely. We attempted to place the patient had a prison facility, but none of the facilities to our partners would receive the patient. Consequently, we were able to [facility] the [facility], which [facility] his [facility] best option 6. Acute alcohol hepatitis. This stabilized and his liver enzymes downtrend during this hospitalization. Complete alcohol cessation was encouraged. 7. Acute hyponatremia. Secondary to free water deficit, improved with IV fluids. 8. Acute hyponatremia. Secondary to hypovolemia in the setting of above, this improved with IV fluids and stabilized prior to discharge. 9. Chronic diastolic congestive heart failure. No evidence of acute exacerbation, the patient's volume status was euvolemic at time of discharge. DISCHARGE MEDICATIONS: Please see official discharge medication reconciliation sheet in chart , Inderal 20 mg 3 times daily started, gabapentin 300 mg 3 times daily started. DISCHARGE INSTRUCTIONS: [facility] and then receive referral to outpatient neurology from there. TIME SPENT: Greater than 30 minutes were spent on direct patient care, as well as discharge planning and preparation.
== END 2017-06-24 15:00 | disposition home or self-care (01) | DRG 917 ==
LOC: EDBD 22:47 → MERGE 22:47 → F2N 23:43 → F3E 06-17 12:27
PROVIDERS: ADMIT Student in an Organized Health Care Education/Training Program; ATTEND Internal Medicine
PROC: 5A1935Z Respiratory Ventilation, Less than 24 Consecutive Hours (ICD-10-PCS; principal; 2017-06-12)
PROC: 02HV33Z Insertion of Infusion Device into Superior Vena Cava, Percutaneous Approach (ICD-10-PCS; principal; 2017-06-12)
PROC: 0BH17EZ Insertion of Endotracheal Airway into Trachea, Via Natural or Artificial Opening (ICD-10-PCS; principal; 2017-06-12)
PROC: HZ2ZZZZ Detoxification Services for Substance Abuse Treatment (ICD-10-PCS; 2017-06-12)
DX: T51.0X1A Toxic effect of ethanol, accidental (unintentional), initial encounter (principal); G92 Toxic encephalopathy; J69.0 Pneumonitis due to inhalation of food and vomit; R40.2431 Glasgow coma scale score 3-8, in the field [EMT or ambulance]; R40.2111 Coma scale, eyes open, never, in the field [EMT or ambulance]; R40.2311 Coma scale, best motor response, none, in the field [EMT or ambulance]; R40.2211 Coma scale, best verbal response, none, in the field [EMT or ambulance]; D52.0 Dietary folate deficiency anemia; D69.59 Other secondary thrombocytopenia; E83.42 Hypomagnesemia; E83.39 Other disorders of phosphorus metabolism; E87.6 Hypokalemia; E87.0 Hyperosmolality and hypernatremia; F10.220 Alcohol dependence with intoxication, uncomplicated; F10.239 Alcohol dependence with withdrawal, unspecified; K70.10 Alcoholic hepatitis without ascites; G62.9 Polyneuropathy, unspecified; I50.32 Chronic diastolic (congestive) heart failure; R25.1 Tremor, unspecified
CPT/HCPCS: 80305; 92507-GN; 92523-GN; 92526-GN; 92610-GN; 96374; 97116-GP; 97161-GP; 97162-GP; 97166-GO; 97530-GO; 97530-GP; 97535-GO; G0480; J1335; J2060; J2250; J2704; J3411; J3475

== ENCOUNTER → 2017-07-01 | Outpatient (CLI) | payer MEDICAID | LOC: FIMAGING 11:02 | DX: M40.204 Unspecified kyphosis, thoracic region (principal); M51.34 Other intervertebral disc degeneration, thoracic region ==

== ENCOUNTER 2017-08-20 12:02 | Emergency (ER) | payer MEDICAID ==
[2017-08-20 12:13] VITALS: BP 131/84; PULSE 91; RESP 18; TEMP 97.9; O2SAT 95
--- NOTE | 2017-08-20 13:33 | EDPHY ---
H & P Stated Complaint: ETOH, "pain all over", wants detox placement Time Seen by Provider: 08/20/17 13:23 HPI/ROS: CHIEF COMPLAINT: Rash HISTORY OF PRESENT ILLNESS: The patient is a 56-year-old homeless alcoholic man who comes to the emergency department complaining of diffuse pruritic rash that has been present for several weeks. He states that it spreads when he itches. No fevers. No purulent drainage. He also complains of alcohol abuse he but does not wish to go to the alcohol recovery Center. No chest pain or shortness of breath. REVIEW OF SYSTEMS: Constitutional: denies: chills, fever, recent illness, recent injury EENTM: denies: blurred vision, double vision, nose congestion Respiratory: denies: cough, shortness of breath Cardiac: denies: chest pain, irregular heart rate, lightheadedness, palpitations Gastrointestinal/Abdominal: denies: abdominal pain, diarrhea, nausea, vomiting, blood streaked stools Genitourinary: denies: dysuria, frequency, hematuria, pain Musculoskeletal: denies: joint pain, muscle pain Skin: denies: lesions, rash, jaundice, bruising Neurological: denies: headache, numbness, paresthesia, tingling, dizziness, weakness Hematologic/Lymphatic: denies: blood clots, easy bleeding, easy bruising Immunologic/allergic: denies: HIV/AIDS, transplant EXAM: GENERAL: Well-appearing, the thin in no acute distress. HEAD: Atraumatic, normocephalic. EYES: Pupils equal round and reactive to light, extraocular movements intact, sclera anicteric, conjunctiva are normal. ENT: TMs normal, nares patent, oropharynx clear without exudates. Moist mucous membranes. NECK: Normal range of motion, supple without lymphadenopathy or JVD. LUNGS: Breath sounds clear to auscultation bilaterally and equal. No wheezes rales or rhonchi. HEART: Not tachycardic, Regular rate and rhythm without murmurs, rubs or gallops. ABDOMEN: Soft, nontender, normoactive bowel sounds. No guarding, no rebound. No masses appreciated. BACK: No CVA tenderness, no spinal tenderness, step-offs or deformities EXTREMITIES: Normal range of motion, no pitting or edema. No clubbing or cyanosis. NEUROLOGICAL: No tremors, Cranial nerves II through XII grossly intact. Normal speech, normal gait. 5/5 strength, normal movement in all extremities, normal sensation PSYCH: Normal mood, normal affect. SKIN: The crusting and scaling of skin with excoriations from excessive scratching, the no sign of cellulitis. The Source: Patient Exam Limitations: No limitations - Personal History Tetanus Vaccine Date: 2015 - Medical/Surgical History Hx Asthma: No Hx Chronic Respiratory Disease: No Hx Diabetes: No Hx Cardiac Disease: No Hx Renal Disease: No Hx Cirrhosis: No Hx Alcoholism: Yes Hx HIV/AIDS: No Hx Splenectomy or Spleen Trauma: No Other PMH: etoh abuse, withdrawl, r lower leg cellulitis, thrombocytopenia, hep C. homelessness. bowel resection for infection, left lower extremity fracture with screws. - Family History Significant Family History: No pertinent family hx - Social History Smoking Status: Current every day smoker Alcohol Use: Heavy Drug Use: Marijuana Constitutional: Initial Vital Signs Temperature (C) 36.6 C 08/20/17 12:11 Heart Rate 91 08/20/17 12:11 Respiratory Rate 18 08/20/17 12:11 Blood Pressure 131/84 H 08/20/17 12:11 O2 Sat (%) 95 08/20/17 12:11 O2 Delivery Mode Room Air Allergies/Adverse Reactions: No Known Allergies Allergy (Unverified 05/02/16 23:58) Home Medications: Medication Instructions Recorded Gabapentin [Neurontin 300 MG (*)] 300 mg PO TID #90 cap 06/24/17 Ibuprofen [Motrin (*)] 600 mg PO Q6H PRN tab 06/24/17 Propranolol HCl [Inderal 10mg (*)] 10 mg PO TID #90 tab 06/24/17 diphenhydrAMINE [Benadryl 25 MG 50 mg PO Q6HRS PRN cap 06/24/17 (*)] Permethrin 5% [Elimite 5%] 1 lissette TP ONCE #1 cream 08/20/17 Medical Decision Making ED Course/Re-evaluation: The patient has symptoms and exam consistent with scabies. He is currently not withdrawing clinically. I offered to send him to the alcohol recovery Center which she refused. I will prescribe him a permethrin cream and we discussed usage. He states that he has used this in the past. Differential Diagnosis: Partial list of the Differential diagnosis considered include but were not limited to; scabies, alcoholism, cellulitis, substance abuse and although unlikely based on the history and physical exam, I also considered head injury, trauma, alcohol withdrawal. I discussed these differential diagnoses and the plan with the patient as well as the usual and expected course. The patient understands that the diagnosis is provisional and that in medicine we are not always correct and that further workup is often warranted. Usual and customary warnings were given. All of the patient's questions were answered. The patient was instructed to return to the emergency department should the symptoms at all worsen or return, otherwise to followup with the physician as we discussed. Departure - Departure Disposition: Home, Routine, Self-Care Clinical Impression: Scabies Alcohol dependence Qualifiers: Substance use status: other alcohol-induced disorder Qualified Code(s): F10.288 - Alcohol dependence with other alcohol-induced disorder Condition: Fair Instructions: Scabies (ED) Referrals: NONE *PRIMARY CARE P,. [Primary Care Provider] - As per Instructions Prescriptions: Permethrin 5% [Elimite 5%] 1 lissette TP ONCE #1 cream
== END 2017-08-20 14:03 | disposition home or self-care (01) ==
LOC: EDUNIT#
DX: B86 Scabies (principal); F10.288 Alcohol dependence with other alcohol-induced disorder; F17.200 Nicotine dependence, unspecified, uncomplicated

== ENCOUNTER 2017-09-07 08:23 | Emergency (ER) | payer MEDICAID ==
[~2017-09-07 08:23] MED LIST: PERMETHRIN 5% 60 GM CREAM TP SCH; hydrOXYzine HCL 25 MG TAB PO SCH
[2017-09-07] MEDS ORDERED: LORazepam 1 MG TAB PO ONE (08:32)
[2017-09-07 08:37] VITALS: RESP 18; O2SAT 98
[2017-09-07] MEDS ORDERED: CHLORDIAZEPOXIDE 25MG PREPK#6 BTL TAKEHOME ONE (09:25)
[2017-09-07] MEDS ORDERED: chlordiazePOXIDE 25 MG CAP PO ONE (09:25)
[2017-09-07] MEDS ORDERED: hydrOXYzine HCL 25 MG TAB PO ONE (09:25)
--- NOTE | 2017-09-07 09:43 | EDPHY ---
H & P - Personal History Current Tetanus/Diphtheria Vaccine: Yes Current Tetanus Diphtheria and Acellular Pertussis (TDAP): Yes Tetanus Vaccine Date: 2015 - Medical/Surgical History Hx Asthma: No Hx Chronic Respiratory Disease: No Hx Diabetes: No Hx Cardiac Disease: No Hx Renal Disease: No Hx Cirrhosis: No Hx Alcoholism: Yes Hx HIV/AIDS: No Hx Splenectomy or Spleen Trauma: No Other PMH: etoh abuse, withdrawl, r lower leg cellulitis, thrombocytopenia, hep C. homelessness. bowel resection for infection, left lower extremity fracture with screws. - Social History Smoking Status: Current every day smoker HPI/ROS: Chief complaint: Rash History of present illness: This is a 57-year-old male who presents to the emergency department for evaluation of a rash. He describes a diffuse rash. Is very itchy. He was seen previously for this and diagnosed with scabies. This is same type rash. He did treat with permethrin but it did not clear. Denies other associated signs or symptoms including no fevers, no respiratory symptoms. (Richar Jang) - Physical Exam Exam: General Appearance: Alert, nontoxic. Eyes: Pupils equal and round no injection. Respiratory: Chest is non tender, lungs are clear to auscultation. Cardiac: regular rate and rhythm Gastrointestinal: Abdomen is soft and non tender, no masses, bowel sounds normal. Musculoskeletal: Neck is supple and non tender. Extremities have full range of motion and are non tender. Skin: Patient has diffuse erythematous rash. There is no burrowing noted. Interdigital web spaces are affected. There is scabbing over multiple sites were patient has been scratching. No signs of secondary infections such as cellulitis. (Richar Jang) Constitutional: Initial Vital Signs Temperature (C) 36.8 C 09/07/17 08:35 Heart Rate 104 H 09/07/17 08:35 Respiratory Rate 18 09/07/17 08:35 Blood Pressure 174/99 H 09/07/17 08:35 O2 Sat (%) 98 09/07/17 08:35 O2 Delivery Mode Room Air Allergies/Adverse Reactions: Unable to Assess Allergy (Unverified 09/12/17 09:25) Home Medications: Medication Instructions Recorded NK [No Known Home Meds] 09/09/17 Unobtainable 09/12/17 Medical Decision Making ED Course/Re-evaluation: Patient seen under the supervision of my secondary supervising physician Dr. Sondra Gandara. Patient presents to emergency department for rash. He appears to have continued scabies infection. We will help clean out. Case management has helped him get clean clothing. He is given permethrin. [facility]. (Richar Jang) The patient was evaluated and managed by the physician podiatry assistant. I have reviewed this chart and I agree with the findings and plan of care as documented , as indicated by my signature. I am the secondary supervising physician. ( Sondra Gandara) Differential Diagnosis: Included but not limited to parasitic bites, allergic reaction, cellulitis ( Richar Jang) - Data Points Medications Given: Discontinued Medications Chlordiazepoxide (Librium 25 Mg Prepack#6) 1 btl TAKEHOME EDNOW ONE Stop: 09/07/17 09:26 Last Admin: 09/07/17 11:13 Dose: 1 btl Chlordiazepoxide HCl (Librium) 50 mg PO EDNOW ONE Stop: 09/07/17 09:26 Last Admin: 09/07/17 09:34 Dose: 50 mg Hydroxyzine HCl (Hydroxyzine Hcl) 25 mg PO EDNOW ONE Stop: 09/07/17 09:26 Last Admin: 09/07/17 11:13 Dose: 25 mg Lorazepam (Ativan) 1 mg PO EDNOW ONE Stop: 09/07/17 08:33 Last Admin: 09/07/17 08:34 Dose: 1 mg Departure - Departure Disposition: Home, Routine, Self-Care Clinical Impression: Scabies Alcohol withdrawal Qualifiers: Complication of substance-induced condition: uncomplicated Qualified Code(s): F10.230 - Alcohol dependence with withdrawal, uncomplicated Condition: Good Instructions: Permethrin (On the skin), Hydroxyzine (By mouth), Scabies (ED) Additional Instructions: Follow-up with a primary care doctor for recheck If symptoms worsen or new symptoms develop return to the emergency room for recheck Referrals: NONE *PRIMARY CARE P,. [Primary Care Provider] - As per Instructions
--- NOTE | 2017-09-07 11:18 | ASMTCMCOM ---
CM Note CM Note Notes: PT in FED from the senior living due to pain from scabies. ED RN requested clean clothes. Review of chart indicates that pt. has had numerous ED visits as a result of alcohol use. Previous CM note reflects connections with outside resources with no follow through. Pt requested to go to the [facility], ED PA was in agreement. This CM spoke with Piyush at the [facility] who has to consult with their physician on acceptance. Date Signed: 09/07/2017 11:18 AM Electronically Signed By:Parris Funes LCSW
[2017-09-07 11:29] VITALS: BP 142/89; PULSE 102; TEMP 98.6
== END 2017-09-07 11:26 | disposition home or self-care (01) ==
LOC: EDUNIT#
DX: B86 Scabies (principal); F10.230 Alcohol dependence with withdrawal, uncomplicated; F17.200 Nicotine dependence, unspecified, uncomplicated

== ENCOUNTER 2017-09-09 09:43 | Emergency (ER) | payer MEDICAID ==
[2017-09-09] MEDS ORDERED: IBUPROFEN 600 MG TAB PO ONE (09:52)
[2017-09-09 10:00] VITALS: RESP 18
[2017-09-09] MEDS ORDERED: chlordiazePOXIDE 25 MG CAP PO ONE (10:10)
--- NOTE | 2017-09-09 11:24 | EDPHY ---
H & P Stated Complaint: homeless, cold, toe pain HPI/ROS: Chief complaint: Cold toes History of present illness: This is a 57-year-old male who presents to the emergency department with EMS for evaluation of cold toes. Patient is homeless. History of alcohol abuse. EMS was contacted and found patient outside. He was complaining of cold toes. He was wearing boots that were wet. He had a sock on only 1 foot. On my evaluation he denies other associated signs or symptoms. Review of systems: A 10 point review of systems was obtained and other than described above was negative - Personal History Current Tetanus Diphtheria and Acellular Pertussis (TDAP): Yes Tetanus Vaccine Date: 2015 - Medical/Surgical History Hx Asthma: No Hx Chronic Respiratory Disease: No Hx Diabetes: No Hx Cardiac Disease: No Hx Renal Disease: No Hx Cirrhosis: No Hx Alcoholism: Yes Hx HIV/AIDS: No Hx Splenectomy or Spleen Trauma: No Other PMH: etoh abuse, withdrawl, r lower leg cellulitis, thrombocytopenia, hep A. B. C. homelessness. bowel resection for infection, left lower extremity fracture with screws. - Social History Smoking Status: Current every day smoker - Physical Exam Exam: General Appearance: Alert and no distress. Eyes: Pupils equal and round no injection. Respiratory: Chest is non tender, lungs are clear to auscultation. Cardiac: regular rate and rhythm Gastrointestinal: Abdomen is soft and non tender, no masses, bowel sounds normal. Musculoskeletal: Neck is supple and non tender. Extremities have full range of motion and are non tender. The toes are cold to the touch but pliable. Skin: Diffuse rash consistent with scabies, as patient seen recently for this Constitutional: Initial Vital Signs Heart Rate 84 09/09/17 09:57 Respiratory Rate 18 09/09/17 09:57 Blood Pressure 120/90 H 09/09/17 09:57 O2 Sat (%) 95 09/09/17 09:57 O2 Delivery Mode Room Air Allergies/Adverse Reactions: No Known Allergies Allergy (Unverified 05/02/16 23:58) Home Medications: Medication Instructions Recorded NK [No Known Home Meds] 09/09/17 Medical Decision Making ED Course/Re-evaluation: Patient seen under the supervision of my secondary supervising physician Dr. James Pierce. Patient presents to the emergency department for cold toes. His toes are actively rewarmed with warm water. He has good capillary refill to them. He is placed in warm socks and given a spare pair. Case management has seen him to discuss options for getting off the streets. Return precautions are given. Differential Diagnosis: Included but not limited to trench foot, lewis nip, frostbite - Data Points Medications Given: Discontinued Medications Chlordiazepoxide HCl (Librium) 25 mg PO EDNOW ONE Stop: 09/09/17 10:11 Last Admin: 09/09/17 10:17 Dose: 25 mg Ibuprofen (Motrin) 600 mg PO EDNOW ONE Stop: 09/09/17 09:53 Last Admin: 09/09/17 10:14 Dose: 600 mg Oxycodone HCl (Oxycodone Ir) 5 mg PO EDNOW ONE Stop: 09/09/17 11:32 Last Admin: 09/09/17 12:14 Dose: 5 mg Departure - Departure Disposition: Home, Routine, Self-Care Clinical Impression: Alcoholic intoxication Qualifiers: Complication of substance-induced condition: uncomplicated Qualified Code(s): F10.920 - Alcohol use, unspecified with intoxication, uncomplicated Superficial frostbite of toe Qualifiers: Encounter type: initial encounter Laterality: unspecified laterality Qualified Code(s): T33.839A - Superficial frostbite of unspecified toe(s), initial encounter Condition: Good Instructions: Frostbite (ED), Alcohol Intoxication (ED) Additional Instructions: Follow-up with a primary care doctor and a surgeon for recheck of your feet If symptoms worsen or new symptoms develop return to the emergency room for recheck Referrals: NONE *PRIMARY CARE P,. [Primary Care Provider] - As per Instructions [facility],. [Clinic] - As per Instructions Singh Whitney MD [Medical Doctor] - As per Instructions
[2017-09-09] MEDS ORDERED: oxyCODONE IR 5 MG TAB PO ONE (11:31)
[2017-09-09 12:56] VITALS: BP 108/84; PULSE 77; TEMP 97.2; O2SAT 91
--- NOTE | 2017-09-09 13:10 | ASMTCMCOM ---
CM Note CM Note Notes: Patient is well known to and this ER with frequent visits related to homelessness and alcoholism. He is currently not able to go to the [facility] due to "behavioral issues" and "group home seeking only" I have met with patient to discuss other options. He tells me that he is also "not welcome" at [facility] detox program. I have provided him with information for the [facility] program, imcluding the time and location of entry this evening. I explained that if he does seek group home there tonight he will be expected to follow through with the coordinated entry program and may have an opportunity to seek halfway assistance. I have encouraged him to keep seeking detox/recovery programs that have been available to him and I reminded him that he must be his own advocate and is responsible for his behaviors, as well as the consequences. Patient is discharged with group home and recovery/detox resources and will need to contact options directly if/when he is willing and able to comply with behavioral expectations Date Signed: 09/09/2017 01:10 PM Electronically Signed By:Inge Del Rio RN
== END 2017-09-09 12:59 | disposition home or self-care (01) ==
LOC: EDUNIT#
DX: T33.839A Superficial frostbite of unspecified toe(s), initial encounter (principal); F10.920 Alcohol use, unspecified with intoxication, uncomplicated; F17.200 Nicotine dependence, unspecified, uncomplicated; X31.XXXA Exposure to excessive natural cold, initial encounter; Y99.8 Other external cause status; Y93.89 Activity, other specified

== ENCOUNTER 2017-09-12 09:23 | Inpatient (IN) | payer MEDICAID ==
--- NOTE | 2017-09-12 09:29 | EDPHY ---
H & P HPI/ROS: CHIEF COMPLAINT: Hypothermia, AMS HISTORY OF PRESENT ILLNESS: The patient is a homeless 57 y/o male with history of alcohol abuse arriving emergently via EMS after he was found down in the snow by PD and unresponsive. EMS states he looked blue on scene and they were unable to get any vitals en route. No obvious signs of trauma noted. After warming him slightly he sat up in the ambulance and began to tremor. He stated his name once, but otherwise was unable to follow commands, did not verbalize. Records show he was recently here for scabies and lower extremity frostbite and has been admitted previously for aspiration pneumonia. REVIEW OF SYSTEMS: Unable to obtain due to condition. Past medical history: 1. Alcoholism with multiple ED visits for withdrawal 2. Right leg cellulitis 3. Thrombocytopenia 4. Hepatitis A, B, C/ alcoholic hepatitis 5. Peripheral neuropathy 6. Chronic diastolic CHF 7. Chronic tremors Past surgical history: 1. Bowel resection following infection 2. Left lower extremity fracture with surgical repair Family history: Noncontributory Social history: Homeless, alcohol abuse Prior medical records reviewed including ED visit 09/09/17 for frostbite and admission 06/12/17 for unresponsiveness and aspiration pneumonia. Adult Physical: General Appearance: Thin disheveled male. Eyes open, minimal response to pain, unable to follow commands, acute distress, hypothermic 26.7C. Bib coma score is 9. Head: Normocephalic atraumatic. Eyes: Pupils equal and round, conjugate gaze, conjunctival injection bilaterally , no discharge. ENT, Mouth: Edentulous, dry mucous membranes Neck: Trachea midline. Respiratory: Lungs are clear to auscultation; no wheezes, rales, or rhonchi. Cardiovascular: Tachycardic regular rate and rhythm; no murmur, rub, or gallop. Gastrointestinal: Abdomen is soft without apparent tenderness, no masses or organomegaly. Skin: Cold and dry. Entire body covered in circular scabbed lesions, particularly on legs. Left foot blanching of toes, right foot toes blotchy purple, and both feet extremely cold to the touch. Back: No apparent spine tenderness or trauma. Extremities: No lower extremity edema. Neurological: Spontaneous eye opening, responds minimally to pain, limbs are rigid with contracted extremities and tremor. No obvious motor asymmetry. Psychiatric: Deferred Constitutional: Initial Vital Signs Temperature (C) 26.7 C L 09/12/17 09:58 Allergies/Adverse Reactions: Unable to Assess Allergy (Unverified 09/12/17 09:25) Home Medications: Medication Instructions Recorded NK [No Known Home Meds] 09/09/17 Unobtainable 09/12/17 Medical Decision Making - Diagnostics EKG Interpretation: 12 lead EKG is interpreted in Trace master View by emergency department physician. It shows atrial fibrillation with a rate of 92. I do not see J waves throughout. There is a possible J wave in lead V4 but no where else. Imaging Results: Imaging Impressions Chest X-Ray 09/12/17 09:40 Impression: Good ET tube position. No pneumonia. Imaging: I viewed and interpreted images myself ED Course/Re-evaluation: 09: Met EMS upon arrival and took report. This is a 57 y/o male who presents with severe hypothermia and altered mentation after he was found down outside by PD this morning. Down time is unknown. He is sitting up with his eyes open and clutching himself with a mild truncal tremor, but is unable to follow commands or speak at this time. No apparent trauma. Diffuse scabbed lesions present on skin. Frostbite on both feet and urinary incontinence noted (pants wet). Plan for rewarming, IV access, labs, chest x-ray. 0929: Rectal temp is 26.7C, classifying patient with severe hypothermia. Full Trauma activated per protocol. 0931: Dr. Gamboa, surgeon, at bedside. 0932: BP 128/109. Kalpana Hugger applied for rewarming in addition to warming lights and warm blankets. Plan for Thermaguard catheter. Still attempting to gain peripheral IV access complicated by patient pulling into position. 0938: IO placed right tibia. 1L warm IV NS running through pressure bag. 0942: Procedure: Rapid sequence intubation. Indication for the procedure was severe hypothermia, AMS, positioning limiting access for Thermaguard placement. The patient was preoxygenated with 100% oxygen by face mask. The patient was given the following IV medications: 30mg IV Etomidate, and 100mg IV succinylcholine. The patient was orally endotracheally intubated under direct visualization with a 7.5 ETT. Tracheal intubation was confirmed with misting on the tube; breath sounds were auscultated equally bilaterally; appropriate color change with [place] CO2 detector. Chest X-ray shows ETT in good position. The procedure was performed by myself, Dr. Gandara. Propofol drip for sedation. 0947: BP now 98/82. 0951: BP improved to 127/102. Thermaguard placement in progress by Dr. Gamboa. HR around 70-80, irregular. 1012: Pineda temp 26.9C, prior to Thermaguard running. 1016: The 12 lead EKG was interpreted by myself. Atrial fibrillation rate 92, artifact present. See hard copy and/or "tracemaster" electronic copy for interpretation. Dr. Gamboa will admit patient to ICU for severe hypothermia. Labs show EtOH serum level of 297, no anemia, low CO2 at 17, normal INR. Critical care time spent by me, Dr. Gandara, exclusively with this patient was 35 minutes, exclusive of PA time and exclusive of procedures. The organ system at risk was multisystem. Time spent in emergent assessment and serial assessments of the patient, consideration of sedating medications, trauma surgery consultation, review of medical records, and review of imaging/EKG/lab studies. Differential Diagnosis: Altered mental status including but not limited to hypoglycemia, hypothermia, infectious process, electrolyte abnormality, intracranial hemorrhage, seizure, head injury and intoxicants. - Data Points Laboratory Results: 09/12/17 09:56 POC Hgb 16.0 gm/dL gm/dL (13.7-17.5) POC Hct 47 % % (40-51) POC Sodium 143 mEq/L mEq/L (134-144) POC Potassium 3.7 mEq/L mEq/L (3.3-5.0) POC Chloride 105 mEq/L mEq/L (97-110) POC BUN 25 mg/dL H mg/dL (7-23) POC Creatinine 1.2 mg/dL mg/dL (0.7-1.3) POC Glucose 117 mg/dL H mg/dL (70-100) Medications Given: Fentanyl/Sodium Chloride (Fentanyl 10 Mcg/Ml (Premix)) 100 mls @ 5 mls/hr IV CONT RICCARDO Stop: 09/22/17 11:29 Last Admin: 09/12/17 12:02 Dose: 100 mls Lactated Ringer's (Lr) 1,000 mls @ 100 mls/hr IV CONT RICCARDO Stop: 03/11/18 11:29 Last Admin: 09/12/17 12:10 Dose: 1,000 mls Thiamine HCl 100 mg/ Sodium (Chloride) 101 mls @ 202 mls/hr IV DAILY RICCARDO Stop: 03/11/18 12:29 Last Admin: 09/12/17 14:19 Dose: 101 mls Discontinued Medications Etomidate (Etomidate) 30 mg IVP ONCE ONE Stop: 09/12/17 09:44 Last Admin: 09/12/17 09:43 Dose: 30 mg Propofol (Diprivan) 40 mg IVP EDNOW ONE Stop: 09/12/17 10:01 Last Admin: 09/12/17 10:00 Dose: 40 mg Succinylcholine Chloride (Quelicin) 100 mg IVP ONCE ONE Stop: 09/12/17 09:44 Last Admin: 09/12/17 09:43 Dose: 100 mg Point of Care Test Results: 09/12/17 09:56 POC Sodium 143 POC Potassium 3.7 POC Chloride 105 POC BUN 25 H POC Creatinine 1.2 POC Glucose 117 H Departure - Departure Disposition: [facility] Inpatient Acute Clinical Impression: Hypothermia Qualifiers: Encounter type: initial encounter Qualified Code(s): T68.XXXA - Hypothermia, initial encounter Altered mental status Qualifiers: Altered mental status type: stupor Qualified Code(s): R40.1 - Stupor Condition: Critical Report Scribed for: Sondra Gandara Report Scribed by: Alecia Sequeira Date of Report: 09/12/17 Time of Report: 10:47 Physician Review and Approval Statement: 09/12/17 16:48 Portions of this note were transcribed by the medical investigator. I, Dr. Sondra Gandara, personally performed the history, physical exam, and medical decision- making; and confirmed the accuracy of the information in the transcribed note.
[2017-09-12] MEDS ORDERED: ETOMIDATE 40 MG/20 ML INJ IVP ONE (09:43)
[2017-09-12] MEDS ORDERED: SUCCINYLCHOLINE CHLORIDE 200 MG/10 ML VIAL IVP ONE (09:43)
[2017-09-12] MEDS ORDERED: PROPOFOL/EMULSION 500 MG/50 ML BOTTLE IV ONE (09:47)
[2017-09-12] MEDS ORDERED: PROPOFOL/EMULSION 1,000 MG/100 ML BOTTLE IV ONE (09:50)
[2017-09-12] MEDS ORDERED: PROPOFOL 200 MG/20 ML VIAL IVP ONE (10:00)
[2017-09-12 10:18] LABS: PLATELET COUNT 114 10^3/uL (150-400)
--- NOTE | 2017-09-12 10:27 | CPEKG ---
Heart Rate: 92 RR Interval: 652 QRSD Interval: 130 QT Interval: 452 QTC Interval: 560 QRS [place]: 83 T Wave [place]: 268 EKG Severity - ABNORMAL ECG - EKG Impression: ATRIAL FIBRILLATION, V-RATE 77-109 EKG Impression: NONSPECIFIC INTRAVENTRICULAR CONDUCTION DELAY EKG Impression: ABNRM R PROG, CONSIDER ASMI OR LEAD PLACEMENT Electronically Signed By: Sondra Gandara 12-Sep-2017 14:28:43
[2017-09-12 10:29] LABS: PROTIME(PATIENT) 13.4 SEC (12.0-15.0)
[2017-09-12] MEDS ORDERED: NALOXONE HCL 0.4 MG/ML INJ IVP PRN ×2 (10:38→11:14)
[2017-09-12] MEDS ORDERED: LORazepam 2 MG/ML INJ IVP PRN (10:47)
--- NOTE | 2017-09-12 10:50 | ASMTCMCOM ---
CM Note CM Note Notes: Patient brought into ED via EMS after being found down in the snow and with severe hypothermia, pt was minimally responsive. Patient admitted for hypothermia, frostbite to both feet. Patient also may still have scabies. Patient required intubation, Thermoguard re-heating. Patient is homeless and well known to the ED and [facility]; see past CM notes. Patient has a history of ETOH abuse and per CM note 09/09, is not allowed at the [facility] for behavioral concerns; patient was provided information on the [facility] group home and Coordinate Entry at that time. Patient has stayed at the group home before through the reserved bed but not sure if patient is allowed there or not. During patient's admission from 06/12 - 06/24/17, case management made great efforts to try to get patient placed in a SNF but there were no Medicaid beds available at the time; patient had also gone back and forth about whether he wanted to go to a SNF. CM to follow. Date Signed: 09/12/2017 10:49 AM Electronically Signed By:Dior Ortega RN
[2017-09-12] MEDS ORDERED: PROPOFOL/EMULSION 100 ML IV SCH ×2 (11:00→11:30)
[2017-09-12] MEDS ORDERED: LR 1,000 ML IV SCH ×2 (11:00→11:30)
[2017-09-12] MEDS ORDERED: fentaNYL/NACL 100 ML IV SCH ×2 (11:00→11:30)
--- NOTE | 2017-09-12 11:36 | ASMTCMCOM ---
CM Note CM Note Notes: Patient has a sister, Tammy Lawson ([phone], ) listed as emergency contact; unable to obtain consent to contact at this time. Date Signed: 09/12/2017 11:35 AM Electronically Signed By:Dior Ortega RN
--- NOTE | 2017-09-12 11:52 | GHP ---
[f rep st] HISTORY AND PHYSICAL DATE OF ADMISSION: 09/12/2017 CHIEF COMPLAINT: Hypothermia, altered mental status. HISTORY OF PRESENT ILLNESS: The patient was found down in the snow by police and unresponsive. EMS was notified and unable to get vitals. There were no obvious signs of trauma. He was brought into [facility] emergency room. He is not following commands or verbalizing. His temperature was 26.8 on arrival . PAST MEDICAL HISTORY: Per chart review, alcoholism with multiple ED visits, history of right leg ibis lulitis, history of hepatitis A, B and C and alcoholic hepatitis, chronic diastolic CHF, chronic trem ors, peripheral neuropathy. PAST SURGICAL HISTORY: Bowel resection by Dr. Jarquin. Left lower extremity fracture with surgical re pair. FAMILY HISTORY: Unable to be obtained. SOCIAL HISTORY: Per chart review. He is homeless and uses alcohol. REVIEW OF SYSTEMS: Unable to be obtained. PHYSICAL EXAM: VITAL SIGNS: On arrival his temperature was 26.8, he was breathing spontaneously at a bout 16 times per minute. His blood pressure was initially in the 1-teens. His oxygenation was 100% . Due to him not following commands and just curling in the position, we elected to intubate h im. Please see Dr. Gandara note for the records. HEENT: Normocephalic, atraumatic. Some proptosis. His pupils are equal and round. He has poor dentition. LUNGS: Clear to auscultation bilaterally. No increased work of breathing. CARDIAC: Regular rate. ABDOMEN: Bowel sounds present. Soft, nonten juan ramon. EXTREMITIES: Moves all extremities. NEURO: He has a tremor. SKIN: He has multiple small wou nds all over his body consistent with history of scabies. PSYCH: Unresponsive. PROCEDURE PERFORMED: After he was intubated and sedated, I was able to straighten his legs out. Use d ultrasound to identify his right femoral vein. Accessed this with a large-bore needle with dark re turn of blood flow. I threaded the guidewire. Needle was removed. I made a small juanita in the skin and dilated the vein using the Seldinger technique, I then placed a preflushed Thermoguard catheter o chino the wire and removed the wire. Each port withdrew blood easily and was flushed with heparin. I obtained blood for his laboratory work. It was sutured into place with 0 silk. Sterile dressing was applied. IMPRESSION AND PLAN: The patient is a 57-year-old man, history of frostbite on his feet, multiple me dical issues and hypothermic. He will be placed on the rewarming protocol. Thermoguard is in place. While he was in the ER he was being warmed with heating lights, warm blankets and a Kalpana Hugger and warm fluids. He will be admitted to the ICU, as he rewarms, we will look at extubation. /[id number]/MODL
[2017-09-12] MEDS ORDERED: ETOMIDATE 40 MG/20 ML INJ ONE (12:21)
[2017-09-12] MEDS ORDERED: SUCCINYLCHOLINE CHLORIDE 200 MG/10 ML SYR IVP ONE (12:21)
[2017-09-12] MEDS ORDERED: LIDOCAINE 2% 5 ML SDV ONE (12:22)
[2017-09-12] MEDS ORDERED: NS BOLUS 500 ML (Wide open) IV ONE ×2 (13:00→18:30)
--- NOTE | 2017-09-12 13:33 | GHP ---
[f rep st] HISTORY AND PHYSICAL DATE OF ADMISSION: 09/12/2017 HISTORY OF PRESENT ILLNESS: This patient is a 57-year-old male, well known to this hospital with mul tiple admissions in the past due to alcohol withdrawal and polysubstance abuse. He has been seen in the emergency department on multiple occasions for a variety of problems including recently diagnosed with scabies as well as frostbite. On the day of admission for this admission, he was found unrespo nsive in the snow, was brought to the emergency department by EMS. He was confused but mildly conver stiven at the time of his arrival, but was found to have a core temperature of about 26 degrees. He wa s subsequently intubated for airway protection as well as to place a rewarming device in his femoral vein. Labs were drawn initially, which were fairly unremarkable save for an anion gap of 28 with blo od gas showing a metabolic acidosis but no hypoxemia. He was brought to the intensive care unit [facility] after that and was in atrial fibrillation with a rate of about 90 and subsequently converted to s inus rhythm. His blood pressures remained stable throughout his short time that he has been in the I CU for this admission. REVIEW OF SYSTEMS: Was apparently otherwise negative but unable to be obtained from the patient at t his time. PAST MEDICAL HISTORY: Includes: 1. Chronic alcoholism with alcohol withdrawal in the past. 2. Respiratory failure requiring intubations for aspiration pneumonias as well as airway protection. 3. Chronic peripheral neuropathy. 4. Diastolic dysfunction. 5. Aspiration pneumonia in May and June of 2017. 6. Essential tremor. 7. Alcoholic hepatitis. 8. History of polysubstance abuse including IV heroin, cocaine, and marijuana. 9. Multiple abscesses of his lower extremities, many of which have involved MRSA infections. 10. Anxiety. 11. Hepatitis A, B and C positivity. 12. Bacteremia. 13. L1 compression fracture. 14. Chronic anxiety. 15. Chronic thrombocytopenia. PAST SURGICAL HISTORY: 1. Abscess I and D of his arms and abdomen in the past. 2. Remote left ankle open reduction, internal fixation. 3. Appendectomy in 2011 when he presented with acute appendicitis. SOCIAL HISTORY: He is chronically homeless. Has a long history of smoking, polysubstance abuse as d escribed above. FAMILY HISTORY: Includes diabetes. MEDICATIONS: Medications in outpatient are unknown at this time, but currently is receiving subcu Lo venox, Pepcid, lactated Ringer's, Ativan p.r.n., propofol p.r.n. In the emergency department, he did receive etomidate, propofol, succinylcholine. OBJECTIVE DATA: Includes an EKG showing atrial fibrillation with a rate of about 90 and [place] waves in V4. A chest x-ray shows no infiltrates but reasonably placed endotracheal tube. His white count of 3.3, hematocrit 44.5, platelets of 114. INR was 1.0. Blood gas shows pH 7.23, pC O2 of 41, PO2 of 339, bicarb 18, oxygen saturation 99% on a ventilator. Sodium is 150, potassium 4.1 , chloride 105, bicarb 17, anion gap 28, BUN 22, creatinine 0.9. Blood alcohol level of 297, calcium of 9.0, glucose 113. ASSESSMENT AND PLAN: 1. Severe hypothermia. He is undergoing active core rewarming after placement of a catheter by Dr. Gamboa in the emergency department. He is being rewarmed per protocol at this time. Other laboratory work that would be appropriate to be done in this setting would be CPKs, followup hematocrits, and g lucose. Will watch for arrhythmias and hypotension as he is rewarmed. 2. Atrial fibrillation which already resolved on its own, which is typical for hypothermia. 3. Metabolic acidosis, which is probably related to his hypothermia as well, though a lactic acid is pending at this time. 4. History of alcoholism. Will give him thiamine at this time, look at a urine toxicology screen as well as liver function tests. 5. Acute respiratory failure with hypoxemia. This appears to be resolving well on its own. We have already begun titrating his oxygen support. He should receive minimal sedation, and my expectation is as he is warmed and wakes up he should be able to be extubated. A total of 45 minutes of critical care time was required in the evaluation of this patient and manage ment with multiorgan involvement. /[id number]/MODL
[2017-09-12 13:42] LABS: CREATINE KINASE 2290 IU/L (0-224)
[2017-09-12] MEDS: LORazepam 2 MG/ML INJ IVP PRN ×3 (14:00→21:04)
--- NOTE | 2017-09-12 14:14 | CPEKG ---
Heart Rate: 102 RR Interval: 588 P-R Interval: 140 QRSD Interval: 98 QT Interval: 384 QTC Interval: 501 P [place]: 82 QRS [place]: 80 T Wave [place]: 267 EKG Severity - ABNORMAL ECG - EKG Impression: SINUS TACHYCARDIA EKG Impression: PROLONGED QT INTERVAL Electronically Signed By: Doroteo Parkinson 13-Sep-2017 07:29:19
[2017-09-12] MEDS: THIAMINE HCL 100 MG in NS 100 ML IV SCH (14:19)
[2017-09-12] MEDS ORDERED: DEXMEDETOMIDINE/NS 4MCG/ML 100 ML BTL IV ONE (17:21)
[2017-09-12] MEDS ORDERED: chlordiazePOXIDE 25 MG CAP PO PRN (18:27)
[2017-09-12] MEDS: NS 1,000 ML IV SCH (19:37)
[2017-09-12] MEDS ORDERED: CHLORHEXIDINE GLUCONATE 15 ML UDL PO SCH ×2 (20:00)
[2017-09-12] MEDS: FAMOTIDINE 20 MG/NACL 50 ML IV SCH (20:59)
[2017-09-12] MEDS ORDERED: FAMOTIDINE 20 MG/NACL 50 ML IV SCH (21:00)
[2017-09-13] MEDS: DEXMEDETOMIDINE IN 0.9 % NACL 100 ML IV SCH ×2 (01:08→08:38)
[2017-09-13] MEDS: NS 1,000 ML IV SCH ×2 (04:00→08:37)
[2017-09-13 05:54] LABS: PLATELET COUNT 61 10^3/uL (150-400)
[2017-09-13 06:06] LABS: CREATINE KINASE 1204 IU/L (0-224)
[2017-09-13] MEDS: THIAMINE HCL 100 MG in NS 100 ML IV SCH (08:37)
[2017-09-13] MEDS: MULTIVITAMINS 1 EACH TAB PO SCH (08:38)
[2017-09-13] MEDS: FOLIC ACID 1 MG TAB PO SCH (08:38)
[2017-09-13] MEDS: FAMOTIDINE 20 MG/NACL 50 ML IV SCH ×2 (08:38→20:02)
[2017-09-13] MEDS ORDERED: ENOXAPARIN 40 MG/0.4 ML SYR SC SCH ×2 (09:00)
--- NOTE | 2017-09-13 09:06 | TRAUMAPN ---
Assessment/Plan: admitted to trauma service for management of hypothermia-resolved bilateral distal toe frostbite thrombocytopenia chronic alcoholism w/ early alcohol withdrawal Rec: DC Thermaguard catheter/hold lovenox due to thrombocytopenia He will benefit from SNF stay after discharge, though his chronic alcohol/ drug abuse is a problem Subjective: awake/able to answer questions/tremulous Objective: Vital Signs Temp Pulse Resp BP Pulse Ox 36.7 C 89 16 109/71 97 09/13/17 04:00 09/13/17 08:00 09/13/17 08:00 09/13/17 08:00 09/13/17 08:00 Laboratory Results 09/13/17 05:25 09/13/17 05:25 09/12/17 09/13/17 09/14/17 05:59 05:59 05:59 Intake Total 5238 Output Total 1185 Balance 4053 PT 13.4 SEC (12.0-15.0) 09/12/17 10:00 INR 1.00 (0.83-1.16) 09/12/17 10:00 Tertiary exam completed - C-Spine Clearance Cervical Spine Cleared: Yes Provider who Cleared Cervical Spine: Devonte Physical Exam - Physical Exam General Appearance: mild distress, thin EENT: PERRL/EOMI, photophobia Neck: non-tender, full range of motion Respiratory: lungs clear, normal breath sounds, decreased breath sounds Cardiac/Chest: regular rate, rhythm Peripheral Pulses: 2+: dorsalis-pedis (R), dorsalis-pedis (L), 3+: carotid (R), carotid (L), femoral (R), femoral (L) Abdomen: non-tender, soft, other (right femoral Thermaguard catheter uncomplicated) Male Genitalia: deferred Rectal: deferred Skin: other (multiple cutaneous lesions/excoriation) Neuro/Psych: depressed affect
[2017-09-13] MEDS: LORazepam 2 MG/ML INJ IVP PRN ×4 (12:57→23:40)
--- NOTE | 2017-09-13 13:50 | PDINTPN ---
Filament Tester Progress Note Assessment/Plan: Assessment/plan: 57 M with long history of etoh and wd found minimally responsive 09/12 outdoors with core temp 26.9. He was restless in ED and unable to cooperate with planned interventions, so intubated for airway protection and placement of femoral CVC for active rewarming. Hemodynamics were relatively stbale save for two brief episodes down to SBP 70's but responded well to IVF. A brief episode of low- rate afib resolved spontaneously with rewarming. Of note, he was admitted to [facility] 06/12 through 06/24/17 for aspiration PNA and treated with intubation and antibiotics. He was also seen in the [facility] 09/09/17 for superficial frostbite of his toes- he presented with wet boots and only one sock. He was re-warmed in water, given a spare pair of dry socks and dc'd home (he is homeless). He was also seen 08/20 for scabies, where he refused alcohol rehab, and again 09/07 for scabies (given cream both times). * Severe hypothermia- currently rewarmed without much obvious sequelae. Catheter removal today. BP and rhythm OK, no hyperglycemia. Rhabdo has been mild and improving. * Acute respiratory failure with hypoxia- resolved and extubated * Rhabdomyolysis- 2/2 hypothermia. CK decreased from 2300 to 1200 today. Continue IVF * Frostbite with multiple ischemic looking toes. A significant, second hypothermic episode following the onset of frostbite can cause significant damage. This has been a issue for >48 hours, so TPA not indicated (no benefit shown from heparin). Wound care consult pending * ETOH- he has had multiple episodes of wd in the past and changes his preference often about his intent to quit. We started etoh supplementation today in hopes of avoiding wd. * Transaminitis- improving with hydration * Thrombocytopenia- his platelet count has varied considerably since 05/2017 at least. I suspect he has at least an element of splenic sequestration and BM suppression from ETOH. Unlikely causes include HIT, leukemia, or ITP but reasonable to withhold heparin and observe. Subjective: Rewarmed 09/12 using actice core rewarming technique without major sequalae. BP dropped briefly twice and responded well to IVF and never needed pressors. Extubated late 09/12. Still on precedex this am, so not very conversant. Objective: Vital Signs Temp Pulse Resp BP Pulse Ox 36.7 C 121 H 22 H 138/83 H 96 09/13/17 12:00 09/13/17 12:00 09/13/17 12:00 09/13/17 12:00 09/13/17 12:00 Laboratory Results 09/13/17 05:25 09/13/17 05:25 09/12/17 09/13/17 09/14/17 05:59 05:59 05:59 Intake Total 5238 Output Total 1185 Balance 4053 PT 13.4 SEC (12.0-15.0) 09/12/17 10:00 INR 1.00 (0.83-1.16) 09/12/17 10:00 Physical Exam - Physical Exam General Appearance: no apparent distress, obtunded EENT: PERRL/EOMI Neck: supple Respiratory: lungs clear, normal breath sounds, decreased breath sounds, No respiratory distress, No accessory muscle use Cardiac/Chest: regular rate, rhythm, No edema Peripheral Pulses: 1+: dorsalis-pedis (R), dorsalis-pedis (L) Abdomen: non-tender, soft, No distended Skin: normal color, warm/dry, other (multiple superficial ulcerations/scabs), No cyanosis, No jaundice Lymphatic: no adenopathy Extremities: other (multiple toes with dark color/black without gangrene), No pedal edema ICD10 Worksheet Patient Problems: Problems Problem Status Onset Alcoholism /alcohol abuse Acute Altered mental status Acute Hypothermia Acute Hypothermia Acute Thrombocytopenia Acute Bacteremia Active Peritonitis Active Alcohol withdrawal Acute Alcohol withdrawal syndrome with complication Acute Alcoholic intoxication Acute Alcoholic intoxication Acute Cellulitis Acute Cellulitis and abscess of leg Acute Head injury Acute Neuropathy of left radial nerve Acute Respiratory failure Acute Scabies Acute Weakness of left upper extremity Acute
[2017-09-13] MEDS ORDERED: KETAMINE 500 MG in D5W 500 ML IV SCH (17:15)
[2017-09-13] MEDS: VODKA 50 ML BOTTLE PO SCH (17:21)
[2017-09-13] MEDS ORDERED: LICE KILLING SHAMPOO 118 ML TP ONE (21:30)
[2017-09-14] MEDS: LORazepam 2 MG/ML INJ IVP PRN ×5 (00:45→16:35)
[2017-09-14 05:19] LABS: PLATELET COUNT 39 10^3/uL (150-400)
[2017-09-14] MEDS: FAMOTIDINE 20 MG/NACL 50 ML IV SCH (08:28)
[2017-09-14] MEDS: FOLIC ACID 1 MG TAB PO SCH (08:28)
[2017-09-14] MEDS: MULTIVITAMINS 1 EACH TAB PO SCH (08:28)
[2017-09-14] MEDS: THIAMINE HCL 100 MG in NS 100 ML IV SCH (09:13)
[2017-09-14] MEDS ORDERED: FLU VACC QS 2017-18 (3YR+)/PF 0.5 ML SYR (FLUARIX QUAD) IM ONE (10:47)
--- NOTE | 2017-09-14 10:57 | SOAPPROG ---
SOAP Progress Note Assessment/Plan: Assessment: Plan: Subjective: s/p found down, etoh, frostbitte toes with varying degress of frostibte injur- some dusky, some erythematous withdesquamation. no infection. reccomend- clean gauze bewtween all toes, neopsorin on open areas, wt bearing as tolerated. should not be sleeping out of doors with these frigid temperatures. hoperfully dispo can include snf placement, etc. follow up with wound clinic after discharge. Objective: Vital Signs Temp Pulse Resp BP Pulse Ox 37.2 C 90 24 H 133/94 H 97 09/14/17 07:49 09/14/17 07:49 09/14/17 07:49 09/14/17 07:49 09/14/17 07:49 Laboratory Results 09/14/17 05:00 09/14/17 05:00 09/13/17 09/14/17 09/15/17 05:59 05:59 05:59 Intake Total 5238 2622 Output Total 1185 1300 Balance 4053 1322 PT 13.4 SEC (12.0-15.0) 09/12/17 10:00 INR 1.00 (0.83-1.16) 09/12/17 10:00 ICD10 Worksheet Patient Problems: Problems Problem Status Onset Alcoholism /alcohol abuse Acute Altered mental status Acute Hypothermia Acute Hypothermia Acute Thrombocytopenia Acute Bacteremia Active Peritonitis Active Alcohol withdrawal Acute Alcohol withdrawal syndrome with complication Acute Alcoholic intoxication Acute Alcoholic intoxication Acute Cellulitis Acute Cellulitis and abscess of leg Acute Head injury Acute Neuropathy of left radial nerve Acute Respiratory failure Acute Scabies Acute Weakness of left upper extremity Acute
[2017-09-14] MEDS ORDERED: ALTEPLASE 2 MG VIAL IVP PRN (11:59)
--- NOTE | 2017-09-14 12:03 | PDINTPN ---
Producer Assistant Progress Note Assessment/Plan: Assessment/plan: 57 M with long history of etoh and wd found minimally responsive 09/12 outdoors with core temp 26.9. He was restless in ED and unable to cooperate with planned interventions, so intubated for airway protection and placement of femoral CVC for active rewarming. Hemodynamics were relatively stbale save for two brief episodes down to SBP 70's but responded well to IVF. A brief episode of low- rate afib resolved spontaneously with rewarming. Of note, he was admitted to [facility] 06/12 through 06/24/17 for aspiration PNA and treated with intubation and antibiotics. He was also seen in the [facility]ED 09/09/17 for superficial frostbite of his toes- he presented with wet boots and only one sock. He was re-warmed in water, given a spare pair of dry socks and dc'd home (he is homeless). He was also seen 08/20 for scabies, where he refused alcohol rehab, and again 09/07 for scabies (given cream both times). * Severe hypothermia- currently rewarmed without much obvious sequelae. BP and rhythm OK, no hyperglycemia. Rhabdo has been mild and improving. * Acute respiratory failure with hypoxia- resolved and extubated * Rhabdomyolysis- 2/2 hypothermia. CK decreased from 2300 to 1200. Continue IVF * Frostbite with multiple ischemic looking toes. A significant, second hypothermic episode following the onset of frostbite can cause significant damage. This has been a issue for >48 hours, so TPA not indicated (no benefit shown from heparin). Wound care consult pending, but can probably get guaze between toes. Added percocet for pain control 09/14/17 * ETOH- he has had multiple episodes of wd in the past and changes his preference often about his intent to quit. We started etoh supplementation today in hopes of avoiding wd, CIWA in place as needed * Transaminitis- improving with hydration * Thrombocytopenia- his platelet count has varied considerably since 05/2017 at least. I suspect he has at least an element of splenic sequestration and BM suppression from ETOH. Unlikely causes include HIT, leukemia, or ITP but reasonable to withhold heparin and observe. Continues to drop as of 09/14/17, but no change ion observation only for now 09/14/17 12:01 Subjective: Minimal complaints. Some pain with toes Objective: Vital Signs Temp Pulse Resp BP Pulse Ox 37.2 C 105 H 20 136/83 H 98 09/14/17 07:49 09/14/17 11:22 09/14/17 11:22 09/14/17 11:22 09/14/17 11:22 Laboratory Results 09/14/17 05:00 09/14/17 05:00 09/13/17 09/14/17 09/15/17 05:59 05:59 05:59 Intake Total 5238 2622 Output Total 1185 1300 Balance 4053 1322 PT 13.4 SEC (12.0-15.0) 09/12/17 10:00 INR 1.00 (0.83-1.16) 09/12/17 10:00 Physical Exam - Physical Exam General Appearance: alert, no apparent distress, thin EENT: PERRL/EOMI Neck: supple Respiratory: lungs clear, normal breath sounds, No respiratory distress, No accessory muscle use Cardiac/Chest: regular rate, rhythm, No edema Abdomen: non-tender, soft, No distended Skin: warm/dry, rash, other (multiple superficial wounds throughout), No cyanosis, No diaphoresis Lymphatic: no adenopathy Extremities: No pedal edema Neuro/Psych: alert, normal mood/affect, cognition abnormalities ICD10 Worksheet Patient Problems: Problems Problem Status Onset Alcoholism /alcohol abuse Acute Altered mental status Acute Hypothermia Acute Hypothermia Acute Thrombocytopenia Acute Bacteremia Active Peritonitis Active Alcohol withdrawal Acute Alcohol withdrawal syndrome with complication Acute Alcoholic intoxication Acute Alcoholic intoxication Acute Cellulitis Acute Cellulitis and abscess of leg Acute Head injury Acute Neuropathy of left radial nerve Acute Respiratory failure Acute Scabies Acute Weakness of left upper extremity Acute
[2017-09-14] MEDS: OXYCODONE/APAP 5/325 TAB PO PRN ×2 (12:20→17:16)
--- NOTE | 2017-09-14 16:29 | WOCRNPDOC ---
WOCRN Advanced Assessment Note - Skin Integrity Problem, Advanced Assess Right Toe Dressing Type: Open to Air Exudate Amount: Moderate Exudate Characteristic(s): Serosanguinous Ofelia Wound Tissue: Erythema Wound Bed Color: Red Wound Bed Constitution: Red/[place] - Non Granular Tissue Site Measurement - Head-to-Toe Length X Width X Depth (cm): Great toe: 8x4x0.2, 2nd: 2.8x1.5x0.2, 4th: 3x2.5x0.2, 5th: 4.5x3.5x0.2 Skin Integrity Problem Comment: Desquamation of toes 1,2,4,5. Total loss of epidermis on toes 1 and 5. The skin on toes 2 and 4 was cleaned and the flaps were moist enough to attempt replacement (afer extensive cleaning with ns) in hopes that it will readhere. Third digit is very swollen and full of fluid. This was cleaned with chlorahexadine and alchohol mulitple times. Approximately 1 ml of serosangenous fluid was removed from toe with a 25 gauge needle. The remainder of toes were soaked with Vashe solution and then puracyn wound gel was applied to open areas. They were covered with mepilex and then secured with kerlix. Ramona ORTEGA assisted. Left Toe Dressing Type: Open to Air Exudate Amount: None Ofelia Wound Tissue: Erythema Site Measurement - Head-to-Toe Length X Width X Depth (cm): 1st digit: 7x6x0, 2nd digit: 2.5x2.5x0, 3rd digit: 2.5x2.5x0, 5th digit eschar: 0.9x1.3xeschar Skin Integrity Problem Comment: Toes 1-5 with frostbite but all skin is intact. Great toe mottled purple/black, 2nd and 3rd toe purple tissue visible mostly distally, 4th toe with erythema but no purple areas and 5th toe with eschar laterally and small areas of purple. Wound care will follow. Ramona ORTEGA in room for all care.
[2017-09-14] MEDS: FAMOTIDINE 20 MG TAB PO SCH (19:49)
[2017-09-14] MEDS: VODKA 50 ML BOTTLE PO SCH (19:49)
[2017-09-14] MEDS: DEXMEDETOMIDINE IN 0.9 % NACL 50 ML IV SCH ×2 (20:46→22:41)
[2017-09-15] MEDS: DEXMEDETOMIDINE IN 0.9 % NACL 50 ML IV SCH ×2 (00:57→03:32)
[2017-09-15] MEDS ORDERED: PROTOCOL POTASSIUM 1 DOSE MISC PRN (06:13)
[2017-09-15] MEDS ORDERED: PROTOCOL MAGNESIUM 1 DOSE IV PRN (06:13)
[2017-09-15] MEDS ORDERED: POTASSIUM CL 10 MEQ TAB PO ONE ×3 (06:39→21:29)
[2017-09-15] MEDS ORDERED: MAGNESIUM SULF 1 GM/DEXTROSE 100 ML IV ONE (06:39)
[2017-09-15] MEDS: FOLIC ACID 1 MG TAB PO SCH (09:20)
[2017-09-15] MEDS: MULTIVITAMINS 1 EACH TAB PO SCH (09:21)
[2017-09-15] MEDS: THIAMINE HCL 100 MG TAB PO SCH (09:21)
[2017-09-15] MEDS: FAMOTIDINE 20 MG TAB PO SCH ×2 (09:21→21:29)
[2017-09-15] MEDS: LORazepam 2 MG/ML INJ IVP PRN (09:21)
[2017-09-15] MEDS ORDERED: VODKA 50 ML BOTTLE PO SCH ×2 (11:30→21:00)
--- NOTE | 2017-09-15 12:42 | TRAUMAPN ---
<Vonda Doan - Last Filed: 09/15/17 12:45> Assessment/Plan: 57yo M found down unresponsive, hypothermia, frostbite. No evidence of infection Seen by Dr. Gamboa S: O: Objective: Vital Signs Temp Pulse Resp BP Pulse Ox 36.9 C 82 18 136/90 H 99 09/15/17 12:00 09/15/17 12:00 09/15/17 12:00 09/15/17 12:00 09/15/17 12:00 Laboratory Results 09/14/17 05:00 09/15/17 05:15 09/14/17 09/15/17 09/16/17 05:59 05:59 05:59 Intake Total 2622 1166.4 Output Total 1300 1750 Balance 1322 -583.6 PT 13.4 SEC (12.0-15.0) 09/12/17 10:00 INR 1.00 (0.83-1.16) 09/12/17 10:00 - C-Spine Clearance Cervical Spine Cleared: Yes Provider who Cleared Cervical Spine: Devonte <Sloane Gamboa - Last Filed: 09/15/17 20:02> Assessment/Plan: Multiple medical issues Hepatitis A, B, C and alcoholic Lice ETOH dependence Consulted hospitalist Hypothermia - resolved Supportive care for frostbite - see wound care orders. No signs of infection S: Awake, asking for a beer Objective: Vital Signs Temp Pulse Resp BP Pulse Ox 36.9 C 122 H 20 156/88 H 94 09/15/17 19:19 09/15/17 19:19 09/15/17 19:19 09/15/17 19:19 09/15/17 19:19 Laboratory Results 09/14/17 05:00 09/15/17 17:28 09/14/17 09/15/17 09/16/17 05:59 05:59 05:59 Intake Total 2622 1166.4 1700 Output Total 1300 1750 600 Balance 1322 -583.6 1100 PT 13.4 SEC (12.0-15.0) 09/12/17 10:00 INR 1.00 (0.83-1.16) 09/12/17 10:00 Physical Exam - Physical Exam General Appearance: mild distress EENT: PERRL/EOMI Respiratory: lungs clear, normal breath sounds Cardiac/Chest: regular rate, rhythm Skin: other (multiple scabs all over body. No signs of infection. Lu bite bilateral lower extremities. some fluid under digit of 3rd right toe. Blister intact. No signs of infection)
[2017-09-15] MEDS: OXYCODONE/APAP 5/325 TAB PO PRN ×3 (13:16→23:04)
--- NOTE | 2017-09-15 14:47 | PDINTPN ---
Registered Dental Hygienist Progress Note Assessment/Plan: Assessment: 57 M with long history of etoh and wd found minimally responsive 09/12 outdoors with core temp 26.9. He was restless in ED and unable to cooperate with planned interventions, so intubated for airway protection and placement of femoral CVC for active rewarming. Hemodynamics were relatively stbale save for two brief episodes down to SBP 70's but responded well to IVF. A brief episode of low- rate afib resolved spontaneously with rewarming. Of note, he was admitted to [facility] 06/12 through 06/24/17 for aspiration PNA and treated with intubation and antibiotics. He was also seen in the [facility]ED 09/09/17 for superficial frostbite of his toes- he presented with wet boots and only one sock. He was re-warmed in water, given a spare pair of dry socks and dc'd home (he is homeless). He was also seen 08/20 for scabies, where he refused alcohol rehab, and again 09/07 for scabies (given cream both times). * Severe hypothermia- currently rewarmed without much obvious sequelae. Catheter removal today. BP and rhythm OK, no hyperglycemia. Rhabdo has been mild and improving. * Acute respiratory failure with hypoxia- resolved and extubated, now on RA * Rhabdomyolysis- 2/2 hypothermia. CK decreased from 2300 to 1200 09/14. Continue IVF * Frostbite with multiple ischemic looking toes. A significant, second hypothermic episode following the onset of frostbite can cause significant damage. This has been a issue for >48 hours, so TPA not indicated (no benefit shown from heparin). Wound care consult pending * ETOH- he has had multiple episodes of wd in the past and changes his preference often about his intent to quit. We started EtOH supplementation 09/14 in hopes of avoiding wd, increased to BID today, as well as low-dose benzodiazepines, and have been able to wean off Precedex with CIWA<10. * Transaminitis- improving with hydration * Thrombocytopenia- his platelet count has varied considerably since 05/2017 at least. I suspect he has at least an element of splenic sequestration and BM suppression from ETOH. Unlikely causes include HIT, leukemia, or ITP but reasonable to withhold heparin. Plt down today, no signs of active bleeding. * Scabies: Patient complaining of increased pruritis/pain in groin and axilla. Has a creme for this, but currently not using as the creme is quarantined * Lice: S/P Rx Plan: Permethrin for scabies. Continue EtOH, benzos. Follow Plt. OK to transfer to floor. 09/15/17 15:23 Subjective: C/o pain/pruritis groin and axilla. Feels that EtOH withdrawal is better Objective: Vital Signs Temp Pulse Resp BP Pulse Ox 36.9 C 82 18 136/90 H 99 09/15/17 12:00 09/15/17 12:00 09/15/17 12:00 09/15/17 12:00 09/15/17 12:00 Laboratory Results 09/14/17 05:00 09/15/17 05:15 09/14/17 09/15/17 09/16/17 05:59 05:59 05:59 Intake Total 2622 1166.4 Output Total 1300 1750 Balance 1322 -583.6 PT 13.4 SEC (12.0-15.0) 09/12/17 10:00 INR 1.00 (0.83-1.16) 09/12/17 10:00 Physical Exam - Physical Exam General Appearance: alert, mild distress EENT: normal ENT inspection Neck: normal inspection Respiratory: lungs clear, normal breath sounds Cardiac/Chest: regular rate, rhythm, edema Abdomen: normal bowel sounds, non-tender Skin: other (most toes necrotic), No normal color (extensive excoriations, some areas of fresh irritation groin and axilla) Neuro/Psych: alert, oriented x 3, other (tremor), No normal mood/affect (mild agitation) ICD10 Worksheet Patient Problems: Problems Problem Status Onset Alcoholism /alcohol abuse Acute Altered mental status Acute Hypothermia Acute Hypothermia Acute Thrombocytopenia Acute Bacteremia Active Peritonitis Active Alcohol withdrawal Acute Alcohol withdrawal syndrome with complication Acute Alcoholic intoxication Acute Alcoholic intoxication Acute Cellulitis Acute Cellulitis and abscess of leg Acute Head injury Acute Neuropathy of left radial nerve Acute Respiratory failure Acute Scabies Acute Weakness of left upper extremity Acute
[2017-09-15] MEDS ORDERED: PERMETHRIN 5% 60 GM CREAM TP ONE (15:03)
--- NOTE | 2017-09-15 16:12 | ASMTCMCOM ---
CM Note CM Note Notes: Lu bite feet, toes expected to fall off on their own. Doesn't want to stop drinking ETOH. Homeless attempts in the past for SNF failed. Could have a bed [facility] for him on D/C. Date Signed: 09/15/2017 04:12 PM Electronically Signed By:Divina Daniels LCSW
[2017-09-15] MEDS: VODKA 50 ML BOTTLE PO SCH ×2 (16:17→21:29)
[2017-09-15] MEDS: NICOTINE 14 MG/24 HR PATCH TD SCH (16:17)
--- NOTE | 2017-09-15 16:19 | GCON ---
[f rep st] CONSULTATION DATE OF CONSULTATION: 09/15/2017 REFERRING PHYSICIAN: Sloane Gamboa MD REASON FOR CONSULTATION: Alcohol withdrawal, scabies, medical management. HISTORY OF PRESENT ILLNESS: A 57-year-old male with history of alcohol dependence, aspiration pneumo rolo, and neuropathy, who was found down on 09/12/2017, by police, was unresponsive. His temperature on arrival was 26.8, and he had frostbite of bilateral feet. He was admitted to the ICU for withdraw al. Currently, patient is stable on room air. He complains of itching from scabies which he had bee n previously treated for. He states he drinks half to a pint of alcohol a day. Smokes daily. Uses occasional marijuana. Denies other illicits. Is complaining of burning pain in both legs today. Fe els less anxious than at arrival. REVIEW OF SYSTEMS: I completed a 10-point review of systems, negative except as noted in HPI. PAST MEDICAL HISTORY: 1. Chronic diastolic heart failure. 2. Alcohol dependence. 3. Aspiration pneumonia, admitted May 2017 and June 2017. 4. Chronic peripheral neuropathy. 5. Essential tremor. 6. History of polysubstance abuse including heroin, cocaine, and THC. Denies others but still using THC. 7. History of MRSA abscesses. 8. Anxiety. 9. Thrombocytopenia. 10. Hepatitis A, B and C. PAST SURGICAL HISTORY: I and D of arm and abdominal abscesses, left ankle ORIF, appendectomy. SOCIAL HISTORY: Smokes a half a pack to a pack of cigarettes a day. He has been smoking for 40 year s. Smokes marijuana when he can get it. Prior cocaine and heroin use. Alcohol: 1/2 to a pint of a lcohol a day. FAMILY HISTORY: Noncontributory. HOME MEDICATIONS: None. ALLERGIES: Librium, rash, mild. PHYSICAL EXAMINATION: VITAL SIGNS: Temperature 36.9, blood pressure 136/90, heart rate 70s, respira tions 18, 99% on room air. GENERAL: Disheveled, thin male, uncomfortable in bed. HEENT: PERRLA. Dry mucous membranes. CARDIOVASCULAR: Regular rate and rhythm. No murmurs, gallops, rubs. LUNGS: Diminished but clear. No wheezing or crackles. ABDOMEN: Surgical scar. Excoriations. : No Fo hector. MUSCULOSKELETAL: 5/5 upper and lower extremity strength. NEUROLOGIC: Cranial nerves 2 throug h 12 intact. Mild hand tremor. Mild tongue fasciculations. SKIN: Multiple scabbed over lesions ov er extremities and abdomen. Does have open lesions under both axilla from scratching. No evidence o f surrounding cellulitis or purulence. PSYCH: Alert to place, date, month but not year. LABORATORY DATA: WBC is 3, hemoglobin is 9.9, hematocrit 29, platelets 39. Coags within normal. So dium 144, potassium 3.7, chloride 111, BUN 13, creatinine 0.6, calcium 8.5, phosphorus 2.6, magnesium 1.4. Urine toxicology was positive for benzos and marijuana. BAL was 297. Chest x-ray: No eviden ce of infection. ASSESSMENT AND PLAN: 1. Alcohol withdrawal: The patient initially required Precedex. Currently on CIWA with Librium as well as scheduled alcohol. We will have Case Management consult. His scores are much improved from CIWA of 22, now 7. He is counseled on cessation. 2. Severe hypothermia. He was re-warmed without complications. Catheter was removed today. 3. Acute hypoxic respiratory failure, resolved and extubated. 4. Rhabdomyolysis secondary to hypothermia, CK is now down to 1200. Will continue intravenous fluid s. 5. Frostbite to bilateral feet. Tissue plasminogen activator is not indicated. May have auto amput ation. Wound Care consult. 6. Transaminitis, likely secondary to alcohol. This is improving. 7. Thrombocytopenia: This is chronic, likely secondary to his alcohol. No evidence of bleeding. 8. Scabies: Will treat with permethrin. 9. Lice, status post treatment. 10. Tobacco abuse. We will add a nicotine patch. 11. History of polysubstance abuse. Denies current heroin or cocaine, but still using THC. He was counseled on cessation. 12. Normocytic anemia. This is likely bone marrow suppression with chronic alcohol. 13. Acute foot pain. This is secondary to frostbite. Continue p.r.n. Percocet. 14. Deep venous thrombosis prophylaxis with sequential compression devices, given thrombocytopenia. 15. Diet: Regular. 16. Disposition: Patient is stable for transfer to floor. Will continue CIWA. /[id number]/MODL
[2017-09-15] MEDS: LORazepam 1 MG TAB PO PRN (19:36)
[2017-09-16] MEDS: OXYCODONE/APAP 5/325 TAB PO PRN ×3 (03:44→12:49)
[2017-09-16] MEDS: LORazepam 1 MG TAB PO PRN ×5 (04:37→23:35)
[2017-09-16] MEDS: NS 1,000 ML IV SCH (04:46)
--- NOTE | 2017-09-16 08:01 | HOSPPROG ---
Hospitalist Progress Note Assessment/Plan: #Etoh withdrawal: cont scheduled vodka, PRN Ativan. MV/T/F #Etoh abuse: counseled on cessation #Thrombocytopenia: due to Etoh #Macrocytic anemia: Etoh #Frostbite: no surgical intervention at this time. Treat pain with PRN oxycodone , APAP. Has nerve-component, but has had bad reaction to Neurontin in past #Hypothermia: s/p re-warming #Acute hypoxic resp failure: resolved #Deconditioning: PT #Scabies/lice: dose premethrin again. Benadryl for pruritis #Hypokalemia: repleted #Diet: regular #DVT ppx: Lovenox #Disp: continue inpatient admission for Etoh w/d, cont Ativan, pain control Subjective: "itchy all over" Pain in feet unbearable. Objective: Vital Signs Temp Pulse Resp BP Pulse Ox 36.7 C 95 15 154/102 H 100 09/16/17 07:03 09/16/17 07:03 09/16/17 07:03 09/16/17 07:03 09/16/17 07:03 Laboratory Results 09/14/17 05:00 09/16/17 04:45 09/15/17 09/16/17 09/17/17 05:59 05:59 05:59 Intake Total 1166.4 2100 Output Total 1750 1600 Balance -583.6 500 PT 13.4 SEC (12.0-15.0) 09/12/17 10:00 INR 1.00 (0.83-1.16) 09/12/17 10:00 - Physical Exam Constitutional: chronically ill appearing, uncomfortable Eyes: PERRL Ears, Nose, Mouth, Throat: moist mucous membranes Cardiovascular: regular rate and rhythym Respiratory: no respiratory distress, no rales or rhonchi Gastrointestinal: normoactive bowel sounds, soft, non-tender abdomen Genitourinary: hackett in urethra Skin: warm, other (multiple areas of excoriations over limbs, some scabbed. Opens lesions under arms from picking. No signs of cellulitis) Musculoskeletal: full muscle strength Neurologic: AAOx3, CN II-XII Intact, other (mild hand tremor) Psychiatric: interacting appropriately, flat affect ICD10 Worksheet Patient Problems: Problems Problem Status Onset Alcoholism /alcohol abuse Acute Altered mental status Acute Hypothermia Acute Hypothermia Acute Thrombocytopenia Acute Bacteremia Active Peritonitis Active Alcohol withdrawal Acute Alcohol withdrawal syndrome with complication Acute Alcoholic intoxication Acute Alcoholic intoxication Acute Cellulitis Acute Cellulitis and abscess of leg Acute Head injury Acute Neuropathy of left radial nerve Acute Respiratory failure Acute Scabies Acute Weakness of left upper extremity Acute
[2017-09-16] MEDS: NICOTINE 14 MG/24 HR PATCH TD SCH (08:07)
[2017-09-16] MEDS: MULTIVITAMINS 1 EACH TAB PO SCH (08:07)
[2017-09-16] MEDS: THIAMINE HCL 100 MG TAB PO SCH (08:07)
[2017-09-16] MEDS: FOLIC ACID 1 MG TAB PO SCH (08:07)
[2017-09-16] MEDS: FAMOTIDINE 20 MG TAB PO SCH ×2 (08:07→20:08)
[2017-09-16] MEDS: VODKA 50 ML BOTTLE PO SCH ×3 (09:23→21:14)
[2017-09-16] MEDS ORDERED: POTASSIUM CL 10 MEQ TAB PO ONE ×2 (12:27→19:17)
[2017-09-16] MEDS ORDERED: MAGNESIUM SULF 1 GM/DEXTROSE 100 ML IV ONE (12:28)
--- NOTE | 2017-09-16 14:21 | ASMTCMCOM ---
CM Note CM Note Notes: CM met w/ pt for dispo planning. Therapies are recommending SNF. Pt is agreeable to 30 day stay. CM completed ULTC-100 and submited it. CM faxed attached copy of ULTC-100 to [employer]. Referrals sent. CM to follow. Plan: SNF Date Signed: 09/16/2017 02:20 PM Electronically Signed By:VINOD Boo
[2017-09-16] MEDS ORDERED: PERMETHRIN 5% 60 GM CREAM TP ONE (14:29)
[2017-09-16] MEDS ORDERED: DIPHENHYDRAMINE CREAM TP PRN (14:32)
[2017-09-16] MEDS: oxyCODONE IR 5 MG TAB PO PRN ×2 (15:37→20:08)
[2017-09-16] MEDS: diphenhydrAMINE 25 MG CAP PO PRN ×2 (15:38→23:35)
--- NOTE | 2017-09-16 16:29 | WOCRNPDOC ---
WOCRN Advanced Assessment Note - Skin Integrity Problem, Advanced Assess Right Toe Dressing Type: Open to Air Exudate Amount: None Integumentary Issue Intervention: Dressing Applied Ofelia Wound Tissue: Erythema, Swollen Wound Bed Color: Black, Red Wound Bed Constitution: Red/[place] - Non Granular Tissue, Unstable Eschar Wound Edges: Attached, Not Attached Skin Integrity Problem Comment: Distal toes 1,2,4,5 necrosing. Area where skin was replaced appears intact and to be re-integrating. 3rd digit full of fluid again. Cleaned/soaked wounds with vashe and then painted with betadine. toes 1, 2 stuck together and moist. Cleaned in between all toes. Wove Mepilex transfer between toes and then covered lightly with gauze and secured with netting and tape. Kathia Faulkner reported that patient had removed previous dressing and unwrapped scooby and was using it to try and lift his leg to get out of bed. KATHIA Faulkner in room for all care. Orders updated as moist wound healing is no longer a good option for this patient's wounds. They should be left dry and painted with betadine. The tissue damage will demarcate itsself. Wound care will follow. Left Toe Dressing Type: Open to Air Skin Integrity Problem Comment: No significant change. No open areas.
[2017-09-16] MEDS: KETOROLAC 15 MG/1 ML SDV IVP SCH ×2 (17:36→23:35)
--- NOTE | 2017-09-16 19:57 | SOAPPROG ---
SOAP Progress Note Assessment/Plan: Assessment: HOMELESS MALE FOUND DOWN ASKED TO SEE FOR FROSTBITE HEENT OK CHEST CLEAR COR RR ABD SOFT, NONTENDER EXTR: MULTIPLE TOES WITH DISTAL TIP FROSTBITE INJURIES ON BOTH FEET, LEFT > RIGHT/ FULL PULSES FROSTBITE BUT SHOUL NOT RESULT IN SIGNIFICANT TISSUE LOSS Plan:ADD PROCARDIA/ ASA/ CAREFUL WOUND CARE 09/16/17 19:54 Objective: Vital Signs Temp Pulse Resp BP Pulse Ox 36.7 C 108 H 18 151/84 H 94 09/16/17 19:48 09/16/17 19:48 09/16/17 19:48 09/16/17 19:48 09/16/17 19:48 Laboratory Results 09/14/17 05:00 09/16/17 17:40 09/15/17 09/16/17 09/17/17 05:59 05:59 05:59 Intake Total 1166.4 2100 850 Output Total 1750 1600 2950 Balance -583.6 500 -2100 PT 13.4 SEC (12.0-15.0) 09/12/17 10:00 INR 1.00 (0.83-1.16) 09/12/17 10:00 ICD10 Worksheet Patient Problems: Problems Problem Status Onset Alcoholism /alcohol abuse Acute Altered mental status Acute Hypothermia Acute Hypothermia Acute Thrombocytopenia Acute Bacteremia Active Peritonitis Active Alcohol withdrawal Acute Alcohol withdrawal syndrome with complication Acute Alcoholic intoxication Acute Alcoholic intoxication Acute Cellulitis Acute Cellulitis and abscess of leg Acute Head injury Acute Neuropathy of left radial nerve Acute Respiratory failure Acute Scabies Acute Weakness of left upper extremity Acute
[2017-09-16] MEDS: NIFEdipine ER 30 MG TAB PO SCH (21:14)
[2017-09-16] MEDS: ASPIRIN EC 81 MG TAB PO SCH (21:14)
[2017-09-17] MEDS: oxyCODONE IR 5 MG TAB PO PRN ×4 (03:31→22:43)
[2017-09-17] MEDS: KETOROLAC 15 MG/1 ML SDV IVP SCH ×3 (05:53→18:20)
[2017-09-17] MEDS: THIAMINE HCL 100 MG TAB PO SCH (08:52)
[2017-09-17] MEDS: NICOTINE 14 MG/24 HR PATCH TD SCH (08:52)
[2017-09-17] MEDS: VODKA 50 ML BOTTLE PO SCH ×3 (08:52→22:10)
[2017-09-17] MEDS: NIFEdipine ER 30 MG TAB PO SCH (08:52)
[2017-09-17] MEDS: ENOXAPARIN 40 MG/0.4 ML SYR SC SCH (08:52)
[2017-09-17] MEDS: FAMOTIDINE 20 MG TAB PO SCH ×2 (08:52→22:10)
[2017-09-17] MEDS: ASPIRIN EC 81 MG TAB PO SCH (08:53)
[2017-09-17] MEDS: MULTIVITAMINS 1 EACH TAB PO SCH (08:53)
[2017-09-17] MEDS: FOLIC ACID 1 MG TAB PO SCH (08:53)
[2017-09-17] MEDS ORDERED: MAGNESIUM SULF 1 GM/DEXTROSE 100 ML IV ONE (09:00)
[2017-09-17] MEDS ORDERED: POTASSIUM CL 10 MEQ TAB PO ONE ×3 (09:00→22:45)
--- NOTE | 2017-09-17 10:01 | HOSPPROG ---
Hospitalist Progress Note Assessment/Plan: New pt encounter #Etoh withdrawal: cont scheduled vodka, PRN Ativan. MV/T/F #Etoh abuse: counseled on cessation #Thrombocytopenia: due to Etoh, number improving this morning #Macrocytic anemia: due toEtoh #Frostbite: no surgical intervention at this time. Treat pain with PRN oxycodone , APAP. Has nerve-component, but has had bad reaction to Neurontin in past #Hypothermia: s/p re-warming #Acute hypoxic resp failure: resolved #cough #pedal edema #Deconditioning: PT #Scabies/lice: dose premethrin again. Benadryl for pruritis #Hypokalemia: repleted #Diet: regular #DVT ppx: Lovenox Plan: -Procardia, ASA -Wound care -Scheduled Vodka -his major complaint today is leg swelling and cough. Will do a trial of diuretic. Will obtain CXR -He does not have leukocytosis and has been afebrile. -Will likely need SNF -Cont Inpatient Subjective: + cough. + leg swelling. No SOB. No N/V Objective: Vital Signs Temp Pulse Resp BP Pulse Ox 36.5 C 95 18 127/81 H 94 09/17/17 07:19 09/17/17 07:19 09/17/17 07:19 09/17/17 07:19 09/17/17 07:19 Laboratory Results 09/17/17 03:30 09/17/17 03:30 09/16/17 09/17/17 09/18/17 05:59 05:59 05:59 Intake Total 2100 1090 Output Total 1600 4550 175 Balance 500 -3460 -175 PT 13.4 SEC (12.0-15.0) 09/12/17 10:00 INR 1.00 (0.83-1.16) 09/12/17 10:00 - Physical Exam Constitutional: no apparent distress Eyes: PERRL Ears, Nose, Mouth, Throat: moist mucous membranes Cardiovascular: regular rate and rhythym, edema (trace bilateral LE), No JVD Respiratory: no respiratory distress, rhonchi, No reduced air movement Gastrointestinal: normoactive bowel sounds, soft, non-tender abdomen Skin: warm Neurologic: AAOx3 Psychiatric: interacting appropriately, not anxious, not encephalopathic Lymph, Heme, Immunologic: No petechiae ICD10 Worksheet Patient Problems: Problems Problem Status Onset Alcoholism /alcohol abuse Acute Altered mental status Acute Hypothermia Acute Hypothermia Acute Thrombocytopenia Acute Bacteremia Active Peritonitis Active Alcohol withdrawal Acute Alcohol withdrawal syndrome with complication Acute Alcoholic intoxication Acute Alcoholic intoxication Acute Cellulitis Acute Cellulitis and abscess of leg Acute Head injury Acute Neuropathy of left radial nerve Acute Respiratory failure Acute Scabies Acute Weakness of left upper extremity Acute
[2017-09-17] MEDS: FUROSEMIDE 20 MG TAB PO SCH (11:27)
--- NOTE | 2017-09-17 12:19 | SOAPPROG ---
SOAP Progress Note Assessment/Plan: Assessment/Plan: 57-year-old homeless male with bilateral lower extremity frostbite to the tips of toes, right greater than left Toes overall look reassuring today, he just got out of the shower. He does have intact sensation and motor toe all distal extremities, complaining mostly of tingling in his right toes. Left toes he has intact sensation. He has palpable DP and PT pulses bilaterally the remainder of his feet are warm. His nurse and I redressed the wounds this morning, I do not see any signs of wet gangrene at this point I anticipate that they will continue to heal and myoma 5 I did tell the patient that he is likely going to lose the tips of his 1st 2nd 4th and 5th toes on the right. He did get a little bit emotional after this but it sounds like that is his baseline. 09/17/17 12:17 Subjective: Doing better, a little emotional. Objective: Vital Signs Temp Pulse Resp BP Pulse Ox 36.4 C 108 H 18 117/82 H 96 09/17/17 11:21 09/17/17 11:21 09/17/17 11:21 09/17/17 11:21 09/17/17 11:21 Laboratory Results 09/17/17 03:30 09/17/17 03:30 09/16/17 09/17/17 09/18/17 05:59 05:59 05:59 Intake Total 2100 1090 Output Total 1600 4550 175 Balance 500 -3460 -175 PT 13.4 SEC (12.0-15.0) 09/12/17 10:00 INR 1.00 (0.83-1.16) 09/12/17 10:00 ICD10 Worksheet Patient Problems: Problems Problem Status Onset Alcoholism /alcohol abuse Acute Altered mental status Acute Hypothermia Acute Hypothermia Acute Thrombocytopenia Acute Bacteremia Active Peritonitis Active Alcohol withdrawal Acute Alcohol withdrawal syndrome with complication Acute Alcoholic intoxication Acute Alcoholic intoxication Acute Cellulitis Acute Cellulitis and abscess of leg Acute Head injury Acute Neuropathy of left radial nerve Acute Respiratory failure Acute Scabies Acute Weakness of left upper extremity Acute
[2017-09-17] MEDS: LORazepam 1 MG TAB PO PRN ×2 (13:03→22:10)
--- NOTE | 2017-09-17 17:17 | ASMTCMCOM ---
CM Note CM Note Notes: Pt. approved for [facility] snf stay. No PASRR needed. Ramona Perry is [facility] worker . Pt. declined from [place], [facility], and [facility]. SWer spoke w/ Nyasia from [facility]. They are still reviewing Pt.'s case for admission. SWer made new referrals to [facility], [facility], [facility], and [facility] today via [employer]. Please check back w/ [employer] to see if any approvals. Pt. may need alternative d/c plan if no LTC facilities accept. SW to follow for d/c POC. Date Signed: 09/17/2017 05:17 PM Electronically Signed By:Dior Wayne LCSW
[2017-09-17] MEDS: diphenhydrAMINE 25 MG CAP PO PRN (22:43)
[2017-09-17] MEDS: ACETAMINOPHEN 325 MG TAB PO PRN (22:43)
[2017-09-18] MEDS: oxyCODONE IR 5 MG TAB PO PRN ×5 (05:55→23:40)
[2017-09-18 06:04] LABS: PLATELET COUNT 159 10^3/uL (150-400)
[2017-09-18] MEDS ORDERED: MAGNESIUM SULF 1 GM/DEXTROSE 100 ML IV ONE (07:43)
[2017-09-18] MEDS: ENOXAPARIN 40 MG/0.4 ML SYR SC SCH (08:42)
[2017-09-18] MEDS: VODKA 50 ML BOTTLE PO SCH ×3 (08:42→21:53)
[2017-09-18] MEDS: NICOTINE 14 MG/24 HR PATCH TD SCH (08:43)
[2017-09-18] MEDS: FOLIC ACID 1 MG TAB PO SCH (08:43)
[2017-09-18] MEDS: LORazepam 1 MG TAB PO PRN ×3 (08:43→18:24)
[2017-09-18] MEDS: FAMOTIDINE 20 MG TAB PO SCH ×2 (08:43→21:53)
[2017-09-18] MEDS: FUROSEMIDE 20 MG TAB PO SCH (08:43)
[2017-09-18] MEDS: MULTIVITAMINS 1 EACH TAB PO SCH (08:43)
[2017-09-18] MEDS: THIAMINE HCL 100 MG TAB PO SCH (08:43)
[2017-09-18] MEDS: ASPIRIN EC 81 MG TAB PO SCH (08:43)
[2017-09-18] MEDS: NIFEdipine ER 30 MG TAB PO SCH (08:43)
--- NOTE | 2017-09-18 09:49 | HOSPPROG ---
Hospitalist Progress Note Assessment/Plan: #Etoh withdrawal: cont scheduled vodka, PRN Ativan. MV/T/F #Etoh abuse: counseled on cessation #Thrombocytopenia: due to Etoh, improving, likely chronic #Macrocytic anemia: due toEtoh #Frostbite: no surgical intervention at this time. Treat pain with PRN oxycodone , APAP. Has nerve-component, but has had bad reaction to Neurontin in past #Hypothermia: s/p re-warming #Acute hypoxic resp failure: resolved #cough, resolved with Lasix #pedal edema, resolved with one time dose of Lasix #Deconditioning: PT #Scabies/lice: dose premethrin again. Benadryl for pruritis #Superficial Thrombophlebitis -US reviewed -Elevation and heat pad -No E/O DVT #Hypokalemia: repleted #Diet: regular #DVT ppx: Lovenox Plan: -Procardia, ASA -Wound care -Scheduled Vodka -CXR reviewed, no acute process. Cough has resolved. -conservative mgmt for thrombophlebitis -Will likely need SNF -Cont Inpatient -We will cont to follow Subjective: no further cough. reports left arm pain. US reviewed. No DVT. + thrombophlebitis. No LE edema. No CP or SOB. ON RA Objective: Vital Signs Temp Pulse Resp BP Pulse Ox 36.8 C 103 H 14 135/81 H 92 09/18/17 07:19 09/18/17 07:19 09/18/17 07:19 09/18/17 08:43 09/18/17 07:19 Laboratory Results 09/18/17 05:57 09/18/17 05:57 09/17/17 09/18/17 09/19/17 05:59 05:59 05:59 Intake Total 1090 Output Total 4550 375 300 Balance -3460 -375 -300 PT 13.4 SEC (12.0-15.0) 09/12/17 10:00 INR 1.00 (0.83-1.16) 09/12/17 10:00 - Physical Exam Constitutional: no apparent distress Eyes: PERRL Ears, Nose, Mouth, Throat: moist mucous membranes, hearing normal Cardiovascular: regular rate and rhythym, No edema Respiratory: no respiratory distress, no rales or rhonchi, clear to auscultation Gastrointestinal: normoactive bowel sounds, soft, non-tender abdomen Skin: warm Musculoskeletal: full muscle strength Neurologic: AAOx3 Psychiatric: interacting appropriately, not anxious, not encephalopathic Lymph, Heme, Immunologic: No petechiae ICD10 Worksheet Patient Problems: Problems Problem Status Onset Alcoholism /alcohol abuse Acute Altered mental status Acute Hypothermia Acute Hypothermia Acute Thrombocytopenia Acute Bacteremia Active Peritonitis Active Alcohol withdrawal Acute Alcohol withdrawal syndrome with complication Acute Alcoholic intoxication Acute Alcoholic intoxication Acute Cellulitis Acute Cellulitis and abscess of leg Acute Head injury Acute Neuropathy of left radial nerve Acute Respiratory failure Acute Scabies Acute Weakness of left upper extremity Acute
--- NOTE | 2017-09-18 11:49 | TRAUMAPN ---
Assessment/Plan: Assessment/Plan: 57-year-old homeless male with bilateral lower extremity frostbite to the tips of toes, right greater than left Toes the same. Continue dressing changes daily after shower. Has great pulses and warm feet. SNF for ultimate placement 09/17/17 12:17 Subjective: No new complaints Objective: Vital Signs Temp Pulse Resp BP Pulse Ox 37.4 C 112 H 14 133/78 H 92 09/18/17 11:02 09/18/17 11:02 09/18/17 11:02 09/18/17 11:02 09/18/17 11:02 Laboratory Results 09/18/17 05:57 09/18/17 05:57 09/17/17 09/18/17 09/19/17 05:59 05:59 05:59 Intake Total 1090 Output Total 4550 375 300 Balance -3460 -375 -300 PT 13.4 SEC (12.0-15.0) 09/12/17 10:00 INR 1.00 (0.83-1.16) 09/12/17 10:00 - C-Spine Clearance Cervical Spine Cleared: Yes Provider who Cleared Cervical Spine: Devonte
[2017-09-18] MEDS: PERMETHRIN 5% 60 GM CREAM TP SCH ×2 (14:29→14:30)
--- NOTE | 2017-09-18 16:58 | ASMTCMCOM ---
CM Note CM Note Notes: Per [employer], Pt. denied all LTCs except [facility] and [facility]. Hasmukh left two messages for Nyasia at [facility] today. No word yet. Hasmukh called Shalini at [facility] . Shalini to review referral tomorrow and get back to CM staff by Thursday. RNs and therapies really are advocating for Pt. to be placed due to his needs and safety issues. CM to follow. Date Signed: 09/18/2017 04:58 PM Electronically Signed By:Dior Wayne LCSW
[2017-09-18] MEDS: diphenhydrAMINE 25 MG CAP PO PRN (18:28)
--- NOTE | 2017-09-18 20:37 | SOAPPROG ---
SOAP Progress Note Assessment/Plan: Assessment: Plan: Subjective: frostbite both feet continues with pain, marginally controlled on oxycodone toes dusky, no erythema, no sepsis. cont observation, no acute surgical indications. Objective: Vital Signs Temp Pulse Resp BP Pulse Ox 36.9 C 109 H 16 103/68 93 09/18/17 14:16 09/18/17 14:16 09/18/17 14:16 09/18/17 14:16 09/18/17 14:16 Laboratory Results 09/18/17 05:57 09/18/17 16:50 09/17/17 09/18/17 09/19/17 05:59 05:59 05:59 Intake Total 1090 100 Output Total 4550 375 1700 Balance -3460 -375 -1600 PT 13.4 SEC (12.0-15.0) 09/12/17 10:00 INR 1.00 (0.83-1.16) 09/12/17 10:00 ICD10 Worksheet Patient Problems: Problems Problem Status Onset Alcoholism /alcohol abuse Acute Altered mental status Acute Hypothermia Acute Hypothermia Acute Thrombocytopenia Acute Bacteremia Active Peritonitis Active Alcohol withdrawal Acute Alcohol withdrawal syndrome with complication Acute Alcoholic intoxication Acute Alcoholic intoxication Acute Cellulitis Acute Cellulitis and abscess of leg Acute Head injury Acute Neuropathy of left radial nerve Acute Respiratory failure Acute Scabies Acute Weakness of left upper extremity Acute
[2017-09-19] MEDS: oxyCODONE IR 5 MG TAB PO PRN ×4 (05:07→20:43)
[2017-09-19] MEDS: MULTIVITAMINS 1 EACH TAB PO SCH (07:32)
[2017-09-19] MEDS: ASPIRIN EC 81 MG TAB PO SCH (07:32)
[2017-09-19] MEDS: THIAMINE HCL 100 MG TAB PO SCH (07:32)
[2017-09-19] MEDS: FOLIC ACID 1 MG TAB PO SCH (07:32)
[2017-09-19] MEDS: NIFEdipine ER 30 MG TAB PO SCH (07:33)
[2017-09-19] MEDS: FAMOTIDINE 20 MG TAB PO SCH ×2 (07:33→20:43)
[2017-09-19] MEDS: NICOTINE 14 MG/24 HR PATCH TD SCH (07:33)
[2017-09-19] MEDS: VODKA 50 ML BOTTLE PO SCH ×3 (07:34→20:43)
[2017-09-19] MEDS: ENOXAPARIN 40 MG/0.4 ML SYR SC SCH (07:35)
[2017-09-19] MEDS ORDERED: MAGNESIUM SULF 1 GM/DEXTROSE 100 ML IV ONE (09:26)
--- NOTE | 2017-09-19 09:29 | TRAUMAPN ---
Assessment/Plan: no overnight issues. avss. comfortable. bilat feet with varying degrees of distal phalynx frostbite/necrosis. no erythema. good bleeding noted from right great toe with serous weeping as well as 4th right toe distally. remaining eschars all clean. bilat LE frostbite injuries - will likely lose some of his distal right toes - anticipate will heal his left foot over time. awaiting placement options - homeless. no other new issues noted Objective: Vital Signs Temp Pulse Resp BP Pulse Ox 37.3 C 104 H 18 125/73 H 92 09/19/17 07:05 09/19/17 07:05 09/19/17 07:05 09/19/17 07:05 09/19/17 07:05 Laboratory Results 09/18/17 05:57 09/19/17 05:00 09/18/17 09/19/17 09/20/17 05:59 05:59 05:59 Intake Total 572 Output Total 931 7886 Balance -375 -225 PT 13.4 SEC (12.0-15.0) 09/12/17 10:00 INR 1.00 (0.83-1.16) 09/12/17 10:00 - C-Spine Clearance Cervical Spine Cleared: Yes Provider who Cleared Cervical Spine: Devonte
[2017-09-19] MEDS: LORazepam 1 MG TAB PO PRN ×3 (09:37→23:34)
--- NOTE | 2017-09-19 10:36 | HOSPPROG ---
Hospitalist Progress Note Assessment/Plan: #Etoh withdrawal: cont scheduled vodka, PRN Ativan. MV/T/F #Etoh abuse: counseled on cessation #Thrombocytopenia: due to Etoh, improving, likely chronic #Macrocytic anemia: due toEtoh #Frostbite: no surgical intervention at this time. Treat pain with PRN oxycodone , APAP. Has nerve-component, but has had bad reaction to Neurontin in past #Hypothermia: s/p re-warming #Tobacco abuse disorder: -Cessation counseling provided today -He has a nicotine patch in place -he smokes around a pack a day and has been smoking for 40 years -He will attempt to lower use, but really is not interested in cessation at this time. #Acute hypoxic resp failure: resolved #cough, resolved with Lasix #pedal edema, resolved with one time dose of Lasix #Deconditioning: PT #Scabies/lice: dose premethrin again. Benadryl for pruritis #Superficial Thrombophlebitis -US reviewed -Elevation and heat pad -No E/O DVT #Hypokalemia: repleted #Diet: regular #DVT ppx: Lovenox Plan: -Procardia, ASA -Wound care -Scheduled Vodka, tolerating well -conservative mgmt for thrombophlebitis -Nicotine Patch -Will likely need SNF, awaiting placement -Cont Inpatient -We will cont to follow Subjective: sad about the possibility of losing his toes. No CP, SOB, or cough Objective: Vital Signs Temp Pulse Resp BP Pulse Ox 37.3 C 104 H 18 125/73 H 92 09/19/17 07:05 09/19/17 07:05 09/19/17 07:05 09/19/17 07:05 09/19/17 07:05 Laboratory Results 09/18/17 05:57 09/19/17 05:00 09/18/17 09/19/17 09/20/17 05:59 05:59 05:59 Intake Total 572 Output Total 970 1743 Balance -375 -8770 PT 13.4 SEC (12.0-15.0) 09/12/17 10:00 INR 1.00 (0.83-1.16) 09/12/17 10:00 - Physical Exam Constitutional: no apparent distress Eyes: PERRL Ears, Nose, Mouth, Throat: moist mucous membranes, hearing normal Cardiovascular: regular rate and rhythym, No edema Respiratory: no respiratory distress, no rales or rhonchi Gastrointestinal: normoactive bowel sounds, soft, non-tender abdomen Skin: warm Neurologic: AAOx3 Psychiatric: interacting appropriately, not anxious, not encephalopathic ICD10 Worksheet Patient Problems: Problems Problem Status Onset Alcoholism /alcohol abuse Acute Altered mental status Acute Hypothermia Acute Hypothermia Acute Thrombocytopenia Acute Bacteremia Active Peritonitis Active Alcohol withdrawal Acute Alcohol withdrawal syndrome with complication Acute Alcoholic intoxication Acute Alcoholic intoxication Acute Cellulitis Acute Cellulitis and abscess of leg Acute Head injury Acute Neuropathy of left radial nerve Acute Respiratory failure Acute Scabies Acute Weakness of left upper extremity Acute
[2017-09-19] MEDS: PERMETHRIN 5% 60 GM CREAM TP SCH (11:57)
--- NOTE | 2017-09-19 12:39 | ASMTCMCOM ---
CM Note CM Note Notes: Waiting to hear about admission to [facility] in [facility] will likely have answer regarding ability to admit on Thursday. [facility] declined today. Faxed two new referrals to [place] and [place] via [employer] today. CM to follow. Date Signed: 09/19/2017 12:38 PM Electronically Signed By:Dior Wayne LCSW
[2017-09-19] MEDS: ACETAMINOPHEN 325 MG TAB PO PRN ×2 (16:26→23:32)
[2017-09-19] MEDS ORDERED: NS 500 ML IV ONE (16:27)
[2017-09-19] MEDS ORDERED: NS 1,000 ML IV SCH (16:30)
[2017-09-19 17:00] LABS: PLATELET COUNT 261 10^3/uL (150-400)
[2017-09-19] MEDS ORDERED: NS 1,000 ML IV ONE (18:30)
[2017-09-20] MEDS: ACETAMINOPHEN 325 MG TAB PO PRN (07:42)
[2017-09-20] MEDS: MULTIVITAMINS 1 EACH TAB PO SCH (07:42)
[2017-09-20] MEDS: oxyCODONE IR 5 MG TAB PO PRN ×4 (07:42→22:28)
[2017-09-20] MEDS: LORazepam 1 MG TAB PO PRN ×4 (07:43→22:28)
[2017-09-20] MEDS: FOLIC ACID 1 MG TAB PO SCH (07:43)
[2017-09-20] MEDS: THIAMINE HCL 100 MG TAB PO SCH (07:43)
[2017-09-20] MEDS: ASPIRIN EC 81 MG TAB PO SCH (07:43)
[2017-09-20] MEDS: NIFEdipine ER 30 MG TAB PO SCH (07:43)
[2017-09-20] MEDS: FAMOTIDINE 20 MG TAB PO SCH ×2 (07:44→22:28)
[2017-09-20] MEDS: NICOTINE 14 MG/24 HR PATCH TD SCH (07:47)
[2017-09-20] MEDS: ENOXAPARIN 40 MG/0.4 ML SYR SC SCH (07:48)
[2017-09-20] MEDS: VODKA 50 ML BOTTLE PO SCH ×3 (07:50→22:29)
[2017-09-20] MEDS ORDERED: NS 1,000 ML IV SCH (08:30)
[2017-09-20] MEDS ORDERED: VANCOMYCIN 1.25 GM in D5W 250 ML IV SCH (09:00)
--- NOTE | 2017-09-20 09:39 | TRAUMAPN ---
Assessment/Plan: Assessment/Plan: 57-year-old homeless male with bilateral lower extremity frostbite to the tips of toes, right greater than left - L foot improving, R foot with stable eschar. Still anticipate he will lose tips of 1,3,4,5 on the right. Now open to air. Has intact sensation and motor. Feet are warm with palp DP and PT bilaterally. - Encouraged him to walk with foot braces today, he said he would try but that the braces "hurt" - blood Cx positive, starting BS abx. I dont see any signs of wet gangrene in toes which I would want to debride, these will slough off over time 09/17/17 12:17 Subjective: pain better, no complaints Objective: Vital Signs Temp Pulse Resp BP Pulse Ox 39.4 C H 137 H 20 143/91 H 92 09/20/17 07:09 09/20/17 07:09 09/20/17 07:09 09/20/17 07:09 09/20/17 07:09 Laboratory Results 09/19/17 16:50 09/19/17 16:50 09/19/17 09/20/17 09/21/17 05:59 05:59 05:59 Intake Total 572 Output Total 2825 1974 400 Balance -2253 -1974 - PT 13.4 SEC (12.0-15.0) 09/12/17 10:00 INR 1.00 (0.83-1.16) 09/12/17 10:00 - C-Spine Clearance Cervical Spine Cleared: Yes Provider who Cleared Cervical Spine: Devonte
--- NOTE | 2017-09-20 10:17 | HOSPPROG ---
Hospitalist Progress Note Assessment/Plan: 57 yo male with hx of alcoholism admitted with frostbite to bilateral toes and Hypothermia. We have been consulted for medical management. Overnight BC'x have grown positive for G+ cocci in clusters. He is tachycardic and has a fever Source was unclear yesterday but his left biceps/PICC are has become more tender with increasing erythema His toes look unchanged from yesterday #G+Cocci in clusters Bacteremia -change abx from Levaquin to Vancomycin -Goal trough 15-20 -ID consult -Suspect source is left arm cellulitis/thrombophlebitis -Remove PICC, culture -CXR reviewed, no infiltrate -If no clinical improvement, consider further imaging of arm and consider other source to include toes and osteo -IVF, careful not to overload #Etoh withdrawal: cont scheduled vodka, PRN Ativan. MV/T/F #Etoh abuse: counseled on cessation #Thrombocytopenia: due to Etoh, improving, likely chronic #Macrocytic anemia: due toEtoh #Frostbite: no surgical intervention at this time. Treat pain with PRN oxycodone , APAP. Has nerve-component, but has had bad reaction to Neurontin in past #Hypothermia: s/p re-warming #Tobacco abuse disorder: -Cessation counseling provided 09/19 -He has a nicotine patch in place -he smokes around a pack a day and has been smoking for 40 years -He will attempt to lower use, but really is not interested in cessation at this time. #Acute hypoxic resp failure: resolved #cough, resolved with Lasix #pedal edema, resolved with one time dose of Lasix #Deconditioning: PT #Scabies/lice: dose premethrin again. Benadryl for pruritis #Superficial Thrombophlebitis #Hypokalemia: repleted #Diet: regular #DVT ppx: Lovenox Plan: -Procardia, ASA -Wound care -Scheduled Vodka, tolerating well -ID mgmt per above -Nicotine Patch -Will likely need SNF, awaiting placement -Cont Inpatient -We will cont to follow Subjective: tachycardia. no hypotension. generalized malaise. No cough. left arm pain is worse. Objective: Vital Signs Temp Pulse Resp BP Pulse Ox 39.4 C H 137 H 20 143/91 H 92 09/20/17 07:09 09/20/17 07:09 09/20/17 07:09 09/20/17 07:09 09/20/17 07:09 Microbiology 09/19/17 16:55 Blood Panel (PCR) - Final Blood S.aureus Methicillin Suscept. Laboratory Results 09/19/17 16:50 09/19/17 16:50 09/19/17 09/20/17 09/21/17 05:59 05:59 05:59 Intake Total 572 Output Total 2825 1974 Balance -2253 -1974 PT 13.4 SEC (12.0-15.0) 09/12/17 10:00 INR 1.00 (0.83-1.16) 09/12/17 10:00 - Physical Exam Constitutional: no apparent distress Eyes: PERRL Ears, Nose, Mouth, Throat: moist mucous membranes, hearing normal Cardiovascular: tachycardia, No JVD, No edema Respiratory: no respiratory distress, no rales or rhonchi, clear to auscultation Gastrointestinal: normoactive bowel sounds, soft, non-tender abdomen Skin: warm, other (left arm erythema and ttp) Musculoskeletal: full muscle strength Neurologic: AAOx3 Psychiatric: interacting appropriately, not anxious, not encephalopathic Lymph, Heme, Immunologic: No petechiae ICD10 Worksheet Patient Problems: Problems Problem Status Onset Alcoholism /alcohol abuse Acute Altered mental status Acute Hypothermia Acute Hypothermia Acute Thrombocytopenia Acute Bacteremia Active Peritonitis Active Alcohol withdrawal Acute Alcohol withdrawal syndrome with complication Acute Alcoholic intoxication Acute Alcoholic intoxication Acute Cellulitis Acute Cellulitis and abscess of leg Acute Head injury Acute Neuropathy of left radial nerve Acute Respiratory failure Acute Scabies Acute Weakness of left upper extremity Acute
--- NOTE | 2017-09-20 12:58 | WOCRNPDOC ---
WOCRN Advanced Assessment Note - Skin Integrity Problem, Advanced Assess Right Posterior Heel Dressing Type: Open to Air Exudate Amount: None Exudate Characteristic(s): None Ofelia Wound Tissue: Blanching, Intact, Dry Ofelia Wound Swelling: None Wound Bed Color: Purple Wound Bed Constitution: Intact Sanguineous Blister Site Odor: None Site Measurement - Head-to-Toe Length X Width X Depth (cm): 5cmx3.5cmx blister Pressure Injury Stage: Deep Tissue Injury (DTI) Pressure Injury Present on Admit: No (Dr. Gamboa notified) Skin Integrity Problem Comment: Dark purple, sanguinous, intact blister noted to R heel, appearance consistent with deep tissue injury. Periwound skin blanching and currently intact. Site is mildly fluctuant, but overlying skin is thick and intact. Patient reports pain when site palpated. Nursing attempted to place off-loading boots, but patient removed saying they hurt him. Will have nursing float heels continuously to relieve pressure. In addition, I have ordered a P500 bed to provide pressure-relieving surface. If patient is not compliant with floating heels, may have to consider Cilintron air-fluidized bed. Wound RN will round again tomorrow to assess this and other wounds. Left Posterior Heel Dressing Type: Open to Air Exudate Amount: None Exudate Characteristic(s): None Ofelia Wound Tissue: Blanching, Intact, Dry Ofelia Wound Swelling: None Wound Bed Color: Purple Wound Bed Constitution: Intact Sanguineous Blister Site Odor: None Site Measurement - Head-to-Toe Length X Width X Depth (cm): [id number] blister Pressure Injury Stage: Deep Tissue Injury (DTI) Pressure Injury Present on Admit: No (Dr. Gamboa notified) Skin Integrity Problem Comment: Dark purple, intact, sanguinous blister noted to L heel, appearance consistent with deep tissue injury. Skin over the blister is thick and intact, and there is minimal fluctuance. Periwound skin is currently blanching. No dressing needed at this time, as blisters are intact. Order written to monitor q. shift and notify wound care if wound begins draining. Concern going forward is off-loading this and the R heel completely. Nursing tried to apply off-loading boots, but he refused to wear them. He says he will comply with floating his heels on pillows, but I will order him a P500 bed in the event he is not compliant with this intervention. dirt supervisor will reassess situation tomorrow and determine if patient is compliant with total off -loading. If not, may have to consider ordering an air-fluidized surface. Report given to dehydrogenation operator Nina.
[2017-09-20] MEDS: LR 1,000 ML IV SCH (13:06)
[2017-09-20] MEDS: PERMETHRIN 5% 60 GM CREAM TP SCH (15:14)
--- NOTE | 2017-09-20 16:58 | GCON ---
[f rep st] CONSULTATION INFECTIOUS DISEASES CONSULTATION DATE OF CONSULTATION: 09/20/2017 REFERRING PHYSICIAN: Denver Perez MD REASON FOR CONSULTATION: Gram-positive bacteremia. HISTORY OF PRESENT ILLNESS: Patient is a 57-year-old male with a past medical history of homelessnes s and alcoholism, who was admitted to the hospital on 09/12/2017, after being found down with signifi cant hypothermia. He initially underwent rewarming by protocol for his hypothermia. He did suffer s ignificant frostbite to all of his toes. He also has been diagnosed with scabies and head lice and h as been treated with permethrin and is currently receiving this on a daily basis. He also had alcoho l withdrawal, which has now resolved. Patient developed fever beginning on 09/19/2017 with a tempera ture maximum yesterday afternoon of 38.8. This was associated with pain and swelling in the left upp er extremity, where a PICC line was in place. Ultrasound was performed of the upper extremity, which showed evidence of clot in the left cephalic vein, but no evidence of involvement of the brachial, b asilic, axillary, internal jugular, or subclavian veins. Given the presence of fever, blood cultures were obtained, and both sets are now showing growth of gram-positive cocci in clusters. PCR identif ication is consistent with methicillin-susceptible Staphylococcus aureus. Earlier today, his PICC li ne was removed, and cath tip culture is currently pending. He has been started empirically on vancom ycin earlier today after receiving levofloxacin x2 doses beginning yesterday. Currently, his primary complaint is pain in all of his toes. He also complains of pain in his left upper extremity but not es this is less prominent than previously and significantly decreased after PICC line removal. He garcia s diffuse pruritus. He does not have any rash between his web spaces of his hands or affecting the g enitals. Given the above findings, I am now asked to assist in his ongoing management. PAST MEDICAL HISTORY: Frostbite, MRSA skin and soft tissue infection, chronic diastolic heart failur e, alcohol abuse, aspiration pneumonia, peripheral neuropathy. Prior history of injection drug use, which he states he has been clean since 2008. Hepatitis C, anxiety, thrombocytopenia. PAST SURGICAL HISTORY: Repair of left tibia/fibula fracture, prior group a streptococcal bacteremia in 2012 associated with peritonitis, appendectomy. CURRENT MEDICATIONS: Vancomycin 1.25 g IV q.12 hours, aspirin 81 mg p.o. daily, Lovenox 40 mg subcu daily, Benadryl as needed for itching, vodka 50 mL 3 times per day, Pepcid 20 mg p.o. twice daily, fo late 1 mg p.o. daily, Ativan as needed for anxiety, multivitamin p.o. daily, NicoDerm CQ 14 mg patch daily, nifedipine 30 mg p.o. daily, permethrin applied daily, vitamin B1 100 mg p.o. daily. ALLERGIES: Chlordiazepoxide. SOCIAL HISTORY: Patient smokes 1/2 pack per day. He drinks 1 pint per day. Prior history of inject ion drug use with last use in 2008. Currently homeless. FAMILY HISTORY: Unknown, as he is adopted. REVIEW OF SYSTEMS: Outside that noted in the HPI, the remainder of a 10-system review is unremarkabl e. PHYSICAL EXAMINATION: VITAL SIGNS: Temperature maximum 39.4, temperature current 36.7, heart rate 1 08, respiratory rate 18, blood pressure 125/73, oxygen saturation 92% on room air. GENERAL: Patient is a disheveled male in no acute distress. He appears nontoxic. HEENT: There is no scleral icteru s, conjunctival injection, or conjunctival petechiae. Oropharynx shows moist mucous membranes. Hayley ent is edentulous. There is no nasal discharge. There is no tenderness over the frontal, maxillary, or mastoid area. NECK: Supple without palpable lymphadenopathy or thyromegaly. CHEST: Clear to a uscultation bilaterally without adventitious sounds. The respiratory effort is normal. CARDIOVASCUL AR: Tachycardic without murmurs, gallops, or rubs. Heart tones are distant. ABDOMEN: Soft, nonten juan ramon, nondistended. There is no palpable organomegaly. Bowel sounds are present. MUSCULOSKELETAL: There is edema of the left upper extremity from the antecubital fossa to the shoulder with mild warmt h and tenderness present; minimal erythema is present; no palpable fluctuance noted. SKIN: There ar e multiple excoriations and hyperpigmented scars diffusely over the body. There are areas of dry sonia grene from frostbite affecting multiple toes without any evidence of wet gangrene throughout. There are some open ulcerations present. No active cellulitis present. The genital area shows no erythema tous plaques. Bilateral hemorrhagic blisters over both heels. NEUROLOGIC: Patient is alert and int eracts appropriately with examiner. Cranial nerves 2-12 are grossly intact. Sensation is grossly in tact. Muscle tone and bulk are normal. LYMPHATICS: No cervical or supraclavicular nodes palpable. LABORATORY DATA: White blood cell count 8.9, hematocrit 28.4, platelets 261, neutrophils 68%, lympho cytes 11%, monocytes 17%. Serum creatinine 0.7, procalcitonin 0.2. Venous lactate yesterday was 0.9 . Blood cultures 2/2 sets with growth of methicillin-susceptible Staphylococcus aureus. Catheter ti p culture is pending. Ultrasound as previously outlined. Chest x-ray shows no evidence of pneumonia . IMPRESSION: 1. Sepsis due to methicillin-sensitive Staphylococcus aureus bacteremia: Suspect this is associated with left upper extremity septic thrombophlebitis associated with PICC line use. PICC line has now been discontinued. Will need to assess ability to clear bacteremia with antibiotic therapy over time . If unable to clear bacteremia, surgical excision is sometimes required. Suspect the etiology is m ost likely associated with this entity rather than dry gangrene of his toes, although he has multiple potential skin portals of entry based on excoriations and denuded skin. 2. Frostbite of multiple toes: Continue to follow clinically as these demarcate over time. 3. History of lice/scabies: Currently receiving ongoing permethrin use. Suspect ongoing pruritus m ay be hypersensitivity response rather than persistent mite infestation. Have inquired with pharmacy regarding obtaining ivermectin, which can be administered orally and would likely provide definitive therapy. Pruritus can last for 2-4 weeks after appropriate treatment of scabies. 4. Chronic hepatitis C (hepatitis B surface antibody positive in 2016, and human immunodeficiency vi angela negative with hepatitis C RNA of less than 1 in 2017). RECOMMENDATIONS: 1. Ancef 2 g IV q.8 hours. 2. Repeat blood cultures in the a.m. to assess for clearing of bacteremia. 3. Transthoracic echocardiogram to assess for endocarditis. 4. Discontinue vancomycin. 5. Have asked pharmacy to see if we can obtain ivermectin for oral therapy of scabies. 6. Continue contact precautions. Thank you for this consultation. We will continue to follow the patient with you. /[id number]/MODL
[2017-09-20] MEDS: ceFAZolin 2 GM/DEXTROSE 100 ML IV SCH (22:29)
[2017-09-21] MEDS: diphenhydrAMINE 25 MG CAP PO PRN (01:04)
[2017-09-21] MEDS: LORazepam 1 MG TAB PO PRN ×4 (02:47→20:20)
[2017-09-21] MEDS: oxyCODONE IR 5 MG TAB PO PRN ×4 (02:48→20:20)
[2017-09-21] MEDS: LR 1,000 ML IV SCH (03:05)
[2017-09-21 05:25] LABS: PLATELET COUNT 424 10^3/uL (150-400)
[2017-09-21] MEDS: ceFAZolin 2 GM/DEXTROSE 100 ML IV SCH ×3 (06:20→21:43)
[2017-09-21] MEDS: MULTIVITAMINS 1 EACH TAB PO SCH (08:35)
[2017-09-21] MEDS: ASPIRIN EC 81 MG TAB PO SCH (08:35)
[2017-09-21] MEDS: ENOXAPARIN 40 MG/0.4 ML SYR SC SCH (08:36)
[2017-09-21] MEDS: FAMOTIDINE 20 MG TAB PO SCH ×2 (08:36→21:43)
[2017-09-21] MEDS: VODKA 50 ML BOTTLE PO SCH ×3 (08:36→21:43)
[2017-09-21] MEDS: NICOTINE 14 MG/24 HR PATCH TD SCH (08:36)
[2017-09-21] MEDS: NIFEdipine ER 30 MG TAB PO SCH (08:36)
[2017-09-21] MEDS: FOLIC ACID 1 MG TAB PO SCH (08:36)
[2017-09-21] MEDS: THIAMINE HCL 100 MG TAB PO SCH (08:36)
--- NOTE | 2017-09-21 10:25 | SOAPPROG ---
SOAP Progress Note Assessment/Plan: Assessment: Plan: Subjective: all 10 toes examined- no obviou s infection. cont conservative care. Objective: Vital Signs Temp Pulse Resp BP Pulse Ox 36.7 C 100 16 121/67 H 91 L 09/21/17 08:06 09/21/17 08:06 09/21/17 08:06 09/21/17 08:36 09/21/17 08:06 Microbiology 09/19/17 16:55 Blood Panel (PCR) - Final Blood S.aureus Methicillin Suscept. Laboratory Results 09/21/17 04:11 09/21/17 04:11 09/20/17 09/21/17 09/22/17 05:59 05:59 05:59 Intake Total 3215 Output Total 1974 1299 Balance -1974 1914 PT 13.4 SEC (12.0-15.0) 09/12/17 10:00 INR 1.00 (0.83-1.16) 09/12/17 10:00 ICD10 Worksheet Patient Problems: Problems Problem Status Onset Alcoholism /alcohol abuse Acute Altered mental status Acute Hypothermia Acute Hypothermia Acute Thrombocytopenia Acute Bacteremia Active Peritonitis Active Alcohol withdrawal Acute Alcohol withdrawal syndrome with complication Acute Alcoholic intoxication Acute Alcoholic intoxication Acute Cellulitis Acute Cellulitis and abscess of leg Acute Head injury Acute Neuropathy of left radial nerve Acute Respiratory failure Acute Scabies Acute Weakness of left upper extremity Acute
--- NOTE | 2017-09-21 13:10 | HOSPPROG ---
Hospitalist Progress Note Assessment/Plan: 57 yo male with hx of alcoholism admitted with frostbite to bilateral toes and Hypothermia. Hospitalist consulted for medical management. Overnight BC'x have grown positive for G+ cocci in clusters. He is tachycardic and has a fever Source was unclear yesterday but his left biceps/PICC are has become more tender with increasing erythema His toes look unchanged from yesterday #MSSA Bacteremia/sepsis- now improving/afebrile -echo nl -ID involved, discussed care plan with Dr Rivera today -likely 1 mo IV abx -likely source is left arm cellulitis/thrombophlebitis -repeat Bd Cxs pending -CXR reviewed, no infiltrate #Etoh abuse -refuses detox -cont scheduled vodka, PRN Ativan. #Thrombocytopenia/macrocytic anemia -likely due to Etoh -improving, likely chronic -B vitamins #Frostbite: (admitted by trauma service) -no surgical intervention at this time. -Treat pain with PRN oxycodone, APAP. -Has nerve-component, but has had bad reaction to Neurontin in past -appreciate wound care assistance #Hypothermia: s/p re-warming -procardia/asa #Tobacco abuse disorder >40 pkyr -Cessation counseling provided 09/19 but not interested at this time -nicotine patch in place #Acute hypoxic resp failure: resolved #Cough/LILLY -resolved with Lasix -nl echo #Deconditioning: PT #Scabies/lice, s/p dose permethrin topical -Benadryl/hydroxyzine prn -ID requested ivermectin PO, pharmacy ordered #septic superficial thrombophlebitis -left upper extremity where PICC line was in place. -PICC line now removed catheter tip showing GPCs. -Continue cefazolin per ID #Hypokalemia: resolved DISPO > 2 mdnts bc of need for IV abx s/p bacteremia/sepsis, per CM not able to find a SNF to accept bc of chronic etoh use/refusal to detox so may need to remain hospitalized for entire length of treatment DVT ppx: Lovenox PCP FULL CODE Subjective: Still says he is itchy. Says not eating much, not hungry. Says pain comes in waves, OK with meds. Not very talkative/interactive. Denied sob/CP. Objective: Vital Signs Temp Pulse Resp BP Pulse Ox 98.2 F 107 H 18 106/59 L 96 09/21/17 11:21 09/21/17 11:21 09/21/17 11:21 09/21/17 11:21 09/21/17 11:21 Microbiology 09/19/17 16:55 Blood Panel (PCR) - Final Blood S.aureus Methicillin Suscept. Laboratory Results 09/21/17 04:11 09/21/17 04:11 09/20/17 09/21/17 09/22/17 11:59 11:59 11:59 Intake Total 3215 Output Total 2375 900 Balance -2375 2315 PT 13.4 SEC (12.0-15.0) 09/12/17 10:00 INR 1.00 (0.83-1.16) 09/12/17 10:00 - Time Spent With Patient Time Spent with Patient: greater than 35 minutes Time Spent with Patient: Greater than 35 minutes spent on this patients care, greater than 50% of time spent counseling, educating, and coordinating care regarding the above mentioned plan. - Pending Discharge Pending Discharge Within 48 Hours: No - Physical Exam Constitutional: no apparent distress, chronically ill appearing, unkempt Ears, Nose, Mouth, Throat: moist mucous membranes Cardiovascular: regular rate and rhythym, no murmur, rub, or gallop, No edema Respiratory: no respiratory distress, no rales or rhonchi, clear to auscultation Gastrointestinal: normoactive bowel sounds, soft, non-tender abdomen Skin: warm, other (dressings intact on B feet, did not remove. Scabs/scars on extremities- no crusting/oozing) Musculoskeletal: other (GARCIA) Neurologic: pronator drift (focal) Psychiatric: flat affect ICD10 Worksheet Patient Problems: Problems Problem Status Onset Alcoholism /alcohol abuse Acute Altered mental status Acute Hypothermia Acute Hypothermia Acute Thrombocytopenia Acute Bacteremia Active Peritonitis Active Alcohol withdrawal Acute Alcohol withdrawal syndrome with complication Acute Alcoholic intoxication Acute Alcoholic intoxication Acute Cellulitis Acute Cellulitis and abscess of leg Acute Head injury Acute Neuropathy of left radial nerve Acute Respiratory failure Acute Scabies Acute Weakness of left upper extremity Acute
--- NOTE | 2017-09-21 16:13 | ECHO ---
[email or web address] [address] [address] Main: [phone] Fax: Transthoracic Echocardiogram Name: ARNULFO CALIXTO MR#: [id number] Study Date: 09/21/2017 Study Time: 11:46 AM Date of : 1960 Age: 57 year(s) Height: 182.9 cm (72 in.) Weight: 67.13 kg (148 lb.) BSA: 1.87 m2 Gender: Male Examination: Echo Indication: MSSA Bacteremia, Assess for endocarditis. Hypothermia Image Quality: Contrast: Requested by: Burt Rivera BP: 106 mmHg/59 mmHg Heart Rate: Rhythm: Indication: MSSA Bacteremia, Assess for endocarditis. Hypothermia Procedure Staff Gullet Slitter: Fitz Burnett Reading Physician: Arnulfo Quach Requesting Provider: Conclusions: Normal size left ventricle. Normal global systolic LV function. EF is 70 %. Normal RV function. Mild mitral valve regurgitation is present. The aortic valve is normal in appearance. The tricuspid valve is normal in appearance and function. Measurements: Chambers Valvular Assessment AV/MV Valvular Assessment TV/PV Normal Normal Normal Name Value Range Name Value Range Name Value Range Ao Nolvia (MM): 3.5 cm (2.2 cm-3.7 MV E Vmax: 0.64 m/s ( - ) PV Vmax: 1.57 m/s (0.6 m/s-0.9 cm) MV A Vmax: 0.88 m/s ( - ) m/s) IVSd (2D): 0.8 cm (0.6 cm-1.1 MV E/A: 0.73 ( - ) PV PGmax: 10 mmHg ( - ) cm) LVDd (2D): 4.9 cm (4.2 cm-5.9 cm) LVDs (2D): 3.0 cm (2.1 cm-4 cm) LVPWd (2D): 1.0 cm (0.6 cm-1 cm) LVEF (2D): 70 (>=54 %) Continued Measurements: Chambers Valvular Assessment AV/MV Name Value Name Value LADs Lon.2 cm MV E' Septal: 0.06 m/s Patient: ARNULFO CALIXTO Study Date: 09/21/2017 Page 1 of 2 11:46 AM LA Area: 19.6 cm2 MV E/E' Septal: 10.50 MV E/E' Lateral: 7.70 Findings: Left Ventricle: Normal size left ventricle. Normal global systolic LV function. EF is 70 %. No regional wall motion abnormality. Right Ventricle: Normal size right ventricle. Normal RV function. Left Atrium: The left atrium is normal in size. Right Atrium: The right atrium is normal in size. Mitral Valve: The mitral valve is normal in appearance. Mild mitral valve regurgitation is present. Aortic Valve: The aortic valve is tri-leaflet. The aortic valve is normal in appearance. Tricuspid Valve: The tricuspid valve is normal in appearance and function. Pulmonic Valve: Pulmonary valve not well visualized. Aorta: The aorta is normal. Pericardium: No pericardial effusion. (No Signature Object) Patient: ARNULFO CALIXTO Study Date: 09/21/2017 Page 2 of 2 11:46 AM [id number]
--- NOTE | 2017-09-21 16:19 | ASMTCMCOM ---
CM Note CM Note Notes: Located a 2 wheel walker with the [facility] recommended by PT. Radha will pick it up and bring it to the hospital for the patient tomorrow morning. A message was left for [facility] to see if they can accept patient for care. Awaiting their return call. [facility] has declined patient. Still awaiting response from [facility] and [facility]. CM will follow. Date Signed: 09/21/2017 04:18 PM Electronically Signed By:Leatha Mckenzie LCSW
--- NOTE | 2017-09-21 17:12 | WOCRNPDOC ---
WOCRN Advanced Assessment Note - Skin Integrity Problem, Advanced Assess Right Posterior Heel Dressing Type: Open to Air Wound Bed Color: Black Pressure Injury Stage: Deep Tissue Injury (DTI) Pressure Injury Present on Admit: No Skin Integrity Problem Comment: Reabsorbing sangenous blisters. No drainage or open areas at this time. Patient non compliant per report from RN and refusing offloading boots. Heels were resting on the bed when wound RN rounded. Discussed with patient need to use boots to prevent further damage to feet and or to keep them offloaded on pillows at all times. Patient verbalizes understanding. Wound care will follow. Left Posterior Heel Dressing Type: Open to Air Pressure Injury Stage: Deep Tissue Injury (DTI) Pressure Injury Present on Admit: No Skin Integrity Problem Comment: Reabsorbing sangenous blisters. No drainage or open areas at this time. Right Toe Dressing Type: Kerlix, Mepilex Transfer (between toes) Dressing Description: Clean/Dry, Intact Exudate Amount: Minimal Exudate Characteristic(s): Sanguinous Integumentary Issue Intervention: Dressing Removed (betadine applied.) Ofelia Wound Tissue: Erythema, Swollen Ofelia Wound Swelling: Moderate Wound Bed Color: Black Wound Bed Constitution: Unstable Eschar Skin Integrity Problem Comment: Toes 1,2,4,5 with developing eschar on all distal areas. Third toe still has intact skin but is necrosed underneath. Gauze sticking to areas of the eschar. Will update the orders to telfa over all toes to reduce disturbing the wound bed. Left Toe Dressing Type: Open to Air Skin Integrity Problem Comment: Toes 1, 3, 5 with eschar on tips. First toe with the most damage and 3/4 of plantar area is black/necrotic. No open areas at this time. Painted with Betadine.
--- NOTE | 2017-09-21 17:31 | PCMIDPN ---
Assessment/Plan: Assessment/Plan: * MSSA bacteremia: Likely associated with septic thrombophlebitis of left upper extremity where PICC line was in place. PICC line now removed catheter tip showing GPCs. Continue cefazolin. Repeat blood cultures are pending to assess for clearing of bacteremia. Continue to follow clinical course repeat blood cultures. Hope will clear bacteremia with antibiotic therapy; if fails to clear, then would necessitate possible incision and drainage/vein excision. Echocardiogram without evidence of endocarditis. * Scabies/lice: Multiple applications of permethrin. Recommend discontinuation at this point in time. Pharmacy assisting in obtaining ivermectin which should be available tomorrow for oral dosing to ensure eradication. Pruritis may persist despite effective treatment which is not uncommon. 09/21/17 17:27 09/21/17 17:31 Subjective: Patient having echocardiogram performed during time of my exam. Continued pruritis. Objective: Vital Signs Temp Pulse Resp BP Pulse Ox 36.7 C 112 H 16 107/55 L 16 L 09/21/17 15:48 09/21/17 15:48 09/21/17 15:48 09/21/17 15:48 09/21/17 15:48 Microbiology 09/19/17 16:55 Blood Panel (PCR) - Final Blood S.aureus Methicillin Suscept. Laboratory Results 09/21/17 04:11 09/21/17 04:11 09/20/17 09/21/17 09/22/17 05:59 05:59 05:59 Intake Total 3215 1005 Output Total 1974 1300 500 Balance -1974 1914 505 Cefazolin # 1 Catheter tip with growth of GPC Blood cultures 2/2 MSSA Blood cultures 09/21/17 pending Transthoracic echocardiogram without evidence of endocarditis - Physical Exam General Appearance: alert, no apparent distress EENT: No conjunctival petechiae Respiratory: lungs clear, No respiratory distress Cardiac/Chest: regular rate, rhythm, No systolic murmur Extremities: inflammation (Left upper extremity with warmth, edema and tenderness with faint erythema; no expressible purulence from prior PICC line site) Abdomen: non-tender, No distended Skin: rash (Multiple diffuse excoriations and hyperpigmented scars throughout) ICD10 Worksheet Patient Problems: Problems Problem Status Onset Alcoholism /alcohol abuse Acute Altered mental status Acute Hypothermia Acute Hypothermia Acute Thrombocytopenia Acute Bacteremia Active Peritonitis Active Alcohol withdrawal Acute Alcohol withdrawal syndrome with complication Acute Alcoholic intoxication Acute Alcoholic intoxication Acute Cellulitis Acute Cellulitis and abscess of leg Acute Head injury Acute Neuropathy of left radial nerve Acute Respiratory failure Acute Scabies Acute Weakness of left upper extremity Acute
[2017-09-22] MEDS: oxyCODONE IR 5 MG TAB PO PRN ×6 (01:17→22:28)
[2017-09-22] MEDS: diphenhydrAMINE 25 MG CAP PO PRN (01:17)
[2017-09-22] MEDS: LORazepam 1 MG TAB PO PRN ×2 (01:17→09:46)
[2017-09-22] MEDS: ceFAZolin 2 GM/DEXTROSE 100 ML IV SCH ×3 (05:21→21:39)
[2017-09-22] MEDS ORDERED: hydrOXYzine HCL 25 MG TAB PO PRN (06:43)
[2017-09-22] MEDS: ENOXAPARIN 40 MG/0.4 ML SYR SC SCH (08:46)
[2017-09-22] MEDS: NICOTINE 14 MG/24 HR PATCH TD SCH (08:46)
[2017-09-22] MEDS: VODKA 50 ML BOTTLE PO SCH ×3 (08:47→21:39)
[2017-09-22] MEDS: THIAMINE HCL 100 MG TAB PO SCH (08:47)
[2017-09-22] MEDS: FOLIC ACID 1 MG TAB PO SCH (08:47)
[2017-09-22] MEDS: MULTIVITAMINS 1 EACH TAB PO SCH (08:48)
[2017-09-22] MEDS: NIFEdipine ER 30 MG TAB PO SCH (08:48)
[2017-09-22] MEDS: ASPIRIN EC 81 MG TAB PO SCH (08:48)
--- NOTE | 2017-09-22 09:08 | SOAPPROG ---
SOAP Progress Note Assessment/Plan: Multiple medical issues Hepatitis A, B, C and alcoholic Lice - resp;olimpia ETOH dependence Hypothermia - resolved Supportive care for frostbite - see wound care orders. No signs of infection S: Awake, somewhat depressed Needs to have dressings between toes. Moist between 3rd and 4th toe on right. Left foot is stable. No signs of infection 09/22/17 09:07 Objective: Vital Signs Temp Pulse Resp BP Pulse Ox 37.4 C 98 16 120/69 92 09/22/17 07:39 09/22/17 07:39 09/22/17 07:39 09/22/17 08:48 09/22/17 07:39 Microbiology 09/19/17 16:55 Blood Culture - Final Blood Staphylococcus Aureus Blood Panel (PCR) - Final S.aureus Methicillin Suscept. 09/19/17 16:50 Blood Culture - Final Blood Staphylococcus Aureus Laboratory Results 09/21/17 04:11 09/21/17 04:11 09/21/17 09/22/17 09/23/17 05:59 05:59 05:59 Intake Total 3215 1055 Output Total 1300 1750 700 Balance 1915 -695 -700 PT 13.4 SEC (12.0-15.0) 09/12/17 10:00 INR 1.00 (0.83-1.16) 09/12/17 10:00 ICD10 Worksheet Patient Problems: Problems Problem Status Onset Alcoholism /alcohol abuse Acute Altered mental status Acute Hypothermia Acute Hypothermia Acute Thrombocytopenia Acute Bacteremia Active Peritonitis Active Alcohol withdrawal Acute Alcohol withdrawal syndrome with complication Acute Alcoholic intoxication Acute Alcoholic intoxication Acute Cellulitis Acute Cellulitis and abscess of leg Acute Head injury Acute Neuropathy of left radial nerve Acute Respiratory failure Acute Scabies Acute Weakness of left upper extremity Acute
--- NOTE | 2017-09-22 09:13 | HOSPPROG ---
Hospitalist Progress Note Assessment/Plan: 57 yo male with hx of alcoholism admitted with frostbite to bilateral toes and Hypothermia. Hospitalist consulted for medical management. #MSSA Bacteremia/sepsis- now improving/afebrile -echo nl -ID involved, discussed care plan with Dr Syed today -likely 1 mo IV abx -likely source is left arm cellulitis/thrombophlebitis (repeat US ordered by ID) -repeat Bd Cxs pending -CXR reviewed, no infiltrate #Etoh abuse -considering detox -cont scheduled vodka, PRN clonopin -discussed resp depression with etoh and bdz like valium -says he thinks he has bipolar, has been on 'lots of meds before', but doesn't recall SSRI names, consider trial #Thrombocytopenia/macrocytic anemia -likely due to Etoh/chronic -stable, recheck in AM -B vitamins #Frostbite: (admitted by trauma service) -no surgical intervention at this time -Treat pain with PRN oxycodone (increased dose range), APAP -Has nerve-component, but has had 'bad reaction' to Neurontin in past -appreciate wound care assistance #Hypothermia: s/p re-warming -procardia/asa #Tobacco abuse disorder >40 pkyr -Cessation counseling provided 09/19 but not interested at this time -nicotine patch in place, increased dose at his request #Acute hypoxic resp failure: resolved #Cough/LILLY -resolved with Lasix -nl echo #Deconditioning: PT #Scabies/lice, s/p dose permethrin topical -Benadryl/hydroxyzine prn -ivermectin PO -contact precautions removed per ID #septic superficial thrombophlebitis -left upper extremity where PICC line was in place. -PICC line now removed catheter tip showing GPCs. -Continue cefazolin per ID -repeat US ordered #Hypokalemia: resolved DISPO > 2 mdnts bc of need for IV abx s/p bacteremia/sepsis, per CM not able to find a SNF to accept bc of chronic etoh use/refusal to detox so may need to remain hospitalized for entire length of treatment unless he agrees to detox DVT ppx: Lovenox PCP FULL CODE Subjective: More talkative today. Says not depressed, but wants to talk about meds, maybe valium for anxiety. Will consider detox alcohol 'but not today.' Says painful to walk. No CP/SOB. Objective: Vital Signs Temp Pulse Resp BP Pulse Ox 99.4 F 98 16 120/69 92 09/22/17 07:39 09/22/17 07:39 09/22/17 07:39 09/22/17 08:48 09/22/17 07:39 Microbiology 09/19/17 16:55 Blood Culture - Final Blood Staphylococcus Aureus Blood Panel (PCR) - Final S.aureus Methicillin Suscept. 09/19/17 16:50 Blood Culture - Final Blood Staphylococcus Aureus Laboratory Results 09/21/17 04:11 09/21/17 04:11 09/20/17 09/21/17 09/22/17 11:59 11:59 11:59 Intake Total 3215 1055 Output Total 2375 900 2450 Balance -2375 2315 -1395 PT 13.4 SEC (12.0-15.0) 09/12/17 10:00 INR 1.00 (0.83-1.16) 09/12/17 10:00 - Time Spent With Patient Time Spent with Patient: greater than 35 minutes Time Spent with Patient: Greater than 35 minutes spent on this patients care, greater than 50% of time spent counseling, educating, and coordinating care regarding the above mentioned plan. - Pending Discharge Pending Discharge Within 24 Hours: No - Physical Exam Constitutional: no apparent distress, unkempt Ears, Nose, Mouth, Throat: moist mucous membranes Cardiovascular: regular rate and rhythym Respiratory: no respiratory distress, no rales or rhonchi, clear to auscultation Gastrointestinal: normoactive bowel sounds, soft, non-tender abdomen, No guarding, No rebound, No distension Skin: other (scabs/excoriations, B feet/toes with black necrosis and dressing covering) Psychiatric: interacting appropriately, not encephalopathic, flat affect ICD10 Worksheet Patient Problems: Problems Problem Status Onset Alcoholism /alcohol abuse Acute Altered mental status Acute Hypothermia Acute Hypothermia Acute Thrombocytopenia Acute Bacteremia Active Peritonitis Active Alcohol withdrawal Acute Alcohol withdrawal syndrome with complication Acute Alcoholic intoxication Acute Alcoholic intoxication Acute Cellulitis Acute Cellulitis and abscess of leg Acute Head injury Acute Neuropathy of left radial nerve Acute Respiratory failure Acute Scabies Acute Weakness of left upper extremity Acute
[2017-09-22] MEDS ORDERED: IVERMECTIN 3 MG TAB PO ONE ×2 (15:15)
--- NOTE | 2017-09-22 16:47 | ASMTCMCOM ---
CM Note CM Note Notes: Gave patient the 2wheel walker and let him know it was his for personal use and he can take it with him at d/c. Patient was grateful and tearful saying he hadn't had an advocate ever in his life.Search for a SNF placement continues. Spoke with Chata from [facility] who met with patient and states he is approved, no Pasrr needed. If we get an acceptance, we need to call her at [phone] so she can forward ULTC 100 to the facility. Messages were left at [facility] and [facility]. They have not called back. [facility] has said no. Patient has been turned down by 10 facilities so far. CM will follow. Date Signed: 09/22/2017 04:46 PM Electronically Signed By:Leatha Mckenzie LCSW
--- NOTE | 2017-09-22 16:57 | PCMIDPN ---
Assessment/Plan: # Sepsis due to Line infection with MSSA, complicated by likely superficial septic thrombophlebitis left upper arm. PICC line is removed. Sepsis physiology resolved. Noted SM on exam but ECHO negative for significant valve abn. Clot L upper arm, surprisingly tender and extensive --Blood cx 09/21 pending to assess clearance. --repeat US LUE to monitor extent of clot # Scabies/lice s/p ivermectin today and s/p multiple applications of permethrin. # Active low level HBV but clearance of HCV with HCV ab + but negative VL. HIV negative micro 09/21 blood cx (2) NGTD 09/20 Cath tip cx MSSA 09/19 Blood cx (2) MSSA meds cefazolin 2gm IV q8h #2 Subjective: patient c/o toe pain Objective: Vital Signs Temp Pulse Resp BP Pulse Ox 36.7 C 97 16 113/66 92 09/22/17 15:17 09/22/17 15:17 09/22/17 15:17 09/22/17 15:17 09/22/17 15:17 Microbiology 09/19/17 16:55 Blood Culture - Final Blood Staphylococcus Aureus Blood Panel (PCR) - Final S.aureus Methicillin Suscept. 09/19/17 16:50 Blood Culture - Final Blood Staphylococcus Aureus Laboratory Results 09/21/17 04:11 09/21/17 04:11 09/21/17 09/22/17 09/23/17 05:59 05:59 05:59 Intake Total 3215 1055 Output Total 1300 1750 900 Balance 1631 -649 -900 - Physical Exam General Appearance: alert, no apparent distress, thin Cardiac/Chest: regular rate, rhythm, systolic murmur Extremities: necrosis (toes L>R), other (Palable, tender clot L medial upper arm , no fluctuance) Peripheral Pulses: 2+: dorsalis-pedis (R), dorsalis-pedis (L) Abdomen: non-tender, soft Skin: pallor, other (multiple areas of skin picking), No rash Neuro/Psych: alert, normal mood/affect, oriented x 3 - Line/s other Lines: erythema (L wrist) - Time Spent With Patient Time Spent with Patient: greater than 35 minutes Time Spent with Patient: Greater than 35 minutes spent on this patients care, greater than 50% of time spent counseling, educating, and coordinating care regarding the above mentioned plan. ICD10 Worksheet Patient Problems: Problems Problem Status Onset Alcoholism /alcohol abuse Acute Altered mental status Acute Hypothermia Acute Hypothermia Acute Thrombocytopenia Acute Bacteremia Active Peritonitis Active Alcohol withdrawal Acute Alcohol withdrawal syndrome with complication Acute Alcoholic intoxication Acute Alcoholic intoxication Acute Cellulitis Acute Cellulitis and abscess of leg Acute Head injury Acute Neuropathy of left radial nerve Acute Respiratory failure Acute Scabies Acute Weakness of left upper extremity Acute
[2017-09-22] MEDS: clonazePAM 0.5 MG TAB PO PRN (17:26)
[2017-09-22] MEDS: NICOTINE 21 MG/24 HR PATCH TD SCH (17:27)
[2017-09-23] MEDS: oxyCODONE IR 5 MG TAB PO PRN ×5 (04:19→22:31)
[2017-09-23 05:35] LABS: PLATELET COUNT 536 10^3/uL (150-400)
[2017-09-23] MEDS: ceFAZolin 2 GM/DEXTROSE 100 ML IV SCH ×3 (06:23→21:02)
[2017-09-23] MEDS: diphenhydrAMINE 25 MG CAP PO PRN ×3 (06:23→20:56)
--- NOTE | 2017-09-23 07:36 | HOSPPROG ---
Hospitalist Progress Note Assessment/Plan: XC: Notified by RN of catheter associated DVT (subclavian, axillary. brachial) in LUE. PICC now removed. Per ACCP guidelines will start treatment dose Lovenox. Objective: Vital Signs Temp Pulse Resp BP Pulse Ox 36.7 C 83 18 125/75 H 95 09/23/17 07:14 09/23/17 07:14 09/23/17 07:14 09/23/17 07:14 09/23/17 07:14 Microbiology 09/20/17 12:50 Catheter Tip Culture - Final Catheter Tip Staphylococcus Aureus 09/19/17 16:55 Blood Culture - Final Blood Staphylococcus Aureus Blood Panel (PCR) - Final S.aureus Methicillin Suscept. 09/19/17 16:50 Blood Culture - Final Blood Staphylococcus Aureus Laboratory Results 09/23/17 04:21 09/23/17 04:21 09/22/17 09/23/17 09/24/17 05:59 05:59 05:59 Intake Total 1055 450 200 Output Total 1750 2600 Balance -695 -2150 200 PT 13.4 SEC (12.0-15.0) 09/12/17 10:00 INR 1.00 (0.83-1.16) 09/12/17 10:00 ICD10 Worksheet Patient Problems: Problems Problem Status Onset Alcoholism /alcohol abuse Acute Altered mental status Acute Hypothermia Acute Hypothermia Acute Thrombocytopenia Acute Bacteremia Active Peritonitis Active Alcohol withdrawal Acute Alcohol withdrawal syndrome with complication Acute Alcoholic intoxication Acute Alcoholic intoxication Acute Cellulitis Acute Cellulitis and abscess of leg Acute Head injury Acute Neuropathy of left radial nerve Acute Respiratory failure Acute Scabies Acute Weakness of left upper extremity Acute
[2017-09-23] MEDS ORDERED: ENOXAPARIN 80 MG/0.8 ML SYR SC SCH (09:00)
[2017-09-23] MEDS ORDERED: ALTEPLASE 2 MG VIAL IVP PRN (09:12)
[2017-09-23] MEDS: NIFEdipine ER 30 MG TAB PO SCH (09:14)
[2017-09-23] MEDS: THIAMINE HCL 100 MG TAB PO SCH (09:15)
[2017-09-23] MEDS: ENOXAPARIN 80 MG/0.8 ML SYR SC SCH ×2 (09:15→20:55)
[2017-09-23] MEDS: VODKA 50 ML BOTTLE PO SCH ×3 (09:15→20:56)
[2017-09-23] MEDS: ASPIRIN EC 81 MG TAB PO SCH (09:15)
[2017-09-23] MEDS: FOLIC ACID 1 MG TAB PO SCH (09:15)
[2017-09-23] MEDS: MULTIVITAMINS 1 EACH TAB PO SCH (09:15)
[2017-09-23] MEDS: NICOTINE 21 MG/24 HR PATCH TD SCH (09:16)
--- NOTE | 2017-09-23 09:21 | TRAUMAPN ---
- Problem/Surgery Performed (1) Hypothermia Assessment/Plan: resolved Qualifiers: Encounter type: initial encounter Qualified Code(s): T68.XXXA - Hypothermia , initial encounter (2) Thrombocytopenia Assessment/Plan: resolved (3) Alcoholism /alcohol abuse Assessment/Plan: no evidence of withdrawal on maintenance EtOH (4) Frostbite of both feet Assessment/Plan: stable to improved/superficial eschar separation with viable tissue underneath anticipate full recovery with time (5) DVT of upper extremity (deep vein thrombosis) Assessment/Plan: Started on Lovenox 1mg/kg BID no clinical signs of phlegmasia cerrulia dolens Qualifiers: Affected thrombotic vein of extremity: axillary Chronicity: acute Laterality: left Qualified Code(s): I82.A12 - Acute embolism and thrombosis of left axillary vein Assessment/Plan: admitted to trauma service for management of hypothermia-resolved bilateral distal toe frostbite alcoholism LUE DVT without compromise MSSA sepsi-discussed with Dr. Yahaira ochoa Rec: RUE PICC continue ASA/Nifedipine for frostbite-local wound care Abx. per ID CM follow up for usp placment Objective: Vital Signs Temp Pulse Resp BP Pulse Ox 36.7 C 83 18 125/75 H 95 09/23/17 07:14 09/23/17 07:14 09/23/17 07:14 09/23/17 07:14 09/23/17 07:14 Microbiology 09/20/17 12:50 Catheter Tip Culture - Final Catheter Tip Staphylococcus Aureus 09/19/17 16:55 Blood Culture - Final Blood Staphylococcus Aureus Blood Panel (PCR) - Final S.aureus Methicillin Suscept. 09/19/17 16:50 Blood Culture - Final Blood Staphylococcus Aureus Laboratory Results 09/23/17 04:21 09/23/17 04:21 09/22/17 09/23/17 09/24/17 05:59 05:59 05:59 Intake Total 1055 450 200 Output Total 1750 2600 Balance -695 -2150 200 PT 13.4 SEC (12.0-15.0) 09/12/17 10:00 INR 1.00 (0.83-1.16) 09/12/17 10:00 - C-Spine Clearance Cervical Spine Cleared: Yes Provider who Cleared Cervical Spine: Devonte Physical Exam - Physical Exam General Appearance: alert, mild distress Respiratory: lungs clear Cardiac/Chest: regular rate, rhythm Peripheral Pulses: 3+: dorsalis-pedis (R), dorsalis-pedis (L) Abdomen: non-tender, soft Male Genitalia: deferred Rectal: deferred Skin: warm/dry Extremities: other (mild swelling and tenderness left medial upper arm extending to the axilla with palpable cord, IV left wrist/R 1-5 digits with full thickness eschar L 1-3 digits with full thickness eschar-dressed with vaseline gauze and Kerlix)
--- NOTE | 2017-09-23 11:24 | PCMIDPN ---
Assessment/Plan: Assessment: Sepsis secondary to MSSA due to PICC line infection left upper extremity. This PICC line infection is also manifest with venous thrombus. Initially venous thrombus was felt to be superficial but re-evaluation by ultrasound revealed has extended into veins. This with Dr. Monzon about increasing anticoagulation therapy. Meanwhile patient will continue on cefazolin 2 g IV q.8 hours. Plan: 1. Continue cefazolin 2 g IV q.8 hours. 2. Increase Lovenox dose. 3. Follow appearance of left upper extremity. Follow-up repeat blood cultures. 09/23/17 11:22 09/23/17 11:23 Subjective: Patient is walking around his room. States that his left upper extremity is still painful but improving. No fevers or chills. Objective: Cefazolin # 3 Vital Signs Temp Pulse Resp BP Pulse Ox 36.7 C 83 18 125/75 H 95 09/23/17 07:14 09/23/17 07:14 09/23/17 07:14 09/23/17 09:14 09/23/17 07:14 Microbiology 09/20/17 12:50 Catheter Tip Culture - Final Catheter Tip Staphylococcus Aureus 09/19/17 16:55 Blood Culture - Final Blood Staphylococcus Aureus Blood Panel (PCR) - Final S.aureus Methicillin Suscept. 09/19/17 16:50 Blood Culture - Final Blood Staphylococcus Aureus Laboratory Results 09/23/17 04:21 09/23/17 04:21 09/22/17 09/23/17 09/24/17 05:59 05:59 05:59 Intake Total 1055 450 200 Output Total 1750 2600 Balance -695 -2150 200 - Physical Exam General Appearance: WD/WN, alert, no apparent distress, thin, non-toxic Respiratory: lungs clear, normal breath sounds, No respiratory distress Cardiac/Chest: regular rate, rhythm, No tachycardia Extremities: No non-tender, No normal inspection (Left upper extremity with cord in the upper arm medial aspect.), No necrosis, No erythema Skin: normal color, warm/dry, No rash Neuro/Psych: alert, normal mood/affect, oriented x 3 ICD10 Worksheet Patient Problems: Problems Problem Status Onset Alcoholism /alcohol abuse Acute Altered mental status Acute DVT of upper extremity (deep vein thrombosis) Acute Frostbite of both feet Acute Hypothermia Acute Hypothermia Acute Staphylococcus aureus sepsis Acute Thrombocytopenia Acute Bacteremia Active Peritonitis Active Alcohol withdrawal Acute Alcohol withdrawal syndrome with complication Acute Alcoholic intoxication Acute Alcoholic intoxication Acute Cellulitis Acute Cellulitis and abscess of leg Acute Head injury Acute Neuropathy of left radial nerve Acute Respiratory failure Acute Scabies Acute Weakness of left upper extremity Acute
[2017-09-23] MEDS ORDERED: PANTOPRAZOLE SODIUM 40 MG TAB PO ONE (11:43)
[2017-09-23] MEDS ORDERED: ONDANSETRON DISINTEGRATING 4 MG TAB PO PRN (11:43)
[2017-09-23] MEDS ORDERED: ONDANSETRON 4 MG/2 ML VIAL IVP PRN (11:43)
[2017-09-23] MEDS: clonazePAM 0.5 MG TAB PO PRN (14:18)
--- NOTE | 2017-09-23 15:13 | HOSPPROG ---
Hospitalist Progress Note Assessment/Plan: 57 yo male with hx of alcoholism admitted with frostbite to bilateral toes and Hypothermia. Hospitalist consulted for medical management. #MSSA Bacteremia/sepsis- now improving/afebrile -echo nl -ID involved, discussed care plan with Dr Badillo today -likely 1 mo IV abx -likely source is left arm cellulitis/thrombophlebitis and PICC -repeat Bd Cxs NTD -CXR reviewed, no infiltrate # LUE DVT -increase lovenox to BID -start coumadin, pharmacy to dose -stop ASA #Etoh abuse -considering detox -cont scheduled vodka but slight decrease to amount, PRN Klonopin -discussed serious risks of resp depression with etoh and bdz like valium -says he thinks he has bipolar, has been on 'lots of meds before', but doesn't recall SSRI names, consider trial -revwd with CM, they will FU with him also re possible detox as have a SNF that would accept him if off etoh #Thrombocytopenia/macrocytic anemia -likely due to Etoh/chronic -stable, iron OK -B vitamins #Frostbite: (admitted by trauma service) -no surgical intervention at this time, discussed with Dr Whitney -Treat pain with PRN oxycodone, APAP -Has nerve-component, but has had 'bad reaction' to Neurontin in past -appreciate wound care assistance #Hypothermia: s/p re-warming -procardia/asa but stopped ASA today bc of anti coag treatment now #Tobacco abuse disorder >40 pkyr -Cessation counseling provided 09/19 but not interested at this time -nicotine patch #Acute hypoxic resp failure: resolved #Cough/LILLY -resolved with Lasix -nl echo #Deconditioning: PT #Scabies/lice, s/p dose permethrin topical -Benadryl/hydroxyzine prn -ivermectin PO -contact precautions removed per ID #Hypokalemia: resolved DISPO > 2 mdnts bc of need for IV abx s/p bacteremia/sepsis and DVT treatment, per CM not able to find a SNF to accept bc of chronic etoh use/refusal to detox so may need to remain hospitalized for entire length of treatment unless he agrees to detox PCP FULL CODE Subjective: Pain in L arm and B toes. Says klonopin helped a little but 'hasn't slept in weeks.' No CP/SOB/v/d. Doesn't want to detox as says 'that's easy' and he can do it any time after leaving hospital. Objective: Vital Signs Temp Pulse Resp BP Pulse Ox 98 F 104 H 18 96/63 L 93 09/23/17 11:30 09/23/17 11:30 09/23/17 11:30 09/23/17 11:30 09/23/17 11:30 Microbiology 09/20/17 12:50 Catheter Tip Culture - Final Catheter Tip Staphylococcus Aureus Laboratory Results 09/23/17 04:21 09/23/17 04:21 09/22/17 09/23/17 09/24/17 11:59 11:59 11:59 Intake Total 1055 650 Output Total 2650 1700 Balance -1595 -1050 PT 13.4 SEC (12.0-15.0) 09/12/17 10:00 INR 1.00 (0.83-1.16) 09/12/17 10:00 - Time Spent With Patient Time Spent with Patient: greater than 25 minutes Time Spent with Patient: Greater than 25 minutes spent on this patients care, greater than 50% of time spent counseling, educating, and coordinating care regarding the above mentioned plan. - Pending Discharge Pending Discharge Within 24 Hours: No - Physical Exam Constitutional: uncomfortable, unkempt Eyes: anicteric sclera Ears, Nose, Mouth, Throat: moist mucous membranes Cardiovascular: regular rate and rhythym, no murmur, rub, or gallop Respiratory: no respiratory distress, no rales or rhonchi, clear to auscultation Gastrointestinal: soft, non-tender abdomen Skin: other (B feet in dressing, L UE with palpable cord) Psychiatric: interacting appropriately, flat affect ICD10 Worksheet Patient Problems: Problems Problem Status Onset Alcoholism /alcohol abuse Acute Altered mental status Acute DVT of upper extremity (deep vein thrombosis) Acute Frostbite of both feet Acute Hypothermia Acute Hypothermia Acute Staphylococcus aureus sepsis Acute Thrombocytopenia Acute Bacteremia Active Peritonitis Active Alcohol withdrawal Acute Alcohol withdrawal syndrome with complication Acute Alcoholic intoxication Acute Alcoholic intoxication Acute Cellulitis Acute Cellulitis and abscess of leg Acute Head injury Acute Neuropathy of left radial nerve Acute Respiratory failure Acute Scabies Acute Weakness of left upper extremity Acute
--- NOTE | 2017-09-23 16:49 | ASMTCMCOM ---
CM Note CM Note Notes: Today Nyasia from [facility] states Pt. can be admitted to BM if he weans completely off vodka at [facility]. already mentioned working w/ Pt. about weaning today. [facility]. Pt. open to trying to we[facility], but states he can get over using ETOH in a matter of a few days. Pt. open to [facility] if he needs to go, but his first choice is to go back to the [facility] where he feels he would have more freedom. Pt. states [facility] is an unknown to him and this causes some distress. Discussed Pt's Christian beliefs and philosophy. Offered Personal Care Aide for support. Pt. OK with SWer coming to see him tomorrow to discuss possible Personal Care Aide referral further. Not ready yet. Pt. states he is having visual and auditory hallucinations, as per usual, in reference to his spiritual quest. States the hallucinations are of a positive nature. Per MD, Pt. has developed a clot in the area of his picc line infection and will be on IV antibiotics for some time. Pt. showed me his blackened frostbitten toes. CM to follow for d/c POC. Date Signed: 09/23/2017 04:48 PM Electronically Signed By:Dior Wayne LCSW
[2017-09-23] MEDS: WARFARIN SODIUM 5 MG TAB PO SCH (17:04)
[2017-09-23] MEDS: clonazePAM 1 MG TAB PO SCH (20:56)
[2017-09-24] MEDS: oxyCODONE IR 5 MG TAB PO PRN ×5 (05:16→21:51)
[2017-09-24] MEDS: ceFAZolin 2 GM/DEXTROSE 100 ML IV SCH ×3 (05:16→21:52)
[2017-09-24 05:42] LABS: INR 1.06 (0.83-1.16)
[2017-09-24] MEDS: THIAMINE HCL 100 MG TAB PO SCH (09:14)
[2017-09-24] MEDS: FOLIC ACID 1 MG TAB PO SCH (09:14)
[2017-09-24] MEDS: NIFEdipine ER 30 MG TAB PO SCH (09:14)
[2017-09-24] MEDS: VODKA 50 ML BOTTLE PO SCH ×3 (09:15→21:51)
[2017-09-24] MEDS: NICOTINE 21 MG/24 HR PATCH TD SCH (09:15)
[2017-09-24] MEDS: clonazePAM 1 MG TAB PO SCH ×2 (09:15→21:51)
[2017-09-24] MEDS: ENOXAPARIN 80 MG/0.8 ML SYR SC SCH ×2 (09:15→21:50)
[2017-09-24] MEDS: MULTIVITAMINS 1 EACH TAB PO SCH (09:15)
--- NOTE | 2017-09-24 09:23 | PCMIDPN ---
Assessment/Plan: # Sepsis due to Line infection with MSSA, complicated by likely septic thrombophlebitis left upper arm. Sepsis resolved and 09/21 blood cx remain negative. Last fever 09/20/2017. No new labs today --4 weeks IV antibiotics --full anticoagulation --ID to every couple days # Scabies/lice s/p ivermectin today and s/p multiple applications of permethrin. # Active low level HBV but clearance of HCV with HCV ab + but negative VL. -- HIV negative 06/29, will repeat # Lu bite toes micro 09/21 blood cx (2) NGTD 09/20 Cath tip cx MSSA 09/19 Blood cx (2) MSSA meds cefazolin 2gm IV q8h #4 Subjective: patient c/o L arm pain took shower this AM no diarrhea Objective: Vital Signs Temp Pulse Resp BP Pulse Ox 37.1 C 95 14 103/75 92 09/24/17 08:00 09/24/17 08:00 09/24/17 08:00 09/24/17 08:00 09/24/17 08:00 Microbiology 09/20/17 12:50 Catheter Tip Culture - Final Catheter Tip Staphylococcus Aureus Laboratory Results 09/23/17 04:21 09/23/17 04:21 09/23/17 09/24/17 09/25/17 05:59 05:59 05:59 Intake Total 450 300 Output Total 2600 900 100 Balance -2150 -600 -100 - Physical Exam General Appearance: alert, no apparent distress, thin EENT: poor dentition Respiratory: lungs clear, No accessory muscle use Cardiac/Chest: regular rate, rhythm Extremities: swelling (firm swelling and tenderness LUE, palpable cord medial upper arm, no erythema), necrosis (toes c/w lu bite, no associated erythema) Peripheral Pulses: 2+: dorsalis-pedis (R), dorsalis-pedis (L) Abdomen: non-tender, soft Skin: warm/dry, pallor, No rash Neuro/Psych: alert, normal mood/affect - Line/s RUE PICC Lines: No drainage, No erythema - Time Spent With Patient Time Spent with Patient: greater than 35 minutes Time Spent with Patient: Greater than 35 minutes spent on this patients care, greater than 50% of time spent counseling, educating, and coordinating care regarding the above mentioned plan. ICD10 Worksheet Patient Problems: Problems Problem Status Onset Alcoholism /alcohol abuse Acute Altered mental status Acute DVT of upper extremity (deep vein thrombosis) Acute Frostbite of both feet Acute Hypothermia Acute Hypothermia Acute Staphylococcus aureus sepsis Acute Thrombocytopenia Acute Bacteremia Active Peritonitis Active Alcohol withdrawal Acute Alcohol withdrawal syndrome with complication Acute Alcoholic intoxication Acute Alcoholic intoxication Acute Cellulitis Acute Cellulitis and abscess of leg Acute Head injury Acute Neuropathy of left radial nerve Acute Respiratory failure Acute Scabies Acute Weakness of left upper extremity Acute
[2017-09-24] MEDS: diphenhydrAMINE 25 MG CAP PO PRN (09:30)
--- NOTE | 2017-09-24 14:34 | ASMTCMCOM ---
CM Note CM Note Notes: Today Daor called [place] [employer] to try to find Pt's belongings. No luck, but SWer did find Pt's belongings with [facility] Security. Security states they will bring Pt's belongings to his room. SWer let Pt. know. He was very pleased. Pt. let SWer know he would prefer to go to [facility] at d/c, [facility]. SWer let [facility] Chata Perry know that Pt. may have Bipolar disorder (per MD note) and that yesterday he shared with SWer that he has active visual and auditory hallucinations. Per Pt. hallucinations are positive and related to his "spiritual quest". Pt. did not want to speak w/ Plumbing Drafter today. Daor called [facility] RN, [employer] to consult on Pt's possible psychosis due to hallucinations. Left msg. Khalil back in office tomorrow, 09/25/17. SW to follow. states Pt. will be at [facility] for quite some time due to his anticoagulation and IV therapies. Date Signed: 09/24/2017 02:33 PM Electronically Signed By:Dior Wayne LCSW
--- NOTE | 2017-09-24 14:41 | HOSPPROG ---
Hospitalist Progress Note Assessment/Plan: 57 yo male with hx of alcoholism admitted with frostbite to bilateral toes and Hypothermia. Hospitalist consulted for medical management. Sepsis due to line infection with MSSA complicated by septic thrombophlebitis of the left upper arm. Last fever was on 09/20. #MSSA Bacteremia/sepsis- now improving/afebrile -echo nl -ID involved, 4 weeks of antibiotics or plan. -likely 1 mo IV abx -likely source is left arm cellulitis/thrombophlebitis and PICC -repeat Bd Cxs NTD -CXR reviewed, no infiltrate # LUE DVT -increase lovenox to BID -start coumadin, pharmacy to dose -stop ASA #Etoh abuse -considering detox, patient denies he has an alcoholic although he requests that we continue his vodka. Plan would be did diminish this. -cont scheduled vodka but slight decrease to amount, PRN Klonopin -discussed serious risks of resp depression with etoh and bdz like valium -says he thinks he has bipolar, has been on 'lots of meds before', but doesn't recall SSRI names, consider trial -revwd with CM, they will FU with him also re possible detox as have a SNF that would accept him if off etoh #Thrombocytopenia/macrocytic anemia -likely due to Etoh/chronic -stable, iron OK -B vitamins #Frostbite: (admitted by trauma service) -no surgical intervention at this time, discussed with Dr Whitney -Treat pain with PRN oxycodone, APAP -Has nerve-component, but has had 'bad reaction' to Neurontin in past -appreciate wound care assistance #Hypothermia: s/p re-warming -procardia/asa but stopped ASA today bc of anti coag treatment now #Tobacco abuse disorder >40 pkyr -Cessation counseling provided 09/19 but not interested at this time -nicotine patch #Acute hypoxic resp failure: resolved #Cough/LILLY -resolved with Lasix -nl echo #Deconditioning: PT #Scabies/lice, s/p dose permethrin topical -Benadryl/hydroxyzine prn -ivermectin PO -contact precautions removed per ID #Hypokalemia: resolved Subjective: No particular complaints other than he does not want me to diminish his vodka. He reports the toes are painful but cannot tolerate Neurontin. Denies cough today. No fever Objective: Vital Signs Temp Pulse Resp BP Pulse Ox 37.1 C 95 14 103/75 92 09/24/17 08:00 09/24/17 08:00 09/24/17 08:00 09/24/17 09:14 09/24/17 08:00 Laboratory Results 09/23/17 04:21 09/23/17 04:21 09/23/17 09/24/17 09/25/17 05:59 05:59 05:59 Intake Total 450 300 Output Total 2600 900 100 Balance -2150 -600 -100 PT 14.0 SEC (12.0-15.0) 09/24/17 05:10 INR 1.06 (0.83-1.16) 09/24/17 05:10 - Time Spent With Patient Time Spent with Patient: greater than 35 minutes Time Spent with Patient: Greater than 35 minutes spent on this patients care, greater than 50% of time spent counseling, educating, and coordinating care regarding the above mentioned plan. - Pending Discharge Pending Discharge Within 24 Hours: No Pending Discharge Within 48 Hours: No - Physical Exam Constitutional: no apparent distress, chronically ill appearing Eyes: PERRL, anicteric sclera Ears, Nose, Mouth, Throat: moist mucous membranes, hearing normal Cardiovascular: regular rate and rhythym, no murmur, rub, or gallop Respiratory: no respiratory distress, no rales or rhonchi, clear to auscultation Gastrointestinal: normoactive bowel sounds, soft, non-tender abdomen Skin: other (Left arm is slightly tender in the upper arm. Frostbite is noted of his toes.) Neurologic: AAOx3, CN II-XII Intact Psychiatric: interacting appropriately ICD10 Worksheet Patient Problems: Problems Problem Status Onset Alcoholism /alcohol abuse Acute Altered mental status Acute DVT of upper extremity (deep vein thrombosis) Acute Frostbite of both feet Acute Hypothermia Acute Hypothermia Acute Staphylococcus aureus sepsis Acute Thrombocytopenia Acute Bacteremia Active Peritonitis Active Alcohol withdrawal Acute Alcohol withdrawal syndrome with complication Acute Alcoholic intoxication Acute Alcoholic intoxication Acute Cellulitis Acute Cellulitis and abscess of leg Acute Head injury Acute Neuropathy of left radial nerve Acute Respiratory failure Acute Scabies Acute Weakness of left upper extremity Acute
[2017-09-24] MEDS: WARFARIN SODIUM 5 MG TAB PO SCH (16:49)
[2017-09-24 19:35] LABS: HIV TYPE 1 AND 2 NEGATIVE (NEGATIVE)
--- NOTE | 2017-09-24 20:05 | TRAUMAPN ---
Assessment/Plan: Assessment/Plan: 57-year-old homeless male with bilateral lower extremity frostbite to the tips of toes, right greater than left - toes improving. R with greater burden than L. feet warm, palpable pulses. - medical Tx of scabies, lice - on IV abx for MSSA - nothing new surgical 09/17/17 12:17 Subjective: no complaints Objective: Vital Signs Temp Pulse Resp BP Pulse Ox 36.5 C 92 16 93/67 L 93 09/24/17 16:00 09/24/17 16:00 09/24/17 16:00 09/24/17 16:00 09/24/17 16:00 Laboratory Results 09/23/17 04:21 09/23/17 04:21 09/23/17 09/24/17 09/25/17 05:59 05:59 05:59 Intake Total 450 300 0 Output Total 2600 900 100 Balance -2150 -600 -100 PT 14.0 SEC (12.0-15.0) 09/24/17 05:10 INR 1.06 (0.83-1.16) 09/24/17 05:10 - C-Spine Clearance Cervical Spine Cleared: Yes Provider who Cleared Cervical Spine: Devonte
[2017-09-25] MEDS: ceFAZolin 2 GM/DEXTROSE 100 ML IV SCH ×3 (05:13→21:36)
[2017-09-25] MEDS: oxyCODONE IR 5 MG TAB PO PRN ×5 (05:13→21:57)
[2017-09-25 05:50] LABS: INR 1.86 (0.83-1.16); PROTIME(PATIENT) 21.5 SEC (12.0-15.0)
[2017-09-25] MEDS: clonazePAM 1 MG TAB PO SCH ×2 (07:45→21:36)
[2017-09-25] MEDS: MULTIVITAMINS 1 EACH TAB PO SCH (07:45)
[2017-09-25] MEDS: FOLIC ACID 1 MG TAB PO SCH (07:46)
[2017-09-25] MEDS: THIAMINE HCL 100 MG TAB PO SCH (07:46)
[2017-09-25] MEDS: VODKA 50 ML BOTTLE PO SCH ×2 (07:47→16:56)
[2017-09-25] MEDS: NICOTINE 21 MG/24 HR PATCH TD SCH (07:56)
[2017-09-25] MEDS: NIFEdipine ER 30 MG TAB PO SCH (07:56)
[2017-09-25] MEDS: ENOXAPARIN 80 MG/0.8 ML SYR SC SCH ×2 (07:56→21:36)
--- NOTE | 2017-09-25 09:25 | PCMIDPN ---
Assessment/Plan: 1. MSSA sepsis secondary to line infection complicated by septic thrombophlebitis: Repeat blood cultures are sterile. Continue Ancef as is. Stop date October 18. HIV negative. Anticoagulated. 2. Scabies: Status post multiple applications of permethrin and oral ivermectin. Pruritus will continue for several weeks after successful treatment as outlined previously by Dr. Rivera. 09/25/17 09:25 Subjective: Tells me "I do not know how I am doing. "Complaining of constipation. Still itching. Objective: Ancef 2 g IV q.8 hours day for Afebrile Vital Signs Temp Pulse Resp BP Pulse Ox 36.6 C 91 18 105/67 98 09/25/17 07:50 09/25/17 07:50 09/25/17 07:50 09/25/17 07:56 09/25/17 07:50 Laboratory Results 09/23/17 04:21 09/23/17 04:21 09/24/17 09/25/17 09/26/17 05:59 05:59 05:59 Intake Total 300 100 100 Output Total 900 1500 Balance -600 -1400 100 Blood cultures September 21 no growth - Physical Exam General Appearance: alert, no apparent distress EENT: No scleral icterus, No thrush Respiratory: lungs clear Cardiac/Chest: regular rate, rhythm, No systolic murmur Extremities: other (Left upper extremity at previous PICC site with palpable cord that is quite tender. No overlying erythema.) Abdomen: non-tender, soft Skin: other (Multiple tattoos. Lu bite over his toes bilaterally. No new rashes.) ICD10 Worksheet Patient Problems: Problems Problem Status Onset Alcoholism /alcohol abuse Acute Altered mental status Acute DVT of upper extremity (deep vein thrombosis) Acute Frostbite of both feet Acute Hypothermia Acute Hypothermia Acute Staphylococcus aureus sepsis Acute Thrombocytopenia Acute Bacteremia Active Peritonitis Active Alcohol withdrawal Acute Alcohol withdrawal syndrome with complication Acute Alcoholic intoxication Acute Alcoholic intoxication Acute Cellulitis Acute Cellulitis and abscess of leg Acute Head injury Acute Neuropathy of left radial nerve Acute Respiratory failure Acute Scabies Acute Weakness of left upper extremity Acute
[2017-09-25] MEDS: diphenhydrAMINE 25 MG CAP PO PRN (09:41)
--- NOTE | 2017-09-25 15:08 | HOSPPROG ---
Hospitalist Progress Note Assessment/Plan: 57 yo male with hx of alcoholism admitted with frostbite to bilateral toes and Hypothermia. Hospitalist consulted for medical management. Sepsis due to line infection with MSSA complicated by septic thrombophlebitis of the left upper arm. Last fever was on 09/20. Patient continues to be ambulatory with protective boots. He is afebrile and undergoes daily dressing changes. #MSSA Bacteremia/sepsis- now improving/afebrile -echo nl -ID involved, 4 weeks of antibiotics or plan. Last antibiotic will be on October 18 -likely source is left arm cellulitis/thrombophlebitis and PICC -repeat Bd Cxs NTD -CXR reviewed, no infiltrate # LUE DVT -increase lovenox to BID -start coumadin, pharmacy to dose, INR today 1.8 will continue Lovenox #Etoh abuse -considering detox, patient denies he has an alcoholic although he requests that we continue his vodka. Plan would be did diminish this. -cont scheduled vodka, decreasing to 20 mL is twice daily and will continue to use Klonopin. -says he thinks he has bipolar, has been on 'lots of meds before', but doesn't recall SSRI names, consider trial; Simran Lowndes his seen for psychiatry but will not complete her report until 09/28 -revwd with CM; [facility] accept the these off alcohol so the alcohol will be diminished and then stop. Patient has been informed #Thrombocytopenia/macrocytic anemia -likely due to Etoh/chronic -stable, iron OK -B vitamins #Frostbite: (admitted by trauma service) -no surgical intervention at this time, discussed with Dr Whitney -Treat pain with PRN oxycodone, APAP -Has nerve-component, but has had 'bad reaction' to Neurontin in past -appreciate wound care assistance #Hypothermia: s/p re-warming -procardia/asa but stopped ASA today bc of anti coag treatment now #Tobacco abuse disorder >40 pkyr -Cessation counseling provided 09/19 but not interested at this time -nicotine patch #Acute hypoxic resp failure: resolved #Cough/LILLY -resolved with Lasix -nl echo #Deconditioning: PT #Scabies/lice, s/p dose permethrin topical -Benadryl/hydroxyzine prn -ivermectin PO -contact precautions removed per ID #Hypokalemia: resolved Plan: [facility]position will be to [facility] as soon as this can be arranged and as soon as the patient is off alcohol. He may require an antipsychotic medication and should the escalate with anxiety or delusions then perhaps I prox would be a good choice in this gentleman. Will watch this on a day-to-day basis. Case has been discussed with case management and with nursing. Time: 40 min Subjective: Reports he still has pain in his toes. No complaints of chest pain or shortness of breath. Nursing reports it time seems delusional although it is unclear whether he is truly delusional. He is not anxious at this point Objective: Vital Signs Temp Pulse Resp BP Pulse Ox 36.6 C 84 16 98/62 L 97 09/25/17 14:00 09/25/17 14:00 09/25/17 14:00 09/25/17 14:00 09/25/17 14:00 Laboratory Results 09/23/17 04:21 09/23/17 04:21 09/24/17 09/25/17 09/26/17 05:59 05:59 05:59 Intake Total 300 100 100 Output Total 900 1500 Balance -600 -1400 100 PT 21.5 SEC (12.0-15.0) H 09/25/17 05:10 INR 1.86 (0.83-1.16) H 09/25/17 05:10 - Time Spent With Patient Time Spent with Patient: greater than 35 minutes Time Spent with Patient: Greater than 35 minutes spent on this patients care, greater than 50% of time spent counseling, educating, and coordinating care regarding the above mentioned plan. - Pending Discharge Pending Discharge Within 24 Hours: No Pending Discharge Within 48 Hours: No - Physical Exam Constitutional: no apparent distress, chronically ill appearing Eyes: PERRL, anicteric sclera Ears, Nose, Mouth, Throat: moist mucous membranes, hearing normal Cardiovascular: regular rate and rhythym, no murmur, rub, or gallop Respiratory: no respiratory distress, no rales or rhonchi, clear to auscultation Gastrointestinal: normoactive bowel sounds, soft, non-tender abdomen, no palpable masses Genitourinary: no bladder fullness Skin: warm Musculoskeletal: other (Cross bite images previously noted on both feet. There is no signs of cellulitis. The toes are auto amputating) Neurologic: AAOx3, CN II-XII Intact Psychiatric: interacting appropriately, other (Quiet and somewhat slow to respond but he is appropriate in his responses.) ICD10 Worksheet Patient Problems: Problems Problem Status Onset Peritonitis Active Bacteremia Active Alcohol withdrawal Acute Weakness of left upper extremity Acute Neuropathy of left radial nerve Acute Cellulitis Acute Alcohol withdrawal syndrome with complication Acute Cellulitis and abscess of leg Acute Alcoholic intoxication Acute Head injury Acute Scabies Acute Hypothermia Acute Altered mental status Acute Hypothermia Acute Thrombocytopenia Acute Alcoholism /alcohol abuse Acute Frostbite of both feet Acute DVT of upper extremity (deep vein thrombosis) Acute Staphylococcus aureus sepsis Acute Alcoholic intoxication Acute Respiratory failure Acute
[2017-09-25] MEDS ORDERED: LACTULOSE 20 GM/30 ML UDCUP PO PRN (15:23)
[2017-09-25] MEDS ORDERED: MAGNESIUM HYDROXIDE 30 ML UDCUP PO PRN (15:23)
[2017-09-25] MEDS ORDERED: BISACODYL 10 MG SUPP PR PRN (15:23)
[2017-09-25] MEDS ORDERED: WARFARIN SODIUM 2.5 MG TAB PO ONE (16:00)
[2017-09-25] MEDS: SENNOSIDES/DOCUSATE SODIUM TAB PO SCH (21:35)
--- NOTE | 2017-09-25 23:28 | TRAUMAPN ---
- Problem/Surgery Performed (1) Alcoholism /alcohol abuse Assessment/Plan: no evidence of withdrawal on maintenance EtOH (2) Frostbite of both feet Assessment/Plan: stable to improved/superficial eschar separation with viable tissue underneath anticipate full recovery with time (3) DVT of upper extremity (deep vein thrombosis) Assessment/Plan: Started on Lovenox 1mg/kg BID no clinical signs of phlegmasia cerrulia dolens Qualifiers: Affected thrombotic vein of extremity: axillary Chronicity: acute Laterality: left Qualified Code(s): I82.A12 - Acute embolism and thrombosis of left axillary vein Assessment/Plan: admitted to trauma service for management of hypothermia-resolved bilateral distal toe frostbite alcoholism LUE DVT without compromise MSSA sepsi-discussed with Dr. Syed Rec: local wound care for frostbite/anticoagulation for LUE DVT x 6 weeks Abx. per ID CM follow up for watermaster placment Subjective: up ambulating in his room with walker Objective: Vital Signs Temp Pulse Resp BP Pulse Ox 36.6 C 77 16 110/64 92 09/25/17 22:58 09/25/17 22:58 09/25/17 22:58 09/25/17 22:58 09/25/17 22:58 Laboratory Results 09/23/17 04:21 09/23/17 04:21 09/24/17 09/25/17 09/26/17 05:59 05:59 05:59 Intake Total 300 100 725 Output Total 900 1500 Balance -600 -1400 725 PT 21.5 SEC (12.0-15.0) H 09/25/17 05:10 INR 1.86 (0.83-1.16) H 09/25/17 05:10 - C-Spine Clearance Cervical Spine Cleared: Yes Provider who Cleared Cervical Spine: Romemls Physical Exam - Physical Exam General Appearance: alert, mild distress Cardiac/Chest: regular rate, rhythm Abdomen: non-tender, soft Extremities: other (LUE swelling improved/bilateral toe frosbite R>L with superficial eschar formation/decrease swelling)
[2017-09-26] MEDS: ceFAZolin 2 GM/DEXTROSE 100 ML IV SCH ×3 (05:10→22:23)
[2017-09-26 05:34] LABS: INR 1.84 (0.83-1.16); PROTIME(PATIENT) 21.3 SEC (12.0-15.0)
[2017-09-26] MEDS: POLYETHYLENE GLYCOL 3350 17 GM PKT PO PRN (07:30)
[2017-09-26] MEDS: oxyCODONE IR 5 MG TAB PO PRN ×3 (07:30→20:22)
[2017-09-26] MEDS: VODKA 50 ML BOTTLE PO SCH ×2 (09:55→20:09)
[2017-09-26] MEDS: SENNOSIDES/DOCUSATE SODIUM TAB PO SCH ×2 (09:56→20:09)
[2017-09-26] MEDS: THIAMINE HCL 100 MG TAB PO SCH (09:56)
[2017-09-26] MEDS: clonazePAM 1 MG TAB PO SCH ×2 (09:56→20:09)
[2017-09-26] MEDS: NIFEdipine ER 30 MG TAB PO SCH (09:56)
[2017-09-26] MEDS: NICOTINE 21 MG/24 HR PATCH TD SCH (09:56)
[2017-09-26] MEDS: ENOXAPARIN 80 MG/0.8 ML SYR SC SCH ×2 (09:56→20:10)
[2017-09-26] MEDS: FOLIC ACID 1 MG TAB PO SCH (09:57)
[2017-09-26] MEDS: MULTIVITAMINS 1 EACH TAB PO SCH (09:57)
[2017-09-26] MEDS: diphenhydrAMINE 25 MG CAP PO PRN (12:50)
--- NOTE | 2017-09-26 14:40 | HOSPPROG ---
Hospitalist Progress Note Assessment/Plan: 57 yo male with hx of alcoholism admitted with frostbite to bilateral toes and Hypothermia. Hospitalist consulted for medical management. Sepsis due to line infection with MSSA complicated by septic thrombophlebitis of the left upper arm. Last fever was on 09/20. Patient continues to be ambulatory with protective boots. He is afebrile and undergoes daily dressing changes. He is slowly and persistently improving. He complains of persistent itching secondary to the scabies infestations which has been treated but the itching this will persist for probably another 2 weeks. He is vodka ETOH is being decreased as he cannot be placed if he is taking alcohol. The toes are slowly improving although that he continued to be painful. #MSSA Bacteremia/sepsis- now improving/afebrile -echo nl -ID involved, 4 weeks of antibiotics or plan. Last antibiotic will be on October 18 -likely source is left arm cellulitis/thrombophlebitis and PICC -repeat Bd cultures have been no growth today. # LUE DVT -increase lovenox to BID -start coumadin, pharmacy to dose, INR today 1.8 will continue Lovenox #Etoh abuse -considering detox, patient denies he has an alcoholic although he requests that we continue his vodka. Vodka is been diminished to 10 mL twice daily today and will be stopped or diminished tomorrow -Klonopin increased today to 2 mg twice daily -says he thinks he has bipolar, has been on 'lots of meds before', but doesn't recall SSRI names, consider trial; Simran Bush his seen for psychiatry but will not complete her report until 09/28 -revwd with CM; [facility] will accept the these off alcohol so the alcohol will be diminished and then stop. Patient has been informed #Thrombocytopenia/macrocytic anemia -likely due to Etoh/chronic -stable, iron OK -B vitamins #Frostbite: (admitted by trauma service) -no surgical intervention at this time, discussed with Dr Whitney -Treat pain with PRN oxycodone, APAP -Has nerve-component, but has had 'bad reaction' to Neurontin in past -appreciate wound care assistance; surgery has seen and notes that it is healing well. #Hypothermia: s/p re-warming -procardia/asa but stopped ASA today bc of anti coag treatment now #Tobacco abuse disorder >40 pkyr -Cessation counseling provided 09/19 but not interested at this time -nicotine patch #Acute hypoxic resp failure: resolved #Deconditioning: PT #Scabies/lice, s/p dose permethrin topical -Benadryl/hydroxyzine prn -ivermectin PO -contact precautions removed per ID Plan: Disposition will be to [facility] as soon as this can be arranged and as soon as the patient is off alcohol. He may require an antipsychotic medication and should the escalate with anxiety or delusions respite all may be a good choice for this gentleman. Currently he is doing well on Klonopin. Will watch this on a day-to-day basis. Case has been discussed with case management and with nursing. Time: 40 min Subjective: Reports he has some pain in the toes and continues to have itching. His left axillary region is also reported to be itching. Denies fever cough shortness of breath or chest pain. He is eating well and ambulates with a protective boots well. Objective: Vital Signs Temp Pulse Resp BP Pulse Ox 36.9 C 70 16 113/66 95 09/26/17 07:05 09/26/17 07:05 09/26/17 07:05 09/26/17 09:56 09/26/17 07:05 Microbiology 09/21/17 07:45 Blood Culture - Final Blood Laboratory Results 09/23/17 04:21 09/23/17 04:21 09/25/17 09/26/17 09/27/17 05:59 05:59 05:59 Intake Total 100 725 Output Total 1500 750 Balance -1400 725 -750 PT 21.3 SEC (12.0-15.0) H 09/26/17 05:10 INR 1.84 (0.83-1.16) H 09/26/17 05:10 - Time Spent With Patient Time Spent with Patient: greater than 35 minutes Time Spent with Patient: Greater than 35 minutes spent on this patients care, greater than 50% of time spent counseling, educating, and coordinating care regarding the above mentioned plan. - Pending Discharge Pending Discharge Within 24 Hours: No Pending Discharge Within 48 Hours: No - Physical Exam Constitutional: no apparent distress, chronically ill appearing Eyes: PERRL, anicteric sclera Ears, Nose, Mouth, Throat: moist mucous membranes, hearing normal Cardiovascular: regular rate and rhythym, no murmur, rub, or gallop Respiratory: no respiratory distress, no rales or rhonchi Gastrointestinal: normoactive bowel sounds, soft, non-tender abdomen, no palpable masses Genitourinary: no bladder fullness Skin: warm Musculoskeletal: other (Left upper extremity and the upper arm shows a palpable cord without tenderness or erythema.) Neurologic: AAOx3, CN II-XII Intact Psychiatric: interacting appropriately, flat affect ICD10 Worksheet Patient Problems: Problems Problem Status Onset Peritonitis Active Bacteremia Active Alcohol withdrawal Acute Weakness of left upper extremity Acute Neuropathy of left radial nerve Acute Cellulitis Acute Alcohol withdrawal syndrome with complication Acute Cellulitis and abscess of leg Acute Alcoholic intoxication Acute Head injury Acute Scabies Acute Hypothermia Acute Altered mental status Acute Hypothermia Acute Thrombocytopenia Acute Alcoholism /alcohol abuse Acute Frostbite of both feet Acute DVT of upper extremity (deep vein thrombosis) Acute Staphylococcus aureus sepsis Acute Alcoholic intoxication Acute Respiratory failure Acute
[2017-09-26] MEDS ORDERED: WARFARIN SODIUM 4 MG TAB PO SCH (16:00)
--- NOTE | 2017-09-26 20:52 | SOAPPROG ---
SOAP Progress Note Assessment/Plan: Assessment: Plan: Objective: Vital Signs Temp Pulse Resp BP Pulse Ox 36.6 C 79 16 119/77 98 09/26/17 14:57 09/26/17 14:57 09/26/17 14:57 09/26/17 14:57 09/26/17 14:57 Microbiology 09/21/17 07:45 Blood Culture - Final Blood Laboratory Results 09/23/17 04:21 09/23/17 04:21 09/25/17 09/26/17 09/27/17 05:59 05:59 05:59 Intake Total 100 725 125 Output Total 1500 1000 Balance -1400 725 -875 PT 21.3 SEC (12.0-15.0) H 09/26/17 05:10 INR 1.84 (0.83-1.16) H 09/26/17 05:10 dressing changed, no infections near toes. cont present care ICD10 Worksheet Patient Problems: Problems Problem Status Onset Alcoholism /alcohol abuse Acute Altered mental status Acute DVT of upper extremity (deep vein thrombosis) Acute Frostbite of both feet Acute Hypothermia Acute Hypothermia Acute Staphylococcus aureus sepsis Acute Thrombocytopenia Acute Bacteremia Active Peritonitis Active Alcohol withdrawal Acute Alcohol withdrawal syndrome with complication Acute Alcoholic intoxication Acute Alcoholic intoxication Acute Cellulitis Acute Cellulitis and abscess of leg Acute Head injury Acute Neuropathy of left radial nerve Acute Respiratory failure Acute Scabies Acute Weakness of left upper extremity Acute
[2017-09-27] MEDS: ceFAZolin 2 GM/DEXTROSE 100 ML IV SCH ×3 (05:19→21:30)
[2017-09-27 05:36] LABS: INR 1.86 (0.83-1.16); PROTIME(PATIENT) 21.5 SEC (12.0-15.0)
[2017-09-27] MEDS: VODKA 50 ML BOTTLE PO SCH (07:25)
[2017-09-27] MEDS: POLYETHYLENE GLYCOL 3350 17 GM PKT PO PRN (07:26)
[2017-09-27] MEDS: NICOTINE 21 MG/24 HR PATCH TD SCH ×2 (07:26→07:27)
[2017-09-27] MEDS: clonazePAM 1 MG TAB PO SCH ×2 (07:27→20:49)
[2017-09-27] MEDS: THIAMINE HCL 100 MG TAB PO SCH (07:28)
[2017-09-27] MEDS: oxyCODONE IR 5 MG TAB PO PRN ×3 (07:28→20:49)
[2017-09-27] MEDS: NIFEdipine ER 30 MG TAB PO SCH (07:28)
[2017-09-27] MEDS: FOLIC ACID 1 MG TAB PO SCH (07:28)
[2017-09-27] MEDS: MULTIVITAMINS 1 EACH TAB PO SCH (07:28)
[2017-09-27] MEDS: SENNOSIDES/DOCUSATE SODIUM TAB PO SCH ×2 (07:29→20:49)
[2017-09-27] MEDS: ENOXAPARIN 80 MG/0.8 ML SYR SC SCH ×3 (07:30→20:49)
--- NOTE | 2017-09-27 10:09 | ASMTCMCOM ---
CM Note CM Note Notes: Chart reviewed. Spoke to patient's nurse who reports he is doing well without vodka but has some anxieties. Simran Bush RN to see tomorrow. Plan to BM at some point tomorrow. CM to follow. Date Signed: 09/27/2017 10:08 AM Electronically Signed By:Kate Dorantes RN
--- NOTE | 2017-09-27 12:09 | TRAUMAPN ---
Assessment/Plan: Multiple medical issues Hepatitis A, B, C and alcoholic Lice - resolved ETOH dependence Hypothermia - resolved Supportive care for frostbite - see wound care orders. No signs of infection - can follow up in wound healing center 1 week from discharge. I will see him 1- 2 x per week while in house S: Awake, worried about pain control Dry gangrene. No evidence of infection. Some necrotic tissue has sloughed off with healthy tissue beneath 09/22/17 09:07 Objective: Vital Signs Temp Pulse Resp BP Pulse Ox 36.7 C 75 18 113/72 95 09/27/17 07:06 09/27/17 07:06 09/27/17 07:06 09/27/17 07:06 09/27/17 07:06 Microbiology 09/21/17 08:05 Blood Culture - Final Blood 09/21/17 07:45 Blood Culture - Final Blood Laboratory Results 09/23/17 04:21 09/23/17 04:21 09/26/17 09/27/17 09/28/17 05:59 05:59 05:59 Intake Total 725 125 Output Total 1900 200 Balance 725 -1775 -200 PT 21.5 SEC (12.0-15.0) H 09/27/17 05:20 INR 1.86 (0.83-1.16) H 09/27/17 05:20 - C-Spine Clearance Cervical Spine Cleared: Yes Provider who Cleared Cervical Spine: Devonte Physical Exam - Physical Exam General Appearance: WD/WN, alert, no apparent distress EENT: PERRL/EOMI, normal ENT inspection, No scleral icterus (R), No scleral icterus (L), No hearing deficit Neck: non-tender, full range of motion Respiratory: chest non-tender, lungs clear, normal breath sounds Cardiac/Chest: regular rate, rhythm
[2017-09-27] MEDS: diphenhydrAMINE 25 MG CAP PO PRN ×2 (13:27→20:49)
[2017-09-27] MEDS ORDERED: WARFARIN SODIUM 4 MG TAB PO SCH (16:00)
[2017-09-27] MEDS: IBUPROFEN 600 MG TAB PO SCH ×2 (16:31→20:48)
--- NOTE | 2017-09-27 16:37 | HOSPPROG ---
Hospitalist Progress Note Assessment/Plan: 57 yo male with hx of alcoholism admitted with frostbite to bilateral toes and Hypothermia. Hospital Medicine was consulted initially but now we are primary on the case. Sepsis due to line infection with MSSA complicated by septic thrombophlebitis of the left upper arm. Last fever was on 09/20. Patient continues to be ambulatory with protective boots. He is afebrile and undergoes daily dressing changes. He is slowly and persistently improving. He complains of persistent itching secondary to the scabies infestations which has been treated but the itching this will persist for probably another 2 weeks. He's vodka ETOH is being decreased as he cannot be placed if he is taking alcohol: Vodka was stopped today. The toes are slowly improving although that he continued to be painful. #MSSA Bacteremia/sepsis- now improving/afebrile -echo nl -ID involved, 4 weeks of antibiotics or plan. Last antibiotic will be on October 18 -likely source is left arm cellulitis/thrombophlebitis and PICC -repeat Bd cultures have been no growth today. # LUE DVT -increase lovenox to BID -start coumadin, pharmacy to dose, INR today 1.8 will continue Lovenox #Etoh abuse -considering detox, patient denies he has an alcoholic although he requests that we continue his vodka. Vodka was stopped today without clear signs of withdrawal. -Klonopin increased today to 2 mg twice daily -says he thinks he has bipolar, has been on 'lots of meds before', but doesn't recall SSRI names, consider trial; Simran Bush his seen for psychiatry but will not complete her report until 09/28 -revwd with LEIF Haney will accept the these off alcohol so the alcohol will be diminished and then stop. Patient has been informed # new problem: Pain management. SI am decreasing the vodka the gentleman's now asking for oxycodone more frequently. I increased the dosing to q.6 hours from q.4 hours and have added ibuprofen. He has no history of GI bleeding. I suggest we continued to decrease his narcotic use in needs. #Thrombocytopenia/macrocytic anemia -likely due to Etoh/chronic -stable, iron OK -B vitamins #Frostbite: (admitted by trauma service) -no surgical intervention at this time, discussed with Dr Whitney -Treat pain with PRN oxycodone, APAP -Has nerve-component, but has had 'bad reaction' to Neurontin in past -appreciate wound care assistance; surgery has seen and notes that it is healing well. #Hypothermia: s/p re-warming -procardia/asa but stopped ASA today bc of anti coag treatment now #Tobacco abuse disorder >40 pkyr -Cessation counseling provided 09/19 but not interested at this time -nicotine patch #Acute hypoxic resp failure: resolved #Deconditioning: PT #Scabies/lice, s/p dose permethrin topical -Benadryl/hydroxyzine prn -ivermectin PO -contact precautions removed per ID Plan: Disposition will be to [facility] as soon as this can be arranged and as soon as the patient is off alcohol. He may require an antipsychotic medication and should the escalate with anxiety or delusions respite all may be a good choice for this gentleman. Currently he is doing well on Klonopin though now he is asking for more oxycodone. Disposition: Possible discharge to [facility] in 1-2 days; the [facility] with Dr. Saucedo will follow the toes; he will require IV antibiotics at [facility] until October 18 Case discussed with surgery and Dr. Sloane Gamboa Time: 40 min Subjective: Reports he wants the oxycodone every 4 hr not every 6 hr. He denies these an addict and he denies that he is addicted to alcohol. No complaints of chest pain shortness of breath agitation sweating nausea or vomiting Objective: Vital Signs Temp Pulse Resp BP Pulse Ox 36.3 C 87 16 105/63 95 09/27/17 15:35 09/27/17 15:35 09/27/17 15:35 09/27/17 15:35 09/27/17 15:35 Microbiology 09/21/17 08:05 Blood Culture - Final Blood Laboratory Results 09/23/17 04:21 09/23/17 04:21 09/26/17 09/27/17 09/28/17 05:59 05:59 05:59 Intake Total 725 125 Output Total 1900 200 Balance 725 -1775 -200 PT 21.5 SEC (12.0-15.0) H 09/27/17 05:20 INR 1.86 (0.83-1.16) H 09/27/17 05:20 - Time Spent With Patient Time Spent with Patient: greater than 35 minutes Time Spent with Patient: Greater than 35 minutes spent on this patients care, greater than 50% of time spent counseling, educating, and coordinating care regarding the above mentioned plan. - Pending Discharge Pending Discharge Within 24 Hours: No Pending Discharge Within 48 Hours: No - Physical Exam Constitutional: no apparent distress, chronically ill appearing Eyes: PERRL, anicteric sclera Ears, Nose, Mouth, Throat: moist mucous membranes, hearing normal Cardiovascular: regular rate and rhythym, no murmur, rub, or gallop Respiratory: no respiratory distress, no rales or rhonchi, clear to auscultation Gastrointestinal: normoactive bowel sounds, soft, non-tender abdomen, no palpable masses Genitourinary: no bladder fullness Skin: warm Musculoskeletal: other (Toes are auto amputating he in the usual fashion without signs of cellulitis. Left upper extremity shows an area of induration and a palpable cord consistent with his prior upper extremity DVT the area is non erythematous.) Neurologic: AAOx3, CN II-XII Intact Psychiatric: other (He perseverates about ideas and has a persistent way of asking for narcotics claiming they are not drugs or narcotics but medications. ) ICD10 Worksheet Patient Problems: Problems Problem Status Onset Alcoholism /alcohol abuse Acute Altered mental status Acute DVT of upper extremity (deep vein thrombosis) Acute Frostbite of both feet Acute Hypothermia Acute Hypothermia Acute Staphylococcus aureus sepsis Acute Thrombocytopenia Acute Bacteremia Active Peritonitis Active Alcohol withdrawal Acute Alcohol withdrawal syndrome with complication Acute Alcoholic intoxication Acute Alcoholic intoxication Acute Cellulitis Acute Cellulitis and abscess of leg Acute Head injury Acute Neuropathy of left radial nerve Acute Respiratory failure Acute Scabies Acute Weakness of left upper extremity Acute
[2017-09-28] MEDS: ceFAZolin 2 GM/DEXTROSE 100 ML IV SCH ×3 (05:44→22:32)
[2017-09-28] MEDS: IBUPROFEN 600 MG TAB PO SCH ×4 (05:44→22:34)
[2017-09-28 06:15] LABS: INR 1.86 (0.83-1.16); PROTIME(PATIENT) 21.5 SEC (12.0-15.0)
[2017-09-28] MEDS: NICOTINE 21 MG/24 HR PATCH TD SCH (08:21)
[2017-09-28] MEDS: ENOXAPARIN 80 MG/0.8 ML SYR SC SCH ×2 (08:23→22:32)
[2017-09-28] MEDS: SENNOSIDES/DOCUSATE SODIUM TAB PO SCH ×2 (08:24→22:33)
[2017-09-28] MEDS: MULTIVITAMINS 1 EACH TAB PO SCH (08:25)
[2017-09-28] MEDS: NIFEdipine ER 30 MG TAB PO SCH (08:25)
[2017-09-28] MEDS: THIAMINE HCL 100 MG TAB PO SCH (08:26)
[2017-09-28] MEDS: FOLIC ACID 1 MG TAB PO SCH (08:26)
[2017-09-28] MEDS: clonazePAM 1 MG TAB PO SCH (08:26)
[2017-09-28] MEDS: oxyCODONE IR 5 MG TAB PO PRN ×4 (08:31→22:33)
[2017-09-28] MEDS: diphenhydrAMINE 25 MG CAP PO PRN ×2 (08:32→18:28)
--- NOTE | 2017-09-28 13:24 | ASMTCMCOM ---
CM Note CM Note Notes: [facility] he does not have withdrawal symptoms from etoh as well as confirmation his pain is well controlled with medication.[facility] is not taking patient's who require alcohol currently. Spoke with Nyasia at [facility] and sent her the medication update. She will be able to start considering patient tomorrow but says he is accepted when these requirements are met. Dr. Valladares is making medication adjustments today to better control patient's pain. Possible admit to [facility] tomorrow or Thursday. CM will follow. Date Signed: 09/28/2017 01:24 PM Electronically Signed By:Leatha Mckenzie LCSW
[2017-09-28] MEDS ORDERED: WARFARIN SODIUM 5 MG TAB PO ONE (16:00)
--- NOTE | 2017-09-28 16:38 | HOSPPROG ---
Hospitalist Progress Note Assessment/Plan: * Bilateral frostbite - dry gangrene -supportive care - f/u wound care clinic 1 week -pain control an ongoing issue - increase oxycodone * MSSA sepsis due to line infection -IV Vanco through 10/18 -ECHO negative for endocarditis * Septic thrombophlebitis LUE - DVT -SubQ Lovenox until INR > 2 * Etoh dependence -weaned off Etoh * Scabies s/p permethrin and oral ivermectin -persistent itching as anticipated * PTSD - extensive childhood trauma -prn valium * Hypothermia s/p rewarming * Tobacco dependence - patch * Hep C Subjective: c/o poor pain control since oxycodone reduced. Doesn't like the way he feels on clonopin - prefers valium Interested in quitting etoh. Objective: Vital Signs Temp Pulse Resp BP Pulse Ox 36.5 C 94 14 121/84 H 95 09/28/17 15:05 09/28/17 15:05 09/28/17 15:05 09/28/17 15:05 09/28/17 15:05 Laboratory Results 09/23/17 04:21 09/23/17 04:21 09/27/17 09/28/17 09/29/17 05:59 05:59 05:59 Intake Total 125 165 Output Total 1900 1100 Balance -1775 -935 PT 21.5 SEC (12.0-15.0) H 09/28/17 05:32 INR 1.86 (0.83-1.16) H 09/28/17 05:32 CXR viewed, my personal interpretation is - negative US of LUE - extensive upper extremity superficial and deep DVT - Physical Exam Constitutional: no apparent distress, appears nourished, not in pain Cardiovascular: regular rate and rhythym, no murmur, rub, or gallop Respiratory: no respiratory distress, no rales or rhonchi, clear to auscultation Gastrointestinal: normoactive bowel sounds, soft, non-tender abdomen, no palpable masses Skin: no rashes or abrasions, no fluctuance, no induration Neurologic: AAOx3, sensation intact bilaterally Psychiatric: interacting appropriately, not anxious, not encephalopathic, thought process linear ICD10 Worksheet Patient Problems: Problems Problem Status Onset Alcoholism /alcohol abuse Acute Altered mental status Acute DVT of upper extremity (deep vein thrombosis) Acute Frostbite of both feet Acute Hypothermia Acute Hypothermia Acute Staphylococcus aureus sepsis Acute Thrombocytopenia Acute Bacteremia Active Peritonitis Active Alcohol withdrawal Acute Alcohol withdrawal syndrome with complication Acute Alcoholic intoxication Acute Alcoholic intoxication Acute Cellulitis Acute Cellulitis and abscess of leg Acute Head injury Acute Neuropathy of left radial nerve Acute Respiratory failure Acute Scabies Acute Weakness of left upper extremity Acute
--- NOTE | 2017-09-28 20:02 | SOAPPROG ---
SOAP Progress Note Assessment/Plan: Assessment: HOMELESS MALE FOUND DOWN ASKED TO SEE FOR FROSTBITE HEENT OK CHEST CLEAR COR RR ABD SOFT, NONTENDER EXTR: MULTIPLE TOES WITH DISTAL TIP FROSTBITE INJURIES ON BOTH FEET, LEFT > RIGHT/ FULL PULSES FROSTBITE BUT SHOUL NOT RESULT IN SIGNIFICANT TISSUE LOSS Plan:ADD PROCARDIA/ ASA/ CAREFUL WOUND CARE 09/16/17 19:54 09/28/17 20:01 No real change today and his frostbite of both feet/eschar is demarcating particularly on both great toes Full pulses in feet are warm Still complains of significant pain Will add Neurontin and continue with wound care Objective: Vital Signs Temp Pulse Resp BP Pulse Ox 36.5 C 94 14 121/84 H 95 09/28/17 15:05 09/28/17 15:05 09/28/17 15:05 09/28/17 15:05 09/28/17 15:05 Laboratory Results 09/23/17 04:21 09/23/17 04:21 09/27/17 09/28/17 09/29/17 05:59 05:59 05:59 Intake Total 887 878 6202 Output Total 1900 1100 200 Balance -1775 -935 1480 PT 21.5 SEC (12.0-15.0) H 09/28/17 05:32 INR 1.86 (0.83-1.16) H 09/28/17 05:32 ICD10 Worksheet Patient Problems: Problems Problem Status Onset Alcoholism /alcohol abuse Acute Altered mental status Acute DVT of upper extremity (deep vein thrombosis) Acute Frostbite of both feet Acute Hypothermia Acute Hypothermia Acute Staphylococcus aureus sepsis Acute Thrombocytopenia Acute Bacteremia Active Peritonitis Active Alcohol withdrawal Acute Alcohol withdrawal syndrome with complication Acute Alcoholic intoxication Acute Alcoholic intoxication Acute Cellulitis Acute Cellulitis and abscess of leg Acute Head injury Acute Neuropathy of left radial nerve Acute Respiratory failure Acute Scabies Acute Weakness of left upper extremity Acute
[2017-09-28] MEDS: GABAPENTIN 300 MG CAP PO SCH ×2 (22:33→22:34)
[2017-09-28] MEDS: DIAZEPAM 5 MG TAB PO PRN (22:39)
[2017-09-29] MEDS: oxyCODONE IR 5 MG TAB PO PRN ×3 (05:20→15:20)
[2017-09-29] MEDS ORDERED: IVERMECTIN 3 MG TAB PO ONE (06:00)
[2017-09-29 06:11] LABS: INR 2.04 (0.83-1.16); PROTIME(PATIENT) 23.1 SEC (12.0-15.0)
[2017-09-29] MEDS: ceFAZolin 2 GM/DEXTROSE 100 ML IV SCH ×2 (07:16→13:53)
[2017-09-29] MEDS: IBUPROFEN 600 MG TAB PO SCH (07:17)
[2017-09-29 07:57] VITALS: BP 102/76; PULSE 83; RESP 18; TEMP 97.8; O2SAT 98
[2017-09-29] MEDS ORDERED: IBUPROFEN 600 MG TAB PO PRN (08:33)
[2017-09-29] MEDS: THIAMINE HCL 100 MG TAB PO SCH (09:20)
[2017-09-29] MEDS: SENNOSIDES/DOCUSATE SODIUM TAB PO SCH (09:20)
[2017-09-29] MEDS: NIFEdipine ER 30 MG TAB PO SCH (09:20)
[2017-09-29] MEDS: GABAPENTIN 300 MG CAP PO SCH (09:20)
[2017-09-29] MEDS: MULTIVITAMINS 1 EACH TAB PO SCH (09:21)
[2017-09-29] MEDS: FOLIC ACID 1 MG TAB PO SCH (09:21)
[2017-09-29] MEDS: DIAZEPAM 5 MG TAB PO PRN (09:34)
--- NOTE | 2017-09-29 10:59 | WOCRNPDOC ---
CHRISTINE Advanced Assessment Note - Skin Integrity Problem, Advanced Assess Right Toe Dressing Type: Kerlix, Mepilex Transfer Dressing Description: Intact, Shadowed Exudate Amount: Minimal Exudate Color: Reddish/Yellow Exudate Characteristic(s): Serosanguinous Integumentary Issue Intervention: Dressing Changed Ofelia Wound Tissue: Swollen, Dry Ofelia Wound Swelling: Mild Wound Bed Color: Black, Red Wound Bed Constitution: Granulation Tissue (30%), Stable Eschar (70%) Site Odor: None Skin Integrity Problem Comment: Areas of granulating tissue beginning to emerge from under the eschar on patient's R great toe, 2nd toe, and 4th toe. Necrosis now appears to be more superficial than previously thought. Remaining eschar continues to be dry, stable. Plan is to continue w/ Betadine swabs to the areas of eschar to keep it dry, w/ Telfa over the toes to prevent Kerlix from sticking. Left Toe Dressing Type: Kerlix, Mepilex Transfer Dressing Description: Intact Exudate Amount: None Exudate Characteristic(s): None Integumentary Issue Intervention: Dressing Changed Ofelia Wound Tissue: Erythema, Scaly Ofelia Wound Swelling: Mild Wound Bed Color: Black Wound Bed Constitution: Stable Eschar Site Odor: None Skin Integrity Problem Comment: Stable, dry eschar noted to L great toe, 3rd toe , and 5th toe, w/ no fluctuance palpated. Periwound skin is dry, peeling, no erythema or significant swelling. Previous dressing had adhered to the eschar, so I added a Telfa layer per the order to help prevent this. Continue w/ current tx. Right Posterior Heel Dressing Type: Open to Air Exudate Amount: None Exudate Characteristic(s): None Ofelia Wound Tissue: Blanching, Intact Ofelia Wound Swelling: None Wound Bed Color: Black Wound Bed Constitution: Intact Sanguineous Blister (reabsorbing) Site Odor: None Pressure Injury Stage: Deep Tissue Injury (DTI) Skin Integrity Problem Comment: Previously intact, ecchymotic blister to R heel is now blackened tissue, still intact, non-fluctuant. Patient and nursing both under the impression that this wound (and the wound on the left heel) is due to frostbite, but this wound is a pressure injury. Patient refuses to wear off- loading boots, but has been somewhat compliant w/ floating heels on pillows. No need for dressing at this time, as the skin over this wound is intact. Left Posterior Heel Dressing Type: Open to Air Exudate Amount: None Exudate Characteristic(s): None Ofelia Wound Tissue: Blanching, Intact Ofelia Wound Swelling: None Wound Bed Color: Black Wound Bed Constitution: Intact Sanguineous Blister Pressure Injury Stage: Deep Tissue Injury (DTI) Pressure Injury Present on Admit: No Skin Integrity Problem Comment: Previously intact, sanguinous blister now reabsorbing, hardening. Nursing had painted this tissue w/ Betadine, so it was difficult to assess the color. No fluctuance plapated, and the hope is that the overlying tissue will remain intact. Wound care will continue to monitor.
--- NOTE | 2017-09-29 12:19 | SOAPPROG ---
SOAP Progress Note Assessment/Plan: Assessment:HOMELESS MALE FOUND DOWN ASKED TO SEE FOR FROSTBITE HEENT OK CHEST NO WOB ABD SOFT, NONTENDER EXTR: JUST DRESSED, BUT EXAMINED DIRECTLY LAST NIGHT AND REVIEWED PHOTOS WITH VEHICLE BODY MAKER. MULTIPLE TOES WITH DISTAL TIP FROSTBITE INJURIES ON BOTH FEET, LEFT > RIGHT/ STARTING TO DEMARCATE. SEEN WITH DR MILLER EARLIER THIS AM. FROSTBITE, BUT SHOULD NOT RESULT IN SIGNIFICANT TISSUE LOSS Plan: ADDED PROCARDIA/ ASA/ CAREFUL WOUND CARE/ AWAIT FURTHER DEMARCATION 09/29/17 12:17 Objective: Vital Signs Temp Pulse Resp BP Pulse Ox 36.6 C 83 18 102/76 98 09/29/17 07:56 09/29/17 07:56 09/29/17 07:56 09/29/17 07:56 09/29/17 07:56 Laboratory Results 09/23/17 04:21 09/23/17 04:21 09/28/17 09/29/17 09/30/17 05:59 05:59 05:59 Intake Total 165 2680 Output Total 1100 700 Balance -935 1980 PT 23.1 SEC (12.0-15.0) H 09/29/17 05:30 INR 2.04 (0.83-1.16) H 09/29/17 05:30 ICD10 Worksheet Patient Problems: Problems Problem Status Onset Alcoholism /alcohol abuse Acute Altered mental status Acute DVT of upper extremity (deep vein thrombosis) Acute Frostbite of both feet Acute Hypothermia Acute Hypothermia Acute Staphylococcus aureus sepsis Acute Thrombocytopenia Acute Bacteremia Active Peritonitis Active Alcohol withdrawal Acute Alcohol withdrawal syndrome with complication Acute Alcoholic intoxication Acute Alcoholic intoxication Acute Cellulitis Acute Cellulitis and abscess of leg Acute Head injury Acute Neuropathy of left radial nerve Acute Respiratory failure Acute Scabies Acute Weakness of left upper extremity Acute
--- NOTE | 2017-09-29 14:11 | PDIAF ---
- Diagnosis Diagnosis: frostbite, septic thrombophlebitis Code Status: Full Code - Medication Management Discharge Medications: Medications to Continue on Transfer Diazepam [Valium 5 MG (*)] 5 mg PO Q6HRS PRN #20 tab 09/29/17 [Last Taken Unknown] Ibuprofen [Motrin (*)] 600 mg PO QID PRN #30 tab 09/29/17 [Last Taken Unknown] NIFEdipine ER [Adalat CC 30 mg (*)] 30 mg PO DAILY #30 tab 09/29/17 [Last Taken Unknown] Nicotine [Nicoderm Cq 21 mg (*)] 21 mg TD DAILY #7 patch 09/29/17 [Last Taken Unknown] Sennosides/Docusate Sodium [Senokot-S] 1 - 2 tab PO BID #60 tab 09/29/17 [Last Taken Unknown] Warfarin Sodium [Coumadin 5MG (*)] 5 mg PO DAILY16 #30 tab 09/29/17 [Last Taken Unknown] ceFAZolin 2 GM/DEXTROSE [Ancef 2 gm (Premix)] 2 gm IV Q8HRS #10 bag 09/29/17 [ Last Taken Unknown] diphenhydrAMINE [Benadryl 25 MG (*)] 25 mg PO Q6HRS PRN #20 cap 09/29/17 [Last Taken Unknown] oxyCODONE IR [Oxycodone Ir (*)] 5 - 15 mg PO Q4 PRN #30 tab 09/29/17 [Last Taken Unknown] Discharge Medications: Refer to the Discharge Home Medication list for PRN reason. PICC Care - Routine: Yes - Orders Services needed: Physical Therapy, Occupational Therapy Isolation Type: None Diet Recommendation: no restrictions on diet Diet Texture: Dysphagia 1 - Pureed, Thin Liquids Wound Care Instructions: Dressing for Left foot toes. BID and prn: 1.Clean between toes with NS and gauze (gently). 2. [place] all red and black areas with betadine swab (in clean supply room). Dressing for Right foot toes. BID and prn : 1.Clean between toes with NS and gauze (gently). 2. [place] all red and black areas with betadine swab (in clean supply room). 3. Weave mepilex transfer between the toes to keep them dry and seperated so they dont get moist and develop gangrene. 4. Cover lightly with telfa and then secure with either scooby , kerlix or netting, whatever is preferred. Patient to ambulate with post op boot without pressure on the toes on both feet. - Labs/Radiology PT/INR Date: 10/01/17 (2 x week) - Follow Up Care Current Providers and Referrals: [facility]aling Center,[facility] [Clinic] - follow up in 1 week (1 week from discharge) Patient,NotPresent [Unknown] - As per Instructions Sloane Gamboa MD [Medical Doctor] - follow up in 1 week (at [facility] wound care center)
--- NOTE | 2017-09-29 14:20 | PDIAF ---
- Diagnosis Diagnosis: frostbite, septic thrombophlebitis, MSSA bacteremia Code Status: Full Code - Medication Management Discharge Medications: Medications to Continue on Transfer Diazepam [Valium 5 MG (*)] 5 mg PO Q6HRS PRN #20 tab 09/29/17 [Last Taken Unknown] Ibuprofen [Motrin (*)] 600 mg PO QID PRN #30 tab 09/29/17 [Last Taken Unknown] NIFEdipine ER [Adalat CC 30 mg (*)] 30 mg PO DAILY #30 tab 09/29/17 [Last Taken Unknown] Nicotine [Nicoderm Cq 21 mg (*)] 21 mg TD DAILY #7 patch 09/29/17 [Last Taken Unknown] Sennosides/Docusate Sodium [Senokot-S] 1 - 2 tab PO BID #60 tab 09/29/17 [Last Taken Unknown] Warfarin Sodium [Coumadin 5MG (*)] 5 mg PO DAILY16 #30 tab 09/29/17 [Last Taken Unknown] ceFAZolin 2 GM/DEXTROSE [Ancef 2 gm (Premix)] 2 gm IV Q8HRS #10 bag 09/29/17 [ Last Taken Unknown] diphenhydrAMINE [Benadryl 25 MG (*)] 25 mg PO Q6HRS PRN #20 cap 09/29/17 [Last Taken Unknown] oxyCODONE IR [Oxycodone Ir (*)] 5 - 15 mg PO Q4 PRN #30 tab 09/29/17 [Last Taken Unknown] Usp Antibiotics: Ancef 2 g IV q.8 hours Usp Antibiotic Stop Date: 10/18/17 Discharge Medications: Refer to the Discharge Home Medication list for PRN reason. PICC Care - Routine: Yes - Orders Services needed: Physical Therapy, Occupational Therapy Isolation Type: None Diet Recommendation: no restrictions on diet Diet Texture: Dysphagia 1 - Pureed, Thin Liquids Wound Care Instructions: Dressing for Left foot toes. BID and prn: 1.Clean between toes with NS and gauze (gently). 2. [place] all red and black areas with betadine swab (in clean supply room). Dressing for Right foot toes. BID and prn : 1.Clean between toes with NS and gauze (gently). 2. [place] all red and black areas with betadine swab (in clean supply room). 3. Weave mepilex transfer between the toes to keep them dry and seperated so they dont get moist and develop gangrene. 4. Cover lightly with telfa and then secure with either scooby , kerlix or netting, whatever is preferred. Patient to ambulate with post op boot without pressure on the toes on both feet. - Labs/Radiology CBC w/diff Date: 09/30/17 (Weekly Q Thursday) CMP Date: 09/30/17 (Weekly Q Thursday) PT/INR Date: 10/01/17 (2 x week) Call or Fax Lab and Imaging Results to: Dr. Rivera, - Follow Up Care Current Providers and Referrals: Wound Healing Center,[facility] [Clinic] - follow up in 1 week (1 week from discharge) Sloane Gamboa MD [Medical Doctor] - follow up in 1 week (at [facility] wound care center) Patient,NotPresent [Unknown] - As per Instructions Burt Rivera MD [Medical Doctor] - 10/08/17 2:00 pm
[2017-09-29] MEDS ORDERED: WARFARIN SODIUM 2 MG TAB PO ONE (16:00)
--- NOTE | 2017-09-29 16:34 | ASMTCMCOM ---
CM Note CM Note Notes: Spoke with Cotton Lyndon who came to see patient today to do the final assessment before d/c. They approved patient for their etoh requirements. Patient requested 2 tshirts which he was provided. Patient d/c'ed to [facility] for continuation of his care with IV ABX. [facility] provided transporation. 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 Nurse was notified and she gave report to [facility]. Transfer of Care summary faxed to [facility]. No further needs at this time. Date Signed: 09/29/2017 04:34 PM Electronically Signed By:Leatha Mckenzie LCSW
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
== END 2017-09-29 15:30 | DRG 922 ==
LOC: EDUNIT# → F2N 11:02 → F3E 09-15 16:40
PROVIDERS: ADMIT Internal Medicine Pulmonary Disease; ATTEND Surgery
PROC: 0BH17EZ Insertion of Endotracheal Airway into Trachea, Via Natural or Artificial Opening (ICD-10-PCS; principal; 2017-09-12)
PROC: 5A1935Z Respiratory Ventilation, Less than 24 Consecutive Hours (ICD-10-PCS; principal; 2017-09-12)
PROC: 02HV33Z Insertion of Infusion Device into Superior Vena Cava, Percutaneous Approach (ICD-10-PCS; 2017-09-14)
PROC: 02HV33Z Insertion of Infusion Device into Superior Vena Cava, Percutaneous Approach (ICD-10-PCS; 2017-09-23)
DX: T68.XXXA Hypothermia, initial encounter (principal); A41.01 Sepsis due to Methicillin susceptible Staphylococcus aureus; T82.7XXA Infection and inflammatory reaction due to other cardiac and vascular devices, implants and grafts, initial encounter; I82.A12 Acute embolism and thrombosis of left axillary vein; T33.831A Superficial frostbite of right toe(s), initial encounter; T33.832A Superficial frostbite of left toe(s), initial encounter; I96 Gangrene, not elsewhere classified; F10.239 Alcohol dependence with withdrawal, unspecified; B18.2 Chronic viral hepatitis C; B86 Scabies; I80.8 Phlebitis and thrombophlebitis of other sites; D53.9 Nutritional anemia, unspecified; F43.10 Post-traumatic stress disorder, unspecified; F17.200 Nicotine dependence, unspecified, uncomplicated; Z59.0 Homelessness; Z23 Encounter for immunization
CPT/HCPCS: 80307; 82947-QW; 92507-GN; 92523-GN; 97116-GP; 97162-GP; 97166-GO; 97530-GO; 97530-GP; 97532-GO; 97535-GO; C1751; G0008; G0480; J0330; J0690; J1650; J1885; J1956; J2060; J2405; J2704; J3010; J3370; J3411; J3475

== ENCOUNTER → 2017-12-25 | Outpatient (CLI) | payer MEDICAID | LOC: FIMAGING 08:17 | DX: M86.8X7 Other osteomyelitis, ankle and foot (principal); T34.8 Frostbite with tissue necrosis of ankle, foot, and toe(s); G89.29 Other chronic pain; G90.50 Complex regional pain syndrome I, unspecified ==

== ENCOUNTER 2018-02-02 00:58 | Emergency (ER) | payer MEDICAID ==
[2018-02-02] MEDS ORDERED: CHLORDIAZEPOXIDE 25MG PREPK#6 BTL TAKEHOME ONE (00:59)
--- NOTE | 2018-02-02 01:09 | EDPHY ---
H & P Time Seen by Provider: 02/02/18 01:05 HPI/ROS: Chief Complaint: Medical clearance, alcohol intoxication HPI: 57-year-old male being brought in by EMS and police for medical clearance to [facility]. Patient has been drinking heavily tonight. Patient has a history of chronic alcoholism. Also has a history of homelessness and frostbite on his right foot. Patient is complaining of right foot pain which is been present since his frostbite September. He currently resides at [facility] but is not welcome back there because of his intoxicated state. He does have a history of significant alcohol withdrawal unusual requires Librium to get to his initial withdrawals. Denies any falls or injuries. He is awake alert. He is screaming but conversant. No obvious other signs of trauma. ROS: 10 point Review of Systems is negative except as noted in the HPI. PMH: Frostbite, Social History: No smoking, having alcohol Family History: non-contributory Physical Exam: Gen: Awake, Alert, No Distress, agitated, slurred speech, smells of alcohol HEENT: Nose: no rhinorrhea Eyes: PERRLA, EOMI Mouth: Moist mucosa Neck: Supple, no JVD Chest: nontender, lungs clear to auscultation Heart: S1, S2 normal, no murmur Abd: Soft, non-tender, no guarding Back: no CVA tenderness, no midline tenderness Ext: no edema, right foot has normally perfused well-appearing digits with no evidence of infection or necrosis. Skin: no rash Neuro: CN II-XII intact, Sensation grossly intact, Strength 5/5 in bilateral upper and lower extremities - Personal History Tetanus Vaccine Date: 2015 - Medical/Surgical History Hx Asthma: No Hx Chronic Respiratory Disease: No Hx Diabetes: No Hx Cardiac Disease: No Hx Renal Disease: No Hx Cirrhosis: No Hx Alcoholism: Yes Hx HIV/AIDS: No Hx Splenectomy or Spleen Trauma: No Other PMH: Polysubstance and etoh abuse, hepatitis(alcoholic, type A,B,and C), peripheral neuropathy,diastolic dysfunction,L1 comp. fx.,thrombocytopenia, - Social History Smoking Status: Current every day smoker Allergies/Adverse Reactions: chlordiazepoxide [From Librium] Allergy (Mild, Verified 09/12/17 23:30) Rash Home Medications: Medication Instructions Recorded Diazepam [Valium 5 MG (*)] 5 mg PO Q6HRS PRN #20 tab 09/29/17 Ibuprofen [Motrin (*)] 600 mg PO QID PRN #30 tab 09/29/17 NIFEdipine ER [Adalat CC 30 mg (*)] 30 mg PO DAILY #30 tab 09/29/17 Nicotine [Nicoderm Cq 21 mg (*)] 21 mg TD DAILY #7 patch 09/29/17 Sennosides/Docusate Sodium 1 - 2 tab PO BID #60 tab 09/29/17 [Senokot-S] Warfarin Sodium [Coumadin 5MG (*)] 5 mg PO DAILY16 #30 tab 09/29/17 ceFAZolin 2 GM/DEXTROSE [Ancef 2 2 gm IV Q8HRS #10 bag 09/29/17 gm (Premix)] diphenhydrAMINE [Benadryl 25 MG 25 mg PO Q6HRS PRN #20 cap 09/29/17 (*)] oxyCODONE IR [Oxycodone Ir (*)] 5 - 15 mg PO Q4 PRN #30 tab 09/29/17 Medical Decision Making ED Course/Re-evaluation: Patient being brought in for medical clearance for the [facility]. No obvious injuries. His old frostbite site looks very good. Will discharge with a Librium prepack. Patient is medically cleared for the [facility]. Departure - Departure Disposition: Law Enforcement/Court/[facility] Clinical Impression: Alcoholic intoxication Condition: Good Instructions: Alcohol Intoxication (ED), Lorazepam (By mouth) Referrals: NONE *PRIMARY CARE P,. [Primary Care Provider] - As per Instructions
[2018-02-02] MEDS ORDERED: LORazepam 2 MG/ML INJ ONE (01:10)
[2018-02-02] MEDS ORDERED: LORAZEPAM 1 MG PREPACK#4 BTL TAKEHOME ONE ×2 (01:11)
[2018-02-02] MEDS ORDERED: LORazepam 2 MG/ML INJ IM ONE (01:15)
[2018-02-02 01:33] VITALS: BP 130/0
== END 2018-02-02 01:35 ==
LOC: EDUNIT#
DX: F10.129 Alcohol abuse with intoxication, unspecified (principal); F17.200 Nicotine dependence, unspecified, uncomplicated; Z79.01 Long term (current) use of anticoagulants
CPT/HCPCS: J2060

== ENCOUNTER 2018-02-11 21:06 | Emergency (ER) | payer MEDICAID ==
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
[2018-02-11 21:24] VITALS: BP 118/76
== END 2018-02-11 21:28 ==
LOC: EDUNIT#
DX: F17.200 Nicotine dependence, unspecified, uncomplicated; Z79.01 Long term (current) use of anticoagulants

== ENCOUNTER 2018-02-12 17:39 | Emergency (ER) | payer MEDICAID ==
[2018-02-12 18:13] VITALS: BP 131/100
--- NOTE | 2018-02-12 18:56 | EDPHY ---
H & P Stated Complaint: FOOT PAIN COCCYX PAIN Time Seen by Provider: 02/12/18 18:48 HPI/ROS: Chief complaint: Right foot pain History of present illness: This is a 57-year-old male who presents for continued right foot pain. He has a long-standing history of right foot pain. He states the pain persists. He wants more help dealing with the pain. He has seen multiple providers for it. He was seen in this emergency department last night. No change since then the pain persists. No report of fevers. No new trauma. - Personal History Current Tetanus/Diphtheria Vaccine: Yes Tetanus Vaccine Date: 2015 - Medical/Surgical History Hx Asthma: No Hx Chronic Respiratory Disease: No Hx Diabetes: No Hx Cardiac Disease: No Hx Renal Disease: No Hx Cirrhosis: No Hx Alcoholism: Yes Hx HIV/AIDS: No Hx Splenectomy or Spleen Trauma: No Other PMH: Polysubstance and etoh abuse, hepatitis(alcoholic, type A,B,and C), peripheral neuropathy,diastolic dysfunction,L1 comp. fx.,thrombocytopenia, - Social History Smoking Status: Current every day smoker - Physical Exam Exam: General: Alert, nontoxic. Skin: Multiple wounds to the right foot, no evidence of active infection. Musculoskeletal: Difficulty moving the right foot. Vascular: Capillary refill brisk in the right foot. Neurologic: Sensation intact to right foot. Constitutional: Initial Vital Signs Temperature (C) 36.8 C 02/12/18 18:10 Heart Rate 72 02/12/18 18:10 Respiratory Rate 19 02/12/18 18:10 Blood Pressure 131/100 H 02/12/18 18:10 O2 Sat (%) 98 02/12/18 18:10 O2 Delivery Mode Room Air Allergies/Adverse Reactions: chlordiazepoxide [From Librium] Allergy (Mild, Verified 02/12/18 18:09) Rash Home Medications: Medication Instructions Recorded NK [No Known Home Meds] 02/12/18 Medical Decision Making ED Course/Re-evaluation: There is no acute change to his right foot pain. I have asked him to follow up with his doctors for further evaluation and care. He has the contact information as he pulled out their business cards in the emergency department from his pocket. Return precautions given. Departure - Departure Disposition: Home, Routine, Self-Care Clinical Impression: Foot pain, right Condition: Good Instructions: Acute Wounds (ED) Additional Instructions: Follow-up with your mri supervisor or surgeon for continued care If you need further help please call the emergency room at [phone] during the day and asked to speak with the oil field caser If your symptoms worsen or new symptoms develop you are welcome to return to the emergency room Referrals: NONE *PRIMARY CARE P,. [Primary Care Provider] - As per Instructions Jimena Saucedo, RN [Registered Nurse] - As per Instructions
== END 2018-02-12 18:59 | disposition home or self-care (01) ==
DX: M79.671 Pain in right foot (principal); F17.200 Nicotine dependence, unspecified, uncomplicated

== ENCOUNTER 2018-06-28 09:52 | Emergency (ER) | payer MEDICAID ==
--- NOTE | 2018-06-28 09:53 | EDPHY ---
H & P Time Seen by Provider: 06/28/18 10:01 Constitutional: Initial Vital Signs Temperature (C) 36.9 C 06/28/18 09:52 Heart Rate 92 06/28/18 09:52 Respiratory Rate 15 06/28/18 09:52 Blood Pressure 145/105 H 06/28/18 09:52 O2 Sat (%) 95 06/28/18 09:52 O2 Delivery Mode Room Air Allergies/Adverse Reactions: chlordiazepoxide [From Librium] Allergy (Mild, Verified 02/12/18 18:09) Rash Home Medications: Medication Instructions Recorded NK [No Known Home Meds] 02/12/18 Medical Decision Making - Diagnostics Imaging: I viewed and interpreted images myself ED Course/Re-evaluation: CHIEF COMPLAINT: Coughing blood HISTORY OF PRESENT ILLNESS: The patient is a transient 57 y/o male with a history of polysubstance abuse and hepatitis arriving from the [facility] complaining of coughing up blood onset this morning. He was at the [facility] for several days for detox. No chest pain, dyspnea, fever, abdominal pain, diarrhea, vomiting. No recent illness or trauma. REVIEW OF SYSTEMS: A comprehensive 10 system review of systems is otherwise negative aside from elements mentioned in the history of present illness and medical decision making. PHYSICAL EXAM: HR, BP, O2 Sat, RR. Temp noted General Appearance: Alert, well hydrated, appropriate, and non-toxic appearing. Disheveled. Head: Atraumatic without scalp tenderness or obvious injury Eyes: Pupils equal, round, reactive to light and accommodation, EOMI, no trauma , no injection. Nose: Atraumatic, no rhinorrhea, clear. Throat: There is no erythema or exudates, no lesions, normal tonsils, mucus membranes moist. Neck: Supple, nontender, no lymphadenopathy. Respiratory: No retractions, no distress, no wheezes, and no accessory muscle use. Lungs have expiratory wheezes and scattered rhonchi bilaterally. Cardiovascular: Regular rate and rhythm, no murmurs, rubs, or gallops. Good capillary refill all extremities. Gastrointestinal: Abdomen is soft, nontender, non-distended, no masses, no rebound, no guarding, no peritoneal signs. Musculoskeletal: Normal active ROM of all extremities, atraumatic. Neurological: Alert, appropriate, and interactive. The patient has non-focal cranial nerves, motor, sensory, and cerebellar exam. Skin: No rashes, good turgor, no nodules on palpation. Past medical history: History of hepatitis A,B,C; alcoholism; polysubstance abuse Past surgical history: Denies Family history: Noncontributory Social history: Recently discharged from the [facility]. Homeless. DIAGNOSTICS/PROCEDURES/CRITICAL CARE TIME: Chest x-ray: negative DIFFERENTIAL DIAGNOSIS: The differential diagnosis for the patient's cough and hypoxemia included but was not limited to pneumonia, myocardial infarction, acute mountain sickness, high altitude pulmonary edema, congestive heart failure , and pulmonary embolus. MEDICAL DECISION MAKING: This is a transient 57 y/o male who presents with a cough onset this morning. He has mild expiratory wheezes and scattered rhonchi bilaterally. He is hemodynamically stable and not hypoxemic. Plan for chest x-ray and symptom management. Duo neb and 10mg IV Decadron ordered. Patient is feeling improved after breathing treatment. He will be discharged with standard care and follow up instructions. Return precautions discussed. He is comfortable with this plan. - Data Points Medications Given: Discontinued Medications Albuterol/Ipratropium (Duoneb) 3 ml IH EDNOW ONE Stop: 06/28/18 10:03 Last Admin: 06/28/18 10:14 Dose: 3 ml Dexamethasone (Decadron Injection) 10 mg PO EDNOW ONE Stop: 06/28/18 10:04 Last Admin: 06/28/18 10:18 Dose: Not Given Dexamethasone (Decadron) 10 mg PO EDNOW ONE Stop: 06/28/18 10:10 Last Admin: 06/28/18 10:13 Dose: 10 mg Departure - Departure Disposition: Home, Routine, Self-Care Clinical Impression: Acute bronchitis Qualifiers: Bronchitis organism: other organism Qualified Code(s): J20.8 - Acute bronchitis due to other specified organisms Condition: Good Instructions: Acute Bronchitis (ED) Additional Instructions: Follow up with your primary care provider in the next 1-2 days for unimproved symptoms. Adult Pain & Fever Control: We recommend Acetaminophen (Tylenol) and Ibuprofen (Motrin,Advil) for pain and fever control. When fever is high or pain severe, both drugs can be used at the same time, but at different intervals. Please note the time differences. Your dose is: Acetaminophen 650mg every 4 to 6 hours Ibuprofen 600mg every 8 hours with food Note: do not take Acetaminophen with Hydrocodone (Vicodin, Lortab) or Oxycodone (Percocet). These medications also contain Acetaminophen. No more than 3000mg of Acetaminophen should be taken in 24 hours (for an adult). Referrals: [facility],. [Clinic] - As per Instructions Report Scribed for: Mino Hernandez Report Scribed by: Alecia Sequeira Date of Report: 06/28/18 Time of Report: 10:04
[2018-06-28] MEDS ORDERED: IPRATROPIUM/ALBUTEROL 3 ML DEYVIAL IH ONE (10:02)
[2018-06-28] MEDS ORDERED: DEXAMETHASONE 10 MG/ML VIAL PO ONE (10:03)
[2018-06-28] MEDS ORDERED: DEXAMETHASONE 4 MG TAB PO ONE (10:09)
[2018-06-28 10:40] VITALS: BP 153/91
== END 2018-06-28 10:56 | disposition home or self-care (01) ==
LOC: EDUNIT#
DX: J20.8 Acute bronchitis due to other specified organisms (principal)

== ENCOUNTER 2018-07-13 01:43 | Emergency (ER) | payer MEDICAID ==
[2018-07-13 01:53] VITALS: BP 143/109
[2018-07-13] MEDS ORDERED: CEPHALEXIN 500MG PREPACK#4 BTL TAKEHOME ONE (02:35)
[2018-07-13] MEDS ORDERED: CEPHALEXIN 500 MG CAP PO ONE (02:35)
--- NOTE | 2018-07-13 02:35 | EDPHY ---
H & P Stated Complaint: right foot pain Time Seen by Provider: 07/13/18 01:47 HPI/ROS: HPI The patient presents with foot pain on his right foot greater than left. He says he is homeless and walks a great deal and this is why his feet hurt. He is brought in by ambulance. He does not have any fever. He is also complaining of an itchy rash on his back which has been present for the last 1 week. He admits to heavy alcohol use though has not had a drink in about 12 hr. REVIEW OF SYSTEMS 10 systems were reviewed and negative with the exception of the elements mentioned in the history of present illness. PMHx: Hepatitis, multifactorial Soc Hx: Chronic alcohol abuse, homelessness PHYSICAL General Appearance: Alert, disheveled, poorly groomed Eyes: Pupils equal and round no pallor or injection ENT, Mouth: Mucous membranes moist Respiratory: There are no retractions, lungs are clear to auscultation Cardiovascular: Regular rate and rhythm Gastrointestinal: Abdomen is soft and non-tender, no masses, bowel sounds normal Neurological: A&O, moves all extremities Skin: Warm and dry, back with several patches of scaling skin with surrounding erythema Musculoskeletal: Neck is supple non tender Extremities: symmetrical, full range of motion , both feet are erythematous, most erythema is in web spaces, right great toe with superficial ulceration with no active drainage Psychiatric: Patient is oriented X 3, there is no agitation Source: Patient, EMS Exam Limitations: No limitations - Personal History Current Tetanus/Diphtheria Vaccine: Yes Current Tetanus Diphtheria and Acellular Pertussis (TDAP): Yes Tetanus Vaccine Date: 2015 - Medical/Surgical History Hx Asthma: No Hx Chronic Respiratory Disease: No Hx Diabetes: No Hx Cardiac Disease: No Hx Renal Disease: No Hx Cirrhosis: No Hx Alcoholism: Yes Hx HIV/AIDS: No Hx Splenectomy or Spleen Trauma: No Other PMH: Polysubstance and etoh abuse, hepatitis(alcoholic, type A,B,and C), peripheral neuropathy,diastolic dysfunction,L1 comp. fx.,thrombocytopenia, - Social History Smoking Status: Current every day smoker Constitutional: Initial Vital Signs Temperature (C) 36.6 C 07/13/18 01:51 Heart Rate 100 07/13/18 01:51 Respiratory Rate 16 07/13/18 01:51 Blood Pressure 143/109 H 07/13/18 01:51 O2 Sat (%) 92 07/13/18 01:51 O2 Delivery Mode Room Air Allergies/Adverse Reactions: chlordiazepoxide [From Librium] Allergy (Mild, Verified 07/13/18 01:53) Rash Home Medications: Medication Instructions Recorded Cephalexin [Keflex (*)] 500 mg PO Q6H #28 cap 07/13/18 Medical Decision Making Differential Diagnosis: 57-year-old male with homelessness, chronic alcohol abuse presents complaining of right foot pain. It appears that he is suffering from trench foot. I discussed wound care with him, better hygiene, changing socks daily. There may be a bacterial superinfection though it is difficult to tell. I will give him a course of Keflex. He is also complaining of itchy rash on his back which appears to be eczema to me. I will give him hydrocortisone for this. He does not appear to be in active withdrawal and will be discharged from the emergency department. Departure - Departure Disposition: Home, Routine, Self-Care Clinical Impression: Trench feet Qualifiers: Encounter type: initial encounter Laterality: unspecified laterality Qualified Code(s): T69.029A - Immersion foot, unspecified foot, initial encounter Alcohol intoxication Qualifiers: Complication of substance-induced condition: with delirium Qualified Code(s): F10.921 - Alcohol use, unspecified with intoxication delirium Eczema Qualifiers: Eczema type: other Qualified Code(s): L30.8 - Other specified dermatitis Condition: Good Instructions: Eczema (ED), Alcohol Intoxication (ED) Referrals: [facility],. [Clinic] - As per Instructions Prescriptions: Cephalexin [Keflex (*)] 500 mg PO Q6H #28 cap
[2018-07-13] MEDS ORDERED: HYDROCORTISONE 1% CREAM TP SCH (02:45)
== END 2018-07-13 02:57 | disposition home or self-care (01) ==
LOC: EDUNIT#
DX: T69.029A Immersion foot, unspecified foot, initial encounter (principal); X31.XXXA Exposure to excessive natural cold, initial encounter; F10.920 Alcohol use, unspecified with intoxication, uncomplicated; L30.8 Other specified dermatitis; K70.10 Alcoholic hepatitis without ascites; G62.9 Polyneuropathy, unspecified; I50.9 Heart failure, unspecified; F17.200 Nicotine dependence, unspecified, uncomplicated; Z59.0 Homelessness